=== PATIENT | female | born 1980 | race Caucasian/White ===

== ENCOUNTER → 2018-01-29 17:31 | Outpatient (CLI) | payer OTHER, SELFPAY ==
[2018-01-29 19:36] LABS: Chlamydia Trachomatis by PCR Negative (Negative); Neisserai gonorrhoeae by PCR Negative (Negative); Probe Check PASS; Sample Adequacy Control PASS; Specimen Processing Control PASS
[2018-02-04 07:54] LABS: HPV APTIMA, High Risk Negative (Negative)
== END ==
PROVIDERS: Family Provider Family Medicine; PCP Family Medicine; Visit Provider Nurse Practitioner Women's Health
DX: Z12.4 Encounter for screening for malignant neoplasm of cervix (principal); Z11.3 Encounter for screening for infections with a predominantly sexual mode of transmission
CPT/HCPCS: 87491; 87591; 88175; G0145

== ENCOUNTER 2018-03-16 19:49 | Emergency (ER) | payer OTHER, SELFPAY ==
[2018-03-16 19:51] VITALS: BP 155/106; PULSE 111; RESP 16; TEMP 37; O2SAT 100; BMI 31.1
[2018-03-16 20:02] VITALS: PULSE 80; RESP 20; O2SAT 100
[2018-03-16] MEDS: LORazepam 2 MG/ML Syringe 1 MG IV (20:28)
[2018-03-16] MEDS: 0.9% Normal Saline 1,000 ML 1000 ML IV (20:28)
[2018-03-16 20:29] VITALS: O2SAT 97
[2018-03-16 20:46] LABS: Absolute Lymphocyte Count 2.81 X10^3/ul (0.83-4.51); Basophil# 0.02 X10^3/uL; Basophil% 0.3 % (0-1); Eosinophil# 0.22 X10^3/uL; Eosinophils% 2.9 % (0-5); Hematocrit 36.3 % (37-47); Hemoglobin 11.9 g/dl (12.0-15.0); Lymphocyte # 2.81 X10^3/ul (4.0); Lymphocyte % 37.5 % (19-41); Mean Corp Hgb Conc 32.8 g/gl (32-36); Mean Corpuscular Hgb 28.7 pg (27.0-32.0); Mean Corpuscular Volume 87.5 fL (81-99); Mean Platelet Vol. 10.9 fl (6.2-12.0); Monocyte# 0.44 X10^3/uL; Monocyte% 5.9 % (0-10); Neutrophil % 53.3 % (47-70); Platelet Count 201 K/mm3 (150-450); RBC Distribution Width CV 14.4 % (11.6-14.6); RBC Distribution Width SD 45.7 fl (35.1-43.9); Red Blood Count 4.15 M/mm3 (4.2-5.4); White Blood Count 7.5 K/mm3 (4.4-11.0)
[2018-03-16 20:47] LABS: Differential Indicated SCAN CRITERIA MET; POSITIVE COUNT NO; POSITIVE DIFFERENTIAL NO; POSITIVE MORPHOLOGY YES
[2018-03-16 21:06] LABS: Differential Comment SCANNED
[2018-03-16 21:07] LABS: Anion Gap 11 (5-15); BUN 6 mg/dL (7-18); BUN/Creat Ratio 8.9 RATIO (10-20); Calcium,Total 8.7 mg/dL (8.5-10.1); Chloride 110 mmol/L (98-107); Creatinine, Serum 0.68 mg/dL (0.55-1.02); EST Glomerular Filtration Rate 103 mL/min (>60); Est Glom Filt Rate - Afr Amer 124 mL/min (>60); Estimated Creatinine Clearance 99.95 ml/min; Glucose 88 mg/dL (74-106); Potassium 3.7 mmol/L (3.5-5.1); Sodium Level 144 mmol/L (136-145); Thyroid Stim Hormone (TSH) 1.52 uIU/mL (0.358-3.74)
[2018-03-16 21:12] LABS: Pregnancy, Serum, hCG Quali. NEGATIVE Negative (0-9 Nonpreg)
--- NOTE | 2018-03-16 21:28 | ED.DCSUM_ITS ---
- ER Visit Summary Date of Service: 03/16/18 Chief Complaint: Palpitations History of Present Illness: The patient is a [address] Amado and Dr. Cordova. She reports that she has had palpitations intermittently for the past week and they have worsened over the past 30 minutes. She denies any chest pain. She reports she has been nauseated at times. She has also been short of breath at times. Patient reports over the past 30 minutes it is been a constant irregular heartbeat. She denies any change in medications or caffeine. She does admit that she is under more stress than usual. Physical Examination: Vitals: Stable. Afebrile. General: Well-nourished and well-developed. Head: Normocephalic atraumatic. Neck: Supple, no lymphadenopathy. No JVD. Nontender. Cardiovascular: Regular rate and rhythm. No murmurs. Respiratory: No respiratory distress. Clear to auscultation bilaterally. Abdominal: Soft, nontender, nondistended, normal bowel sounds. No guarding, rebound, or peritoneal signs. Back: Nontender. Extremities: Nontender, no edema. Skin: Normal color, no rash. Neurologic: Alert and oriented ?3. Cranial nerves II through XII are intact. Normal strength and sensation. Psych: Normal affect. Test Results: EKG is sinus at 93 with no acute changes. Troponins negative. test is negative. TSH is normal. Chem-7 is more for chloride 110 BUN 6. CBC is marked for an H&H 11 point and 36.3, platelets of 201. Chest x- ray is normal. Emergency Department Course and Treatment: Patient was given a dose of Ativan IV and is resting comfortably. Treatment Plan: Patient will be discharged prescription for 10 Ativan to use as needed. Instructed follow-up her primary care physician as soon as possible. Return to the emergency department for any worsening symptoms. Disposition: To home in improved and stable condition. Impression: 1. Palpitations. 2. Anxiety. This note was generated with [employer] dictation software. It may contain incorrect words, spelling, and punctuation that were not noted in review of the chart prior to signing ED Disposition - Plan for ED Patient: Disposition: Home or Assisted Living Chief Complaint: Palpitations Instructions: ED Palpitations Prescriptions: Lorazepam [Ativan] 1 mg PO TID PRN #10 tablet PRN Reason: Anxiety Referrals: Jossie Leal MD [Primary Care Provider] - As soon as possible
[2018-03-16 21:40] VITALS: BP 130/87; PULSE 83; RESP 17; O2SAT 100
== END 2018-03-16 21:40 | disposition home or self-care (01) ==
PROVIDERS: Emergency Provider Emergency Medicine; Family Provider Family Medicine; PCP Student in an Organized Health Care Education/Training Program
DX: R00.2 Palpitations (principal); F41.9 Anxiety disorder, unspecified; F32.9 Major depressive disorder, single episode, unspecified; K50.90 Crohn's disease, unspecified, without complications; Z79.899 Other long term (current) drug therapy; Z72.0 Tobacco use
CPT/HCPCS: 71045; 80048; 84443; 84484; 84703; 85025; 93005; 96361; 96374; 99284; J7030

== ENCOUNTER → 2018-07-03 16:10 | Outpatient (CLI) | payer OTHER, SELFPAY ==
[2018-06-19 16:56] VITALS: BMI 31.1
--- OUTSIDE RECORDS SUMMARY | 2018-08-19 13:50 | XMS RPT_ITS ---
:1980 Author Organization OHIP Support Name Relationship Address Phone SANTO JIANG Unavailable Unavailable + NOT GIVEN Unavailable Unavailable Unavailable SANTO JIANG Unavailable Unavailable + NOT GIVEN Unavailable Unavailable Unavailable SANTO JIANG Unavailable Unavailable + NOT GIVEN Unavailable Unavailable Unavailable BUNTING, LORENZO Unavailable [address] + [place] [address] MAJOR[address] Un[address] + [place] [address] BUNTING, LORENZO Unavailable [address] + [place] [address] MAJOR[address] LAN[address] + [place] [address] BUNTING, LORENZO Unavailable [address] + [place] [address] [address] +. [place] [address] SANTO JIANG Unavailable Unavailable + NOT GIVEN Unavailable Unavailable Unavailable SANTO JIANG Unavailable Unavailable + NOT GIVEN Unavailable Unavailable Unavailable SANTO JIANG Unavailable Unavailable + NOT GIVEN Unavailable Unavailable Unavailable SANTO JIANG Unavailable Unavailable + NOT GIVEN Unavailable Unavailable Unavailable BUNTING, LORENZO Unavailable [address] + [place] [address] [address] +. [place] [address] BUNTING, FRANCO Unavailable [address] + [place] [address] BUNTING, FRANCO Unavailable [address] + [place] [address] UN Unavailable Unavailable Unavailable BUNTING, LORENZO Unavailable [address] + [place] [address] MAJORA LANES Un[address] +. [place] [address] BUNTING, LORENZO Unavailable [address] + [place] [address] MAJORA LANES Un[address] +. [place] [address] BUNTING, LORENZO Unavailable [address] + [place] [address] NOT GIVEN Unavailable Unavailable Unavailable JIANG, SANTO Unavailable Unavailable + JIANGANDREWSANTO Unavailable Unavailable + NOT GIVEN Unavailable Unavailable Unavailable Care Team Providers Name Role Phone Andrea Cho Attending Unavailable Andrea Cho Referring Unavailable Harris, Everette Primary Care Unavailable Jossie Arita Primary Care Unavailable Elizabeth Ramos Attending Unavailable Natalie Vazquez Attending Unavailable Harris, Evertete Referring Unavailable Harris, Everette Primary Care Unavailable Natalie Vazquez Attending Unavailable Harris, Everette Primary Care Unavailable Natalie Vazquez Referring Unavailable Harris, Everette Primary Care Unavailable Artis Pascal Attending Unavailable Amanda Cifuentes Attending Unavailable Jossie Arita Referring Unavailable CORINNE MURPHY Admitting Unavailable CORINNE MURPHY Attending Unavailable SHAHNAZ COLES Admitting Unavailable SHAHNAZ COLES Attending Unavailable SHAHNAZ COLES Primary Care Unavailable JOSSIE ARITA MD Consulting Unavailable PROVIDER, UNKNOWN Consulting Unavailable PROVIDER, UNKNOWN Consulting Unavailable STEPHEN ACOSTA DO Admitting Unavailable STEPHEN ACOSTA DO Attending Unavailable STEPHEN ACOSTA DO Primary Care Unavailable STEPHEN ACOSTA DO Admitting Unavailable STEPHEN ACOSTA DO Attending Unavailable STEPHEN ACOSTA DO Primary Care Unavailable NO, DOCTOR ON Consulting Unavailable NO, DOCTOR ON Referring Unavailable JOSSIE ARITA MD Admitting Unavailable JOSSIE ARITA MD Attending Unavailable JOSSIE ARITA MD Primary Care Unavailable NO, DOCTOR ON Consulting Unavailable KAROLINA LUCIA DO Admitting Unavailable KAROLINA LUCIA DO Attending Unavailable NO, DOCTOR ON Referring Unavailable KAROLINA LUCIA DO Primary Care Unavailable NO, DOCTOR ON Consulting Unavailable JOSSIE ARITA MD Admitting Unavailable JOSSIE ARITA MD Attending Unavailable JOSSIE ARITA MD Primary Care Unavailable NO, DOCTOR ON Consulting Unavailable DR JORDY HERNANDEZ Admitting Unavailable DAVID, DR JORDY Olguin Attending Unavailable NO, DOCTOR ON Referring Unavailable DAVID, DR JORDY Olguin Primary Care Unavailable NO, DOCTOR ON Consulting Unavailable CARIDAD JUDGE MD Admitting Unavailable CARIDAD JUDGE MD Attending Unavailable CARIDAD JUDGE MD Primary Care Unavailable NO, DOCTOR ON Consulting Unavailable CARIDAD JUDGE MD Admitting Unavailable CARIDAD JUDGE MD Attending Unavailable CARIDAD JUDGE MD Primary Care Unavailable CARIDAD JUDGE MD Consulting Unavailable PROVIDER, UNKNOWN Consulting Unavailable PROVIDER, UNKNOWN Consulting Unavailable PROVIDER, UNKNOWN Consulting Unavailable JOSSIE ARITA MD Admitting Unavailable JOSSIE ARITA MD Attending Unavailable JOSSIE ARITA MD Primary Care Unavailable NO, DOCTOR ON Consulting Unavailable JOSSIE ARITA MD Admitting Unavailable JOSSIE ARITA MD Attending Unavailable JOSSIE ARITA MD Primary Care Unavailable JOSSIE ARITA MD Consulting Unavailable PROVIDER, UNKNOWN Consulting Unavailable PROVIDER, UNKNOWN Consulting Unavailable KATHERINE, CORINNE R Attending Unavailable KATHERINE, CORINNE R Referring Unavailable KATHERINE, CORINNE R Referring Unavailable KATHERINE, CORINNE R Attending Unavailable KATHERINE, CORINNE R Referring Unavailable KATHERINE, CORINNE R Referring Unavailable JOSEP SILVERMAN M Attending Unavailable KATHERINECORINNE R Referring Unavailable BUNYARD, JOSE P Attending Unavailable CHIKAYARDJOSE P Referring Unavailable BUNYARD, JOSE P Referring Unavailable BUNYARD, JOSE P Referring Unavailable BUNYARD, JOSE P Attending Unavailable BUNYARD, JOSE P Referring Unavailable PCP, None Primary Care Unavailable Azam [place] Attending Unavailable PROBLEMS PROBLEMS DATE TYPE CONDITION / CODE ATTENDING STATUS SOURCE 08/13/2018 Active Crohn's disease of KATHERINE, Active [facility] large intestine CORINNE Wilder Other [place] with other Repository complication / K50.118(ICD-10) 08/06/2018 Active Anemia, NA Active [facility] unspecified / Main [place] D64.9(ICD-10) Repository 08/06/2018 Active Unspecified NA Active [facility] osteoarthritis, Main [place] unspecified site / Repository M19.90(ICD-10) 07/30/2018 Principle Cutaneous abscess JUAN J, Active Miah Pomerene Diagnosis of groin / JOSSIE [facility] D03525(ICD-10) Repository 07/30/2018 Active Localized enlarged NA Active [facility] lymph nodes / Main [place] R59.0(ICD-10) Repository 07/30/2018 Active Localized NA Active [facility] swelling, mass and Main [place] lump, neck / Repository R22.1(ICD-10) 07/18/2018 Active Pain in NA Active [facility] unspecified joint Main [place] / M25.50(ICD-10) Repository 06/19/2018 Unknown N92.6 - Irregular Marcanthony, Active [facility] menstruation, [facility] unspecified / Repository N92.6(ICD-10) 06/19/2018 Unknown N97.9 - Female Marcanthony, Active [facility] infertility, [facility] unspecified / Repository N97.9(ICD-10) 06/10/2018 Principle Localized enlarged ALFIE, Active Miahdrew Paiz Diagnosis lymph nodes / CARIDAD [facility] R590(ICD-10) Repository 04/11/2018 Principle Pruritus, CORRINAI, Active Miah Pomerene Diagnosis unspecified / JOSSIE [facility] L299(ICD-10) Repository 03/15/2018 Unknown NAUSEA WITH Azam [place] [facility] VOMITING, [facility] UNSPECIFIED / Center Repository R11.2(ICD-10) 03/15/2018 Unknown ACUTE FRONTAL Wilcox[place] russell [facility] SINUSITIS, [facility] Medical UNSPECIFIED / Center Repository J01.10(ICD-10) 03/15/2018 Unknown URINARY TRACT WilcoxAzam russell [facility] INFECTION, [facility] NOT SPECIFIED / Center Repository N39.0(ICD-10) 03/15/2018 Unknown PERSONAL HISTORY Azam [place] Active [facility] OF OTHER VENOUS [facility] Medical THROMBOSIS AND Center Repository EMBOLISM / Z86.718(ICD-10) 03/15/2018 Unknown CROHN'S DISEASE, Azam [place] [facility] UNSPECIFIED, [facility] WITHOUT Center Repository COMPLICATIONS / K50.90(ICD-10) 03/15/2018 Unknown TOBACCO USE / [place] russell [facility] Z72.0(ICD-10) [facility] Rep[facility] 03/15/2018 Unknown OTHER DIRECTOR OF ENTERTAINMENT [place]Azam russell R Active [facility] (CURRENT) DRUG [facility] THERAPY / Center Repository Z79.899(ICD-10) 03/14/2018 Active Gastro-esophageal NA Active [facility] reflux disease Main [place] without Repository esophagitis / K21.9(ICD-10) 01/30/2018 Unknown Z11.3 - Encounter [place], Active [facility] for screening for [facility] infections with a Repository predominantly sexual mode of transmission / Z11.3(ICD-10) PROCEDURES PROCEDURES No Procedure Records FoundRESULTS RESULTS ANES POST Observed: 08/13/2018 Status: COMPLETED Source: [place] 9:01 AM CLINIC OTHER CAMPUS REPOSITORY HNO ID: [id number] Author: Simon Rivero Service: Anesthesiology Author Type: Anesthesiologist Type: Anesthesia PostOp Filed: 08/13/2018 9:02 AM Note Text: POST ANESTHESIA EVALUATION NOTE SERVICE DATE: 08/13/2018 SERVICE TIME: 9:01 AM : 1980 Vitals: 08/13/18 0714 08/13/18 0815 Temp: 36.5 ?C (97.7 ?F) 36.2 ?C (97.2 ?F) 08/13/18 0815 08/13/18 0825 08/13/18 0835 08/13/18 0845 BP: 117/80 121/93 156/86 115/78 08/13/18 0815 08/13/18 0825 08/13/18 0835 08/13/18 0845 Pulse: 95 80 77 74 08/13/18 0815 08/13/18 0825 08/13/18 0835 08/13/18 0845 Resp: 16 16 16 16 08/13/18 0815 08/13/18 0825 08/13/18 0835 08/13/18 0845 SpO2: 100% 100% 100% 100% Validated Vital Signs: Yes No apparent anesthetic complications. The patient is appropriately hydrated with stable respiratory and cardiovascular status. Patient has safe and adequate airway control. The patient has appropriate pain relief and no significant post operative nausea or vomiting. The patient has achieved baseline mental status. Further assessment by Anesthesia Service: None Other Remarks: SIGNATURE: Simon Rivero MD PATIENT NAME: Jessica Jiang DATE: August 13, 2018 PAGER/CONTACT #: [phone] pager BRIEF OP NOT Observed: 08/13/2018 Status: COMPLETED Source: [place] 8:35 AM [facility] REPOSITORY HNO ID: [id number] Author: Corinne Murphy Service: Gastroenterology Author Type: Physician Type: Brief Op Note Filed: 08/13/2018 8:35 AM Note Text: Full operative report detailed in epic under procedures tab as documented in [facility]. PT ED Observed: 08/13/2018 Status: COMPLETED Source: [place] 8:30 AM [facility] REPOSITORY HNO ID: [id number] Author: Vanita (Rn) CRISTEL Howard Service: Nursing Author Type: Registered Nurse Type: Patient Education Filed: 08/13/2018 8:30 AM Note Text: POST OP LEARNING RESPONSE INSTRUCTION PROVIDED TO: Patient and friend/other METHOD OF INSTRUCTION: Written instruction - handouts Verbal instruction PATIENT / FAMILY RESPONSE: Verbalizes understanding of: POST-PROCEDURE INSTRUCTIONS-Correct actions to take to reduce post procedure complications FOLLOW-UP PLAN: Follow up phone call. SUPPLEMENTAL MATERIAL: None REFERRAL (RECOMMENDATION): None Electronically Signed By: Vanita Howard RN In Department: PROCEDURES ANES PREOP Observed: 08/13/2018 Status: COMPLETED Source: [place] 7:25 AM [facility] REPOSITORY HNO ID: [id number] Author: Simon Rivero Service: Anesthesiology Author Type: Anesthesiologist Type: Anesthesia PreOp Filed: 08/13/2018 7:34 AM Note Text: REGIONAL ANESTHESIOLOGY DAY OF SURGERY NOTE PATIENT NAME: Jessica Jiang : 1980 Procedure(s) (LRB): COLONOSCOPY (N/A) Surgeon(s): Corinne Murphy Estimated body mass index is 33.1 kg/m? as calculated from the following: Height as of 08/06/18: 164.3 cm (5' 4.69). Weight as of this encounter: 89.4 kg (197 lb). ASA Class: 2 Adequate NPO status: Yes Allergies: ALLERGIES Allergen Reactions - Levaquin [Levofloxa* Other: See Comments Ruptured achilles tendon Airway Assessment: MP 1; Neck ROM: Full ROM without neurologic symptoms; Airway Evaluation: No significant abnormalities Dentition: Teeth intact Symptoms of Sleep Apnea: Denies Most recent lab results: Hemoglobin 10.3 08/06/2018 Hematocrit 31.6 08/06/2018 Potassium 4.0 08/06/2018 Platelet Count 306 08/06/2018 Creatinine 0.57 08/06/2018 HCG Qualitative, Urine Negative 04/24/2015 EKG: Not indicated Vitals: 08/13/18 0714 Pulse: 76 Resp: 16 Temp: 36.5 ?C (97.7 ?F) TempSrc: Temporal Artery SpO2: 100% Weight: 89.4 kg (197 lb) Previous Anesthesia: No history of adverse event Family history of anesthetic problems: None Additional Physical Exam: Lungs: Lungs clear to auscultation. Good diaphragmatic excursion. Cardiac: Normal S1 and S2; no rubs, no murmurs and no gallops Additional pertinent findings: N/A Other Medical Problems/ Important Considerations: Denies chest pain and SOB with exertion. Denies change in functional capacity. Denies GERD. crohns dx on steroid taper Chronic Beta Jovita medication administered within 24 hours: N/A Anesthetic risks, benefits, alternatives, personnel and consent discussed: Yes Patient agrees to proceed: Yes Blood Products: Not anticipated for this procedure Anesthetic Plan: MAC with GA as back up; Standard ASA Monitors Pain Management Plan: Parenteral or Oral EPIC Chart Review ACTIVE PROBLEM LIST Carcinoid Tumor of Appendix, Malignant (Hcc) Ovarian Cyst Crohn's disease Insomnia Anxiety Neurosis Gerd (Gastroesophageal Reflux Disease) Nausea Crohn's Disease of Large Intestine With Other Complication Non Morbid Obesity Smoker PAST MEDICAL HISTORY Diagnosis Date - Anxiety - Carcinoid tumor of appendix 2012 - Crohn's disease (HCC) - DVT (deep venous thrombosis) (HCC) 2007 - Herniated disc - Left ovarian cyst 2012 - Non morbid obesity 03/14/2018 - Smoker 03/14/2018 - Swollen lymph nodes PAST SURGICAL HISTORY Procedure Laterality Date - APPENDECTOMY 09/12/2012 incidental finding carcinoid tumor appendix - COLONOSCOP W/ OR W/O BRSH SPEC 02/16/16 Colonoscopy - COLONOSCOPY W/BX 09/05/11 normal colon - COLPO OF CERVIX INC UPPER VAG - CRYOCAUTERY OF CERVIX - EGD W/O BRSH SPECIMEN W/BX 09/05/11 gastritis - EGD W/O BRSH SPECIMEN W/BX - - EGD W/O OR W/BRUSH/WASH 02/16/16 EGD - REMOVAL GALLBLADDER Cholecystectomy - REMOVAL OF TONSILS,<12 Y/O Tonsillectomy FAMILY HISTORY Problem Relation Age of Onset - Hypertension Mother - Hypertension Father - Ovarian cancer Paternal Grandmother - Stroke Paternal Grandmother - other (Other) Paternal Grandmother diverticulitis - Cancer Paternal Grandfather Lung - Colon Cancer Other 2 great aunts/1 great unclet Social History: Social History Substance Use Topics - Smoking status: Current Every Day Smoker Packs/day: 1.00 Years: 15.00 Types: Cigarettes - Smokeless tobacco: Never Used - Alcohol use No No current facility-administered medications on file prior to encounter. Current Outpatient Prescriptions on File Prior to Encounter: citalopram (CELEXA) 40 mg tablet Take 40 mg by mouth once daily. pantoprazole DR (PROTONIX) 40 mg tablet Take 1 tablet by mouth once daily. ondansetron orally disintegrating (ZOFRAN ODT) 4 mg disintegrating tablet Take 1 tablet by mouth every 8 hours as needed. prochlorperazine (COMPAZINE) 10 mg tablet Take 1 tablet by mouth every 8 hours as needed (FOR NAUSEA). hydrOXYzine pamoate (VISTARIL) 25 mg capsule Take 25 mg by mouth four times daily as needed for Anxiety. promethazine (PHENERGAN) 25 mg tablet Take 1 tablet by mouth four times daily as needed. Inpatient medications reviewed in [facility]. I have interviewed and examined the patient. I have reviewed the medical record and/or the pre-anesthesia evaluation, pertinent labs, and test results. Significant changes in the patient's condition since the History and Physical, not otherwise documented in primary service progress notes: No This contains updated information obtained within 48 hours of Surgery/Procedure. SIGNATURE: Simon Rivero MD PATIENT NAME: Jessica Jiang DATE: August 13, 2018 TIME: 724 PAGER/CONTACT #: [phone] (pager) PT ED Observed: 08/13/2018 Status: COMPLETED Source: [place] 7:12 AM CLINIC OTHER CAMPUS REPOSITORY O ID: [id number] Author: Vanita (Cristel) CRISTEL Howard Service: Nursing Author Type: Registered Nurse Type: Patient Education Filed: 08/13/2018 7:13 AM Note Text: PRE OP LEARNING ASSESSMENT PROCEDURE/SURGERY: Colonoscopy READINESS TO LEARN COGNITIVE ABILITY: Alert and oriented MOTIVATION TO LEARN: Eager Interested FAMILY SUPPORT: High - Very involved in pt care PATIENT LEARNS BEST BY: Written Instruction - Hand-outs Verbal Instruction FACTORS AFFECTING LEARNING: None PHYSICAL LIMITATIONS AFFECTING LEARNING: None Electronically Signed By: Vanita Howard RN In Department: PROCEDURES CNPN Observed: 08/09/2018 Status: COMPLETED Source: [place] 12:00 AM [facility] REPOSITORY Telephone (RHEUMN) JESSICA JIANG ([id number]) 1980 F Date Time Provider Department 08/09/18 JOSE OLIVEIRA During your visit today, we recorded the following information about you: Jose Oliveira MD 08/09/2018 1:04 PM Signed Labs with: --Anemia --Low Fe --Increased APRs She has messaged me that the 40 mg prednisone has worked well Will reduce to 30 mg now She will message me this coming week I will have her check with Dr. Murphy on the Fe MD Jose Collier MD 08/11/2018 1:55 PM Signed Update today that she is down to the 30 mg and still doing well Will reduce to 20 mg and have her check with me again in 3 days. Jose Oliveira MD Allergies As of Date: 08/09/2018 Noted Allergy Reaction LEVAQUIN (LEVOFLOXACIN) 05/14/2011 14 - Other: See Comments Comments: Ruptured achilles tendon Date Reviewed: 08/06/2018 Reviewed by: Tamika Ojeda - Fully Assessed Reason for Visit: Results [95] Patient Update [1234] Reason For Visit History Recorded Prescriptions as of 08/09/2018 Sig: PREDNISONE 20 MG TABLET Take 2 tablets by mouth once * CHOLECALCIFEROL (VITAMIN D3) * Take 1 tablet by mouth once d* TRAZODONE 100 MG TABLET Take 1 tablet by mouth as nee* LORAZEPAM 0.5 MG TABLET Take 1 tablet by mouth twice * VIT NO.136-FERROUS F* Take 1 tablet by mouth once d* PAROXETINE 10 MG TABLET Take 1 tablet by mouth once d* AMITRIPTYLINE 10 MG TABLET Take 2.5 tablets by mouth beth* PEG 3350-ELECTROLYTES 236 GRA* Take as directed Patient not taking: Reported on 07/17/2018 DICYCLOMINE 10 MG CAPSULE Take 1 capsule by mouth three* CITALOPRAM 40 MG TABLET Take 40 mg by mouth once marino* PANTOPRAZOLE 40 MG TABLET,DEL* Take 1 tablet by mouth once d* ONDANSETRON 4 MG DISINTEGRATI* Take 1 tablet by mouth every * PROCHLORPERAZINE MALEATE 10 M* Take 1 tablet by mouth every * HYDROXYZINE PAMOATE 25 MG CAP* Take 25 mg by mouth four time* PROMETHAZINE 25 MG TABLET Take 1 tablet by mouth four t* Problem List As Of Date 08/09/2018 Noted Resolved Cellulitis and abscess of unspecified site [L03*INVALID FOR*09/29/2012 Change in bowel function [R19.8] INVALID FOR*09/29/2012 Abdominal pain, unspecified site [R10.9] INVALID FOR*09/29/2012 Carcinoid tumor of appendix, 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 Abdominal pain [R10.9] INVALID FOR*03/14/2018 More... DVT (deep venous thrombosis) (HCC) [I82.409] INVALID FOR*03/14/2018 More... SUMMARY INVALID FOR*03/14/2018 More... Insomnia [G47.00] INVALID FOR* Anxiety neurosis [F41.1] INVALID FOR* GERD (gastroesophageal reflux disease) [K21.9] INVALID FOR* Nausea [R11.0] INVALID FOR* Crohn's disease of large intestine with other c*INVALID FOR* More... Non morbid obesity [E66.9] INVALID FOR* Smoker [F17.200] INVALID FOR* Encounter Status:Closed by JOSE OLIVEIRA MD on 08/09/18 CBC AND DIFFERENTIAL Collected: 08/06/2018 Status: F Source: [place] 3:11 PM [facility] REPOSITORY TYPE CODE TESTS RESULT OUT OF REFERENCE UNITS RANGE LAB WBC 3.70-11.00 k/uL WBC 8.05 LAB RBC 3.90-5.20 m/uL Low RBC 3.71 LAB HGB 11.5-15.5 g/dL Low Hemoglobin 10.3 LAB HCT 36.0-46.0 % Low Hematocrit 31.6 LAB MCV 80.0-100.0 fL MCV 85.2 LAB MCH 26.0-34.0 pG MCH 27.8 LAB MCHC 30.5-36.0 g/dL MCHC 32.6 LAB RDWCV 11.5-15.0 % RDW-CV 13.2 LAB PLTCT 150-400 k/uL Platelet Count 306 LAB MPV 9.0-12.7 fL MPV 10.9 LAB ANEUT % Neut% 62.3 LAB AANEUT 1.45-7.50 k/uL Abs Neut 5.01 LAB ALYMP % Lymph% 26.3 LAB AALYMP 1.00-4.00 k/uL Abs Lymph 2.12 LAB AMONO % [place]% 6.7 LAB AAMONO <0.87 k/uL Abs [place] 0.54 LAB AEOS % Eosin% 4.1 LAB AAEOS <0.46 k/uL Abs Eosin 0.33 LAB ABASO % Baso% 0.6 LAB AABASO <0.11 k/uL Abs Baso 0.05 LAB AUNRBC 0 /100 WBC NRBCs 0.0 LAB ABNRBC <0.01 k/uL Absolute nRBC <0.01 LAB DTYP DTYPE Auto Diff Performed By: #### CBCDIF, RETIC, WSR, B12, SERFOL, CRP, HAPTO, CK, CMP, IRON, RF, FERR, DNA, CCP, HACRNA, MMA, PARV #### [facility] [address] [place], [place] [address] RETICULOCYTE Collected: 08/06/2018 Status: F Source: [place] 3:11 PM [facility] REPOSITORY TYPE CODE TESTS RESULT OUT OF REFERENCE UNITS RANGE LAB RETC 0.4-2.0 % High Retic% 2.4 LAB ABRET 0.0180-0.1000 M/uL Abs Retic 0.089 Performed By: #### CBCDIF, RETIC, WSR, B12, SERFOL, CRP, HAPTO, CK, CMP, IRON, RF, FERR, DNA, CCP, HACRNA, MMA, PARV #### [facility] [address] [place], [place] [address] SED RATE WESTERGREN Collected: 08/06/2018 Status: F Source: [place] 3:11 PM [facility] REPOSITORY TYPE CODE TESTS RESULT OUT OF REFERENCE UNITS RANGE LAB WSR 0-20 mm/hr Sed Rate High [place] 43 Performed By: #### CBCDIF, RETIC, WSR, B12, SERFOL, CRP, HAPTO, CK, CMP, IRON, RF, FERR, DNA, CCP, HACRNA, MMA, PARV #### [facility] [address] [place], [place] [address] VITAMIN B12 Collected: 08/06/2018 Status: F Source: [place] 3:11 PM [facility] REPOSITORY TYPE CODE TESTS RESULT OUT OF REFERENCE UNITS RANGE LAB B12 232-1245 pg/mL Vitamin B12 608 Performed By: #### CBCDIF, RETIC, WSR, B12, SERFOL, CRP, HAPTO, CK, CMP, IRON, RF, FERR, DNA, CCP, HACRNA, MMA, PARV #### [place] [address] [place], [place] [address] FOLATE, SERUM Collected: 08/06/2018 Status: F Source: [place] 3:11 [facility] REPOSITORY TYPE CODE TESTS RESULT OUT OF REFERENCE UNITS RANGE LAB SERFOL >4.7 ng/mL Folate, 17.0 Serum Performed By: #### CBCDIF, RETIC, WSR, B12, SERFOL, CRP, HAPTO, CK, CMP, IRON, RF, FERR, DNA, CCP, HACRNA, MMA, PARV #### [facility] [address] [facility] [place], [place] [address] C-REACTIVE PROTEIN Collected: 08/06/2018 Status: F Source: [place] 3:11 PM [facility] REPOSITORY TYPE CODE TESTS RESULT OUT OF REFERENCE UNITS RANGE LAB CRP <0.9 mg/dL High C-Reactive 4.8 Protein Performed By: #### CBCDIF, RETIC, WSR, B12, SERFOL, CRP, HAPTO, CK, CMP, IRON, RF, FERR, DNA, CCP, HACRNA, MMA, PARV #### [facility] [address] [place], [place] [address] HAPTOGLOBIN Collected: 08/06/2018 Status: F Source: [place] 3:11 PM [facility] REPOSITORY TYPE CODE TESTS RESULT OUT OF REFERENCE UNITS RANGE LAB HAPTO 31-238 mg/dL Haptoglobin 220 Performed By: #### CBCDIF, RETIC, WSR, B12, SERFOL, CRP, HAPTO, CK, CMP, IRON, RF, FERR, DNA, CCP, HACRNA, MMA, PARV #### [facility] [address] [place], [place] [address] CK Collected: 08/06/2018 Status: F Source: [facility] 3:11 PM [facility] REPOSITORY TYPE CODE TESTS RESULT OUT OF RANGE REFERENCE UNITS LAB CK 42-196 U/L CK 43 Performed By: #### CBCDIF, RETIC, WSR, B12, SERFOL, CRP, HAPTO, CK, CMP, IRON, RF, FERR, DNA, CCP, HACRNA, MMA, PARV #### [facility] [address] [place], [place] [address] COMP METABOLIC PANEL Collected: 08/06/2018 Status: F Source: [place] 3:11 PM [facility] REPOSITORY TYPE CODE TESTS RESULT OUT OF REFERENCE UNITS RANGE LAB TP 6.3-8.0 g/dL Protein, Total 7.1 LAB ALB 3.9-4.9 g/dL Albumin 4.0 LAB CA 8.5-10.2 mg/dL Calcium, Total 9.0 LAB TBIL 0.2-1.3 mg/dL Bilirubin, Total 0.2 LAB ALKP 34-123 U/L Alkaline Phosphatase 102 LAB AST 13-35 U/L AST 17 LAB GLU 74-99 mg/dL Glucose 83 Result Comment: The [place] [employer] (ADA) provides guidance for cutoff values for fasting glucose and random glucose. The ADA defines fasting as no caloric intake for at least 8 hours. Fas ting plasma glucose results between 100 to 125 mg/dL indicate increased risk for diabetes (prediabetes). Fasting plasma glucose results greater than or equal to 126 mg/dL meet the criteria for diagnosis of diabetes. In the absence of unequivocal hyperglycemia, results should be confirmed by repeat testing. In a patient with classic symptoms of hyperglycemia or hyperglycemic crisis, random plasma glucose results greater than or equal to 200 mg/dL meet the criteria for diagnosis of diabetes. Reference: Standards of Medical Care in Diabetes 2016, [place] [employer]. Diabetes Care. 2016.39(Suppl 1). LAB BUN 7-21 mg/dL BUN Low 6 LAB CRET 0.58-0.96 mg/dL Creatinine Low 0.57 LAB NA 136-144 mmol/L Sodium 136 LAB K 3.7-5.1 mmol/L Potassium 4.0 LAB CL 97-105 mmol/L Chloride 99 LAB CO2 22-30 mmol/L CO2 23 LAB AGAP 9-18 mmol/L Anion Gap 14 LAB ALT 7-38 U/L ALT 11 LAB GFRAA eGFR- Amer. >60 LAB GFRNAA . eGFR-All Other Races >60 Result Comment: eGFR (Estimated GFR) Units of measure: mL/min/1.73 meters squared eGFR is derived from the reexpressed MDRD Study equation using the following parameters: serum creatinine, age, gender and race. The creatinine assay has been calibrated to be traceable to IDMS. An eGFR <60 mL/min/1.73m2 for >3 months is consistent with chronic kidney disease. Refer to KDOQI guidelines for clinical interpretation. In patients with unstable renal function, e.g. those with acute kidney injury, the eGFR may not accurately reflect actual GFR. Performed By: #### CBCDIF, RETIC, WSR, B12, SERFOL, CRP, HAPTO, CK, CMP, IRON, RF, FERR, DNA, CCP, HACRNA, MMA, PARV #### [facility] [address] [place], [place] [address] IRON AND TIBC Collected: 08/06/2018 Status: F Source: [place] 3:11 PM [facility] REPOSITORY TYPE CODE TESTS RESULT OUT OF REFERENCE UNITS RANGE LAB IRN 41-186 ug/dL Low Iron 13 LAB TIBC 232-386 ug/dL TIBC 322 LAB SAT 15-57 % Low Transferrin Saturatn 4 Performed By: #### CBCDIF, RETIC, WSR, B12, SERFOL, CRP, HAPTO, CK, CMP, IRON, RF, FERR, DNA, CCP, HACRNA, MMA, PARV #### [facility] [address] [place], [place] [address] RHEUMATOID FACTOR Collected: 08/06/2018 Status: F Source: [place] 3:11 [facility] REPOSITORY TYPE CODE TESTS RESULT OUT OF REFERENCE UNITS RANGE LAB RF <16 IU/mL Rheumatoid <10 Factor Performed By: #### CBCDIF, RETIC, WSR, B12, SERFOL, CRP, HAPTO, CK, CMP, IRON, RF, FERR, DNA, CCP, HACRNA, MMA, PARV #### [place] [id number] FERRITIN Collected: 08/06/2018 Status: F Source: [place] 3:11 [facility] REPOSITORY TYPE CODE TESTS RESULT OUT OF REFERENCE UNITS RANGE LAB FERR 14.7-205.1 ng/mL Ferritin 31.3 Performed By: #### CBCDIF, RETIC, WSR, B12, SERFOL, CRP, HAPTO, CK, CMP, IRON, RF, FERR, DNA, CCP, HACRNA, MMA, PARV #### [place] [id number] DNA ANTIBODY W/ CONF. Collected: 08/06/2018 Status: F Source: [place] 3:[address] [place] [address] REPOSITORY TYPE CODE TESTS RESULT OUT OF REFERENCE UNITS RANGE LAB DNA <30 IU/mL DNA Antibody 12 w/ Conf. Result Comment: Negative for ds DNA Antibodies Negative: <30 IU/mL Equivocal: 30-74 IU/mL Positive: >74 IU/mL Performed By: #### CBCDIF, RETIC, WSR, B12, SERFOL, CRP, HAPTO, CK, CMP, IRON, RF, FERR, DNA, CCP, HACRNA, MMA, PARV #### [address] [address] CCP ANTIBODY, IGG Collected: 08/06/2018 Status: F Source: [place] 3:[address] [place] [address] REPOSITORY TYPE CODE TESTS RESULT OUT OF REFERENCE UNITS RANGE LAB CCPABG <20 Units High CCP 24 Antibody, IgG Result Comment: < 20 units: Negative 20-39 units: Weak Positive 40-59 units: Moderate Positive > 60 units: Strong Positive The following results were obtained with the [employer] QUANTA Lite CCP3 IgG FROY. Anti-CCP values obtained with different manufacturers' assay methods may not be used interchangeably. The magnitude of the reported IgG levels cannot be correlated to an endpoint titer. Performed By: #### CBCDIF, RETIC, WSR, B12, SERFOL, CRP, HAPTO, CK, CMP, IRON, RF, FERR, DNA, CCP, HACRNA, MMA, PARV #### [place] [id number] HEPATITIS ACUTE RNA Collected: 08/06/2018 Status: F Source: [place] 3:11 [facility] REPOSITORY TYPE CODE TESTS RESULT OUT OF REFERENCE UNITS RANGE LAB AHAVM Negative Hepatitis A Ab Negative IgM LAB HBSAGA Negative HBsAg Negative LAB HCQPCR IU/mL Hepatitis C RNA HCV RNA not detected by PCR. Result Comment: Reference Range: Negative for HCV RNA The Linear Range of this assay is 15 IU/mL to 100,000,000 IU/mL. LAB AHBCM Negative Negative Hep B Core Ab, IgM Performed By: #### CBCDIF, RETIC, WSR, B12, SERFOL, CRP, HAPTO, CK, CMP, IRON, RF, FERR, DNA, CCP, HACRNA, MMA, PARV #### [place] [address] METHYLMALONIC ACID Collected: 08/06/2018 Status: F Source: [place] 3:11 [facility] REPOSITORY TYPE CODE TESTS RESULT OUT OF REFERENCE UNITS RANGE LAB MMA 79-376 nmol/L Methylmalonic Acid 171 Result Comment: This test was developed and its performance characteristics determined by [facility] [place] ([facility]). It has not been cleared or approved by the FDA. [facility] is regulated under CLIA as qualified to perform high-complexity testing. This test is used for clinical purposes. It should not be regarded as investigational or for research. Performed By: #### CBCDIF, RETIC, WSR, B12, SERFOL, CRP, HAPTO, CK, CMP, IRON, RF, FERR, DNA, CCP, HACRNA, MMA, PARV #### [address] [place], [place] [address] PARVOVIRUS B19 ABS Collected: 08/06/2018 Status: F Source: [place] 3:11 PM [facility] REPOSITORY TYPE CODE TESTS RESULT OUT OF REFERENCE UNITS RANGE LAB PARVGR Negative Parvo Negative B19 IgG, Qual Result Comment: Absence of any detectable IgG antibodies to the B19 virus. LAB PARIGG Parvovirus B19 IgG 0.22 Result Comment: Index values are interpreted as follows: Negative specimens <0.9 Equivocal specimens 0.9 to 1.1 Positive specimens >1.1 Results were obtained with the [employer] Parvovirus B19 IgG Enzyme Immunoassay. Values obtained with different manufacturers' assay methods may not be used interchangeably. The magnitude of the reported I gG level cannot be correlated to an endpoint titer. LAB PARVMR Negative Negative Parvo B19 IgM, Qual Result Comment: Absence of any detectable IgM antibodies to the B19 virus. LAB PARIGM Parvovirus B19 IgM 0.14 Result Comment: Index values are interpreted as follows: Negative specimens <0.9 Equivocal specimens 0.9 to 1.1 Positive specimens >1.1 Results were obtained with the [employer] Parvovirus B19 IgM Enzyme Immunoassay. Values obtained with different manufacturers' assay methods may not be used interchangeably. The magnitude of the reported I gM level cannot be correlated to an endpoint titer. Performed By: #### CBCDIF, RETIC, WSR, B12, SERFOL, CRP, HAPTO, CK, CMP, IRON, RF, FERR, DNA, CCP, HACRNA, MMA, PARV #### [facility] [address], [place] [address] PROGRESS Observed: 08/06/2018 Status: COMPLETED Source: [place] 1:51 PM [facility] REPOSITORY HNO ID: [id number] Author: Jose Oliveira Service: (none) Author Type: Physician Type: Progress Notes Filed: 08/06/2018 4:35 PM Note Text: RHEUMATOLOGY FOLLOW UP NOTE PROVIDER: Jose Oliveira MD DATE OF VISIT: 08/06/2018 PATIENT NAME: Jessica Jiang KATERINA CHIEF COMPLAINT / REASON FOR VISIT: Joint pains SUBJECTIVE / INTERIM HISTORY: Patient returns for follow-up. Last seen here 3 weeks ago as [facility]. Since last visit: Old problems: 1. Joint pains Was more random Now, over last 10 days, having progressive, more persistant pains Hand, wrists, elbows, shoulders, hips, knees, feet, spine. Swelling seen. Taking more Motrin Saw PCP last week Had labs with increased ESR and CRP Losing function Barely able to work BF has to help her 2. Boil in groin worse last week PCP did Blood Cx and started doxycycline for 5 days This is better 3. Crohn's is with no new bowel issues Off Cimzia now for a month 4. MARÍA neck Did CT with no path nodes Reviewed with ENT who has seen her 5. Has still had off and on sore throat. Throat Cx neg 6. R olecranon b Swelled again Saw PCP and Ortho Not drained Not thought to be septic New problems: 1. CT neck showed possible left tooth infection She saw her dentist May have to have root canal No pain there 2. CT neck showed some area along trachea, most likely secretions Reviewed with ENT and they agreed 3. My labs showed some anemia 4. My labs showed (+) CHAO and histone Rest of KAJAL and dsDNA neg 5. My labs showed low D She is on repletion now 6. Notes some edema 7. Labs with low NK cells Scheduled to see Immunology REVIEW OF SYSTEMS: General: No fever, weight loss. (+) weight gain Skin: No rash, nodule. Eyes: No vision change, inflammation, dryness. HENT: No oral ulcers, dryness. (+) intermittent sore throat Cardiac: No chest pain, palpitations. Pulmonary:No cough, dyspnea, pleurisy. GI: No nausea, abdominal pain, diarrhea. : No dysuria, discharge. Neuro: No numbness, focal weakness, headache. Rest of ROS reviewed and noted in HPI. PAST MEDICAL AND SURGICAL HISTORY PAST MEDICAL HISTORY Diagnosis Date - Anxiety - Carcinoid tumor of appendix 2012 - Crohn's disease (HCC) - DVT (deep venous thrombosis) (HCC) 2007 - Herniated disc - Left ovarian cyst 2012 - Non morbid obesity 03/14/2018 - Smoker 03/14/2018 - Swollen lymph nodes PAST SURGICAL HISTORY Procedure Laterality Date - APPENDECTOMY 09/12/2012 incidental finding carcinoid tumor appendix - COLONOSCOP W/ OR W/O BRSH SPEC 02/16/16 Colonoscopy - COLONOSCOPY W/BX 09/05/11 normal colon - COLPO OF CERVIX INC UPPER VAG - CRYOCAUTERY OF CERVIX - EGD W/O BRSH SPECIMEN W/BX 09/05/11 gastritis - EGD W/O BRSH SPECIMEN W/BX 10-14-14 - EGD W/O OR W/BRUSH/WASH 02/16/16 EGD - REMOVAL GALLBLADDER Cholecystectomy - REMOVAL OF TONSILS,<12 Y/O Tonsillectomy SOCIAL AND FAMILY HISTORY FAMILY HISTORY Problem Relation Age of Onset - Hypertension Mother - Hypertension Father - Ovarian cancer Paternal Grandmother - Stroke Paternal Grandmother - other (Other) Paternal Grandmother diverticulitis - Cancer Paternal Grandfather Lung - Colon Cancer Other 2 great aunts/1 great unclet Social History Marital status: Single Spouse name: Years of education: 17 Number of children: 1 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 traZODone (DESYREL) 100 mg tablet Take 1 tablet by mouth as needed. LORazepam (ATIVAN) 0.5 mg tab Take 1 tablet by mouth twice daily as needed. Vit-Sarah Beth-Fe Fum-FA (VINATE M) 27 mg iron-1 mg Take 1 tablet by mouth once daily. PARoxetine (PAXIL) 10 mg tablet Take 1 tablet by mouth once daily. amitriptyline (ELAVIL) 10 mg tablet Take 2.5 tablets by mouth daily at bedtime. dicyclomine (BENTYL) 10 mg capsule Take 1 capsule by mouth three times daily as needed. Use as directed citalopram (CELEXA) 40 mg tablet Take 40 mg by mouth once daily. pantoprazole DR (PROTONIX) 40 mg tablet Take 1 tablet by mouth once daily. ondansetron orally disintegrating (ZOFRAN ODT) 4 mg disintegrating tablet Take 1 tablet by mouth every 8 hours as needed. prochlorperazine (COMPAZINE) 10 mg tablet Take 1 tablet by mouth every 8 hours as needed (FOR NAUSEA). hydrOXYzine pamoate (VISTARIL) 25 mg capsule Take 25 mg by mouth four times daily as needed for Anxiety. promethazine (PHENERGAN) 25 mg tablet Take 1 tablet by mouth four times daily as needed. certolizumab pegol (CIMZIA) 400 mg (200 mg x 2 vials) kit Inject 1 mL subcutaneously every 2 weeks. (Patient not taking: Reported on 08/06/2018 ) peg 3350-Electrolytes (GOLYTELY) 236-22.74-6.74 -5.86 gram suspension Take as directed (Patient not taking: Reported on 07/17/2018 ) No current facility-administered medications for this visit. PHYSICAL EXAMINATION: General: Patient is alert and oriented. Appears tired, but not toxic Vital signs: BP 124/77 (BP Site: Left Arm, BP Position: Sitting, BP Cuff Size: Large Adult) Pulse 96 Temp 37.3 ?C (99.1 ?F) (Temporal Artery) Ht 164.3 cm (5' 4.69) Wt 89.7 kg (197 lb 11.2 oz) BMI 33.22 kg/m? Skin: No rash, nodule or thickening. Eyes: No injection. PERRLA. HENT: Normal inspection and palpation of ears and nose. Normal OP and tongue. No exudate Lymph: Normal in neck and axillae. Neck: No thyromegaly or mass. Lungs: Normal resp. effort. Clear to A AND P. Heart: RRR without gallop, murmur or rub. Extremities: Trace LE edema. Pulses equal and normal. Musculoskeletal: Pain on ROM joints. Tender. No R olecranon swelling. Swelling and tender to wrists and fingers. Knees not swollen, but pain on ROM. Pain on ROM hips DATA: Laboratory: Reviewed Component Latest Ref Rng AND Units 07/18/2018 WBC 3.70 - 11.00 k/uL 8.31 RBC 3.90 - 5.20 m/uL 3.73 (L) Hemoglobin 11.5 - 15.5 g/dL 10.8 (L) Hematocrit 36.0 - 46.0 % 33.5 (L) MCV 80.0 - 100.0 fL 89.8 MCH 26.0 - 34.0 pG 29.0 MCHC 30.5 - 36.0 g/dL 32.2 RDW-CV 11.5 - 15.0 % 13.4 Platelet Count 150 - 400 k/uL 267 MPV 9.0 - 12.7 fL 11.9 Neut% % 56.7 Abs Neut (ANC) 1.45 - 7.50 k/uL 4.72 Lymph% % 35.3 Abs Lymph 1.00 - 4.00 k/uL 2.93 [place]% % 5.2 Abs [place] <0.87 k/uL 0.43 Eosin% % 2.3 Abs Eosin <0.46 k/uL 0.19 Baso% % 0.5 Abs Baso <0.11 k/uL 0.04 Nucleated Reds 0 /100 WBC 0.0 Absolute nRBC <0.01 k/uL <0.01 Diff Type Auto Diff CD3+ T Cell % 60 - 89 % 66 CD3+ T Cell # (IMDFMR) 958 - 2,388 Cells/uL 1,864 CD4+CD3+ T Cell % 34 - 61 % 49 CD4+CD3+ T Cell # 533 - 1,674 Cells/uL 1,376 CD3+CD8+ T Cell % 10 - 41 % 16 CD3+CD8+ T Cell # 175 - 958 Cells/uL 443 CD19+ B Cell % 5 - 22 % 30 (H) CD19+ B Cell # 75 - 660 Cells/uL 860 (H) NK Cell % 5 - 25 % 3 (L) NK Cell # 102 - 565 Cells/uL 82 (L) CD4/CD8 Ratio 1.10 - 3.25 3.11 Immunodef Comment Clinical interpretation of lymphocyte subsets must be made with caution. Relative . . . Sm Antibody <1.0 AI <0.2 HOOP CUTTER Antibody <1.0 AI <0.2 SSA Antibody <1.0 AI <0.2 SSB Antibody <1.0 AI <0.2 Centromere Ab <1.0 AI <0.2 Scleroderma Ab, IgG <1.0 AI <0.2 Kathleen 1 Antibody <1.0 AI <0.2 Ribosomal HOOP CUTTER <1.0 AI <0.2 Chromatin Antibody <1.0 AI <0.2 MPA IgG, Serum 717 - 1,411 mg/dL 1,050 MPA IgA, Serum 78 - 391 mg/dL 74 (L) MPA IgM, Serum 53 - 334 mg/dL 90 [place] Free, Serum 3.30 - 19.40 mg/L 9.5 Lambda Free, Serum 5.7 - 26.3 mg/L 12.6 K/L Ratio, Serum 0.26 - 1.65 0.75 MPA Result No M protein is identified. No M protein is identified. Staff Review (MPA) Reviewed by Ismael Whitney MD ([id number]) CHAO Negative Positive (A) CHAO Titer Negative 1:640 (A) CHAO Pattern Homogeneous TSH 0.400 - 5.500 uU/mL 1.600 Histone Ab, IgG <1.0 Units 1.3 (H) DNA Antibody w/Confirmation <30 IU/mL 12 CRISTA <52 U/L 23 C3 86 - 166 mg/dL 103 C4 13 - 46 mg/dL 20 Rheumatoid Factor <16 IU/mL <10 CCP Antibody, IgG <20 Units 21 (H) Vitamin D 25 Hydroxy 31.0 - 80.0 ng/mL 30.4 (L) Lyme Abs, IgG/IgM Negative Negative HLA-B27 DNA Result Negative 07/30/18: CRP 9.3 mg/dL WBC 10.7 HGB 12.2 MCV 86 PLT 292 ESR 46 Throat Cx neg Blood Cx x2 neg Boil: Scant growth of Coag neg Staph Radiology: Reviewed XR spine with minimal deg changes CXR neg IMPRESSION / PROBLEM LIST: 1. 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 Doubt -Rheumatoid arthritis Would be unusual with Crohn's 2. (+) CHAO and histone May be due to anti-TNF-a See above 3. Lymphadenopathy Doubt lymphoma 08/09: CT neck with no clear pathologic MARÍA ? 4. Infections Probably due to suppressed immune system ? 5. Crohn's disease Thought to be well controlled 6. Anemia Repeat by PCP normal RECOMMENDATIONS / PLAN: ? Laboratory: o As outlined in orders. ? Radiology: o I don't believe additional XR would add anything here ? Consultations: o FU GI team ? She is scheduled for colonoscopy next week o She has already seen ENT o She is scheduled to see Immunology ? Medications: o Prednisone 40 mg a day. ? Start today ? Then will sort out tapering o May consider re-start Cimzia o Consider add hydroxychloroquine ? Patient Education: Risks, benefits and alternatives of/to corticosteroids. Risks include but are not limited to: Cataracts, glaucoma, hypertension, diabetes, osteoporosis, osteonecrosis, gastritis, muscle problems (myopathy), thin skin, bruising, weight gain, edema, increased risk of infection. ? Vaccinations: o Keep up to date ? Other: o Patient aware that I will call if testing is out of the range of what is expected. o Patient should update all of her age appropriate malignancy screens. ? Follow-up: o She will message me in 48 hours Total face to face time at this visit was 50 minutes. Greater than 50% of the time was spent on counseling the patient and / or coordination of care. Electronically signed by: Jose Oliveira MD CC: Jossie Arita MD [id number] [place] [phone] CNOV Observed: 08/06/2018 Status: COMPLETED Source: [place] 1:10 PM [facility] REPOSITORY Office Visit (RHEUMN) JESSICA JIANG ([id number]) 1980 F Date Time Provider Department 08/06/18 1:10 PM JOSE OLIVEIRA During your visit today, we recorded the following information about you: Temperature Pulse Blood pressure Weight 99.1 degrees 96/minute 124/77 89.7 kg Height 1.643 m Jose Oliveira MD 08/06/2018 4:35 PM Signed RHEUMATOLOGY FOLLOW UP NOTE PROVIDER: Jose Oliveira MD DATE OF VISIT: 08/06/2018 PATIENT NAME: Jessica Jiang CC CHIEF COMPLAINT / REASON FOR VISIT: Joint pains SUBJECTIVE / INTERIM HISTORY: Patient returns for follow-up. Last seen here 3 weeks ago as [facility]. Since last visit: Old problems: 1. Joint pains Was more random Now, over last 10 days, having progressive, more persistant pains Hand, wrists, elbows, shoulders, hips, knees, feet, spine. Swelling seen. Taking more Motrin Saw PCP last week Had labs with increased ESR and CRP Losing function Barely able to work BF has to help her 2. Boil in groin worse last week PCP did Blood Cx and started doxycycline for 5 days This is better 3. Crohn's is with no new bowel issues Off Cimzia now for a month 4. MARÍA neck Did CT with no path nodes Reviewed with ENT who has seen her 5. Has still had off and on sore throat. Throat Cx neg 6. R olecranon b Swelled again Saw PCP and Ortho Not drained Not thought to be septic New problems: 1. CT neck showed possible left tooth infection She saw her dentist May have to have root canal No pain there 2. CT neck showed some area along trachea, most likely secretions Reviewed with ENT and they agreed 3. My labs showed some anemia 4. My labs showed (+) CHAO and histone Rest of KAJAL and dsDNA neg 5. My labs showed low D She is on repletion now 6. Notes some edema 7. Labs with low NK cells Scheduled to see Immunology REVIEW OF SYSTEMS: General: No fever, weight loss. (+) weight gain Skin: No rash, nodule. Eyes: No vision change, inflammation, dryness. HENT: No oral ulcers, dryness. (+) intermittent sore throat Cardiac: No chest pain, palpitations. Pulmonary:No cough, dyspnea, pleurisy. GI: No nausea, abdominal pain, diarrhea. : No dysuria, discharge. Neuro: No numbness, focal weakness, headache. Rest of ROS reviewed and noted in HPI. PAST MEDICAL AND SURGICAL HISTORY PAST MEDICAL HISTORY Diagnosis Date - Anxiety - Carcinoid tumor of appendix 2012 - Crohn's disease (HCC) - DVT (deep venous thrombosis) (HCC) 2007 - Herniated disc - Left ovarian cyst 2012 - Non morbid obesity 03/14/2018 - Smoker 03/14/2018 - Swollen lymph nodes PAST SURGICAL HISTORY Procedure Laterality Date - APPENDECTOMY 09/12/2012 incidental finding carcinoid tumor appendix - COLONOSCOP W/ OR W/O BRSH SPEC 02/16/16 Colonoscopy - COLONOSCOPY W/BX 2/15/12 normal colon - COLPO OF CERVIX INC UPPER VAG - CRYOCAUTERY OF CERVIX - EGD W/O BRSH SPECIMEN W/BX 09/05/11 gastritis - EGD W/O BRSH SPECIMEN W/BX 10-14-14 - EGD W/O OR W/BRUSH/WASH 02/16/16 EGD - REMOVAL GALLBLADDER Cholecystectomy - REMOVAL OF TONSILS,<12 Y/O Tonsillectomy SOCIAL AND FAMILY HISTORY FAMILY HISTORY Problem Relation Age of Onset - Hypertension Mother - Hypertension Father - Ovarian cancer Paternal Grandmother - Stroke Paternal Grandmother - other (Other) Paternal Grandmother diverticulitis - Cancer Paternal Grandfather Lung - Colon Cancer Other 2 great aunts/1 great unclet Social History Marital status: Single Spouse name: Years of education: 17 Number of children: 1 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 traZODone (DESYREL) 100 mg tablet Take 1 tablet by mouth as needed. LORazepam (ATIVAN) 0.5 mg tab Take 1 tablet by mouth twice daily as needed. Vit-Sarah Beth-Fe Fum-FA (VINATE M) 27 mg iron-1 mg Take 1 tablet by mouth once daily. PARoxetine (PAXIL) 10 mg tablet Take 1 tablet by mouth once daily. amitriptyline (ELAVIL) 10 mg tablet Take 2.5 tablets by mouth daily at bedtime. dicyclomine (BENTYL) 10 mg capsule Take 1 capsule by mouth three times daily as needed. Use as directed citalopram (CELEXA) 40 mg tablet Take 40 mg by mouth once daily. pantoprazole DR (PROTONIX) 40 mg tablet Take 1 tablet by mouth once daily. ondansetron orally disintegrating (ZOFRAN ODT) 4 mg disintegrating tablet Take 1 tablet by mouth every 8 hours as needed. prochlorperazine (COMPAZINE) 10 mg tablet Take 1 tablet by mouth every 8 hours as needed (FOR NAUSEA). hydrOXYzine pamoate (VISTARIL) 25 mg capsule Take 25 mg by mouth four times daily as needed for Anxiety. promethazine (PHENERGAN) 25 mg tablet Take 1 tablet by mouth four times daily as needed. certolizumab pegol (CIMZIA) 400 mg (200 mg x 2 vials) kit Inject 1 mL subcutaneously every 2 weeks. (Patient not taking: Reported on 08/06/2018 ) peg 3350-Electrolytes (GOLYTELY) 236-22.74-6.74 -5.86 gram suspension Take as directed (Patient not taking: Reported on 07/17/2018 ) No current facility-administered medications for this visit. PHYSICAL EXAMINATION: General: Patient is alert and oriented. Appears tired, but not toxic Vital signs: BP 124/77 (BP Site: Left Arm, BP Position: Sitting, BP Cuff Size: Large Adult) Pulse 96 Temp 37.3 ?C (99.1 ?F) (Temporal Artery) Ht 164.3 cm (5' 4.69) Wt 89.7 kg (197 lb 11.2 oz) BMI 33.22 kg/m? Skin: No rash, nodule or thickening. Eyes: No injection. PERRLA. HENT: Normal inspection and palpation of ears and nose. Normal OP and tongue. No exudate Lymph: Normal in neck and axillae. Neck: No thyromegaly or mass. Lungs: Normal resp. effort. Clear to A AND P. Heart: RRR without gallop, murmur or rub. Extremities: Trace LE edema. Pulses equal and normal. Musculoskeletal: Pain on ROM joints. Tender. No R olecranon swelling. Swelling and tender to wrists and fingers. Knees not swollen, but pain on ROM. Pain on ROM hips DATA: Laboratory: Reviewed Component Latest Ref Rng AND Units 07/18/2018 WBC 3.70 - 11.00 k/uL 8.31 RBC 3.90 - 5.20 m/uL 3.73 (L) Hemoglobin 11.5 - 15.5 g/dL 10.8 (L) Hematocrit 36.0 - 46.0 % 33.5 (L) MCV 80.0 - 100.0 fL 89.8 MCH 26.0 - 34.0 pG 29.0 MCHC 30.5 - 36.0 g/dL 32.2 RDW-CV 11.5 - 15.0 % 13.4 Platelet Count 150 - 400 k/uL 267 MPV 9.0 - 12.7 fL 11.9 Neut% % 56.7 Abs Neut (ANC) 1.45 - 7.50 k/uL 4.72 Lymph% % 35.3 Abs Lymph 1.00 - 4.00 k/uL 2.93 [place]% % 5.2 Abs [place] <0.87 k/uL 0.43 Eosin% % 2.3 Abs Eosin <0.46 k/uL 0.19 Baso% % 0.5 Abs Baso <0.11 k/uL 0.04 Nucleated Reds 0 /100 WBC 0.0 Absolute nRBC <0.01 k/uL <0.01 Diff Type Auto Diff CD3+ T Cell % 60 - 89 % 66 CD3+ T Cell # (IMDFMR) 958 - 2,388 Cells/uL 1,864 CD4+CD3+ T Cell % 34 - 61 % 49 CD4+CD3+ T Cell # 533 - 1,674 Cells/uL 1,376 CD3+CD8+ T Cell % 10 - 41 % 16 CD3+CD8+ T Cell # 175 - 958 Cells/uL 443 CD19+ B Cell % 5 - 22 % 30 (H) CD19+ B Cell # 75 - 660 Cells/uL 860 (H) NK Cell % 5 - 25 % 3 (L) NK Cell # 102 - 565 Cells/uL 82 (L) CD4/CD8 Ratio 1.10 - 3.25 3.11 Immunodef Comment Clinical interpretation of lymphocyte subsets must be made with caution. Relative . . . Sm Antibody <1.0 AI <0.2 HOOP CUTTER Antibody <1.0 AI <0.2 SSA Antibody <1.0 AI <0.2 SSB Antibody <1.0 AI <0.2 Centromere Ab <1.0 AI <0.2 Scleroderma Ab, IgG <1.0 AI <0.2 Kathleen 1 Antibody <1.0 AI <0.2 Ribosomal HOOP CUTTER <1.0 AI <0.2 Chromatin Antibody <1.0 AI <0.2 MPA IgG, Serum 717 - 1,411 mg/dL 1,050 MPA IgA, Serum 78 - 391 mg/dL 74 (L) MPA IgM, Serum 53 - 334 mg/dL 90 [place] Free, Serum 3.30 - 19.40 mg/L 9.5 Lambda Free, Serum 5.7 - 26.3 mg/L 12.6 K/L Ratio, Serum 0.26 - 1.65 0.75 MPA Result No M protein is identified. No M protein is identified. Staff Review (MPA) Reviewed by Ismael Whitney MD ([id number]) CHAO Negative Positive (A) CHAO Titer Negative 1:640 (A) CHAO Pattern Homogeneous TSH 0.400 - 5.500 uU/mL 1.600 Histone Ab, IgG <1.0 Units 1.3 (H) DNA Antibody w/Confirmation <30 IU/mL 12 CRISTA <52 U/L 23 C3 86 - 166 mg/dL 103 C4 13 - 46 mg/dL 20 Rheumatoid Factor <16 IU/mL <10 CCP Antibody, IgG <20 Units 21 (H) Vitamin D 25 Hydroxy 31.0 - 80.0 ng/mL 30.4 (L) Lyme Abs, IgG/IgM Negative Negative HLA-B27 DNA Result Negative 07/30/18: CRP 9.3 mg/dL WBC 10.7 HGB 12.2 MCV 86 PLT 292 ESR 46 Throat Cx neg Blood Cx x2 neg Boil: Scant growth of Coag neg Staph Radiology: Reviewed XR spine with minimal deg changes CXR neg IMPRESSION / PROBLEM LIST: 1. 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 Doubt -Rheumatoid arthritis Would be unusual with Crohn's 2. (+) CHAO and histone May be due to anti-TNF-a See above 3. Lymphadenopathy Doubt lymphoma 08/09: CT neck with no clear pathologic MARÍA ? 4. Infections Probably due to suppressed immune system ? 5. Crohn's disease Thought to be well controlled 6. Anemia Repeat by PCP normal RECOMMENDATIONS / PLAN: ? Laboratory: o As outlined in orders. ? Radiology: o I don't believe additional XR would add anything here ? Consultations: o FU GI team ? She is scheduled for colonoscopy next week o She has already seen ENT o She is scheduled to see Immunology ? Medications: o Prednisone 40 mg a day. ? Start today ? Then will sort out tapering o May consider re-start Cimzia o Consider add hydroxychloroquine ? Patient Education: Risks, benefits and alternatives of/to corticosteroids. Risks include but are not limited to: Cataracts, glaucoma, hypertension, diabetes, osteoporosis, osteonecrosis, gastritis, muscle problems (myopathy), thin skin, bruising, weight gain, edema, increased risk of infection. ? Vaccinations: o Keep up to date ? Other: o Patient aware that I will call if testing is out of the range of what is expected. o Patient should update all of her age appropriate malignancy screens. ? Follow-up: o She will message me in 48 hours Total face to face time at this visit was 50 minutes. Greater than 50% of the time was spent on counseling the patient and / or coordination of care. Electronically signed by: Jose Oliveira MD CC: [place] [address] [place], [place] [id number] Referring Provider: SELF [200] Allergies As of Date: 08/06/2018 Noted Allergy Reaction LEVAQUIN (LEVOFLOXACIN) 05/14/2011 14 - Other: See Comments Comments: Ruptured achilles tendon Date Reviewed: 08/06/2018 Reviewed by: Tamika Ojeda - Fully Assessed Primary Visit Diagnosis:Inflammatory arthritis [M19.90] Other Visit Diagnoses:Crohn's disease of large intestine with other complication [K50.118] Anemia, unspecified type [D64.9] Medication monitoring encounter [Z51.81] Order(s):VITAMIN B12 BLOOD [SQB12] Order #: [id number] FUTURE FOLATE SERUM [SQSERFOL] Order #: [id number] FUTURE METHYLMALONIC ACID [SQMMA] Order #: [id number] FUTURE RETIC COUNT [SQRETIC] Order #: [id number] FUTURE CBC + DIFF [SQCBCDIF] Order #: [id number] FUTURE SED RATE WESTERGREN [SQWSR] Order #: [id number] FUTURE C-REACTIVE PROTEIN (CRP) [SQCRP] Order #: [id number] FUTURE CK CREATINE KINASE [SQCK] Order #: [id number] FUTURE HAPTOGLOBIN BLD [SQHAPTO] Order #: [id number] FUTURE IRON + TIBC [SQIRON] Order #: [id number] FUTURE FERRITIN BLD [SQFERR] Order #: [id number] FUTURE COMP METABOLIC PANEL [SQCMP] Order #: [id number] FUTURE CCP ANTIBODY IGG [SQCCP] Order #: [id number] FUTURE RHEUMATOID FACTOR BL [SQRF] Order #: [id number] FUTURE DNA AB DS + CONF BLD [SQDNA] Order #: [id number] FUTURE PARVOVIRUS B19 IGG+M [SQPARV] Order #: [id number] FUTURE HEP ACUTE PANEL/RNA [SQHACRNA] Order #: [id number] FUTURE predniSONE (DELTASONE) 20 mg tabletTake 2 tablets by mouth once daily.Disp: 60 tabletRfl: 1 Prescriptions as of 08/06/2018 Sig: CHOLECALCIFEROL (VITAMIN D3) * Take 1 tablet by mouth once d* TRAZODONE 100 MG TABLET Take 1 tablet by mouth as nee* LORAZEPAM 0.5 MG TABLET Take 1 tablet by mouth twice * VIT NO.136-FERROUS F* Take 1 tablet by mouth once d* PAROXETINE 10 MG TABLET Take 1 tablet by mouth once d* AMITRIPTYLINE 10 MG TABLET Take 2.5 tablets by mouth beth* DICYCLOMINE 10 MG CAPSULE Take 1 capsule by mouth three* CITALOPRAM 40 MG TABLET Take 40 mg by mouth once marino* PANTOPRAZOLE 40 MG TABLET,DEL* Take 1 tablet by mouth once d* ONDANSETRON 4 MG DISINTEGRATI* Take 1 tablet by mouth every * PROCHLORPERAZINE MALEATE 10 M* Take 1 tablet by mouth every * HYDROXYZINE PAMOATE 25 MG CAP* Take 25 mg by mouth four time* PROMETHAZINE 25 MG TABLET Take 1 tablet by mouth four t* PREDNISONE 20 MG TABLET Take 2 tablets by mouth once * PEG 3350-ELECTROLYTES 236 GRA* Take as directed Patient not taking: Reported on 07/17/2018 Problem List As Of Date 08/06/2018 Noted Resolved Cellulitis and abscess of unspecified site [L03*INVALID FOR*09/29/2012 Change in bowel function [R19.8] INVALID FOR*09/29/2012 Abdominal pain, unspecified site [R10.9] INVALID FOR*09/29/2012 Carcinoid tumor of appendix, 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 Abdominal pain [R10.9] INVALID FOR*03/14/2018 More... DVT (deep venous thrombosis) (HCC) [I82.409] INVALID FOR*03/14/2018 More... SUMMARY INVALID FOR*03/14/2018 More... Insomnia [G47.00] INVALID FOR* Anxiety neurosis [F41.1] INVALID FOR* GERD (gastroesophageal reflux disease) [K21.9] INVALID FOR* Nausea [R11.0] INVALID FOR* Crohn's disease of large intestine with other c*INVALID FOR* More... Non morbid obesity [E66.9] INVALID FOR* Smoker [F17.200] INVALID FOR* Prescriptions ordered this encounter Disp Refills Start End PREDNISONE 20 MG TABLET 60 t* 1 08/06/2018 Route: ORAL Sig: Take 2 tablets by mouth once daily. Medications Discontinued During This Encounter certolizumab pegol (CIMZIA) 400 mg (* 6 mL 3 06/12/2018 08/06/2018 Route: SUBCUTANEOUS Sig: Inject 1 mL subcutaneously every 2 weeks. Patient not taking: Reported on 08/06/2018 Disc: Reason for discontinue is not on file. Follow-up and Disposition History Recorded Encounter Status:Closed by JOSE OLIVEIRA MD on 08/06/18 WILY Observed: 08/01/2018 Status: COMPLETED Source: [place] 12:00 AM [facility] REPOSITORY Telephone (VANIAMN) JESSICA JIANG ([id number]) 1980 F Date Time Provider Department 08/01/18 CORINNE MURPHY During your visit today, we recorded the following information about you: Aaron Emiliano 08/01/2018 11:50 AM Signed Received call from patient who stated she is off Cimzia and is having, severe joint pain for the past 4 days is having stiffness and swelling in all joints has gained 11 lbs in the 4 days pitting edema 2+ in lower extremities saw, rheumatology 07/13/[address] scan done 07/30/18. Rheumatology consulted patients PCP. Patient received call from both providers this week who have advised her symptoms are Crohn's related. PCP advised if not better by 08/01/18 will start prednisone dose unknown at this time. Patient denies any abnormal GI symptoms at this time. Patient would like direction from Dr Murphy please advise. Aaron Murphy MD, PhD 08/01/2018 12:10 PM Signed Says boil back in her neck Her throat is swollen She is stiff Today is bad towards evening cant get out of bed Gained 11# with edema Put on abx She was having systemic inflammatory response admit to [facility] Last cimzia 4 weeks ago Was due to 2 week ago This is not directly to Had fever 101.5 weds Takes motrin Crp: Esr Does not know Advised get her joint looked at before prednisone for septic joint If gets worse come to [facility] Corinne Murphy MD, PhD 08/05/2018 11:58 AM Signed Please find out from her what happened Aaron Garcia 08/05/2018 12:26 PM Signed Called spoke with patient who reports she is not doing better, reports she has bone pain in both arms down to wrist, both shoulders and her fingers are still stiff and swollen. Pain in both knees still has 2+ pitting edema. Reports neck stiff and sore as well as muscle involvement. States night time is worse. Finished ATB Doxycyline 08/04/18 which was prescribed by PCP. Saw Ortho 08/01/18 who advised negative for septic joint. Please advise. Aaron Murphy MD, PhD 08/05/2018 6:32 PM Addendum Gets better during the day She can get up and down more but having issues reaching up Knees hands swollen As the day goes on she feels worse then has to have help getting No more fevers But just completed doxycycline Feels that has improved things Advised that we could admit if gets worse but maybe best to see Dr Oliveira so he can examine She agrees will let me know if worse and then I would admit If dr oliveira is concerned when he sees her he may admit as well Allergies As of Date: 08/01/2018 Noted Allergy Reaction LEVAQUIN (LEVOFLOXACIN) 05/14/2011 14 - Other: See Comments Comments: Ruptured achilles tendon Date Reviewed: 07/30/2018 Reviewed by: Milagros Catherine Ct - Fully Assessed Reason for Visit: Symptom Management [918] Prescriptions as of 08/01/2018 Sig: CHOLECALCIFEROL (VITAMIN D3) * Take 1 tablet by mouth once d* TRAZODONE 100 MG TABLET Take 1 tablet by mouth as nee* LORAZEPAM 0.5 MG TABLET Take 1 tablet by mouth twice * VIT NO.136-FERROUS F* Take 1 tablet by mouth once d* PAROXETINE 10 MG TABLET Take 1 tablet by mouth once d* AMITRIPTYLINE 10 MG TABLET Take 2.5 tablets by mouth beth* CERTOLIZUMAB PEGOL 400 MG (20* Inject 1 mL subcutaneously ev* PEG 3350-ELECTROLYTES 236 GRA* Take as directed Patient not taking: Reported on 07/17/2018 DICYCLOMINE 10 MG CAPSULE Take 1 capsule by mouth three* CITALOPRAM 40 MG TABLET Take 40 mg by mouth once marino* PANTOPRAZOLE 40 MG TABLET,DEL* Take 1 tablet by mouth once d* ONDANSETRON 4 MG DISINTEGRATI* Take 1 tablet by mouth every * PROCHLORPERAZINE MALEATE 10 M* Take 1 tablet by mouth every * HYDROXYZINE PAMOATE 25 MG CAP* Take 25 mg by mouth four time* PROMETHAZINE 25 MG TABLET Take 1 tablet by mouth four t* Problem List As Of Date 08/01/2018 Noted Resolved Cellulitis and abscess of unspecified site [L03*INVALID FOR*09/29/2012 Change in bowel function [R19.8] INVALID FOR*09/29/2012 Abdominal pain, unspecified site [R10.9] INVALID FOR*09/29/2012 Carcinoid tumor of appendix, 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 Abdominal pain [R10.9] INVALID FOR*03/14/2018 More... DVT (deep venous thrombosis) (HCC) [I82.409] INVALID FOR*03/14/2018 More... SUMMARY INVALID FOR*03/14/2018 More... Insomnia [G47.00] INVALID FOR* Anxiety neurosis [F41.1] INVALID FOR* GERD (gastroesophageal reflux disease) [K21.9] INVALID FOR* Nausea [R11.0] INVALID FOR* Crohn's disease of large intestine with other c*INVALID FOR* More... Non morbid obesity [E66.9] INVALID FOR* Smoker [F17.200] INVALID FOR* Encounter Status:Closed by AARON GARCIA on 08/04/18 Observed: 07/30/2018 Status: F Source: [facility] CULTURE BLOOD 5:25 PM [facility] REPOSITORY CULTURE BLOOD CULTURE BLOOD SET: 1 of 2 24HOUR REPORT NEGATIVE 48HOUR REPORT NEGATIVE 72HOUR REPORT NEGATIVE M I C R O B I O L O G Y R E P O R T FINAL Antimicrobial Susceptibility and Organism Identification Report Specimen Number : [id number] Requested : 07/30/18 Specimen Source : BLOOD Collected : 07/30/18 17:25 [place] [facility] [place] : OUTPATIENT Received : 07/30/18 17:25 Requesting Physician : JUAN J Patient/Specimen Tests and Comments Specimen Comments FINAL REPORT: No Growth at 5 Days Tech : Source : BLOOD ID # : [id number] FINAL Report Date : / / : Collected : 07/30/18 17:25 08/05/18.07.JLN. 08/05/18.JLN.COMPLETE Performed By: #### [id number] #### [facility],[address] [place] [address] Observed: 07/30/2018 Status: F Source: [facility] CULTURE BLOOD 5:21 PM [facility] REPOSITORY CULTURE BLOOD CULTURE BLOOD SET: 2 of 2 24HOUR REPORT NEGATIVE 48HOUR REPORT NEGATIVE 72HOUR REPORT NEGATIVE M I C R O B I O L O G Y R E P O R T FINAL Antimicrobial Susceptibility and Organism Identification Report Specimen Number : [id number] Requested : 07/30/18 Specimen Source : BLOOD Collected : 07/30/18 17:21 [place] [facility] [place] : OUTPATIENT Received : 07/30/18 17:21 Requesting Physician : JUAN J Patient/Specimen Tests and Comments Specimen Comments FINAL REPORT: No Growth at 5 Days Tech : Source : BLOOD ID # : [id number] FINAL Report Date : / / : Collected : 07/30/18 17:21 08/05/18.FRIDA. 08/05/18.FRIDA.COMPLETE Performed By: #### [id number] #### [facility],[address] [place] [address] Observed: 07/30/2018 Status: F Source: [facility] CULTURE THROAT 5:10 PM [facility] REPOSITORY CULTURE THROAT _THROAT CULTURE_ M I C R O B I O L O G Y R E P O R T FINAL Antimicrobial Susceptibility and Organism Identification Report Specimen Number : [id number] Requested : 07/30/18 Specimen Source : THROAT Collected : 07/30/18 17:10 [place] [facility] [place] : OUTPATIENT Received : 07/30/18 17:10 Requesting Physician : JUAN J Patient/Specimen Tests and Comments Specimen Comments FINAL REPORT: ABUNDANT GROWTH NORMAL THROAT KRISHAN NO PATHOGENS PRESENT Tech : Source : THROAT ID # : [id number] FINAL Report Date : / / : Collected : 07/30/18 17:10 08/01/18.1318.JLN. 07/31/18.0736.JLN. 08/01/18.1318.JLN.COMPLETE Performed By: #### [id number] #### [place] [address] C-REACTIVE PROTEIN Collected: 07/30/2018 Status: F Source: [facility] 1:37 PM [facility] REPOSITORY TYPE CODE TESTS RESULT OUT OF RANGE REFERENCE UNITS LAB CRP(LOINC) 0.00 - 1.00 mg/dl High CRP 9.30 Performed By: #### [id number] #### [address] [address] CBC Collected: 07/30/2018 Status: F Source: [facility] 1:37 [facility] REPOSITORY TYPE CODE TESTS RESULT OUT OF RANGE REFERENCE UNITS LAB CBC(LOINC) CBC Result Comment: CBC-COMPLETE BLOOD COUNT LAB WBC(LOINC) 4.5 - 10.8 x 10EE3/UL WBC 10.7 LAB RBC(LOINC) 4.10 - x 10EE6/UL 5.30 RBC 4.29 LAB HEMOGLOBIN(LOINC) 12.0 - g/dl 16.0 HEMOGLOBIN 12.2 LAB HEMATOCRIT(LOINC) 34.0 - % 46.0 HEMATOCRIT 37.0 LAB MCV(LOINC) 80 - 99 fl MCV 86 LAB MCH(LOINC) 27 - 33 pg MCH 29 LAB MCHC(LOINC) 32 - 36 X10 3 MCHC 33 LAB RDW/CV(LOINC) 12.0 - % 15.6 RDW/CV 14.6 LAB PLATELET(LOINC) 150 - 450 x10EE3/UL PLATELET 292 LAB MPV(LOINC) 6.6 - 10.5 fl MPV 10.0 Result Comment: AUTOMATED DIFFERENTIAL LAB NEUT %(LOINC) 46.0 - 76.0 % NEUT % 74.2 LAB LYMPH %(LOINC) 20.0 - 45.0 % Low LYMPH % 17.8 LAB MONOS %(LOINC) 0.0 - 10.0 % MONOS % 4.9 LAB EO %(LOINC) 0.0 - 7.0 % EO % 2.4 LAB BASO %(LOINC) 0.0 - 2.0 % BASO % 0.7 LAB Lymph #(LOINC) 0.80 - 2.80 x10EE3/U L Lymph # 1.90 LAB Neut #(LOINC) 1.50 - 7.10 x10EE3/U L Neut # High 8.00 LAB [place] #(LOINC) 0.20 - 1.00 x10EE3/U L [place] # 0.50 LAB EO #(LOINC) 0.00 - 0.50 x10EE3/U L EO # 0.30 LAB Baso #(LOINC) 0.00 - 0.10 x10EE3/U L Baso # 0.10 LAB MANUAL DIFF(LOINC) MANUAL DIFF N/A LAB MORPHOLOGY(LOINC ) MORPHOLOGY N/A Result Comment: {CD] Performed By: #### [id number] #### [place] [id number] SEDRATE Collected: 07/30/2018 Status: F Source: [facility] 1:37 PM [facility] REPOSITORY TYPE CODE TESTS RESULT OUT OF REFERENCE UNITS RANGE LAB SEDRATE(LOKI 0 - 30 mm/hr NC) High SEDRATE 46 Performed By: #### [id number] #### [place] [id number] PROGRESS Observed: 07/30/2018 Status: COMPLETED Source: [place] 10:07 AM [facility] REPOSIT[facility] HNO ID: [id number] Author: Milagros Catherine Ct Service: (none) Author Type: (none) Type: Progress Notes Filed: 07/30/2018 10:07 AM Note Text: Radiology Service Progress Note PATIENT NAME: Jessica Jiang DATE OF SERVICE: July 30, 2018 TIME: 10:07 AM PATIENT IDENTITY VERIFICATION COMPLETED USING TWO (2) METHODS: Patient confirmed name verbally and Date of . PATIENT GENDER DATA: Female. status: : No status: NO. PATIENT RELEVANT IMPLANT DATA REVIEWED: Not Applicable CONTRAST INDUCED NEPHROPATHY RISK FACTORS: Not applicable CREATININE: Creatinine Date Value Ref Range Status 07/03/2018 0.62 0.58 - 0.96 mg/dL Final 03/14/2018 0.77 0.58 - 0.96 mg/dL Final 05/26/2017 0.76 0.70 - 1.40 mg/dL Final eGFR-All Other Races Date Value Ref Range Status 07/03/2018 >60 . Final Comment: eGFR (Estimated GFR) Units of measure: mL/min/1.73 meters squared eGFR is derived from the reexpressed MDRD Study equation using the following parameters: serum creatinine, age, gender and race. The creatinine assay has been calibrated to be traceable to IDMS. An eGFR <60 mL/min/1.73m2 for >3 months is consistent with chronic kidney disease. Refer to KDOQI guidelines for clinical interpretation. In patients with unstable renal function, e.g. those with acute kidney injury, the eGFR may not accurately reflect actual GFR. eGFR- Date Value Ref Range Status 07/03/2018 >60 Final P.O.C.T. RESULTS: POC done: Yes, See Lab Tab July 30, 2018 RADIOLOGIST NOTIFIED?: No ALLERGIES: Reviewed and unchanged CONTRAST ALLERGY: NO. PERIPHERAL IV ACCESS: Ambulatory: IV type: A peripheral IV was started in the Right antecubital site with a Angio cath: 22 gauge., Site assessment: Clean,Dry and Intact, Site disposition Discontinued RADIOLOGY DEPARTMENT: CT; Exam(s) Completed: Neck SIGNED BY: Milagros Catherine Ct July 30, 2018 10:[address] NECK SOFT TISSUE Observed: 07/30/2018 Status: F Source: [place] Curtis ANDERSONON 9:45 AM [facility] REPOSITORY * * *Final Report* * * DATE OF EXAM: Jul 30 2018 9:45AM [facility] [id number] - CT NECK SOFT TISSUE W IVCON / PROCEDURE REASON: multiple diagnoses * * * * Physician Interpretation * * * * CT NECK SOFT TISSUE W IVCON History: Localized enlarged lymph nodes. Localized swelling, mass or lump of neck. Pharyngitis, multiple infections, patient is currently on autoimmune agent for Crohn's disease. Comparison: None Technique: A series of contiguous helical scans were performed from the skull base to the aortic arch following bolus injection of nonionic contrast: Contrast: Omnipaque 300. Contrast Dose: 100 cc Route of Administration: IV CT Radiation dose: Integrated Dose-length product (DLP) for this visit = 608 mGy*cm. CT Dose Reduction Employed: Automated exposure control(AEC) and iterative recon RESULT: Postoperative change: None apparent. Suprahyoid Neck: Nasopharynx and oropharynx appear normal. Parapharyngeal tissue planes are preserved. Oral cavity and floor of mouth appear normal within constraints of artifact from dental amalgam. Parotid and submandibular spaces are normal. Consulting Practice Director spaces appear normal. Nasal cavities and paranasal sinuses are clear. Periapical lucency of the left maxillary second molar, likely reflective of periodontal disease. Infrahyoid Neck: Hypopharynx, larynx, and imaged infraglottic trachea appear normal. Imaged upper esophagus is unremarkable. Thyroid gland is homogeneous without evidence of discrete nodule. Lymph Nodes: There are bilateral cervical chain lymph nodes which are nonspecific, without discrete suspicious imaging characteristics. These are slightly more pronounced on the left for example station IIA on the left measuring 7 mm (image 76) and station V on the left measuring 7 mm (image 95) in short axis. Carotid Space: No masses. Patent extracranial carotid systems and internal jugular veins bilaterally. Orbits and Skull Base: Orbital soft tissue planes are preserved. No evidence of an osteolytic or osteoblastic process in the skull base. Mastoid air cells and middle ear cavities are clear. Imaged intracranial contents: No abnormal intracranial enhancement, mass effect, or hydrocephalus. Cervical spine and remaining osseous structures: No discrete osteolytic or osteoblastic process. There are no significant spondylotic changes in the visualized spine. Lung apices: Patchy subpleural opacities, likely dependent atelectasis. Otherwise the lungs are clear. Small eccentric density in the left trachea (image 134 series 7) could represent secretion or a small nodule, measures approximately 5 mm. Other: Not applicable. IMPRESSION: Mildly prominent left-sided cervical lymph nodes which are nonspecific, without evidence of cervical lymphadenopathy by size criteria. Small focal density along the left tracheal margin which may represent secretions versus a nodule. Follow-up is suggested. Left maxillary molar periapical lucency. Mild mucosal thickening in the left maxillary sinus, may be partially odontogenic in nature. Reproduction Specialist: GARRETT Transcribe Date/Time: Jul 30 2018 9:56A Dictated by : NELLA TATUM, This examination was interpreted and the report reviewed and electronically signed by: BRYANT TSE MD on Jul 30 2018 10:13AM EST [id number] Observed: 07/30/2018 Status: COMPLETED Source: [place] 12:00 AM [facility] REPOSIT[facility] Telephone (RHEUMN) JESSICA JIANG ([id number]) 1980 F Date Time Provider Department 07/30/18 JOSE OLIVEIRA During your visit today, we recorded the following information about you: Kennedi Isaac [facility] 07/30/2018 8:40 AM Signed saw you on Jul 27 and since then states that she feels she has gotten worse all joints hurt everyday specially her Knees and Fingers says she has has a fever of 101.5 since last night the boil that she once had on her let is back and also her bursitis in her rt elbow is back [phone] Jose Oliveira MD 07/30/2018 8:51 AM Signed Called patient. No answer MD Jose Collier MD 07/30/2018 12:11 PM Signed Spoke to patient. Has had some increased joint pains Sore throat. Boil in groin. R elbow bursa swollen. Fever. At PCP office right now. MD Jose Collier MD 07/30/2018 12:58 PM Addendum Spoke to PCP She has seen patient Patient brought all of my testing. I told her now about the CT neck Patient does not appear ill to her. No fever now No evidence of infection. No significant edema Groin abscess looks OK She does not believe patient has a septic bursitis. She is running some tests today Patient has not taken Cimzia for a month. If more fever, or more swelling in elbow or other joints, she will instruct patient to come to ED here. Jose Oliveira MD Allergies As of Date: 07/30/2018 Noted Allergy Reaction LEVAQUIN (LEVOFLOXACIN) 05/14/2011 14 - Other: See Comments Comments: Ruptured achilles tendon Date Reviewed: 07/30/2018 Reviewed by: Milagros Catherine Ct - Fully Assessed Reason for Visit: Patient Update [1234] Patient Conference [768] Reason For Visit History Recorded Prescriptions as of 07/30/2018 Sig: CHOLECALCIFEROL (VITAMIN D3) * Take 1 tablet by mouth once d* TRAZODONE 100 MG TABLET Take 1 tablet by mouth as nee* LORAZEPAM 0.5 MG TABLET Take 1 tablet by mouth twice * VIT NO.136-FERROUS F* Take 1 tablet by mouth once d* PAROXETINE 10 MG TABLET Take 1 tablet by mouth once d* AMITRIPTYLINE 10 MG TABLET Take 2.5 tablets by mouth beth* CERTOLIZUMAB PEGOL 400 MG (20* Inject 1 mL subcutaneously ev* PEG 3350-ELECTROLYTES 236 GRA* Take as directed Patient not taking: Reported on 07/17/2018 DICYCLOMINE 10 MG CAPSULE Take 1 capsule by mouth three* CITALOPRAM 40 MG TABLET Take 40 mg by mouth once marino* PANTOPRAZOLE 40 MG TABLET,DEL* Take 1 tablet by mouth once d* ONDANSETRON 4 MG DISINTEGRATI* Take 1 tablet by mouth every * PROCHLORPERAZINE MALEATE 10 M* Take 1 tablet by mouth every * HYDROXYZINE PAMOATE 25 MG CAP* Take 25 mg by mouth four time* PROMETHAZINE 25 MG TABLET Take 1 tablet by mouth four t* Problem List As Of Date 07/30/2018 Noted Resolved Cellulitis and abscess of unspecified site [L03*INVALID FOR*09/29/2012 Change in bowel function [R19.8] INVALID FOR*09/29/2012 Abdominal pain, unspecified site [R10.9] INVALID FOR*09/29/2012 Carcinoid tumor of appendix, 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 Abdominal pain [R10.9] INVALID FOR*03/14/2018 More... DVT (deep venous thrombosis) (HCC) [I82.409] INVALID FOR*03/14/2018 More... SUMMARY INVALID FOR*03/14/2018 More... Insomnia [G47.00] INVALID FOR* Anxiety neurosis [F41.1] INVALID FOR* GERD (gastroesophageal reflux disease) [K21.9] INVALID FOR* Nausea [R11.0] INVALID FOR* Crohn's disease of large intestine with other c*INVALID FOR* More... Non morbid obesity [E66.9] INVALID FOR* Smoker [F17.200] INVALID FOR* Encounter Status:Closed by JOSE OLIVEIRA MD on 07/30/18 GENERAL OPERATIONS AGENT OFFICE VISIT Observed: 07/29/2018 Status: F Source: [place] REPORT 10:08 AM [facility] REPOSITORY [facility] [address] [place] [address] OFFICE VISIT Date of Service: 01/29/18 MR#: [id number] Acct: [id number] Name: JESSICA JIANG Rep #: [id number] : 1980 Provider: MAME Vazquez Age/Sex: 37/F Location: [facility] [place] Status: Signed with Addenda ADDENDUM by MAME Vazquez on 07/29/18 at 1008 Addendum entered and electronically signed by RADHA Lopez 07/29/18 10:08: Rectal exam was deferred. No masses palpated Assessment AND Plan Problems 1. Encounter for gynecological examination without abnormal finding Z01.419 2. Pap smear for cervical cancer screening Z12.4 3. Screen for STD (sexually transmitted disease) Z11.3 4. Female infertility, unexplained N97.9 Plan - RADHA Lopez Completed breast and pelvic exam Reviewed diet and exercise Pap thin prep pap with HPV GCC-call only if positive 21 day progesterone refer to JANET Whitfield RTO 1 year, prn with problems Natalie Vazquez OPTICAL EFFECTS LAYOUT PERSON Orders Orders: 07/29/18 1008 <Electronically signed by Natalie GARCIA> Date Natalie Vazquez RELAY SHOP TESTERJodyC cc: * Signed Intake Vital Signs01/29/18 Height 5 ft 5 in 01/29/18 Weight: 189 lb 2 oz 01/29/18 Body Mass Index (BMI) 31.4 01/29/18 Blood Pressure 126/76 Intake Visit Reasons: ANNUAL- DISCUSS GETTING Accompanied by: Significant Other Is patient in pain?: No Allergies levofloxacin [From Levaquin] Adverse Reaction (Severe, Verified 01/29/18 11:15) Other stitches Adverse Reaction (Intermediate, Uncoded 01/29/18 11:16) stitches do not dissolve. They need taken out Medications proMETHazine tablet [Phenergan] 25 mg PO Q6H PRN PRN #10 tab 10/14/15 [Rx Confirmed 01/29/18] certolizumab pegol 400 mg/2 mL (200 mg/mL x2) subcutaneous syringe kit 200 mg SC Q2W 01/29/18 [History Confirmed 01/29/18] citalopram 40 mg tablet 40 mg PO QDAY 01/29/18 [History Confirmed 01/29/18] trazadone BUCCAL 01/29/18 [History Confirmed 01/29/18] Is last menstrual period known: Yes Last Menstral Period: 01/25/18 PFSH Medical History Abdominal pain despite therapy for Crohn's disease (Acute) Cancer of appendix (Acute) Crohns disease (Acute) Surgical History Gallbladder AND bile duct stone with obstruction (Acute) History of appendectomy (Acute) leg surgery (Acute) Family History Father Hypertension Grandmother Breast cancer Mother Hypertension Social History Smoking Status: Current every day smoker alcohol intake: never substance use type: does not use what type of physical activity do you participate in: none seatbelt use: always do you feel safe at home: Yes additional social history: 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 She is wanting . She has 11 yr old. Current partner (Lorenzo) X 2 years. She no contraception >6 months. Last exam 6 years ago when had mirena IUD removed per Dr. Cifuentes. Is taking PNV. Has Crohns. Scope scheduled Mar 2018 Last PAP: 6 years History of abnormal PAP: yes, cryo almost 20 yr ago Female Reproductive History Last Menstral Period: 01/25/18 Cycle Length: 21-35 Control Method: none Questions: Metorrhagia: No, Sexually active: Yes, Dyspareunia: No, PCB: No ROS Const Constitutional: Denies fatigue, weight gain or weight loss Cardio Card: Denies chest pain Resp Resp: Denies cough or shortness of breath with activity GI GI: Denies abdominal pain, constipation, change in stools, vomiting or bloating : Reports as per HPI; denies urinary frequency, pelvic pain, urinary urgency, vaginal discharge, vaginal itching, urinary incontinence or difficulty urinating Exam Const General: cooperative, healthy appearing, no acute distress, well developed Orientation: alert, oriented to person, oriented to place HENMT Head: normal to inspection Neck Neck: normal visual inspection Thyroid: thyroid normal Lymphatic: no lymphadenopathy noted Chest Breast inspection: normal inspection of the breasts, normal inspection of the axillae Breast palpation: normal palpation of the breasts, normal palpation of the axillae, no axillary lymphadenopathy Resp Effort AND Inspection: normal respiratory effort GI Palpation: soft, nontender, no masses Rectal Exam: mass, deferred External Female Exam: normal external appearance, normal appearance of the urethra Urethra: normal appearance of the urethra, normal palpation Speculum Exam - Vagina: normal appearance of the vagina, normal vaginal discharge Speculum Exam - Cervix: normal appearance of the cervix, other (pap gcc collected) Bimanual Exam- Vagina AND Uterus: normal bimanual exam, uterine size normal, uterine shape normal, uterus non-tender Bimanual Exam- Adnexa, other: normal adnexae, no adnexal masses, adnexae non-tender, pelvic support normal Pelvic Support: normal Neuro General: alert, oriented x3 Psych Affect: normal affect Assessment AND Plan Problems 1. Encounter for gynecological examination without abnormal finding Z01.419 2. Pap smear for cervical cancer screening Z12.4 3. Screen for STD (sexually transmitted disease) Z11.3 4. Female infertility, unexplained N97.9 Plan Completed breast and pelvic exam Reviewed diet and exercise Pap thin prep pap with HPV GCC-call only if positive 21 day progesterone refer to JANET Dr. Whitfield RTO 1 year, prn with problems Natalie Vazquez OPT[employer] EFFECTS LAYOUT PERSON Orders Orders: Coding Level of Care Code Off vis,new,prev 18-39yrs Diagnoses Encounter for gynecological examination without abnormal finding Z01.419 Gynecological examination findings: abnormal findings ABSENT Pap smear for cervical cancer screening Z12.4 Screen for STD (sexually transmitted disease) Z11.3 Female infertility, unexplained N97.9 01/29/18 1250 <Electronically signed by Natalie HERNANDEZC> Date Natalie Vazquez RELAY SHOP TESTER-C Cosigner Signature: Date (if applicable) CC: Observed: 07/29/2018 Status: F Source: [facility] CULTURE WOUND 9:30 [facility] REPOSITORY CULTURE WOUND _WOUND CULTURE_ M I C R O B I O L O G Y R E P O R T FINAL Antimicrobial Susceptibility and Organism Identification Report Specimen Number : [id number] Requested : 07/29/18 Specimen Source : WOUND Collected : 07/29/18 09:30 [place] of Isolation : OUTPATIENT Received : 07/29/18 09:30 Requesting Physician : JUAN J Patient/Specimen Tests and Comments Specimen Comments FINAL REPORT: SCANT GROWTH COAGULASE NEGATIVE STAPH Source - Left Groin Tech : Source : WOUND ID # : [id number] FINAL Report Date : / / : Collected : 07/29/18 09:30 08/01/18.0716.JLN. 07/31/18.1225.JLN. 08/01/18.0716.JLN.COMPLETE Performed By: #### [id number] #### Miah [facility],[address] [place] [address] Observed: 07/26/2018 Status: COMPLETED Source: NINA 12:00 AM [facility] REPOSITORY Telephone (RHEUMN) JESSICA JIANG ([id number]) 1980 F Date Time Provider Department 07/26/18 JOSE OLIVEIRAN During your visit today, we recorded the following information about you: Jose Oliveira MD 07/27/2018 1:09 PM Addendum XR CXR neg XR spine, hips and hands neg other than minor deg changes of spine and SI Labs normal except: --Anemia --Low NK cells --(+) CHAO with neg KAJAL and dsDNA --Low (+) histone --Borderline low D Rec: Agree DC Cimzia Evaluate anemia Immunology consult CT neck and consider LN biopsy ? MRI SI joints Check on D dosage MyChart message to patient. MD Jose Collier MD 07/27/2018 1:09 PM Signed Addended by: JOSE OLIVEIRA MD on: 07/27/2018 01:09 PM Modules accepted: Orders Jose Oliveira MD 07/28/2018 2:16 PM Signed She has read my message. Will start vitamin D3 2000 u a day for a month, then every other day. Will do all of the rest as noted below. MD Jose Collier MD 07/28/2018 2:17 PM Signed Addended by: JOSE OLIVEIRA MD on: 07/28/2018 02:17 PM Modules accepted: Orders Allergies As of Date: 07/26/2018 Noted Allergy Reaction LEVAQUIN (LEVOFLOXACIN) 05/14/2011 14 - Other: See Comments Comments: Ruptured achilles tendon Date Reviewed: 07/17/2018 Reviewed by: Tamika Ojeda - Fully Assessed Reason for Visit: Results [95] Primary Visit Diagnosis:Anemia, unspecified type [D64.9] Other Visit Diagnoses:Localized enlarged lymph nodes [R59.0] Localized swelling, mass or lump of neck [R22.1] Low natural killer cell count determined by flow cytometry [D72.9] Order(s):IRON + TIBC [SQIRON] Order #: [id number] FUTURE FERRITIN BLD [SQFERR] Order #: [id number] FUTURE RETIC COUNT [SQRETIC] Order #: [id number] FUTURE HAPTOGLOBIN BLD [SQHAPTO] Order #: [id number] FUTURE VITAMIN B12 BLOOD [SQB12] Order #: [id number] FUTURE METHYLMALONIC ACID [SQMMA] Order #: [id number] FUTURE FOLATE SERUM [SQSERFOL] Order #: [id number] FUTURE CT NECK SOFT TISSUE W IVCON [7238579] Order #: [id number] FUTURE [] iv contrast (will be provided with radiology test)Inject 1 Each intravenously one time only for [address] Neck W IVCON No IV access, insert saline lock prior to the sedation, infusion, injection for imaging exam. Discontinue saline lock post exam. If Pt. has a central line or IVAD, may access for administration according to line specific nursing protocol. Once exam is complete flush line and de-access according to line specific nursing protocol in the CT contrast administration guidelines link.Disp: 1 EachRfl: 0 CONSULT TO ALLERGY/IMMUNOLOGY [9001] Order #: [id number]: 1 cholecalciferol (VITAMIN D3) 2,000 unit tabletTake 1 tablet by mouth once daily.Disp: Rfl: 0 Prescriptions as of 07/26/2018 Sig: CHOLECALCIFEROL (VITAMIN D3) * Take 1 tablet by mouth once d* IV CONTRAST (RADIOLOGY PROCED* Inject 1 Each intravenously o* TRAZODONE 100 MG TABLET Take 1 tablet by mouth as nee* LORAZEPAM 0.5 MG TABLET Take 1 tablet by mouth twice * VIT NO.136-FERROUS F* Take 1 tablet by mouth once d* PAROXETINE 10 MG TABLET Take 1 tablet by mouth once d* AMITRIPTYLINE 10 MG TABLET Take 2.5 tablets by mouth beth* CERTOLIZUMAB PEGOL 400 MG (20* Inject 1 mL subcutaneously ev* PEG 3350-ELECTROLYTES 236 GRA* Take as directed Patient not taking: Reported on 07/17/2018 DICYCLOMINE 10 MG CAPSULE Take 1 capsule by mouth three* CITALOPRAM 40 MG TABLET Take 40 mg by mouth once marino* PANTOPRAZOLE 40 MG TABLET,DEL* Take 1 tablet by mouth once d* ONDANSETRON 4 MG DISINTEGRATI* Take 1 tablet by mouth every * PROCHLORPERAZINE MALEATE 10 M* Take 1 tablet by mouth every * HYDROXYZINE PAMOATE 25 MG CAP* Take 25 mg by mouth four time* PROMETHAZINE 25 MG TABLET Take 1 tablet by mouth four t* Problem List As Of Date 07/26/2018 Noted Resolved Cellulitis and abscess of unspecified site [L03*INVALID FOR*09/29/2012 Change in bowel function [R19.8] INVALID FOR*09/29/2012 Abdominal pain, unspecified site [R10.9] INVALID FOR*09/29/2012 Carcinoid tumor of appendix, 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 Abdominal pain [R10.9] INVALID FOR*03/14/2018 More... DVT (deep venous thrombosis) (HCC) [I82.409] INVALID FOR*03/14/2018 More... SUMMARY INVALID FOR*03/14/2018 More... Insomnia [G47.00] INVALID FOR* Anxiety neurosis [F41.1] INVALID FOR* GERD (gastroesophageal reflux disease) [K21.9] INVALID FOR* Nausea [R11.0] INVALID FOR* Crohn's disease of large intestine with other c*INVALID FOR* More... Non morbid obesity [E66.9] INVALID FOR* Smoker [F17.200] INVALID FOR* Prescriptions ordered this encounter Disp Refills Start End IV CONTRAST (RADIOLOGY PROCEDURE) 1 Ea* 0 07/27/2018 07/27/2018 Class: In Office Route: INTRAVENOUS Sig: Inject 1 Each intravenously one time only for [address] Neck W IVCON No IV access, insert saline lock prior to the sedation, infusion, injection for imaging exam. Discontinue saline lock post exam. If Pt. has a central line or IVAD, may access for administration according to line specific nursing protocol. Once exam is complete flush line and de-access according to line specific nursing protocol in the CT contrast administration guidelines link. CHOLECALCIFEROL (VITAMIN D3) 2,000 U* 0 07/28/2018 Class: Med Update Route: ORAL Sig: Take 1 tablet by mouth once daily. Encounter Status:Closed by JOSE OLIVEIRA MD on 07/26/18 XR HAND 3V PA/LAT/OBL Observed: 07/18/2018 Status: F Source: [facility] [place] 5:09 PM [facility] * * *Final Report* * * DATE OF EXAM: Jul 18 2018 5:09PM [id number] - XR HAND 3V PA/LAT/OBL [place] / PROCEDURE REASON: multiple diagnoses * * * * Physician Interpretation * * * * HISTORY: joint pain, infection, swollen lyphnodes. Chronic bilateral low back pain without sciatica Chronic bilateral low back pain without sciatica . TECHNIQUE: XR PELVIS 1V AP, XR CERVICAL 4V AP/LAT/OBL, XR LUMBAR 3V AP/LAT/L5-S1, XR HAND 3V PA/LAT/OBL [place] Laterality: NOT APPLICABLE (accession [id number]), LEFT (accession [id number]), LEFT (accession [id number]), BILATERAL (accession [id number]) Number of different views (projections): 1 (accession [id number]), 4 (accession [id number]), 3 (accession [id number]), 3 each (accession [id number]) COMPARISON: None RESULT: Pelvis: Bilateral hips maintained. Some minimal degenerative changes of the sacroiliac joints. No other significant findings. Cervical spine: Normal alignment. No fracture. Disc height is maintained. Bilateral hands: Visualized soft tissues are normal. No erosive disease. Joint spaces are maintained. Lumbar spine: Satisfactory alignment. No fracture. Disc space narrowing at L5/S1. Facet joints are normal. IMPRESSION: No findings of inflammatory arthritis. Reproduction Specialist: PSCB Transcribe Date/Time: Jul 18 2018 7:29P Dictated by : JACOB EATON MD This examination was interpreted and the report reviewed and electronically signed by: JACOB EATON MD on Jul 18 2018 7:33PM EST [id number] XR LUMBAR 3V Observed: 07/18/2018 Status: F Source: [facility] AP/LAT/L5-S1 5:09 PM [facility] * * *Final Report* * * DATE OF EXAM: Jul 18 2018 5:09PM [id number] - XR LUMBAR 3V AP/LAT/L5-S1 / PROCEDURE REASON: multiple diagnoses * * * * Physician Interpretation * * * * HISTORY: joint pain, infection, swollen lyphnodes. Chronic bilateral low back pain without sciatica Chronic bilateral low back pain without sciatica . TECHNIQUE: XR PELVIS 1V AP, XR CERVICAL 4V AP/LAT/OBL, XR LUMBAR 3V AP/LAT/L5-S1, XR HAND 3V PA/LAT/OBL [place] Laterality: NOT APPLICABLE (accession [id number]), LEFT (accession [id number]), LEFT (accession [id number]), BILATERAL (accession [id number]) Number of different views (projections): 1 (accession [id number]), 4 (accession [id number]), 3 (accession [id number]), 3 each (accession [id number]) COMPARISON: None RESULT: Pelvis: Bilateral hips maintained. Some minimal degenerative changes of the sacroiliac joints. No other significant findings. Cervical spine: Normal alignment. No fracture. Disc height is maintained. Bilateral hands: Visualized soft tissues are normal. No erosive disease. Joint spaces are maintained. Lumbar spine: Satisfactory alignment. No fracture. Disc space narrowing at L5/S1. Facet joints are normal. IMPRESSION: No findings of inflammatory arthritis. Reproduction Specialist: PSCB Transcribe Date/Time: Jul 18 2018 7:29P Dictated by : JACOB EATON MD This examination was interpreted and the report reviewed and electronically signed by: JACOB EATON MD on Jul 18 2018 7:33PM EST [id number] XR PELVIS 1V AP Observed: 07/18/2018 Status: F Source: [place] 5:09 PM [facility] REPOSITORY * * *Final Report* * * DATE OF EXAM: Jul 18 2018 5:09PM [id number] [id number] - XR PELVIS 1V AP / PROCEDURE REASON: multiple diagnoses * * * * Physician Interpretation * * * * HISTORY: joint pain, infection, swollen lyphnodes. Chronic bilateral low back pain without sciatica Chronic bilateral low back pain without sciatica . TECHNIQUE: XR PELVIS 1V AP, XR CERVICAL 4V AP/LAT/OBL, XR LUMBAR 3V AP/LAT/L5-S1, XR HAND 3V PA/LAT/OBL [place] Laterality: NOT APPLICABLE (accession [id number]), LEFT (accession [id number]), LEFT (accession [id number]), BILATERAL (accession [id number]) Number of different views (projections): 1 (accession [id number]), 4 (accession [id number]), 3 (accession [id number]), 3 each (accession [id number]) COMPARISON: None RESULT: Pelvis: Bilateral hips maintained. Some minimal degenerative changes of the sacroiliac joints. No other significant findings. Cervical spine: Normal alignment. No fracture. Disc height is maintained. Bilateral hands: Visualized soft tissues are normal. No erosive disease. Joint spaces are maintained. Lumbar spine: Satisfactory alignment. No fracture. Disc space narrowing at L5/S1. Facet joints are normal. IMPRESSION: No findings of inflammatory arthritis. Reproduction Specialist: GARRETT Transcribe Date/Time: Jul 18 2018 7:29P Dictated by : JACOB EATON MD This examination was interpreted and the report reviewed and electronically signed by: JACOB EATON MD on Jul 18 2018 7:33PM EST [id number] XR CERVICAL 4V Observed: 07/18/2018 Status: F Source: [place] AP/LAT/OBL 5:09 PM [facility] REPOSITORY * * *Final Report* * * DATE OF EXAM: Jul 18 2018 5:09PM [id number] [id number] - XR CERVICAL 4V AP/LAT/OBL / PROCEDURE REASON: Cervicalgia * * * * Physician Interpretation * * * * HISTORY: joint pain, infection, swollen lyphnodes. Chronic bilateral low back pain without sciatica Chronic bilateral low back pain without sciatica . TECHNIQUE: XR PELVIS 1V AP, XR CERVICAL 4V AP/LAT/OBL, XR LUMBAR 3V AP/LAT/L5-S1, XR HAND 3V PA/LAT/OBL [place] Laterality: NOT APPLICABLE (accession [id number]), LEFT (accession [id number]), LEFT (accession [id number]), BILATERAL (accession [id number]) Number of different views (projections): 1 (accession [id number]), 4 (accession [id number]), 3 (accession [id number]), 3 each (accession [id number]) COMPARISON: None RESULT: Pelvis: Bilateral hips maintained. Some minimal degenerative changes of the sacroiliac joints. No other significant findings. Cervical spine: Normal alignment. No fracture. Disc height is maintained. Bilateral hands: Visualized soft tissues are normal. No erosive disease. Joint spaces are maintained. Lumbar spine: Satisfactory alignment. No fracture. Disc space narrowing at L5/S1. Facet joints are normal. IMPRESSION: No findings of inflammatory arthritis. Reproduction Specialist: GARRETT Transcribe Date/Time: Jul 18 2018 7:29P Dictated by : JACOB EATON MD This examination was interpreted and the report reviewed and electronically signed by: JACOB EATON MD on Jul 18 2018 7:33PM EST [id number] XR CHEST 2V FRONTAL/LAT Observed: 07/18/2018 Status: F Source: [facility] 5:09 PM [facility] REPOSITORY * * *Final Report* * * DATE OF EXAM: Jul 18 2018 5:09PM [id number] [id number] - XR CHEST 2V FRONTAL/LAT / PROCEDURE REASON: multiple diagnoses * * * * Physician Interpretation * * * * EXAMINATION: CHEST RADIOGRAPH (2 VIEW FRONTAL and LATERAL) CLINICAL HISTORY: Polyarthralgia Lymphadenopathy MQ: XC2_5 Comparison: None RESULT: Lines, tubes, and devices: None. Lungs and pleura: No consolidation. No lung mass. No pleural effusion. Cardiomediastinal silhouette: Normal cardiomediastinal silhouette. Other: Bony thorax is intact IMPRESSION: No active cardiopulmonary disease. Reproduction Specialist: GARRETT Transcribe Date/Time: Jul 18 2018 7:33P Dictated by : JACOB EATON MD This examination was interpreted and the report reviewed and electronically signed by: JACOB EATON MD on Jul 18 2018 7:36PM EST [id number] Observed: 07/18/2018 Status: COMPLETED Source: [place] 4:50 PM [facility] REPOS[facility] HNO ID: [id number] Author: Rehana Ponce Service: (none) Author Type: (none) Type: Progress Notes Filed: 07/18/2018 5:09 PM Note Text: Radiology Service Progress Note PATIENT NAME: Jessica Jiang DATE OF SERVICE: July 18, 2018 TIME: 4:50 PM PATIENT IDENTITY VERIFICATION COMPLETED USING TWO (2) METHODS: Patient confirmed name verbally and Date of . PATIENT GENDER DATA: Female. status: : No status: NO. PATIENT RELEVANT IMPLANT DATA REVIEWED: Not Applicable RADIOLOGY DEPARTMENT: General X-ray: Exam(s) Completed: Chest X-Ray Spine X-Ray(s): Cervical AP / LAT / OBL and Lumbar AP / LAT / L5-S1 Pelvis X-Ray: Pelvis General AP Upper Extremity X-Ray(s): Hand, bilateral : PERIPHERAL IV DATA: Not applicable SIGNED BY: Rehana Ponce July 18, 2018 4:50 PM CBC AND DIFFERENTIAL Collected: 07/18/2018 Status: F Source: [facility] 4:49 PM [facility] REPOSITORY TYPE CODE TESTS RESULT OUT OF REFERENCE UNITS RANGE LAB WBC 3.70-11.00 k/uL WBC 8.31 LAB RBC 3.90-5.20 m/uL Low RBC 3.73 LAB HGB 11.5-15.5 g/dL Low Hemoglobin 10.8 LAB HCT 36.0-46.0 % Low Hematocrit 33.5 LAB MCV 80.0-100.0 fL MCV 89.8 LAB MCH 26.0-34.0 pG MCH 29.0 LAB MCHC 30.5-36.0 g/dL MCHC 32.2 LAB RDWCV 11.5-15.0 % RDW-CV 13.4 LAB PLTCT 150-400 k/uL Platelet Count 267 LAB MPV 9.0-12.7 fL MPV 11.9 LAB ANEUT % Neut% 56.7 LAB AANEUT 1.45-7.50 k/uL Abs Neut 4.72 LAB ALYMP % Lymph% 35.3 LAB AALYMP 1.00-4.00 k/uL Abs Lymph 2.93 LAB AMONO % [place]% 5.2 LAB AAMONO <0.87 k/uL Abs [place] 0.43 LAB AEOS % Eosin% 2.3 LAB AAEOS <0.46 k/uL Abs Eosin 0.19 LAB ABASO % Baso% 0.5 LAB AABASO <0.11 k/uL Abs Baso 0.04 LAB AUNRBC 0 /100 WBC NRBCs 0.0 LAB ABNRBC <0.01 k/uL Absolute nRBC <0.01 LAB DTYP DTYPE Auto Diff Performed By: #### CBCDIF, C3COMP, C4COMP, RF, TSH, LMLATE, VITD, DNA, CCP, SERMPA, ANAIFR, ANABLL, CRISTA, ENAID, HISTON #### [facility] [address] [place], [place] [address] C3 COMPLEMENT Collected: 07/18/2018 Status: F Source: [place] 4:49 PM [facility] REPOSIT[facility] TYPE CODE TESTS RESULT OUT OF REFERENCE UNITS RANGE LAB C3COMP 86-166 mg/dL C3 Complement 103 Performed By: #### CBCDIF, C3COMP, C4COMP, RF, TSH, LMLATE, VITD, DNA, CCP, SERMPA, ANAIFR, ANABLL, CRISTA, ENAID, HISTON #### [facility] [address] [place] [id number] C4 COMPLEMENT Collected: 07/18/2018 Status: F Source: [place] 4:49 PM [facility] REPOSIT[facility] TYPE CODE TESTS RESULT OUT OF REFERENCE UNITS RANGE LAB C4COMP 13-46 mg/dL C4 Complement 20 Performed By: #### CBCDIF, C3COMP, C4COMP, RF, TSH, LMLATE, VITD, DNA, CCP, SERMPA, ANAIFR, ANABLL, CRISTA, ENAID, HISTON #### [facility] [address] [place] [id number] RHEUMATOID FACTOR Collected: 07/18/2018 Status: F Source: [place] 4:49 PM [facility] REPOSIT[facility] TYPE CODE TESTS RESULT OUT OF REFERENCE UNITS RANGE LAB RF <16 IU/mL Rheumatoid <10 Factor Performed By: #### CBCDIF, C3COMP, C4COMP, RF, TSH, LMLATE, VITD, DNA, CCP, SERMPA, ANAIFR, ANABLL, CRISTA, ENAID, HISTON #### [place] [id number] [place] [id number] TSH Collected: 07/18/2018 Status: F Source: [place] 4:49 PM [facility] REPOSITORY TYPE CODE TESTS RESULT OUT OF RANGE REFERENCE UNITS LAB TSH 0.400-5.500 uU/mL TSH 1.600 Result Comment: If the patient is , TSH reference range varies by gestational period: First Trimester 0.100-2.500 uU/mL Second Trimester 0.200-3.000 uU/mL Third Trimester 0.300-3.000 uU/mL References: 1. Boyd L, Taya M, Sonny EK, et al. Management of Thyroid Dysfunction during and : An Endocrine Society Clinical Practice Guideline. J Clin Endocrinol Metab, 2012:97:1009-1195. 2. José Miguel WAGONER. Overview of thyroid disease in . UpToDate. 2016. Accessed on January 06, 2016. Performed By: #### CBCDIF, C3COMP, C4COMP, RF, TSH, LMLATE, VITD, DNA, CCP, SERMPA, ANAIFR, ANABLL, CRISTA, ENAID, HISTON #### [facility] [address] [place] [id number] LYME LATE (>30 Collected: 07/18/2018 Status: F Source: [facility]) 4:49 PM [facility] REPOSITORY TYPE CODE TESTS RESULT OUT OF REFERENCE UNITS RANGE LAB LYMGMX Negative Lyme Negative IgG/IgM AB Result Comment: Absence of detectable Borrelia burgdorferi antibodies. A negative result does not exclude the possibility of Borrelia burgdorferi infection. If early Lyme disease is suspected, a second sample should be collected and tested two to four weeks later. Performed By: #### CBCDIF, C3COMP, C4COMP, RF, TSH, LMLATE, VITD, DNA, CCP, SERMPA, ANAIFR, ANABLL, CRISTA, ENAID, HISTON #### [place] [id number] [place] [address] VITAMIN D 25 HYDROXY Collected: 07/18/2018 Status: F Source: [place] 4:49 PM [facility] REPOSITORY TYPE CODE TESTS RESULT OUT OF REFERENCE UNITS RANGE LAB VITD 31.0-80.0 ng/mL Low Vitamin D 25 30.4 Hydroxy Result Comment: Classification of 25 [place] Vitamin D status: Insufficiency/Moderate Deficiency: < or = 30 ng/mL Sufficiency/Optimal Levels: 31 to 80 ng/mL Toxicity: > 100 ng/mL Test performed by chemiluminescent immunoassay. Performed By: #### CBCDIF, C3COMP, C4COMP, RF, TSH, LMLATE, VITD, DNA, CCP, SERMPA, ANAIFR, ANABLL, CRISTA, ENAID, HISTON #### [facility] [address] [place] [address] DNA ANTIBODY W/ CONF. Collected: 07/18/2018 Status: F Source: [place] 4:49 PM [facility] REPOSITORY TYPE CODE TESTS RESULT OUT OF REFERENCE UNITS RANGE LAB DNA <30 IU/mL DNA Antibody 12 w/ Conf. Result Comment: Negative for ds DNA Antibodies Negative: <30 IU/mL Equivocal: 30-74 IU/mL Positive: >74 IU/mL Performed By: #### CBCDIF, C3COMP, C4COMP, RF, TSH, LMLATE, VITD, DNA, CCP, SERMPA, ANAIFR, ANABLL, CRISTA, ENAID, HISTON #### [facility] [address] [place], [place] [address] CCP ANTIBODY, IGG Collected: 07/18/2018 Status: F Source: [place] 4:[address] [place] [address] REPOSITORY TYPE CODE TESTS RESULT OUT OF REFERENCE UNITS RANGE LAB CCPABG <20 Units High CCP 21 Antibody, IgG Result Comment: < 20 units: Negative 20-39 units: Weak Positive 40-59 units: Moderate Positive > 60 units: Strong Positive The following results were obtained with the [employer] QUANTA Lite CCP3 IgG FROY. Anti-CCP values obtained with different manufacturers' assay methods may not be used interchangeably. The magnitude of the reported IgG levels cannot be correlated to an endpoint titer. Performed By: #### CBCDIF, C3COMP, C4COMP, RF, TSH, LMLATE, VITD, DNA, CCP, SERMPA, ANAIFR, ANABLL, CRISTA, ENAID, HISTON #### [facility] [address] [place], [place] [address] MONCLNL PROTEIN, SER Collected: 07/18/2018 Status: F Source: [place] 4:[address] [place] [address] REPOSITORY TYPE CODE TESTS RESULT OUT OF REFERENCE UNITS RANGE LAB MPAIGG 717-1411 mg/dL MPA Serum 1050 IgG LAB MPAIGA 78-391 mg/dL Low MPA Serum 74 IgA LAB MPAIGM 53-334 mg/dL MPA Serum 90 IgM LAB FKAPS 3.30-19.40 mg/L [place], 9.5 Free, Serum Result Comment: Rarely, increased serum free light chains values may not be detected due to antigen excess phenomenon. Results should always be correlated with other laboratory results and clinical findings. LAB FLAMS 5.7-26.3 mg/L Lambda, Free, 12.6 Serum Result Comment: Rarely, increased serum free light chains values may not be detected due to antigen excess phenomenon. Results should always be correlated with other laboratory results and clinical findings. LAB KLRAT 0.26-1.65 0.75 K/L Ratio, Serum LAB MPAR No M protein is identified. No M MPA Result protein is identified. LAB MPASTF Reviewed Staff Review by Ismael Whitney MD ([id number]) Performed By: #### CBCDIF, C3COMP, C4COMP, RF, TSH, LMLATE, VITD, DNA, CCP, SERMPA, ANAIFR, ANABLL, CRISTA, ENAID, HISTON #### [facility] [address] [place] [id number] CHAO BY IFA W/REFLEX Collected: 07/18/2018 Status: F Source: [place] 4:49 [facility] REPOSITORY TYPE CODE TESTS RESULT OUT OF RANGE REFERENCE UNITS LAB ANASC Negative Abnormal Alert CHAO Positive Result Comment: Normal range : negative at <1:80 serum dilution. LAB LIZETH Negative Abnormal 1:640 Alert CHAO Titer LAB ANAP Homogeneous CHAO Pattern Performed By: #### CBCDIF, C3COMP, C4COMP, RF, TSH, LMLATE, VITD, DNA, CCP, SERMPA, ANAIFR, ANABLL, CRISTA, ENAID, HISTON #### [facility] [address] [place] [id number] CHAO IFA TITER BILL Collected: 07/18/2018 Status: F Source: [place] 4:49 [facility] REPOSITORY TYPE CODE TESTS RESULT OUT OF REFERENCE UNITS RANGE LAB ANABLL CHAO Billed for IFA Titer services Bill performed Performed By: #### CBCDIF, C3COMP, C4COMP, RF, TSH, LMLATE, VITD, DNA, CCP, SERMPA, ANAIFR, ANABLL, CRISTA, ENAID, HISTON #### [facility] [address] [place] [id number] ANGIOTENS. CONV ENZ Collected: 07/18/2018 Status: F Source: [place] 4:49 [facility] REPOSITORY TYPE CODE TESTS RESULT OUT OF RANGE REFERENCE UNITS LAB CRISTA <52 U/L 23 Angiotens. Conv Enz Result Comment: Artificially low CRISTA levels may be found for patients taking CRISTA inhibitors or after the administration of gadolinium. This test was developed and its performance characteristics determined by [facility]'s [facility] [place] ([facility]). It has not been cleared or approved by the FDA. -[facility] is regulated under CLIA as qualified to perform high-complexity testing. This test is used for clinical purposes. It should not be regarded as investigational or for research. Performed By: #### CBCDIF, C3COMP, C4COMP, RF, TSH, LMLATE, VITD, DNA, CCP, SERMPA, ANAIFR, ANABLL, CRISTA, ENAID, HISTON #### [facility] [address] [place] [phone] KAJAL ANTIBODY PANEL Collected: 07/18/2018 Status: F Source: [place] 4:49 PM [facility] REPOSITORY TYPE CODE TESTS RESULT OUT OF REFERENCE UNITS RANGE LAB SMIB <1.0 AI Sm Antibody <0.2 Result Comment: NEGATIVE Negative: <1.0 AI Positive: >0.9 AI LAB RNPIB <1.0 AI HOOP CUTTER Antibody <0.2 Result Comment: NEGATIVE Negative: <1.0 AI Positive: >0.9 AI LAB SSAIB <1.0 AI SSA Antibody <0.2 Result Comment: NEGATIVE Negative: <1.0 AI Positive: >0.9 AI LAB SSBIB <1.0 AI SSB Antibody <0.2 Result Comment: NEGATIVE Negative: <1.0 AI Positive: >0.9 AI LAB CENTIB <1.0 AI Centromere <0.2 Result Comment: NEGATIVE Negative: <1.0 AI Positive: >0.9 AI LAB SCLIB <1.0 AI Scleroderma IgG Ab <0.2 Result Comment: NEGATIVE Negative: <1.0 AI Positive: >0.9 AI LAB JO1IB <1.0 AI KATHLEEN 1 Antibody <0.2 Result Comment: NEGATIVE Negative: <1.0 AI Positive: >0.9 AI LAB RRNPIB <1.0 AI Ribosomal HOOP CUTTER <0.2 Result Comment: NEGATIVE Negative: <1.0 AI Positive: >0.9 AI LAB CHRMIB <1.0 AI Chromatin Antibody <0.2 Result Comment: NEGATIVE Negative: <1.0 AI Positive: >0.9 AI Performed By: #### CBCDIF, C3COMP, C4COMP, RF, TSH, LMLATE, VITD, DNA, CCP, SERMPA, ANAIFR, ANABLL, CRISTA, ENAID, HISTON #### [facility] [address] [place] [id number] HISTONE IGG AB Collected: 07/18/2018 Status: F Source: [place] 4:49 [facility] REPOSITORY TYPE CODE TESTS RESULT OUT OF REFERENCE UNITS RANGE LAB HISTON <1.0 Units High Histone IgG 1.3 Ab Result Comment: POSITIVE Negative: <1.0 Units Weak Positive: 1.0-1.5 Units Moderate Positive: 1.6-2.5 Units Strong Positive: >2.5 Units Performed By: #### CBCDIF, C3COMP, C4COMP, RF, TSH, LMLATE, VITD, DNA, CCP, SERMPA, ANAIFR, ANABLL, CRISTA, ENAID, HISTON #### [place] [address] HLA-B27 PCR Collected: 07/18/2018 Status: F Source: [place] [address]:[address] [place] [address] REPOSITORY TYPE CODE TESTS RESULT OUT OF REFERENCE UNITS RANGE LAB B27DNA HLA-B27 Negative DNA Result Result Comment: HLA-B27 is strongly associated with ankylosing spondylitis (). HLA-B27 is also associated with other seronegative arthropathies such as Dash syndrome and psoriatic arthritis as well as extra-articular diseases such as anterior uveitis and inflammatory bowel disease. Greater than 90% of patients with are HLA-B27 positive. The frequency of HLA-B27 varies by ethnic group but generally <10 % in most populations. HLA-B27 associated susceptibility to varies by population and HLA-B27 alleles detected. Some alleles suc h as B27:05 are associated with high susceptibility while others such B27:06 and B27:09 are associated with low susceptibility. HLA-B27 allele typing is recommended in HLA-B27 positive cases. HLA typing performed by PCR-RSSOP and/or SBT. This test was developed and its performance characteristics determined by [facility]. The test has not been cleared or approved by the [place] FDA. However, FDA approval was not necessary since this lab is certified under CLIA for high complexity testing. Test performed by: [facility], [address], [place] [address] CLIA [id number] Performed By: #### CBCDIF, C3COMP, C4COMP, RF, TSH, LMLATE, VITD, DNA, CCP, SERMPA, ANAIFR, ANABLL, CRISTA, ENAID, HISTON #### [facility] [address] [place] [phone] IMM[facility]ODEFICIENCY [facility] Collected: 07/18/2018 Status: F Source: [place] 4:49 [facility] REPOSITORY TYPE CODE TESTS RESULT OUT OF REFERENCE UNITS RANGE LAB HCD3P 60-89 % 66 CD3+ T Cell % LAB HCD3N 958-2388 Cells/uL 1864 CD3+ T Cell No. LAB HCD4P 34-61 % 49 CD4+CD3+ T Cell % LAB HCD4N 533-1674 Cells/uL 1376 CD4+CD3+ T Cell No. LAB HCD8P 10-41 % 16 CD3+CD8+ T Cell % LAB HCD8N 175-958 Cells/uL 443 CD3+CD8+ T Cell No. LAB HCD19P 5-22 % 30 High CD19+ B Cell % LAB HCD19N 75-660 Cells/uL 860 High CD19+ B Cell No. LAB HNKP 5-25 % 3 Low NK Cell % LAB HNKN 102-565 Cells/uL 82 Low NK Cell No. LAB H48RAT 1.10-3.25 3.11 CD4/CD8 Ratio LAB HCOMNT Clinical interpretation of Immunodef. lymphocyte subsets Comment must be made with caution. Relative and absolute values may be profoundly affected by immunosuppressive or cytotoxic therapy, and be abnormal in a wide variety of infectious, inflammatory, autoimmune and neoplastic disorders. Result Comment: The following number of cluster designated antibodies were used for the definition of the above reported populations: CD3, CD4, CD8, CD16, CD19, and CD56. This test was developed and its performance characteristics determined by [facility]'s [facility] [place] ([facility]). It has not been cleared or approved by the FDA. -[facility] is regulated under CLIA as qualified to perform high-complexity testing. This test is used for clinical purposes. It should not be regarded as investigational or for research. Performed By: #### IMMDEF #### [facility] [address] [place] [id number] NURSING PROG Observed: 07/18/2018 Status: COMPLETED Source: [place] 3:45 PM [facility] OTHER CAMPUS REPOSITORY HNO ID: [id number] Author: Jacob (Rn) Jake RN Service: Anesthesiology Author Type: Registered Nurse Type: Nursing Progress Note Filed: 07/18/2018 3:47 PM Note Text: PACC Nurse Progress Note History AND Physical: PACC Visit Date: N/A Original HANDP Date: 07/[address] Oliveira ED visit Date: N/A Outside HANDP Scanned Date: N/A Labs Within Last 6 Months: N/A Imaging Within Last 12 Months: N/A Cardiac Testing: N/A Last Menstrual Period: LMP Date: unknown Postmenopausal >1yr: No, S/P Hysterectomy: N/A BMI Percentile (PEDS): N/A Risk Assessment: N/A Anesthesia Review: N/A Narrative: N/A Pre-op Considerations: N/A Chart Check: IN PROGRESS-Needs pre op phone call Jacob Joseph RN July 18, 2018 3:46 PM CNOV Observed: 07/17/2018 Status: COMPLETED Source: [place] 3:40 PM [facility] REPOSITORY Office Visit (RHEUMN) JESSICA JIANG ([id number]) 1980 F Date Time Provider Department 07/17/18 3:40 PM JOSE OLIVEIRA During your visit today, we recorded the following information about you: Temperature Pulse Blood pressure Weight 98.3 degrees 92/minute 125/80 85.6 kg Height 1.651 m Jose Oliveira MD 07/19/2018 12:13 PM Signed RHEUMATOLOGY FOLLOW UP NOTE PROVIDER: Jose Oliveira MD DATE OF VISIT: 07/17/2018 PATIENT NAME: Jessica Jiang CC CHIEF COMPLAINT / REASON FOR VISIT: Joint pains SUBJECTIVE / INTERIM HISTORY: Patient returns for follow-up. Last seen here 02/[address] Deleon. Has Crohn's for 8-9 years Thought to be well controlled Sees GI here Getting colonoscopy soon Has not been on steroids for some time Was on Humira, but was having migratory joint pains and changed to Cimzia 4 years ago. Was working well for joints Sometimes would start to have joint pains a few days prior to injection Getting injection 200 mg every 2 weeks. Over last 4-6 mos, having more problems. Notes sore throat and swollen glands. Had throat Cx neg and some antibiotics Just finishing antibiotic now. US neck with reported normal size LNs Saw ENT here today Has had 2 nasal infections MRSA Boil on leg Cellulitis and septic bursitis on L elbow Needed drained and antibiotics. Joints now with migratory joint pain Has something every day Mainly upper body Fingers, thumb, elbows, knees Never lasts more than 24 hours Some weight loss. Both ENT docs want her off Cimzia. PHQ noted She is under care for depression and anxiety No suicidal thoughts. REVIEW OF SYSTEMS: July 17, 2018 CONSTITUTIONAL: Fever: No Fatigue: Yes Pain: No EYES: Pain: No Redness: No Loss of vision: No Dryness: No EAR, NOSE, MOUTH, THROAT: Nose bleeds: No Hearing loss: Yes Sores in mouth: No Swallowing problems: No Dry mouth: Yes CARDIOVASCULAR: Chest pain: No Swelling in the feet or legs: No RESPIRATORY: Shortness of breath: No Pain with breathing: No Chronic cough: No Coughing up blood: No , GASTROINTESTINAL: Heartburn: Yes Nausea: Yes Diarrhea: Yes Blood in the stool or black stool: No Abdominal pain: Yes GENITOURINARY: Blood in urine: No Pain or burning on urination: No] MUSCULOSKELETAL: Joint pain: Yes Joint swelling: Yes Morning stiffness in joints: Yes Muscle weakness: Yes Back pain: Yes SKIN: Rashes: Yes Sun sensitive rashes: No Color changes of hands or feet in the cold: No Hair loss: Yes Nail changes: Yes NEUROLOGICAL: Headaches: Yes Dizziness: No Numbness or tingling: No Memory loss: No Seizures: No HEMATOLOGIC/LYMPHATIC: Swollen glands: Yes Anemia: No ALLERGIES/IMMUNOLOGIC: Allergies (other than medications): No Increased susceptibility to infection: Yes KNOWN MEDICAL CONDITIONS: Diabetes: No Thyroid disease: No High blood pressure: No PAST MEDICAL AND SURGICAL HISTORY PAST MEDICAL HISTORY Diagnosis Date - Anxiety - Carcinoid tumor of appendix 2012 - Crohn's disease (HCC) - DVT (deep venous thrombosis) (HCC) 2007 - Herniated disc - Left ovarian cyst 2012 - Non morbid obesity 03/14/2018 - Smoker 03/14/2018 - Swollen lymph nodes PAST SURGICAL HISTORY Procedure Laterality Date - APPENDECTOMY 09/12/2012 incidental finding carcinoid tumor appendix - COLONOSCOP W/ OR W/O BRSH SPEC 02/16/16 Colonoscopy - COLONOSCOPY W/BX 09/05/11 normal colon - COLPO OF CERVIX INC UPPER VAG - CRYOCAUTERY OF CERVIX - EGD W/O BRSH SPECIMEN W/BX 09/05/11 gastritis - EGD W/O BRSH SPECIMEN W/BX 10-14-14 - EGD W/O OR W/BRUSH/WASH 02/16/16 EGD - REMOVAL GALLBLADDER Cholecystectomy - REMOVAL OF TONSILS,<12 Y/O Tonsillectomy SOCIAL AND FAMILY HISTORY S with psoriasis Cousin with PsA FAMILY HISTORY Problem Relation Age of Onset - Hypertension Mother - Hypertension Father - Ovarian cancer Paternal Grandmother - Stroke Paternal Grandmother - other (Other) Paternal Grandmother diverticulitis - Cancer Paternal Grandfather Lung - Colon Cancer Other 2 great aunts/1 great unclet Social History Marital status: Single Spouse name: Years of education: 17 Number of children: 1 Occupational History 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 certolizumab pegol (CIMZIA) 400 mg (200 mg x 2 vials) kit Inject 1 mL subcutaneously every 2 weeks. citalopram (CELEXA) 40 mg tablet Take 40 mg by mouth once daily. dicyclomine (BENTYL) 10 mg capsule Take 1 capsule by mouth three times daily as needed. Use as directed hydrOXYzine pamoate (VISTARIL) 25 mg capsule Take 25 mg by mouth four times daily as needed for Anxiety. LORazepam (ATIVAN) 0.5 mg tab Take 1 tablet by mouth twice daily as needed. ondansetron orally disintegrating (ZOFRAN ODT) 4 mg disintegrating tablet Take 1 tablet by mouth every 8 hours as needed. pantoprazole DR (PROTONIX) 40 mg tablet Take 1 tablet by mouth once daily. PARoxetine (PAXIL) 10 mg tablet Take 1 tablet by mouth once daily. Vit-Sarah Beth-Fe Fum-FA (VINATE M) 27 mg iron-1 mg Take 1 tablet by mouth once daily. prochlorperazine (COMPAZINE) 10 mg tablet Take 1 tablet by mouth every 8 hours as needed (FOR NAUSEA). promethazine (PHENERGAN) 25 mg tablet Take 1 tablet by mouth four times daily as needed. traZODone (DESYREL) 100 mg tablet Take 1 tablet by mouth as needed. peg 3350-Electrolytes (GOLYTELY) 236-22.74-6.74 -5.86 gram suspension Take as directed (Patient not taking: Reported on 07/17/2018 ) No current facility-administered medications for this visit. PHYSICAL EXAMINATION: General: Patient is alert and oriented. Appears healthy and well. Vital signs: BP 125/80 (BP Site: Left Arm, BP Position: Sitting, BP Cuff Size: Regular Adult) Pulse 92 Temp 36.8 ?C (98.3 ?F) (Oral) Ht 165.1 cm (5' 5) Wt 85.6 kg (188 lb 11.2 oz) BMI 31.40 kg/m? Skin: No rash, nodule or thickening. Eyes: No injection. PERRLA. HENT: Normal inspection and palpation of ears and nose. Normal OP and tongue. Lymph: Enlarged in lower neck.Normal axillae. Neck: No other thyromegaly or mass. Lungs: Normal resp. effort. Clear to A AND P. Heart: RRR without gallop, murmur or rub. Extremities: No edema. Pulses equal and normal. Musculoskeletal: No joint swelling or tenderness Good ROM spine DATA: Laboratory: Reviewed Component Latest Ref Rng AND Units 03/14/2018 07/03/2018 Protein, Total 6.3 - 8.0 g/dL 7.0 7.2 Albumin 3.9 - 4.9 g/dL 4.2 4.4 Calcium 8.5 - 10.2 mg/dL 9.0 9.3 Bilirubin, Total 0.2 - 1.3 mg/dL 0.4 <0.2 (L) Alkaline Phosphatase 34 - 123 U/L 77 90 AST 13 - 35 U/L 37 (H) 12 (L) Glucose 74 - 99 mg/dL 115 (H) 96 BUN 7 - 21 mg/dL 6 (L) 7 Creatinine 0.58 - 0.96 mg/dL 0.77 0.62 Sodium 136 - 144 mmol/L 139 138 Potassium 3.7 - 5.1 mmol/L 3.2 (L) 4.2 Chloride 97 - 105 mmol/L 100 106 (H) CO2 22 - 30 mmol/L 19 (L) 23 Anion Gap mmol/L 20 (H) 9 ALT 7 - 38 U/L 24 8 eGFR- >60 >60 eGFR-All Other Races . >60 >60 WBC 3.70 - 11.00 k/uL 4.44 RBC 3.90 - 5.20 m/uL 4.30 Hemoglobin 11.5 - 15.5 g/dL 12.1 Hematocrit 36.0 - 46.0 % 38.7 MCV 80.0 - 100.0 fL 90.0 MCH 26.0 - 34.0 pG 28.1 MCHC 30.5 - 36.0 g/dL 31.3 RDW-CV 11.5 - 15.0 % 14.5 Platelet Count 150 - 400 k/uL 160 MPV 9.0 - 12.7 fL 12.0 Absolute nRBC <0.01 k/uL <0.01 TB Nil IU/mL 0.02 TB1 Ag minus Nil <0.35 IU/mL 0.01 TB2 Ag minus Nil <0.35 IU/mL 0.02 Mitogen minus Nil >10 TB Result Negative Negative TB Interpretation No evidence of current or previous infection with Mycobacterium tuberculosis. Iron 41 - 186 ug/dL 22 (L) TIBC 232 - 386 ug/dL 300 Transferrin Saturation 15 - 57 % 7 (L) M Pneumoniae IgG, Qual Negative Positive (A) Mycoplasma Ab, IgG OD 2.75 CRP <0.9 mg/dL 12.7 (H) 0.6 Vitamin B12 232 - 1,245 pg/mL 585 Anti-Streptolysin O <201 IU/mL 198 IMPRESSION / PROBLEM LIST: 1. Migratory arthralgia / arthritis Unclear reason Could be Crohn's but seems to be worsening on anti-TNF-a Consider drug induced LE from anti-TNF-a 2. Lymphadenopathy Doubt lymphoma Also consider sarcoidosis from anti-TNF-a 3. Infections Probably due to suppressed immune system 4. Crohn's disease Thought to be well controlled RECOMMENDATIONS / PLAN: ? Laboratory: o As outlined in orders. ? Radiology: o As outlined in orders. o CXR o Spine XR o Hand XR ? Other tests: o Consider CT neck o Consider LN biopsy ? Consultations: o FU ENT o FU GI o May need to see Immunology / ID ? Medications: o No medications were prescribed or altered by me today. o Would agree with holding Cimzia for now ? Vaccinations: o Keep up to date ? Other: o Patient aware that I will call if testing is out of the range of what is expected. o Patient should update all of her age appropriate malignancy screens. ? Follow-up: o To be determined o I will contact her with test results Total face to face time at this visit was 50 minutes. Greater than 50% of the time was spent on counseling the patient and / or coordination of care. Electronically signed by: Jose Oliveira MD CC: Jossie Arita MD [address] [place] [address] Referring Provider: SELF [[id number]] Allergies As of Date: 07/17/2018 Noted Allergy Reaction LEVAQUIN (LEVOFLOXACIN) 05/14/2011 14 - Other: See Comments Comments: Ruptured achilles tendon Date Reviewed: 07/17/2018 Reviewed by: Tamika Ojeda - Fully Assessed Primary Visit Diagnosis:Polyarthralgia [M25.50] Other Visit Diagnoses:Cervicalgia [M54.2] Lymphadenopathy [R59.1] Bilateral hand pain [M79.641, M79.642] Chronic bilateral low back pain without sciatica [M54.5, G89.29] Order(s):XR CERV OTHER 4V AP/LAT/OBL [7070513] Order #: [id number] FUTURE XR LUMBAR GENERAL 3V AP/LAT/L5-S1 [[id number]] Order #: [id number] FUTURE XR PELVIS 1V AP [[id number]] Order #: [id number] FUTURE XR HAND GENERAL 3V PA/LAT/OBL BILAT [[id number]] Order #: [id number] FUTURE TSH BLD [SQTSH] Order #: [id number] FUTURE CBC + DIFF [SQCBCDIF] Order #: [id number] FUTURE MONOCLONAL PROTEIN, SERUM (BLOOD) [SQSERMPA] Order #: [id number] FUTURE IMMUNODEFICIENCY CDC [SQIMMDEF] Order #: [id number] FUTURE CHAO BY IFA WITH REFLEX [SQANAIFR] Order #: [id number] FUTURE ANTI-HISTONE [SQHISTON] Order #: [id number] FUTURE DNA AB DS + CONF BLD [SQDNA] Order #: [id number] FUTURE XR CHEST 2V FRONTAL/LAT [[id number]] Order #: [id number] FUTURE CRISTA/ANGIOTENSIN BLD [SQACE] Order #: [id number] FUTURE C3 COMPLEMENT BLD [RFE6SIDG] Order #: [id number] FUTURE C4 COMPLEMENT BLD [BYE9EDLR] Order #: [id number] FUTURE RHEUMATOID FACTOR BL [SQRF] Order #: [id number] FUTURE CCP ANTIBODY IGG [SQCCP] Order #: [id number] FUTURE VITAMIN D 25 HYDROXY [SQVITD] Order #: [id number] FUTURE LYME AB LATE >30 DAYS SYMPTOMS [SQLMLATE] Order #: [id number] FUTURE HLA-B27 PCR [[id number]] Order #: [id number] FUTURE XR CHEST 2V FRONTAL/LAT [[id number]] Order #: [id number]. #:[id number] XR HAND GENERAL 3V PA/LAT/OBL BILAT [[id number]] Order #: [id number]. #:[id number] XR PELVIS 1V AP [[id number]] Order #: [id number]. #:[id number] XR LUMBAR GENERAL 3V AP/LAT/L5-S1 [[id number]] Order #: [id number]. #:[id number] XR CERV OTHER 4V AP/LAT/OBL [[id number]] Order #: [id number]. #:[id number] Prescriptions as of 07/17/2018 Sig: AMITRIPTYLINE 10 MG TABLET Take 2.5 tablets by mouth beth* CERTOLIZUMAB PEGOL 400 MG (20* Inject 1 mL subcutaneously ev* CITALOPRAM 40 MG TABLET Take 40 mg by mouth once marino* DICYCLOMINE 10 MG CAPSULE Take 1 capsule by mouth three* HYDROXYZINE PAMOATE 25 MG CAP* Take 25 mg by mouth four time* LORAZEPAM 0.5 MG TABLET Take 1 tablet by mouth twice * ONDANSETRON 4 MG DISINTEGRATI* Take 1 tablet by mouth every * PANTOPRAZOLE 40 MG TABLET,DEL* Take 1 tablet by mouth once d* PAROXETINE 10 MG TABLET Take 1 tablet by mouth once d* VIT NO.136-FERROUS F* Take 1 tablet by mouth once d* PROCHLORPERAZINE MALEATE 10 M* Take 1 tablet by mouth every * PROMETHAZINE 25 MG TABLET Take 1 tablet by mouth four t* TRAZODONE 100 MG TABLET Take 1 tablet by mouth as nee* PEG 3350-ELECTROLYTES 236 GRA* Take as directed Patient not taking: Reported on 07/17/2018 Problem List As Of Date 07/17/2018 Noted Resolved Cellulitis and abscess of unspecified site [L03*INVALID FOR*09/29/2012 Change in bowel function [R19.8] INVALID FOR*09/29/2012 Abdominal pain, unspecified site [R10.9] INVALID FOR*09/29/2012 Carcinoid tumor of appendix, 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 Abdominal pain [R10.9] INVALID FOR*03/14/2018 More... DVT (deep venous thrombosis) (HCC) [I82.409] INVALID FOR*03/14/2018 More... SUMMARY INVALID FOR*03/14/2018 More... Insomnia [G47.00] INVALID FOR* Anxiety neurosis [F41.1] INVALID FOR* GERD (gastroesophageal reflux disease) [K21.9] INVALID FOR* Nausea [R11.0] INVALID FOR* Crohn's disease of large intestine with other c*INVALID FOR* More... Non morbid obesity [E66.9] INVALID FOR* Smoker [F17.200] INVALID FOR* Medications Discontinued During This Encounter ALPRAZolam (XANAX) 0.5 mg tablet 5 ta* 0 12/31/2017 07/17/2018 Class: Print RX Route: ORAL Sig: Take 1 tablet by mouth once daily as needed. Patient not taking: Reported on 06/24/2018 Disc: Reason for discontinue is not on file. sulfamethoxazole-trimethoprim (BACTR* 06/24/2018 07/17/2018 Class: Med Update Route: ORAL Sig: Take 1 tablet by mouth once daily. Patient not taking: Reported on 07/17/2018 Disc: Reason for discontinue is not on file. Encounter Status:Closed by JOSE OLIVEIRA MD on 07/19/18 PROGRESS Observed: 07/17/2018 Status: COMPLETED Source: [place] 3:33 PM [facility] RE[facility] HNO ID: [id number] Author: Jose Oliveira Service: (none) Author Type: Physician Type: Progress Notes Filed: 07/19/2018 12:13 PM Note Text: RHEUMATOLOGY FOLLOW UP NOTE PROVIDER: Jose Oliveira MD DATE OF VISIT: 07/17/2018 PATIENT NAME: Jessica Jiang CHIEF COMPLAINT / REASON FOR VISIT: Joint pains SUBJECTIVE / INTERIM HISTORY: Patient returns for follow-up. Last seen here 02/[address] Deleon. Has Crohn's for 8-9 years Thought to be well controlled Sees GI here Getting colonoscopy soon Has not been on steroids for some time Was on Humira, but was having migratory joint pains and changed to Cimzia 4 years ago. Was working well for joints Sometimes would start to have joint pains a few days prior to injection Getting injection 200 mg every 2 weeks. Over last 4-6 mos, having more problems. Notes sore throat and swollen glands. Had throat Cx neg and some antibiotics Just finishing antibiotic now. US neck with reported normal size LNs Saw ENT here today Has had 2 nasal infections MRSA Boil on leg Cellulitis and septic bursitis on L elbow Needed drained and antibiotics. Joints now with migratory joint pain Has something every day Mainly upper body Fingers, thumb, elbows, knees Never lasts more than 24 hours Some weight loss. Both ENT docs want her off Cimzia. PHQ noted She is under care for depression and anxiety No suicidal thoughts. REVIEW OF SYSTEMS: July 17, 2018 CONSTITUTIONAL: Fever: No Fatigue: Yes Pain: No EYES: Pain: No Redness: No Loss of vision: No Dryness: No EAR, NOSE, MOUTH, THROAT: Nose bleeds: No Hearing loss: Yes Sores in mouth: No Swallowing problems: No Dry mouth: Yes CARDIOVASCULAR: Chest pain: No Swelling in the feet or legs: No RESPIRATORY: Shortness of breath: No Pain with breathing: No Chronic cough: No Coughing up blood: No , GASTROINTESTINAL: Heartburn: Yes Nausea: Yes Diarrhea: Yes Blood in the stool or black stool: No Abdominal pain: Yes GENITOURINARY: Blood in urine: No Pain or burning on urination: No] MUSCULOSKELETAL: Joint pain: Yes Joint swelling: Yes Morning stiffness in joints: Yes Muscle weakness: Yes Back pain: Yes SKIN: Rashes: Yes Sun sensitive rashes: No Color changes of hands or feet in the cold: No Hair loss: Yes Nail changes: Yes NEUROLOGICAL: Headaches: Yes Dizziness: No Numbness or tingling: No Memory loss: No Seizures: No HEMATOLOGIC/LYMPHATIC: Swollen glands: Yes Anemia: No ALLERGIES/IMMUNOLOGIC: Allergies (other than medications): No Increased susceptibility to infection: Yes KNOWN MEDICAL CONDITIONS: Diabetes: No Thyroid disease: No High blood pressure: No PAST MEDICAL AND SURGICAL HISTORY PAST MEDICAL HISTORY Diagnosis Date - Anxiety - Carcinoid tumor of appendix 2012 - Crohn's disease (HCC) - DVT (deep venous thrombosis) (HCC) 2007 - Herniated disc - Left ovarian cyst 2012 - Non morbid obesity 03/14/2018 - Smoker 03/14/2018 - Swollen lymph nodes PAST SURGICAL HISTORY Procedure Laterality Date - APPENDECTOMY 09/12/2012 incidental finding carcinoid tumor appendix - COLONOSCOP W/ OR W/O BRSH SPEC 02/16/16 Colonoscopy - COLONOSCOPY W/BX 09/05/11 normal colon - COLPO OF CERVIX INC UPPER VAG - CRYOCAUTERY OF CERVIX - EGD W/O BRSH SPECIMEN W/BX 09/05/11 gastritis - EGD W/O BRSH SPECIMEN W/BX 3-- - EGD W/O OR W/BRUSH/WASH 02/16/16 EGD - REMOVAL GALLBLADDER Cholecystectomy - REMOVAL OF TONSILS,<12 Y/O Tonsillectomy SOCIAL AND FAMILY HISTORY S with psoriasis Cousin with PsA FAMILY HISTORY Problem Relation Age of Onset - Hypertension Mother - Hypertension Father - Ovarian cancer Paternal Grandmother - Stroke Paternal Grandmother - other (Other) Paternal Grandmother diverticulitis - Cancer Paternal Grandfather Lung - Colon Cancer Other 2 great aunts/1 great unclet Social History Marital status: Single Spouse name: Years of education: 17 Number of children: 1 Occupational History Occupation Employer Comment [employer] * Social History Main Topics Smoking status: Current Every Day Smoker Packs/day: 1.00 Years: 15.00 Types: Cigarettes Smokeless tobacco: Never Used Alcohol use: No Drug use: No Sexual activity: Yes Partners with: Male control/protection: IUD Comment: jefferson Social History Narrative Lives alone with 15 yo son CURRENT MEDICATIONS: Current Outpatient Prescriptions: amitriptyline (ELAVIL) 10 mg tablet Take 2.5 tablets by mouth daily at bedtime. certolizumab pegol (CIMZIA) 400 mg (200 mg x 2 vials) kit Inject 1 mL subcutaneously every 2 weeks. citalopram (CELEXA) 40 mg tablet Take 40 mg by mouth once daily. dicyclomine (BENTYL) 10 mg capsule Take 1 capsule by mouth three times daily as needed. Use as directed hydrOXYzine pamoate (VISTARIL) 25 mg capsule Take 25 mg by mouth four times daily as needed for Anxiety. LORazepam (ATIVAN) 0.5 mg tab Take 1 tablet by mouth twice daily as needed. ondansetron orally disintegrating (ZOFRAN ODT) 4 mg disintegrating tablet Take 1 tablet by mouth every 8 hours as needed. pantoprazole DR (PROTONIX) 40 mg tablet Take 1 tablet by mouth once daily. PARoxetine (PAXIL) 10 mg tablet Take 1 tablet by mouth once daily. Vit-Sarah Beth-Fe Fum-FA (VINATE M) 27 mg iron-1 mg Take 1 tablet by mouth once daily. prochlorperazine (COMPAZINE) 10 mg tablet Take 1 tablet by mouth every 8 hours as needed (FOR NAUSEA). promethazine (PHENERGAN) 25 mg tablet Take 1 tablet by mouth four times daily as needed. traZODone (DESYREL) 100 mg tablet Take 1 tablet by mouth as needed. peg 3350-Electrolytes (GOLYTELY) 236-22.74-6.74 -5.86 gram suspension Take as directed (Patient not taking: Reported on 07/17/2018 ) No current facility-administered medications for this visit. PHYSICAL EXAMINATION: General: Patient is alert and oriented. Appears healthy and well. Vital signs: BP 125/80 (BP Site: Left Arm, BP Position: Sitting, BP Cuff Size: Regular Adult) Pulse 92 Temp 36.8 ?C (98.3 ?F) (Oral) Ht 165.1 cm (5' 5) Wt 85.6 kg (188 lb 11.2 oz) BMI 31.40 kg/m? Skin: No rash, nodule or thickening. Eyes: No injection. PERRLA. HENT: Normal inspection and palpation of ears and nose. Normal OP and tongue. Lymph: Enlarged in lower neck.Normal axillae. Neck: No other thyromegaly or mass. Lungs: Normal resp. effort. Clear to A AND P. Heart: RRR without gallop, murmur or rub. Extremities: No edema. Pulses equal and normal. Musculoskeletal: No joint swelling or tenderness Good ROM spine DATA: Laboratory: Reviewed Component Latest Ref Rng AND Units 03/14/2018 07/03/2018 Protein, Total 6.3 - 8.0 g/dL 7.0 7.2 Albumin 3.9 - 4.9 g/dL 4.2 4.4 Calcium 8.5 - 10.2 mg/dL 9.0 9.3 Bilirubin, Total 0.2 - 1.3 mg/dL 0.4 <0.2 (L) Alkaline Phosphatase 34 - 123 U/L 77 90 AST 13 - 35 U/L 37 (H) 12 (L) Glucose 74 - 99 mg/dL 115 (H) 96 BUN 7 - 21 mg/dL 6 (L) 7 Creatinine 0.58 - 0.96 mg/dL 0.77 0.62 Sodium 136 - 144 mmol/L 139 138 Potassium 3.7 - 5.1 mmol/L 3.2 (L) 4.2 Chloride 97 - 105 mmol/L 100 106 (H) CO2 22 - 30 mmol/L 19 (L) 23 Anion Gap mmol/L 20 (H) 9 ALT 7 - 38 U/L 24 8 eGFR- >60 >60 eGFR-All Other Races . >60 >60 WBC 3.70 - 11.00 k/uL 4.44 RBC 3.90 - 5.20 m/uL 4.30 Hemoglobin 11.5 - 15.5 g/dL 12.1 Hematocrit 36.0 - 46.0 % 38.7 MCV 80.0 - 100.0 fL 90.0 MCH 26.0 - 34.0 pG 28.1 MCHC 30.5 - 36.0 g/dL 31.3 RDW-CV 11.5 - 15.0 % 14.5 Platelet Count 150 - 400 k/uL 160 MPV 9.0 - 12.7 fL 12.0 Absolute nRBC <0.01 k/uL <0.01 TB Nil IU/mL 0.02 TB1 Ag minus Nil <0.35 IU/mL 0.01 TB2 Ag minus Nil <0.35 IU/mL 0.02 Mitogen minus Nil >10 TB Result Negative Negative TB Interpretation No evidence of current or previous infection with Mycobacterium tuberculosis. Iron 41 - 186 ug/dL 22 (L) TIBC 232 - 386 ug/dL 300 Transferrin Saturation 15 - 57 % 7 (L) M Pneumoniae IgG, Qual Negative Positive (A) Mycoplasma Ab, IgG OD 2.75 CRP <0.9 mg/dL 12.7 (H) 0.6 Vitamin B12 232 - 1,245 pg/mL 585 Anti-Streptolysin O <201 IU/mL 198 IMPRESSION / PROBLEM LIST: 1. Migratory arthralgia / arthritis Unclear reason Could be Crohn's but seems to be worsening on anti-TNF-a Consider drug induced LE from anti-TNF-a 2. Lymphadenopathy Doubt lymphoma Also consider sarcoidosis from anti-TNF-a 3. Infections Probably due to suppressed immune system 4. Crohn's disease Thought to be well controlled RECOMMENDATIONS / PLAN: ? Laboratory: o As outlined in orders. ? Radiology: o As outlined in orders. o CXR o Spine XR o Hand XR ? Other tests: o Consider CT neck o Consider LN biopsy ? Consultations: o FU ENT o FU GI o May need to see Immunology / ID ? Medications: o No medications were prescribed or altered by me today. o Would agree with holding Cimzia for now ? Vaccinations: o Keep up to date ? Other: o Patient aware that I will call if testing is out of the range of what is expected. o Patient should update all of her age appropriate malignancy screens. ? Follow-up: o To be determined o I will contact her with test results Total face to face time at this visit was 50 minutes. Greater than 50% of the time was spent on counseling the patient and / or coordination of care. Electronically signed by: Jose Oliveira MD CC: Jossie Arita MD [id number] [place] [address] PROGRESS Observed: 07/17/2018 Status: COMPLETED Source: [place] 11:58 AM [facility] RE[facility] HNO ID: [id number] Author: Josep Silverman Service: (none) Author Type: Physician Type: Progress Notes Filed: 07/17/2018 12:09 PM Note Text: Patient is seen in consultation at the request of Dr. Amy Murphy . Results of my evaluation will be forwarded by electronic communication or post. 38 year old female presents with the following concerns and complaints: Sore throat problem ASSESSMENT/IMPRESSION/PLAN: ?Recurrent sore throats associated with multiple epithelial infections. I suspect this is related to some mild immune problem. I think temporary cessation of her biologic may be helpful. there is no local disease issue in the throat. And I reassured her that her throat will not close. She has no significant cervical adenopathy. ?History of nasal vestibulitis. Recommend minimal trauma to the nasal vibrissae when she attempts to trim these hairs. ?Neck muscle pain consistent with possible bruxism and myofascial pain. Recommend reevaluation by dentist stuffing machine operator for her bruxism management. HISTORY OF PRESENT ILLNESS: Patient's index problem is recurrent sore throats with swollen neck glands. Over the last 4 months patient describes 2 or possibly 3 episodes of severe sore throat, mild hoarseness and a feeling that her throat was closing. This was associated with neck swelling that she was able to visualize in the lateral neck particularly on the right side. In addition she has had 2 episodes of swelling inflammation of a pustule like nature in the right anterior nose. She also describes having a boil in her groin as well as 2 episodes of cellulitis of the right upper extremity. Patient also describes recent onset of headache across the frontal region radiating from temporal to protestant. This has been associated with aching pain in the retro-orbital regions bilaterally. Tightness of the posterior cervical muscles thought to be related to her posture since she has been using a computer in an awkward position. Patient also expresses past problems with bruxism for which she previously used a mouth guard. Patient is currently on biologic medication to suppress her chronic Crohn's disease. PAST MEDICAL Hx: PAST MEDICAL HISTORY Diagnosis Date - Anxiety - Carcinoid tumor of appendix 2012 - Crohn's disease (HCC) - DVT (deep venous thrombosis) (HCC) 2007 - Herniated disc - Left ovarian cyst 2012 - Non morbid obesity 03/14/2018 - Smoker 03/14/2018 - Swollen lymph nodes PAST SURGICAL Hx: PAST SURGICAL HISTORY Procedure Laterality Date - APPENDECTOMY 09/12/2012 incidental finding carcinoid tumor appendix - COLONOSCOP W/ OR W/O BRSH SPEC 02/16/16 Colonoscopy - COLONOSCOPY W/BX 09/05/11 normal colon - COLPO OF CERVIX INC UPPER VAG - CRYOCAUTERY OF CERVIX - EGD W/O BRSH SPECIMEN W/BX 09/05/11 gastritis - EGD W/O BRSH SPECIMEN W/BX 10-14-14 - EGD W/O OR W/BRUSH/WASH 02/16/16 EGD - REMOVAL GALLBLADDER Cholecystectomy - REMOVAL OF TONSILS,<12 Y/O Tonsillectomy MEDICATIONS: Current Outpatient Prescriptions: amitriptyline (ELAVIL) 10 mg tablet Take 2.5 tablets by mouth daily at bedtime. certolizumab pegol (CIMZIA) 400 mg (200 mg x 2 vials) kit Inject 1 mL subcutaneously every 2 weeks. citalopram (CELEXA) 40 mg tablet Take 40 mg by mouth once daily. dicyclomine (BENTYL) 10 mg capsule Take 1 capsule by mouth three times daily as needed. Use as directed hydrOXYzine pamoate (VISTARIL) 25 mg capsule Take 25 mg by mouth four times daily as needed for Anxiety. LORazepam (ATIVAN) 0.5 mg tab Take 1 tablet by mouth twice daily as needed. ondansetron orally disintegrating (ZOFRAN ODT) 4 mg disintegrating tablet Take 1 tablet by mouth every 8 hours as needed. pantoprazole DR (PROTONIX) 40 mg tablet Take 1 tablet by mouth once daily. PARoxetine (PAXIL) 10 mg tablet Take 1 tablet by mouth once daily. peg 3350-Electrolytes (GOLYTELY) 236-22.74-6.74 -5.86 gram suspension Take as directed Vit-Sarah Beth-Fe Fum-FA (VINATE M) 27 mg iron-1 mg Take 1 tablet by mouth once daily. prochlorperazine (COMPAZINE) 10 mg tablet Take 1 tablet by mouth every 8 hours as needed (FOR NAUSEA). promethazine (PHENERGAN) 25 mg tablet Take 1 tablet by mouth four times daily as needed. traZODone (DESYREL) 100 mg tablet Take 1 tablet by mouth as needed. ALPRAZolam (XANAX) 0.5 mg tablet Take 1 tablet by mouth once daily as needed. (Patient not taking: Reported on 06/24/2018 ) sulfamethoxazole-trimethoprim (BACTRIM) 400-80 mg per tablet Take 1 tablet by mouth once daily. (Patient not taking: Reported on 07/17/2018 ) No current facility-administered medications for this visit. REVIEW OF SYSTEMS: GENERAL: No weight loss, malaise or fevers RESPIRATORY: Negative for cough, hemoptysis, wheezing, COPD, dyspnea or shortness of breath CARDIOVASCULAR: Negative for chest pain, leg swelling, hypertension, CHF or palpitations EXAM VITAL SIGNS: BP 133/74 Pulse 96 SpO2 100% APPEARANCE: alert, NAD and cooperative. EYES: Conjunctiva and sclera normal and without drainage. EARS: TMs without erythema and apppear normal bilat. Canals normal bilaterally.. NOSE/SINUS: Nares normal, no sign of erythema or edema of the turbinates. MOUTH: Examination includes lips, tongue, teeth, buccal mucosa, gingiva, hard palate, floor the mouth, normal. OROPHARYNX: Examination of the soft palate, posterior and lateral pharyngeal miguel, tonsil fossa, normal. NASOPHARYNX: Superior wall, lateral recess, Rosenmuller's fossa, eustachian tube orifice, normal. LARYNX AND HYPOPHARYNX: Examination of the base of tongue, epiglottis, arytenoids, aryepiglottic folds, glottis, ventricle, piriform and postcricoid regions, normal. Vocal fold movement, normal. NECK: Neck supple, no adenopathy; thyroid symmetric, normal size, no bruits.. She has some mild prominence of the left and right submandibular glands well within normal limits. CRANIAL NERVE 2-7 AND 9-12: normal. Other. Tenderness of both sternomastoid muscles, pterygoids and digastric muscles. Josep Silverman MD Otolaryngology CN[facility] Observed: 07/17/2018 Status: COMPLETED Source: [place] 11:30 AM [facility] REPOSIT[facility] Office Visit (OTOLMN) JESSICA JIANG ([id number]) 1980 F Date Time Provider Department 07/17/18 11:30 AM JOSEP SILVERMAN OTOLMN During your visit today, we recorded the following information about you: Pulse Blood pressure 96/minute 133/74 Paulina Cordoba Anu 07/17/2018 11:29 AM Signed Tobacco Use: 1 packs/day, for 15 years. Types: Cigarettes Was smoking cessation packet given? Patient Declined Was a referral initiated?Patient declined. Josep Silverman MD 07/17/2018 12:09 PM Signed Patient is seen in consultation at the request of Dr. Amy Murphy . Results of my evaluation will be forwarded by electronic communication or post. 38 year old female presents with the following concerns and complaints: Sore throat problem ASSESSMENT/IMPRESSION/PLAN: ?Recurrent sore throats associated with multiple epithelial infections. I suspect this is related to some mild immune problem. I think temporary cessation of her biologic may be helpful. there is no local disease issue in the throat. And I reassured her that her throat will not close. She has no significant cervical adenopathy. ?History of nasal vestibulitis. Recommend minimal trauma to the nasal vibrissae when she attempts to trim these hairs. ?Neck muscle pain consistent with possible bruxism and myofascial pain. Recommend reevaluation by dentist stuffing machine operator for her bruxism management. HISTORY OF PRESENT ILLNESS: Patient's index problem is recurrent sore throats with swollen neck glands. Over the last 4 months patient describes 2 or possibly 3 episodes of severe sore throat, mild hoarseness and a feeling that her throat was closing. This was associated with neck swelling that she was able to visualize in the lateral neck particularly on the right side. In addition she has had 2 episodes of swelling inflammation of a pustule like nature in the right anterior nose. She also describes having a boil in her groin as well as 2 episodes of cellulitis of the right upper extremity. Patient also describes recent onset of headache across the frontal region radiating from temporal to protestant. This has been associated with aching pain in the retro-orbital regions bilaterally. Tightness of the posterior cervical muscles thought to be related to her posture since she has been using a computer in an awkward position. Patient also expresses past problems with bruxism for which she previously used a mouth guard. Patient is currently on biologic medication to suppress her chronic Crohn's disease. PAST MEDICAL Hx: PAST MEDICAL HISTORY Diagnosis Date - Anxiety - Carcinoid tumor of appendix 2012 - Crohn's disease (HCC) - DVT (deep venous thrombosis) (HCC) 2007 - Herniated disc - Left ovarian cyst 2012 - Non morbid obesity 03/14/2018 - Smoker 03/14/2018 - Swollen lymph nodes PAST SURGICAL Hx: PAST SURGICAL HISTORY Procedure Laterality Date - APPENDECTOMY 09/12/2012 incidental finding carcinoid tumor appendix - COLONOSCOP W/ OR W/O BRSH SPEC 02/16/16 Colonoscopy - COLONOSCOPY W/BX 09/05/11 normal colon - COLPO OF CERVIX INC UPPER VAG - CRYOCAUTERY OF CERVIX - EGD W/O BRSH SPECIMEN W/BX 09/05/11 gastritis - EGD W/O BRSH SPECIMEN W/BX 3--15 - EGD W/O OR W/BRUSH/WASH 02/16/16 EGD - REMOVAL GALLBLADDER Cholecystectomy - REMOVAL OF TONSILS,<12 Y/O Tonsillectomy MEDICATIONS: Current Outpatient Prescriptions: amitriptyline (ELAVIL) 10 mg tablet Take 2.5 tablets by mouth daily at bedtime. certolizumab pegol (CIMZIA) 400 mg (200 mg x 2 vials) kit Inject 1 mL subcutaneously every 2 weeks. citalopram (CELEXA) 40 mg tablet Take 40 mg by mouth once daily. dicyclomine (BENTYL) 10 mg capsule Take 1 capsule by mouth three times daily as needed. Use as directed hydrOXYzine pamoate (VISTARIL) 25 mg capsule Take 25 mg by mouth four times daily as needed for Anxiety. LORazepam (ATIVAN) 0.5 mg tab Take 1 tablet by mouth twice daily as needed. ondansetron orally disintegrating (ZOFRAN ODT) 4 mg disintegrating tablet Take 1 tablet by mouth every 8 hours as needed. pantoprazole DR (PROTONIX) 40 mg tablet Take 1 tablet by mouth once daily. PARoxetine (PAXIL) 10 mg tablet Take 1 tablet by mouth once daily. peg 3350-Electrolytes (GOLYTELY) 236-22.74-6.74 -5.86 gram suspension Take as directed Vit-Sarah Beth-Fe Fum-FA (VINATE M) 27 mg iron-1 mg Take 1 tablet by mouth once daily. prochlorperazine (COMPAZINE) 10 mg tablet Take 1 tablet by mouth every 8 hours as needed (FOR NAUSEA). promethazine (PHENERGAN) 25 mg tablet Take 1 tablet by mouth four times daily as needed. traZODone (DESYREL) 100 mg tablet Take 1 tablet by mouth as needed. ALPRAZolam (XANAX) 0.5 mg tablet Take 1 tablet by mouth once daily as needed. (Patient not taking: Reported on 06/24/2018 ) sulfamethoxazole-trimethoprim (BACTRIM) 400-80 mg per tablet Take 1 tablet by mouth once daily. (Patient not taking: Reported on 07/17/2018 ) No current facility-administered medications for this visit. REVIEW OF SYSTEMS: GENERAL: No weight loss, malaise or fevers RESPIRATORY: Negative for cough, hemoptysis, wheezing, COPD, dyspnea or shortness of breath CARDIOVASCULAR: Negative for chest pain, leg swelling, hypertension, CHF or palpitations EXAM VITAL SIGNS: BP 133/74 Pulse 96 SpO2 100% APPEARANCE: alert, NAD and cooperative. EYES: Conjunctiva and sclera normal and without drainage. EARS: TMs without erythema and apppear normal bilat. Canals normal bilaterally.. NOSE/SINUS: Nares normal, no sign of erythema or edema of the turbinates. MOUTH: Examination includes lips, tongue, teeth, buccal mucosa, gingiva, hard palate, floor the mouth, normal. OROPHARYNX: Examination of the soft palate, posterior and lateral pharyngeal miguel, tonsil fossa, normal. NASOPHARYNX: Superior wall, lateral recess, Rosenmuller's fossa, eustachian tube orifice, normal. LARYNX AND HYPOPHARYNX: Examination of the base of tongue, epiglottis, arytenoids, aryepiglottic folds, glottis, ventricle, piriform and postcricoid regions, normal. Vocal fold movement, normal. NECK: Neck supple, no adenopathy; thyroid symmetric, normal size, no bruits.. She has some mild prominence of the left and right submandibular glands well within normal limits. CRANIAL NERVE 2-7 AND 9-12: normal. Other. Tenderness of both sternomastoid muscles, pterygoids and digastric muscles. 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] Bruxism [F45.8] Chronic pharyngitis [J31.2] Prescriptions as of 07/17/2018 Sig: AMITRIPTYLINE 10 MG TABLET Take 2.5 tablets by mouth beth* CERTOLIZUMAB PEGOL 400 MG (20* Inject 1 mL subcutaneously ev* CITALOPRAM 40 MG TABLET Take 40 mg by mouth once marino* DICYCLOMINE 10 MG CAPSULE Take 1 capsule by mouth three* HYDROXYZINE PAMOATE 25 MG CAP* Take 25 mg by mouth four time* LORAZEPAM 0.5 MG TABLET Take 1 tablet by mouth twice * ONDANSETRON 4 MG DISINTEGRATI* Take 1 tablet by mouth every * PANTOPRAZOLE 40 MG TABLET,DEL* Take 1 tablet by mouth once d* PAROXETINE 10 MG TABLET Take 1 tablet by mouth once d* PEG 3350-ELECTROLYTES 236 GRA* Take as directed VIT NO.136-FERROUS F* Take 1 tablet by mouth once d* PROCHLORPERAZINE MALEATE 10 M* Take 1 tablet by mouth every * PROMETHAZINE 25 MG TABLET Take 1 tablet by mouth four t* TRAZODONE 100 MG TABLET Take 1 tablet by mouth as nee* ALPRAZOLAM 0.5 MG TABLET Take 1 tablet by mouth once d* Patient not taking: Reported on 06/24/2018 SULFAMETHOXAZOLE 400 MG-TRIME* Take 1 tablet by mouth once d* Patient not taking: Reported on 07/17/2018 Problem List As Of Date 07/17/2018 Noted Resolved Cellulitis and abscess of unspecified site [L03*INVALID FOR*09/29/2012 Change in bowel function [R19.8] INVALID FOR*09/29/2012 Abdominal pain, unspecified site [R10.9] INVALID FOR*09/29/2012 Carcinoid tumor of appendix, 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 Abdominal pain [R10.9] INVALID FOR*03/14/2018 More... DVT (deep venous thrombosis) (HCC) [I82.409] INVALID FOR*03/14/2018 More... SUMMARY INVALID FOR*03/14/2018 More... Insomnia [G47.00] INVALID FOR* Anxiety neurosis [F41.1] INVALID FOR* GERD (gastroesophageal reflux disease) [K21.9] INVALID FOR* Nausea [R11.0] INVALID FOR* Crohn's disease of large intestine with other c*INVALID FOR* More... Non morbid obesity [E66.9] INVALID FOR* Smoker [F17.200] INVALID FOR* Visit Notes: >> Paulina Cordoba Anu Sybil Jul 17, 2018 11:28 AM Status: Signed Tobacco Use: 1 packs/day, for 15 years. Types: Cigarettes Was smoking cessation packet given? Patient Declined Was a referral initiated?Patient declined. Follow-up and Disposition History Recorded Encounter Status:Closed by JOSEP SILVERMAN MD on 07/17/18 COMP METABOLIC PANEL Collected: 07/03/2018 Status: F Source: [facility] 2:40 PM [facility] TYPE CODE TESTS RESULT OUT OF REFERENCE UNITS RANGE LAB TP 6.3-8.0 g/dL Protein, Total 7.2 LAB ALB 3.9-4.9 g/dL Albumin 4.4 LAB CA 8.5-10.2 mg/dL Calcium, Total 9.3 LAB TBIL 0.2-1.3 mg/dL Bilirubin, Low Total <0.2 LAB ALKP 34-123 U/L Alkaline Phosphatase 90 LAB AST 13-35 U/L AST Low 12 LAB GLU 74-99 mg/dL Glucose 96 LAB BUN 7-21 mg/dL BUN 7 LAB CRET 0.58-0.96 mg/dL Creatinine 0.62 LAB NA 136-144 mmol/L Sodium 138 LAB K 3.7-5.1 mmol/L Potassium 4.2 LAB CL 97-105 mmol/L Chloride High 106 LAB CO2 22-30 mmol/L CO2 23 LAB AGAP mmol/L Anion Gap 9 LAB ALT 7-38 U/L ALT 8 LAB GFRAA eGFR- >60 Amer. LAB GFRNAA . eGFR-All Other Races >60 Result Comment: eGFR (Estimated GFR) Units of measure: mL/min/1.73 meters squared eGFR is derived from the reexpressed MDRD Study equation using the following parameters: serum creatinine, age, gender and race. The creatinine assay has been calibrated to be traceable to IDMS. An eGFR <60 mL/min/1.73m2 for >3 months is consistent with chronic kidney disease. Refer to KDOQI guidelines for clinical interpretation. In patients with unstable renal function, e.g. those with acute kidney injury, the eGFR may not accurately reflect actual GFR. ANTI-STREPTOLYSIN O Collected: Status: F Source: [facility] 07/03/2018 2:40 PM [facility] REPOSITORY TYPE CODE TESTS RESULT OUT OF RANGE REFERENCE UNITS LAB ASO <201 IU/mL 198 Anti-Strepto lysin O Performed By: #### ASO, CRP, MYCOG #### [facility] [address] [address] C-REACTIVE PROTEIN Collected: 07/03/2018 Status: F Source: [facility] 2:40 PM [facility] REPOS[facility] TYPE CODE TESTS RESULT OUT OF REFERENCE UNITS RANGE LAB CRP <0.9 mg/dL C-Reactive 0.6 Protein Performed By: #### ASO, CRP, MYCOG #### [facility] [address] [place], [place] [address] MYCOPLASMA IGG AB Collected: 07/03/2018 Status: F Source: [facility] 2:40 PM [facility] REPOSITORY TYPE CODE TESTS RESULT OUT OF RANGE REFERENCE UNITS LAB MYCOGR Negative Abnormal M. pneumo Positive Alert IgG, Qual Result Comment: IgG antibodies specific to M. pneumoniae were detected. A reactive test result indicates a past/present infection. LAB MYCOGX OD Mycoplasma IgG AB 2.75 Result Comment: Index Values/OD Ratios are interpreted as follows: Negative: < or = 0.90 Equivocal: 0.91 to 1.09 Positive: > or = 1.10 Performed By: #### ASO, CRP, MYCOG #### [facility] [address] [id number] TB BY QUANTIFERON Collected: 07/03/2018 Status: F Source: [facility] 2:40 PM [facility] REPOSITORY TYPE CODE TESTS RESULT OUT OF REFERENCE UNITS RANGE LAB TBGNIL IU/mL TB NIL 0.02 LAB TBG1AG <0.35 IU/mL TB1 Ag minus 0.01 Nil LAB TBG2AG <0.35 IU/mL TB2 Ag minus 0.02 Nil LAB TBMITN Mitogen minus >10 Nil LAB TBGRES Negative TB Result Negative LAB TBGINT Interpretation No evidence of current or previous infection with Mycobacterium tuberculosis. Performed By: #### INFTBP #### [id number] [place] [id number] Observed: 07/03/2018 Status: F Source: [place] CULTURE, THROAT 2:15 PM [facility] REPOSITORY Culture, Throat Mixed normal krishan. No Haemophilus, Streptococcus pneumoniae, beta-hemolytic Streptococcus or Staphylococcus aureus isolated. Performed By: #### M100.1000 #### [facility] [place] [facility] [address] [facility] [place], [address] PROGRESS Observed: 06/24/2018 Status: COMPLETED Source: [place] 1:40 PM [facility] REPOSIT[facility] HNO ID: [id number] Author: Corinne Murphy Service: (none) Author Type: Physician Type: Progress Notes Filed: 07/26/2018 1:47 PM Note Text: EST PT OFFICE VISIT CC: Patient presents with: Established Patient: Crohn's disease Her lymph nodes go up and down Having sore throat/tired. Had cellulitis 2x into her elbow. That was drained. Was on abx 2x bactrim. Then had boil on her legs on augmentin and bactrim in inguinal area Her joints are usually ok with cimzia but now having joint aches. Migratory arthritis She was anemic in november she reports Having anxiety. Nausea has completely. Last cimzia is due. Typically if she is late on cimzia she would have joint pain Gets hot all the time. No diarrhea. Sweats at night. Tetanus needs Pneumo Needs booster Hep B vaccinate PPD Hep A VZV as achild HPV regular womens Flu due Pertussis Skin needs check bone VITALS: Blood pressure 132/79, pulse 94, temperature 36.7 ?C (98.1 ?F), temperature source Oral, height 165.1 cm (5' 5), weight 88 kg (194 lb), SpO2 100 %. ALLERGIES: Levaquin [Levofloxacin] MEDICATIONS: Current Outpatient Prescriptions: certolizumab pegol (CIMZIA) 400 mg (200 mg x 2 vials) kit Inject 1 mL subcutaneously every 2 weeks. Disp: 6 mL Rfl: 3 traZODone (DESYREL) 100 mg tablet Take 1 tablet by mouth as needed. Disp: Rfl: LORazepam (ATIVAN) 0.5 mg tab Take 1 tablet by mouth twice daily as needed. Disp: Rfl: Vit-Sarah Beth-Fe Fum-FA (VINATE M) 27 mg iron-1 mg Take 1 tablet by mouth once daily. Disp: Rfl: Sodium,Potassium,ANDMag Sulfates (SUPREP BOWEL PREP KIT) 17.5-3.13-1.6 gram solr Take 1 Each by mouth one time only for 1 dose. Disp: 1 Bottle Rfl: 0 PARoxetine (PAXIL) 10 mg tablet Take 1 tablet by mouth once daily. Disp: Rfl: amitriptyline (ELAVIL) 10 mg tablet Take 2.5 tablets by mouth daily at bedtime. Disp: Rfl: peg 3350-Electrolytes (GOLYTELY) 236-22.74-6.74 -5.86 gram suspension Take as directed Disp: 4 L Rfl: 0 dicyclomine (BENTYL) 10 mg capsule Take 1 capsule by mouth three times daily as needed. Use as directed Disp: 90 capsule Rfl: 1 citalopram (CELEXA) 40 mg tablet Take 40 mg by mouth once daily. Disp: Rfl: pantoprazole DR (PROTONIX) 40 mg tablet Take 1 tablet by mouth once daily. Disp: 30 tablet Rfl: 11 ALPRAZolam (XANAX) 0.5 mg tablet Take 1 tablet by mouth once daily as needed. (Patient not taking: Reported on 06/24/2018 ) Disp: 5 tablet Rfl: 0 ondansetron orally disintegrating (ZOFRAN ODT) 4 mg disintegrating tablet Take 1 tablet by mouth every 8 hours as needed. Disp: 90 tablet Rfl: 1 prochlorperazine (COMPAZINE) 10 mg tablet Take 1 tablet by mouth every 8 hours as needed (FOR NAUSEA). Disp: 60 tablet Rfl: 3 hydrOXYzine pamoate (VISTARIL) 25 mg capsule Take 25 mg by mouth four times daily as needed for Anxiety. Disp: Rfl: promethazine (PHENERGAN) 25 mg tablet Take 1 tablet by mouth four times daily as needed. Disp: 30 tablet Rfl: 1 No current facility-administered medications for this visit. 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 REVIEW OF SYSTEMS: GENERAL: weight stable, no fevers. CARDIOVASCULAR: No chest pain, no edema RESPIRATORY: No dyspnea The remainder of the review of systems are negative. Reviewed with patient during visit today. PHYSICAL EXAMINATION: GENERAL APPEARANCE: Well developed and well nourished. SKIN: Skin color, texture, turgor normal. No rashes or lesions. EYES: Conjunctiva normal without icterus. OROPHARYNX: lips, mucosa, and tongue normal, teeth and gums normal NECK: Supple, full range of motion, no lymphadenopathy, normal thyroid, LUNGS: Normal breath sounds, Clear to auscultation, No wheezes, No crackles. HEART:Normal PMI, Regular rate and rhythm, Normal heart sounds, S1 and S2 and No murmurs. NEURO: Alert and oriented in no acute distress. ABDOMEN: Normal bowel sounds, abdomen flat with no distention, Soft, non-tender, no hepatomegaly. no palpable masses, no abdominal bruits, no rebound and no rigidity. EXTREMITIES:Extremities normal, No deformities, No skin discoloration, No edema . 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 Started cimzia in 2014 and had clinical response in terms of findings in endoscopy and joint symptoms. Now having some upper respiratory infections and recurrent lymph adenopathy in reaction and is concerned that cimzia is causing Discussed that cimzia is lower risk for lymhpoma than azathioprine (she was hoping to take pills) and mealamine ineffective for Crohns Would like her to see ENT to get their input on what is causing her problems. This will help us assess if this is related to cimzia use. My concern with stopping the cimzia is that her Crohns and ibd arthritis were quite active until she started it. She also may consider and reviewed that cimzia is the preferred anti tnf for She needs vaccines: pneumovax booster, dtap, and skin check Corinne Murphy MD, PhD CNOV Observed: 06/24/2018 Status: COMPLETED Source: [facility] 1:00 PM [facility] REPOSITORY Office Visit (GASTMN) JESSICA JIANG ([id number]) 1980 F Date Time Provider Department 06/24/18 1:00 PM CORINNE MURPHY During your visit today, we recorded the following information about you: Temperature Pulse Blood pressure Weight 98.1 degrees 94/minute 132/79 88 kg Height 1.651 m Corinne Murphy MD, PhD 07/26/2018 1:47 PM Signed EST PT OFFICE VISIT CC: Patient presents with: Established Patient: Crohn's disease Her lymph nodes go up and down Having sore throat/tired. Had cellulitis 2x into her elbow. That was drained. Was on abx 2x bactrim. Then had boil on her legs on augmentin and bactrim in inguinal area Her joints are usually ok with cimzia but now having joint aches. Migratory arthritis She was anemic in november she reports Having anxiety. Nausea has completely. Last cimzia is due. Typically if she is late on cimzia she would have joint pain Gets hot all the time. No diarrhea. Sweats at night. Tetanus needs Pneumo Needs booster Hep B vaccinate PPD Hep A VZV as achild HPV regular womens Flu due Pertussis Skin needs check bone VITALS: Blood pressure 132/79, pulse 94, temperature 36.7 ?C (98.1 ?F), temperature source Oral, height 165.1 cm (5' 5), weight 88 kg (194 lb), SpO2 100 %. ALLERGIES: Levaquin [Levofloxacin] MEDICATIONS: Current Outpatient Prescriptions: certolizumab pegol (CIMZIA) 400 mg (200 mg x 2 vials) kit Inject 1 mL subcutaneously every 2 weeks. Disp: 6 mL Rfl: 3 traZODone (DESYREL) 100 mg tablet Take 1 tablet by mouth as needed. Disp: Rfl: LORazepam (ATIVAN) 0.5 mg tab Take 1 tablet by mouth twice daily as needed. Disp: Rfl: Vit-Sarah Beth-Fe Fum-FA (VINATE M) 27 mg iron-1 mg Take 1 tablet by mouth once daily. Disp: Rfl: Sodium,Potassium,ANDMag Sulfates (SUPREP BOWEL PREP KIT) 17.5-3.13-1.6 gram solr Take 1 Each by mouth one time only for 1 dose. Disp: 1 Bottle Rfl: 0 PARoxetine (PAXIL) 10 mg tablet Take 1 tablet by mouth once daily. Disp: Rfl: amitriptyline (ELAVIL) 10 mg tablet Take 2.5 tablets by mouth daily at bedtime. Disp: Rfl: peg 3350-Electrolytes (GOLYTELY) 236-22.74-6.74 -5.86 gram suspension Take as directed Disp: 4 L Rfl: 0 dicyclomine (BENTYL) 10 mg capsule Take 1 capsule by mouth three times daily as needed. Use as directed Disp: 90 capsule Rfl: 1 citalopram (CELEXA) 40 mg tablet Take 40 mg by mouth once daily. Disp: Rfl: pantoprazole DR (PROTONIX) 40 mg tablet Take 1 tablet by mouth once daily. Disp: 30 tablet Rfl: 11 ALPRAZolam (XANAX) 0.5 mg tablet Take 1 tablet by mouth once daily as needed. (Patient not taking: Reported on 06/24/2018 ) Disp: 5 tablet Rfl: 0 ondansetron orally disintegrating (ZOFRAN ODT) 4 mg disintegrating tablet Take 1 tablet by mouth every 8 hours as needed. Disp: 90 tablet Rfl: 1 prochlorperazine (COMPAZINE) 10 mg tablet Take 1 tablet by mouth every 8 hours as needed (FOR NAUSEA). Disp: 60 tablet Rfl: 3 hydrOXYzine pamoate (VISTARIL) 25 mg capsule Take 25 mg by mouth four times daily as needed for Anxiety. Disp: Rfl: promethazine (PHENERGAN) 25 mg tablet Take 1 tablet by mouth four times daily as needed. Disp: 30 tablet Rfl: 1 No current facility-administered medications for this visit. 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 REVIEW OF SYSTEMS: GENERAL: weight stable, no fevers. CARDIOVASCULAR: No chest pain, no edema RESPIRATORY: No dyspnea The remainder of the review of systems are negative. Reviewed with patient during visit today. PHYSICAL EXAMINATION: GENERAL APPEARANCE: Well developed and well nourished. SKIN: Skin color, texture, turgor normal. No rashes or lesions. EYES: Conjunctiva normal without icterus. OROPHARYNX: lips, mucosa, and tongue normal, teeth and gums normal NECK: Supple, full range of motion, no lymphadenopathy, normal thyroid, LUNGS: Normal breath sounds, Clear to auscultation, No wheezes, No crackles. HEART:Normal PMI, Regular rate and rhythm, Normal heart sounds, S1 and S2 and No murmurs. NEURO: Alert and oriented in no acute distress. ABDOMEN: Normal bowel sounds, abdomen flat with no distention, Soft, non-tender, no hepatomegaly. no palpable masses, no abdominal bruits, no rebound and no rigidity. EXTREMITIES:Extremities normal, No deformities, No skin discoloration, No edema . 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 Started cimzia in 2014 and had clinical response in terms of findings in endoscopy and joint symptoms. Now having some upper respiratory infections and recurrent lymph adenopathy in reaction and is concerned that cimzia is causing Discussed that cimzia is lower risk for lymhpoma than azathioprine (she was hoping to take pills) and mealamine ineffective for Crohns Would like her to see ENT to get their input on what is causing her problems. This will help us assess if this is related to cimzia use. My concern with stopping the cimzia is that her Crohns and ibd arthritis were quite active until she started it. She also may consider and reviewed that cimzia is the preferred anti tnf for She needs vaccines: pneumovax booster, dtap, and skin check Corinne Murphy MD, PhD Referring Provider: CORINNE MURPHY [[id number]] Allergies As of Date: 06/24/2018 Noted Allergy Reaction LEVAQUIN (LEVOFLOXACIN) 05/14/2011 14 - Other: See Comments Comments: Ruptured achilles tendon Date Reviewed: 06/24/2018 Reviewed by: Sha Troncoso Rapier Insertion Loom Fixer - Fully Assessed Reason for Visit: Established Patient [175] Cmt: Crohn's disease Primary Visit Diagnosis:Crohn's disease of large intestine with other complication (HCC) [K50.118] Other Visit Diagnoses:Sore throat [J02.9] Lymphadenopathy [R59.1] Nose irritation [J34.89] Local infection of skin and subcutaneous tissue [L08.9] Rash [R21] Change in mole [L81.9] Order(s):ANTI-STREPTOLYSIN AB [SQASO] Order #: [id number] FUTURE C-REACTIVE PROTEIN (CRP) [SQCRP] Order #: [id number] FUTURE COMP METABOLIC PANEL [SQCMP] Order #: [id number] FUTURE MYCOPLASMA PNEUM IGG [SQMYCOG] Order #: [id number] FUTURE CONSULT TO ENT [0751] Order #: [id number]: 1 traZODone (DESYREL) 100 mg tabletTake 1 tablet by mouth as needed.Disp: Rfl: LORazepam (ATIVAN) 0.5 mg tabTake 1 tablet by mouth twice daily as needed.Disp: Rfl: Vit-Sarah Beth-Fe Fum-FA (VINATE M) 27 mg iron- 1 mgTake 1 tablet by mouth once daily.Disp: Rfl: [] Sodium,Potassium,ANDMag Sulfates (SUPREP BOWEL PREP KIT) 17.5-3.13-1.6 gram solrTake 1 Each by mouth one time only for 1 dose.Disp: 1 BottleRfl: 0 PARoxetine (PAXIL) 10 mg tabletTake 1 tablet by mouth once daily.Disp: Rfl: amitriptyline (ELAVIL) 10 mg tabletTake 2.5 tablets by mouth daily at bedtime.Disp: Rfl: [] amoxicillin-clavulanic acid (AUGMENTIN) 875-125 mg per tabletTake 1 tablet by mouth every 12 hours for 7 days.Disp: 14 tabletRfl: 0 BLOOD TB SCREEN [SQINFTBP] Order #: [id number] FUTURE CONSULT TO DERMATOLOGY [8836] Order #: [id number]: 1 Prescriptions as of 06/24/2018 Sig: CERTOLIZUMAB PEGOL 400 MG (20* Inject 1 mL subcutaneously ev* TRAZODONE 100 MG TABLET Take 1 tablet by mouth as nee* LORAZEPAM 0.5 MG TABLET Take 1 tablet by mouth twice * VIT NO.136-FERROUS F* Take 1 tablet by mouth once d* SODIUM,POTASSIUM,MAG SULFATES* Take 1 Each by mouth one time* PAROXETINE 10 MG TABLET Take 1 tablet by mouth once d* AMITRIPTYLINE 10 MG TABLET Take 2.5 tablets by mouth beth* AMOXICILLIN 875 MG-POTASSIUM * Take 1 tablet by mouth every * X SULFAMETHOXAZOLE 400 MG-TRIME* Take 1 tablet by mouth once d* Patient not taking: Reported on 07/17/2018 PEG 3350-ELECTROLYTES 236 GRA* Take as directed Patient not taking: Reported on 07/17/2018 DICYCLOMINE 10 MG CAPSULE Take 1 capsule by mouth three* CITALOPRAM 40 MG TABLET Take 40 mg by mouth once marino* PANTOPRAZOLE 40 MG TABLET,DEL* Take 1 tablet by mouth once d* X ALPRAZOLAM 0.5 MG TABLET Take 1 tablet by mouth once d* Patient not taking: Reported on 06/24/2018 ONDANSETRON 4 MG DISINTEGRATI* Take 1 tablet by mouth every * PROCHLORPERAZINE MALEATE 10 M* Take 1 tablet by mouth every * HYDROXYZINE PAMOATE 25 MG CAP* Take 25 mg by mouth four time* PROMETHAZINE 25 MG TABLET Take 1 tablet by mouth four t* Problem List As Of Date 06/24/2018 Noted Resolved Cellulitis and abscess of unspecified site [L03*INVALID FOR*09/29/2012 Change in bowel function [R19.8] INVALID FOR*09/29/2012 Abdominal pain, unspecified site [R10.9] INVALID FOR*09/29/2012 Carcinoid tumor of appendix, 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 Abdominal pain [R10.9] INVALID FOR*03/14/2018 More... DVT (deep venous thrombosis) ([facility]) [I82.409] INVALID FOR*03/14/2018 More... SUMMARY INVALID FOR*03/14/2018 More... Insomnia [G47.00] INVALID FOR* Anxiety neurosis [F41.1] INVALID FOR* GERD (gastroesophageal reflux disease) [K21.9] INVALID FOR* Nausea [R11.0] INVALID FOR* Crohn's disease of large intestine with other c*INVALID FOR* More... Non morbid obesity [E66.9] INVALID FOR* Smoker [F17.200] INVALID FOR* Prescriptions ordered this encounter Disp Refills Start End TRAZODONE 100 MG TABLET 06/24/2018 Class: Med Update Route: ORAL Sig: Take 1 tablet by mouth as needed. LORAZEPAM 0.5 MG TABLET 06/24/2018 06/24/2019 Class: Med Update Route: ORAL Sig: Take 1 tablet by mouth twice daily as needed. VIT NO.136-FERROUS FUMARATE* 06/24/2018 Class: Med Update Route: ORAL Sig: Take 1 tablet by mouth once daily. SODIUM,POTASSIUM,MAG SULFATES 17.5 G* 1 Hi* 0 06/24/2018 06/24/2018 Class: Print RX Route: ORAL Sig: Take 1 Each by mouth one time only for 1 dose. PAROXETINE 10 MG TABLET 06/24/2018 Class: Med Update Route: ORAL Sig: Take 1 tablet by mouth once daily. AMITRIPTYLINE 10 MG TABLET 06/24/2018 Class: Med Update Route: ORAL Sig: Take 2.5 tablets by mouth daily at bedtime. AMOXICILLIN 875 MG-POTASSIUM CLAVULA* 14 t* 0 06/24/2018 07/01/2018 Class: Med Update Route: ORAL Sig: Take 1 tablet by mouth every 12 hours for 7 days. SULFAMETHOXAZOLE 400 MG-TRIMETHOPRIM* 06/24/2018 07/17/2018 Class: Med Update Route: ORAL Sig: Take 1 tablet by mouth once daily. Medications Discontinued During This Encounter iv contrast (will be provided with r* 1 Ea* 0 12/31/2017 06/24/2018 Class: In Office Sig: MRI Enterography Inject, intravenously, once for 1 dose. No IV access, insert saline lock prior to the beginning of sedation, infusion, injection of imaging exam. Discontinue saline lock post exam. If Pt. has a central line or IVAD, may access for administration according to line specific nursing protocol. Once exam is complete flush line and de-access according to line specific nursing protocol in the MR contrast administration guidelines link. Disc: Reason for discontinue is not on file. enteric contrast (will be provided w* 1 Ea* 0 12/31/2017 06/24/2018 Class: In Office Sig: For MRI ENTEROGRAPHY WO/W Administer, As Directed One Time Only, via Oral, Rectal, both Oral and Rectal, Enteric Tube, Stoma or Indwelling Catheter,? Enteric Contrast as designated per enteric contrast guidelines Disc: Reason for discontinue is not on file. glucagon (GLUCAGEN) 1 mg/mL injection 1 mg 0 12/31/2017 06/24/2018 Class: In Office Route: INTRAVENOUS Sig: Inject 1 mg intravenously one time only for 1 dose. For MRI Enterography, Inject 1 mg intravenously, as directed. Slow push at the appropriate time during MRI Scan Disc: Reason for discontinue is not on file. sucralfate (CARAFATE) 1 gram tablet 60 t* 3 06/05/2017 06/24/2018 Route: ORAL Sig: Take 1 tablet by mouth before meals and at bedtime. Disc: Reason for discontinue is not on file. traZODone (DESYREL) 100 mg tablet 06/24/2018 Class: Historical Med Route: ORAL Sig: Take 100 mg by mouth daily at bedtime. Disc: Reason for discontinue is not on file. Disposition: Return in about 3 months (around 09/22/2018). Follow-up and Disposition History Recorded Encounter Status:Closed by CORINNE MURPHY on 07/26/18 GENERAL OPERATIONS AGENT OFFICE VISIT Observed: 06/19/2018 Status: F Source: AMOS REPORT 5:27 PM [facility]'s 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 They need taken out Medications certolizumab pegol 400 mg/2 mL (200 mg/mL x2) subcutaneous syringe kit 200 mg SC Q2W 01/29/18 [History Confirmed 06/19/18] Citalopram [Celexa] 40 mg PO DAILY 03/16/18 [History Confirmed 06/19/18] Lorazepam [Ativan] 1 mg PO TID PRN #10 tab 03/16/18 [Rx Confirmed 06/19/18] Prochlorperazine Maleate [Compazine] 10 mg PO Q6H PRN PRN 03/16/18 [History Confirmed 06/19/18] amitriptyline 25 mg tablet 25 mg PO DAILY 06/19/18 [History Confirmed 06/19/18] folic acid 800 mcg tablet 0.8 mg PO DAILY 06/19/18 [History Confirmed 06/19/18] vitamin#30 30 mg iron-10 mg iron-folic acid 1 mg- omg3 capsule cap PO cap 06/19/18 [History Confirmed 06/19/18] Is last menstrual period known: Yes Last Menstral Period: 06/03/18 Post menopausal: No Patient : No : No PFSH Medical History Abdominal pain despite therapy for Crohn's disease (Acute) Cancer of appendix (Acute) Crohns disease (Acute) Surgical History Gallbladder AND bile duct stone with obstruction (Acute) History of appendectomy (Acute) leg surgery (Acute) Family History Father Hypertension Grandmother Breast cancer Mother Hypertension Social History Smoking Status: Current every day smoker alcohol intake: never substance use type: does not use what type of physical activity do you participate in: none seatbelt use: always do you feel safe at home: Yes additional social history: 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 she has a twenty year old and her partner has a 6 year old. she is ovulating some months but occasional misses a menses. she has had a history of auto immune disease. no stds in the past. Female Reproductive History Last Menstral Period: 06/03/18 Cycle Length: 21-35 Bleeding Duration: 5 Questions: Metorrhagia: No, Sexually active: Yes, Dyspareunia: No, PCB: No Menopausal Symptoms: No hot flashes, No night sweats, No weight change, No mood changes, No difficulty concentrating, No sleep problems, No change in libido Pregancy History 1 Elective abortions Hx Para 1 Spontaneous abortions ROS Const Constitutional: Denies night sweats ENT ENT: Denies dry mouth GI GI: Reports as per HPI; denies vomiting, nausea, abdominal pain or constipation : Denies hot flashes or nipple discharge Skin Skin/Breast: Denies hair loss, change in hair, dry skin, breast pain, breast skin changes, breast lump or nipple discharge Psych Psych: Denies difficulty concentrating or change in sex drive Exam Const General: cooperative, healthy appearing, comfortable, no acute distress, well developed Nutritional Appearance: average body habitus Orientation: alert HENMT Head: normal to inspection, normocephalic Ears: hearing grossly normal bilaterally, external ears normal Nose: external nose normal, nares normal Face and sinus: normal facial exam Neck Neck: normal visual inspection, trachea midline, no lymphadenopathy Thyroid: thyroid normal Resp Effort AND Inspection: normal respiratory effort Musc Other: gross motor intact no deficits, full bilateral strength Skin General: no rashes or lesions noted Neuro Motor: muscle tone normal throughout Assessment AND Plan Problems 1. Irregular menses N92.6 bloodwork ordered 2. 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 patient declines IvF and infertiity referral. 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 Type: Out Account: [id number] Location: 052 Ordering: CARIDAD JUDGE Exam Date: 06/13/2018/10:56 Family Phys: Charge Code: 941489 Physician: Luna Order #: [id number] DLP Dose#: PROCEDURE: SOFT TISSUE NECK/HEAD COMPARISON: None. INDICATIONS: Adenopathy TECHNIQUE: Sonography was performed of the clinically requested area of interest. FINDINGS: REGION IMAGED: Bilateral neck. MASSES: Nonspecific sized lymph nodes are present laterally. The largest on the left measures 1.3 cm. No other cystic or solid foci are identified. FLUID COLLECTIONS: None. No abnormal fluid collection. OTHER: Negative. CONCLUSION: 1. NONSPECIFIC BILATERAL CERVICAL LYMPH NODES. Dictated by: Margareth Gr MD on 06/13/2018 at 14:06 Approved by: Margareth Gr MD on 06/13/2018 at 14:06 CBC Collected: 06/10/2018 Status: F Source: [facility] [place] 8:00 AM [facility] REPOSITORY TYPE CODE TESTS RESULT OUT OF RANGE REFERENCE UNITS LAB CBC(LOINC) CBC Result Comment: CBC-COMPLETE BLOOD COUNT LAB WBC(LOINC) 4.5 - 10.8 x 10EE3/UL WBC 7.8 LAB RBC(LOINC) 4.10 - x 10EE6/UL 5.30 RBC 4.20 LAB HEMOGLOBIN(LOINC) 12.0 - g/dl 16.0 HEMOGLOBIN 12.2 LAB HEMATOCRIT(LOINC) 34.0 - % 46.0 HEMATOCRIT 36.4 LAB MCV(LOINC) 80 - 99 fl MCV 87 LAB MCH(LOINC) 27 - 33 pg MCH 29 LAB MCHC(LOINC) 32 - 36 X10 3 MCHC 34 LAB RDW/CV(LOINC) 12.0 - % 15.6 RDW/CV 14.7 LAB PLATELET(LOINC) 150 - 450 x10EE3/UL PLATELET 270 LAB MPV(LOINC) 6.6 - 10.5 fl MPV 9.7 Result Comment: AUTOMATED DIFFERENTIAL LAB NEUT %(LOINC) 46.0 - 76.0 % NEUT % 55.1 LAB LYMPH %(LOINC) 20.0 - 45.0 % LYMPH % 32.1 LAB MONOS %(LOINC) 0.0 - 10.0 % MONOS % 7.1 LAB EO %(LOINC) 0.0 - 7.0 % EO % 4.4 LAB BASO %(LOINC) 0.0 - 2.0 % BASO % 1.3 LAB Lymph #(LOINC) 0.80 - 2.80 x10EE3/U L Lymph # 2.50 LAB Neut #(LOINC) 1.50 - 7.10 x10EE3/U L Neut # 4.30 LAB Steuben #(LOINC) 0.20 - 1.00 x10EE3/U L Steuben # 0.60 LAB EO #(LOINC) 0.00 - 0.50 x10EE3/U L EO # 0.30 LAB Baso #(LOINC) 0.00 - 0.10 x10EE3/U L Baso # 0.10 LAB MANUAL DIFF([facility]) MANUAL DIFF N/A LAB MORPHOLOGY([facility] ) MORPHOLOGY N/A Result Comment: {CD] Performed By: #### [id number] #### [facility],[address] [place] [address] CMP WITH EGFR Collected: 06/10/2018 Status: F Source: [facility] 8:00 AM [facility] REPOSITORY TYPE CODE TESTS RESULT OUT OF RANGE REFERENCE UNITS LAB CMP with eGFR([facility]) CMP with eGFR Result Comment: COMPREHENSIVE METABOLIC PANEL LAB SODIUM(LOINC) 136 - 145 mmol/l SODIUM 140 LAB POTASSIUM(INC) 3.5 - 5.1 mmol/L POTASSIUM 3.5 LAB CHLORIDE(LOINC) 98 - 107 mmol/L CHLORIDE 106 LAB CO2(LOINC) 21.0 - mmol/L 31.0 CO2 26.3 LAB GLUCOSE(LOINC) 74 - 106 mg/dl GLUCOSE 81 LAB BUN(INC) 6 - 20 mg/dl BUN 7 LAB CREATININE(INC) 0.6 - 1.2 mg/dl CREATININE 0.6 LAB AST/SGOT(LOINC) 13 - 39 U/L AST/SGOT 15 LAB ALK PHOS(LOINC) 38 - 126 U/L ALK PHOS 68 LAB CALCIUM(LOINC) 8.6 - mg/dl 10.2 CALCIUM 9.2 LAB TOTAL PROTEIN(LOINC) 6.4 - 8.3 g/dl TOTAL PROTEIN 7.0 LAB ALBUMIN(LOINC) 3.4 - 4.8 g/dL ALBUMIN 4.2 LAB GLOBULIN(LOINC) 1.5 - 3.8 G/DL GLOBULIN 2.8 LAB A/G RATIO(LOINC) 0.9 - 1.6 A/G RATIO 1.5 LAB TOTAL BILI(LOINC) 0.0 - 1.5 mg/dl TOTAL BILI 0.4 LAB B/C RATIO(LOINC) 0 - 30 ratio B/C RATIO 12 LAB ALT/SGPT(LOINC) 8 - 35 U/L ALT/SGPT 9 LAB ANION GAP(LOINC) 10 - 20 mmol/L ANION GAP 11 LAB AGE(LOINC) years AGE 38 LAB eGFR(LOINC) 60 - 999 ML/MINUTE eGFR >60 LAB eGFR(AA)(LOINC) 60 - 999 ML/MINUTE eGFR(AA) >60 Result Comment: ACCORDING TO THE NATIONAL KIDNEY DISEASE EDUCATION PROGRAM(NKDE), A NORMAL eGFR IS A VALUE GREATER THAN OR EQUAL TO 60 ML/MIN/1.73 SQ METERS. CHRONIC KIDNEY DISEASE: <60mL/MIN/1.73 SQ METERS KIDNEY FAILURE: <15mL/MIN/1.73 SQ METERS THIS TEST SHOULD ONLY BE USED FOR PATIENTS 18 YEARS OF AGE AND OLDER. Performed By: #### [id number] #### [place] [address] C-REACTIVE PROTEIN Collected: 06/10/2018 Status: F Source: [facility] 8:00 [facility] REPOSITORY TYPE CODE TESTS RESULT OUT OF RANGE REFERENCE UNITS LAB CRP(LOINC) 0.00 - 1.00 mg/dl CRP 0.60 Performed By: #### [id number] #### [place] [address] SEDRATE Collected: 06/10/2018 Status: F Source: [facility] 8:00 [facility] REPOSITORY TYPE CODE TESTS RESULT OUT OF REFERENCE UNITS RANGE LAB SEDRATE(LOKI 0 - 30 mm/hr NC) SEDRATE 7 Performed By: #### [id number] #### [address] [place] [address] EMERGENCY REPORT Observed: 04/25/2018 Status: F Source: [facility] [place] 5:08 PM [facility] [place] [facility] REPORT NAME ACCOUNT SEX AGE ADMIT DISCHARGE PT MED. RECORD# NUMBER DATE DATE TYPE JESSICA JIANG [id number] F 37 04/25/18 04/25/18 3 A [id number] ROOM: ER DATE OF : 1980 DICTATING PHYSICIAN: Jordy Hernandez CHIEF COMPLAINT: Left elbow redness. HISTORY OF PRESENT ILLNESS: The patient states that a couple weeks ago she had developed some type of bites to her right elbow area and developed increasing redness and swelling around that area. She saw her doctor, who diagnosed an infection and treated her with Bactrim. She took that for 10 days, finishing on the first. She states that nearly completely resolved the symptoms and redness, though she had still just a couple of very small little reddened dots to that area. However, over the past 4 days it has become increasingly red, swollen and painful as it did previously, so she presents for evaluation. She has not had a fever, chills, nausea or vomiting. PAST MEDICAL HISTORY: Significant for Crohn's disease, tachycardia, previous DVT and anxiety. PAST SURGICAL HISTORY: She has had previous cholecystectomy and appendectomy. MEDICATIONS: Per medication reconciliation list, including Cimzia for her Crohn's disease, which she states can be immunocompromising. ALLERGIES: She is allergic to Levaquin. SOCIAL HISTORY: She lives at home. She does smoke. She does not drink alcohol. 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 PHYSICAL EXAMINATION: This is a 37-year-old pleasant female who is alert and appropriate. She does not appear toxic or in any acute distress. Skin is pink, warm and dry. Vital signs: Blood pressure is 148/106, pulse 98, respirations 18, and temperature 98.1. Examination is focused to the right upper extremity. The patient has some localized redness over the olecranon process with 2 separate focused areas of some induration and swelling. There is some surrounding area of a little lesser swelling and induration to this area. There are no open areas. No pustules. No draining areas. It is minimally warm, and the entire reddened area is perhaps golf- ball sized with quite indistinct borders. She has full range of motion with good flexion and extension. No pain above or below the area. Good peripheral pulses and capillary refill. Page 1 of 2 JESSICA JIANG Emergency Room Report EMERGENCY DEPARTMENT COURSE AND TREATMENT: She did get improvement and response to the Bactrim that she was on previously, but it did not completely resolve all of that, perhaps because of the concurrent Cimzia. I recommended since she did get a near clearing that we would continue trying that antibiotic but over a longer period of time, perhaps up to 2 to 3 weeks. If she does not have noticeable resolution or certainly if it worsens she probably will need to see Surgery for possible I&D. She is to return if her symptoms do worsen. I did give her a prescription for Bactrim to take in the meantime. DIAGNOSIS: Olecranon bursitis/cellulitis. Dictated By: Jordy Hernandez MD 04/25/18 17:32 JOB #: [id number] Transcribed By: michael 04/26/18 10:39 Electronically signed by: LILIA Hernandez M.D. 04/30/18 07:38 Page 2 of 2 JESSICA JIANG Emergency Room Report CBC Collected: 04/11/2018 Status: F Source: [facility] [place] 3:17 PM [facility] REPOSITORY TYPE CODE TESTS RESULT OUT OF RANGE REFERENCE UNITS LAB CBC(LOINC) CBC Result Comment: CBC-COMPLETE BLOOD COUNT LAB WBC(LOINC) 4.5 - 10.8 x 10EE3/UL WBC 7.3 LAB RBC(LOINC) 4.10 - x 10EE6/UL 5.30 RBC Low 4.08 LAB HEMOGLOBIN(LOINC) 12.0 - g/dl 16.0 Low HEMOGLOBIN 11.9 LAB HEMATOCRIT(LOINC) 34.0 - % 46.0 HEMATOCRIT 35.2 LAB MCV(LOINC) 80 - 99 fl MCV 86 LAB MCH(LOINC) 27 - 33 pg MCH 29 LAB MCHC(LOINC) 32 - 36 X10 3 MCHC 34 LAB RDW/CV(LOINC) 12.0 - % 15.6 RDW/CV 14.8 LAB PLATELET(LOINC) 150 - 450 x10EE3/UL PLATELET 207 LAB MPV(LOINC) 6.6 - 10.5 fl MPV 10.5 Result Comment: AUTOMATED DIFFERENTIAL LAB NEUT %(LOINC) 46.0 - 76.0 % NEUT % 47.8 LAB LYMPH %(LOINC) 20.0 - 45.0 % LYMPH % 36.7 LAB MONOS %(LOINC) 0.0 - 10.0 % MONOS % 7.8 LAB EO %(LOINC) 0.0 - 7.0 % EO % 6.7 LAB BASO %(LOINC) 0.0 - 2.0 % BASO % 1.0 LAB Lymph #(LOINC) 0.80 - 2.80 x10EE3/U L Lymph # 2.70 LAB Neut #(LOINC) 1.50 - 7.10 x10EE3/U L Neut # 3.50 LAB [place] #(LOINC) 0.20 - 1.00 x10EE3/U L [place] # 0.60 LAB EO #(LOINC) 0.00 - 0.50 x10EE3/U L EO # 0.50 LAB Baso #(LOINC) 0.00 - 0.10 x10EE3/U L Baso # 0.10 LAB MANUAL DIFF(INC) MANUAL DIFF N/A LAB MORPHOLOGY(INC ) MORPHOLOGY N/A Result Comment: {CD] Performed By: #### [id number] #### [facility],[address] [place] [address] CMP WITH EGFR Collected: 04/11/2018 Status: F Source: [facility] 3:17 PM [facility] REPOSITORY TYPE CODE TESTS RESULT OUT OF RANGE REFERENCE UNITS LAB CMP with eGFR([facility]) CMP with eGFR Result Comment: COMPREHENSIVE METABOLIC PANEL LAB SODIUM(LOINC) 136 - 145 mmol/l SODIUM 139 LAB POTASSIUM(LOINC) 3.5 - 5.1 mmol/L POTASSIUM 4.3 LAB CHLORIDE(LOINC) 98 - 107 mmol/L CHLORIDE 107 LAB CO2(LOINC) 21.0 - mmol/L 31.0 CO2 25.8 LAB GLUCOSE(LOINC) 74 - 106 mg/dl GLUCOSE 93 LAB BUN(LOINC) 6 - 20 mg/dl BUN 8 LAB CREATININE(LOINC) 0.6 - 1.2 mg/dl CREATININE 0.7 LAB AST/SGOT(LOINC) 13 - 39 U/L AST/SGOT Low 11 LAB ALK PHOS(LOINC) 38 - 126 U/L ALK PHOS 62 LAB CALCIUM(LOINC) 8.6 - mg/dl 10.2 CALCIUM 9.4 LAB TOTAL 6.4 - 8.3 g/dl PROTEIN(LOINC) TOTAL PROTEIN 6.6 LAB ALBUMIN(LOINC) 3.4 - 4.8 g/dL ALBUMIN 4.3 LAB GLOBULIN(LOINC) 1.5 - 3.8 G/DL GLOBULIN 2.3 LAB A/G RATIO(LOINC) 0.9 - 1.6 A/G High RATIO 1.9 LAB TOTAL BILI(LOINC) 0.0 - 1.5 mg/dl TOTAL BILI 0.4 LAB B/C RATIO(LOINC) 0 - 30 ratio B/C RATIO 11 LAB ALT/SGPT(LOINC) 8 - 35 U/L ALT/SGPT Low 7 LAB ANION GAP(LOINC) 10 - 20 mmol/L ANION GAP 11 LAB AGE(LOINC) years AGE 37 LAB eGFR(LOINC) 60 - 999 ML/MINUTE eGFR >60 LAB eGFR(AA)(LOINC) 60 - 999 ML/MINUTE eGFR(AA) >60 Result Comment: ACCORDING TO THE NATIONAL KIDNEY DISEASE EDUCATION PROGRAM(NKDE), A NORMAL eGFR IS A VALUE GREATER THAN OR EQUAL TO 60 ML/MIN/1.73 SQ METERS. CHRONIC KIDNEY DISEASE: <60mL/MIN/1.73 SQ METERS KIDNEY FAILURE: <15mL/MIN/1.73 SQ METERS THIS TEST SHOULD ONLY BE USED FOR PATIENTS 18 YEARS OF AGE AND OLDER. Performed By: #### [id number] #### [facility],[address] [place] [address] 12 LEAD ELECTROCARDIOGRAM Observed: 03/19/2018 Status: F Source: [place] 1:31 PM [facility] REPOSITORY [facility] Cardiovascular Services [address] [place] [address] 12 Lead EKG 03/16/182007 MR#: [id number] Acct: [id number] Name: JESSICA JIANG Harinder Rep #: [id number] : 1980 37 From: Pardeep Brown MD Attending Dr: Status: DEP ER Ordering Dr: Artis Pascal MD Date: 03/16/18 Location: ED Sex: F C Admitted: Test Reason : PALPS Blood Pressure : / mmHG Vent. Rate : 093 BPM Atrial Rate : 093 BPM P-R Int : 134 ms QRS Dur : 092 ms QT Int : 366 ms P-R-T Axes : 064 027 083 degrees QTc Int : 455 ms Normal sinus rhythm Low voltage QRS (limb leads) Confirmed by KOFI MERINO, PARDEEP ([id number]), clinical editor CAPRICE JIANGETTE ([id number]) on 03/19/2018 1:31:15 PM Referred By: Confirmed By:PARDEEP BROWN MD 03/19/18 1331 Date Pardeep Brown MD CC: Everette Harris MD; Jossie Arita MD; Artis Pascal MD Signed EMERGENCY DEPARTMENT Observed: 03/16/2018 Status: F Source: [place] SUMMARY 11:24 PM [facility] REPOSITORY [facility] Medical Records Department [address] [place] [address] Emergency Department Summary 03/16/187 MR#: [id number] Acct: [id number] Name: JESSICA JIANG Rep #: [id number] : 1980 37 From: Artis Pascal MD PCP: Jossie Arita MD Status: DEP ER - ER Visit Summary Date of Service: 03/16/18 Chief Complaint: Palpitations History of Present Illness: The patient is a [address] Amado and Dr. Cordova. She reports that she has had palpitations intermittently for the past week and they have worsened over the past 30 minutes. She denies any chest pain. She reports she has been nauseated at times. She has also been short of breath at times. Patient reports over the past 30 minutes it is been a constant irregular heartbeat. She denies any change in medications or caffeine. She does admit that she is under more stress than usual. Physical Examination: Vitals: Stable. Afebrile. General: Well-nourished and well-developed. Head: Normocephalic atraumatic. Neck: Supple, no lymphadenopathy. No JVD. Nontender. Cardiovascular: Regular rate and rhythm. No murmurs. Respiratory: No respiratory distress. Clear to auscultation bilaterally. Abdominal: Soft, nontender, nondistended, normal bowel sounds. No guarding, rebound, or peritoneal signs. Back: Nontender. Extremities: Nontender, no edema. Skin: Normal color, no rash. Neurologic: Alert and oriented 3. Cranial nerves II through XII are intact. Normal strength and sensation. Psych: Normal affect. Test Results: EKG is sinus at 93 with no acute changes. Troponins negative. test is negative. TSH is normal. Chem-7 is more for chloride 110 BUN 6. CBC is marked for an H AND H 11 point and 36.3, platelets of 201. Chest x-ray is normal. Emergency Department Course and Treatment: Patient was given a dose of Ativan IV and is resting comfortably. Treatment Plan: Patient will be discharged prescription for 10 Ativan to use as needed. Instructed follow-up her primary care physician as soon as possible. Return to the emergency department for any worsening symptoms. Disposition: To home in improved and stable condition. Impression: 1. Palpitations. 2. Anxiety. This note was generated with SaveUp dictation software. It may contain incorrect words, spelling, and punctuation that were not noted in review of the chart prior to signing ED Disposition - Plan for ED Patient: Disposition: Home or Assisted Living Chief Complaint: Palpitations Instructions: ED Palpitations Prescriptions: Lorazepam [Ativan] 1 mg PO TID PRN #10 tablet PRN Reason: Anxiety Referrals: Jossie Arita MD [Primary Care Provider] - As soon as possible What to do if you have Problems For any increased pain, shortness of breath, bleeding, nausea or vomiting, chest pain, or any unexpected problems, contact your Primary Care Provider. Call [facility] ([phone]) or report to the closest Emergency Room. Call 911 if necessary. 03/16/18 9540 <Electronically signed by Artis Pascal MD> Date Artis Pascal MD Cosigner Signature (If Indicated): Date CC: Everette Harris MD; Jossie Arita MD CBC W/DIFF, AUTOMATED Collected: 03/16/2018 Status: F Source: [place] 8:30 PM [facility] REPOSITORY TYPE CODE TESTS RESULT OUT OF RANGE REFERENCE UNITS LAB L100.1000 4.4-11.0 K/mm3 Normal WBC 7.5 LAB L100.1200 4.2-5.4 M/mm3 Low RBC 4.15 LAB L100.1300 12.0-15.0 g/dl Low HGB 11.9 LAB L100.1400 37-47 % Low HCT 36.3 LAB L100.1500 81-99 fL Normal MCV 87.5 LAB L100.1600 27.0-32.0 pg Normal MCH 28.7 LAB L100.1700 32-36 g/gl Normal MCHC 32.8 LAB L100.1810 11.6-14.6 % Normal RDW CV 14.4 LAB L100.1820 35.1-43.9 fl High RDW SD 45.7 LAB L100.1900 150-450 K/mm3 Normal PLT 201 LAB L100.2000 6.2-12.0 fl Normal MPV 10.9 LAB L100.2100 47-70 % Normal NEUT% 53.3 LAB L100.2200 19-41 % Normal LY% 37.5 LAB L100.2300 0-10 % Normal MONO% 5.9 LAB L100.2400 0-5 % Normal EO% 2.9 LAB L100.2500 0-1 % Normal BASO% 0.3 LAB L100.2550 0.0-0.9 % Normal IM GRAN % 0.100 Result Comment: IG% - Immature Granulocytes (promyelocytes, myelocytes and metamyelocytes) > 1% indicates that a LEFT SHIFT is Present. LAB L100.2620 2.0-7.7 X10 3/uL Normal Absolute Neut 4.0 LAB L100.2720 0.83-4.51 X10 3/ul Normal Absolute Lymph 2.81 LAB L100.4500 Normal SMEAR COMMENT SCANNED Result Comment: AUTO DIFF OK Performed By: #### L100.0100 #### [facility] [address] [facility] [place], [address] BASIC METABOLIC Collected: 03/16/2018 Status: F Source: [facility] PROFILE (BMP) 8:30 PM [facility] REPOSITORY TYPE CODE TESTS RESULT OUT OF RANGE REFERENCE UNITS LAB L501.0100 74-106 mg/dL Normal GLU 88 Result Comment: Please note revised GLUCOSE reference range effective 2017. LAB L501.1000 7-18 mg/dL Low BUN 6 LAB L501.1100 0.55-1.02 mg/dL Normal CREAT,SERUM 0.68 Result Comment: The validity of the calculated GFR AND GFRAA in patients over 70 years has not been determined. Clinical correlation is essential. LAB L501.1110 >60 mL/min Normal EST GFR 103 Result Comment: Non- GFR Calc LAB L501.1115 >60 mL/min Normal EST GFR - AA 124 Result Comment: GFR Calc LAB L501.1255 ml/min Normal Estimated CRCL 99.95 LAB L501.1300 10-20 RATIO Low BUN/CRE 8.9 LAB L501.2200 8.5-10 mg/dL Normal .1 CA 8.7 LAB L501.5300 136-14 mmol/L Normal 5 NA 144 LAB L501.5600 3.5-5. mmol/L Normal 1 K 3.7 LAB L501.5900 98-107 mmol/L High CL 110 LAB L501.6100 21.0-3 mmol/L Normal 2.0 CO2 23.0 LAB L501.6200 5-15 Normal GAP 11 Performed By: #### L500.2500, L501.4010, L501.9520 #### [facility] [address] [facility] [place], [address] TROPONIN-I Collected: 03/16/2018 Status: F Source: [place] 8:30 PM [facility] REPOSITORY TYPE CODE TESTS RESULT OUT OF RANGE REFERENCE UNITS LAB L501.4010 <0.045 ng/mL Normal < 0.015 TROPONIN-I Result Comment: TROPONIN-I EXPECTED VALUES <0.045 Negative 0.045 - 0.590 Consistent with Cardiac Damage > OR = 0.600 Critical Value Not every elevated troponin is indicative of ID. These values should be used with clinical judgement in examining the patient's clinical picture for diagnosis. To establish a diagnosis of ID versus myocardial injury, there must be a demonstrated rise and/or fall in the troponin values, in addition to ischemic symptoms, EKG changes, new regional wall motion abnormality, and/or angiographical evidence. PLEASE NOTE: REFERENCE RANGES EDITED 17 Performed By: #### L500.2500, L501.4010, L501.9520 #### [facility] [address] [place], [address] THYROID STIM HORMONE Collected: 03/16/2018 Status: F Source: [facility] (TSH) 8:30 PM [facility] REPOSITORY TYPE CODE TESTS RESULT OUT OF RANGE REFERENCE UNITS LAB L501.9520 0.358-3.74 uIU/mL Normal TSH 1.52 Performed By: #### L500.2500, L501.4010, L501.9520 #### [facility] [address] [facility] [place], [address] ,SERUM,HCG QUALI. Collected: Status: F Source: [facility] 03/16/2018 8:30 PM [facility] REPOSITORY TYPE CODE TESTS RESULT OUT OF REFERENCE UNITS RANGE LAB L700.6700 =>Qualitative mIU/mL Normal HCG Qual < 1 triggr LAB L700.7000 0-9 Nonpreg Negative Normal HCGSQUAL NEGATIVE Performed By: #### L700.6800 #### [facility] [address] [place], [address] CHEST 1 VIEW Observed: 03/16/2018 Status: F Source: AMOS (PORTABLE) 8:15 PM [facility] REPOSITORY [facility] Imaging Services [address] [place] [address] Chest 1 View (Portable) MR#: [id number] Acct: [id number] Name: APOLINARJESSICA Harinder Rep #: [id number] : 1980 F 37 From: Nella Gryason MD PCP: OUT OF TOWN DOCTOR Status: PRE ER Study: Chest 1 View (Portable) Date of Exam: 03/16/18 Exam# [id number] Ordering Dr: Artis Pascal MD STUDY: X-RAY CHEST REASON FOR EXAM: Female, 37 years old. Chest flutter TECHNIQUE: A single frontal view of the chest was obtained. COMPARISON: January 27, 2016 FINDINGS: The lungs are adequately aerated. There are no focal airspace opacities. There is no demonstrated pleural abnormality. The cardiac silhouette is normal in size. The mediastinum and hilar regions are unremarkable. Normal visualized pulmonary arteries. Normal visualized aortic arch and descending thoracic aorta. The thoracic spine is unremarkable. The visualized ribs, clavicles, and shoulders are unremarkable. There is no demonstrated abnormality of the visualized upper abdomen. RAD/Chest 1 View (Portable) IMPRESSION: No acute cardiopulmonary abnormalities. Electronically Signed: Nella Grayson MD at 20:34 EDT Tel Direct: [phone], Service support , CC: OUT OF TOWN DOCTOR; Artis Pascal MD Reproduction Specialist: Signed COMPREHENSIVE METABOLIC Collected: 03/15/2018 Status: F Source: [facility] PANEL 8:14 PM [facility] REPOSITORY TYPE CODE TESTS RESULT OUT OF RANGE REFERENCE UNITS LAB AGE(LOINC) Years AGE,PATIENT 37 LAB NA 2(LOINC) 137-145 mmol/L SODIUM Normal 139 LAB K 1(LOINC) 3.6-5.0 mmol/L Normal POTASSIUM 3.6 LAB CL 1(LOINC) 98-107 mmol/L CHLORIDE Normal 106 LAB CO2 22-31 mmol/L 1(LOINC) CARBON Normal DIOXIDE 24 LAB GAP(LOINC) 9-18 mmol/L ANION Normal GAP 13 LAB BUN 7-21 mg/dL 1(LOINC) Low BLOOD UREA NITROGEN 6 LAB CREAT 0.80-1.30 mg/dL 1(LOINC) Low CREATININE 0.71 LAB EGFR(LOINC) mL/min Normal ESTIMATED > 60.000 GLOMERULAR FILT RATE LAB BCRATIO(LOKI 5.0-42.0 Ratio NC) Normal BUN/CREATININE 8.5 RATIO LAB GLU 70-99 mg/dL CMP(LOINC) GLUCOSE Normal 85 Result Comment: The glucose range is based on recommendations from the [place] [employer] for fasting blood glucose range. LAB CA 1(LOINC) 8.4-10.2 mg/dL CALCIUM Normal 9.2 LAB BILIT 1(LOINC) 0.2-1.3 mg/dL Low BILIRUBIN,TOTAL 0.1 LAB AST 1(LOINC) 8-39 U/L AST/SGOT Normal 23 LAB ALT 1(LOINC) 7-56 U/L ALT/SGPT Normal 24 LAB ALK PHOS 43-122 U/L 1(LOINC) ALKALINE Normal PHOSPHATASE 64 LAB TP 1(LOINC) 6.3-8.2 g/dL TOTAL Normal PROTEIN 7.0 LAB ALB 1(LOINC) 3.9-5.0 g/dL ALBUMIN Normal 4.0 LAB GLOB(LOINC) g/dL GLOBULIN Normal 3.0 LAB AGRATIO(LOINC) 1.1-1.8 Ratio Normal ALBUMIN/GLOBULIN RATIO 1.3 LAB PHARM CRCL(LOINC) ESTIMATED CREAT CLEARANCE 95.72 Result Comment: COCKCROFT-GAULT FORMULA 1973 Performed By: #### UHCG, UA w RFX x2, CMP, CBC, PT, LACTATE 1, ESR, CPK 1, CKMB 1, TROP 1, URINE #### [place] [address] CBC WITH AUTO Collected: 03/15/2018 Status: F Source: [facility] DIFF 8:14 PM [facility] REPOSITORY TYPE CODE TESTS RESULT OUT OF REFERENCE UNITS RANGE LAB WBC(LOINC) 4.0-10.5 10 3/uL WHITE BLOOD Normal COUNT 7.7 LAB RBC(LOINC) 3.89-5.30 x10 6/uL RED BLOOD Normal COUNT 4.40 LAB HGB(LOINC) 11.6-14.9 g/dL HEMOGLOBIN Normal 12.6 LAB HCT(LOINC) 34.8-45.0 % HEMATOCRIT Normal 37.6 LAB MCV(LOINC) 78.0-100.0 fL MEAN Normal CORPUSCULAR VOLUME 85.5 LAB MCH(LOINC) 27.0-31.0 pg MEAN Normal CORPUSCULAR 28.7 HEMOGLOBIN LAB MCHC(LOINC 32.0-36.0 g/dL ) MEAN Normal CORPUSCULAR HGB 33.6 CONC LAB RDW(LOINC) 11.5-14.0 % RED CELL High DISTRIBUTION WIDTH 15.5 LAB PLT(LOINC) 150-450 10 3/uL PLATELET COUNT Normal 191 LAB MPV(LOINC) 6.0-9.5 fl MEAN PLATELET Normal VOLUME 9.4 LAB NE%(LOINC) 36.0-66.0 % NEUTROPHILS % Normal (AUTO) 54.3 LAB LY%(LOINC) 24.0-44.0 % LYMPHOCYTES % Normal (AUTO) 35.6 LAB MO%(LOINC) 1.7-9.3 % MONOCYTES % Normal (AUTO) 7.2 LAB EO%(LOINC) 0.0-5.0 % EOSINOPHILS % Normal (AUTO) 2.3 LAB BA%(LOINC) 0.0-1.0 % BASOPHILS % Normal (AUTO) 0.6 LAB NE# 1.5-6.7 10 3/uL NEUTROPHILS, Normal ABSOLUTE (AUTO) 4.2 LAB LY#(LOINC) 1.0-3.5 10 3/uL LYMPHOCYTES, Normal ABSOLUTE (AUTO) 2.7 LAB MO#(LOINC) 0.2-0.8 10 3/uL MONOCYTES, Normal ABSOLUTE (AUTO) 0.6 LAB EO#(LOINC) 0.0-0.7 10 3/uL EOSINOPHILS, Normal ABSOLUTE (AUTO) 0.2 LAB BA#(LOINC) 0.0-0.2 10 3/uL BASO, ABSOLUTE Normal (AUTO) 0.0 Performed By: #### UHCG, UA w RFX x2, CMP, CBC, PT, LACTATE 1, ESR, CPK 1, CKMB 1, TROP 1, URINE #### Main Lab - [place] [id number] [place], [place] [address] PT WITH INR Collected: 03/15/2018 Status: F Source: [facility] 8:14 PM [facility] REPOSITORY TYPE CODE TESTS RESULT OUT OF RANGE REFERENCE UNITS LAB PT1(LOINC) 12.0-14.5 SEC PROTHROMBIN Normal TIME 13.1 LAB INR(LOINC) INR Normal 1.0 Result Comment: RECOMMENDED RANGES FOR INR: Therapeutic range for standard therapy INR: 2.0-3.0 Therapeutic range for high dose therapy INR: 2.5-3.5 Performed By: #### UHCG, UA w RFX x2, CMP, CBC, PT, LACTATE 1, ESR, CPK 1, CKMB 1, TROP 1, URINE #### Main Lab - [facility] [address] [place] [address] LACTATE Collected: 03/15/2018 Status: F Source: [facility] 8:14 PM [facility] REPOSITORY TYPE CODE TESTS RESULT OUT OF RANGE REFERENCE UNITS LAB LACTATE 0.7-2.4 mmol/L 1(LOINC) Normal LACTATE 1.4 Performed By: #### UHCG, UA w RFX x2, CMP, CBC, PT, LACTATE 1, ESR, CPK 1, CKMB 1, TROP 1, URINE #### Main Lab - [facility] [address] [place] [address] ERYTHROCYTE Collected: 03/15/2018 Status: F Source: [facility] SEDIMENTATION RATE 8:14 PM [facility] REPOSITORY TYPE CODE TESTS RESULT OUT OF REFERENCE UNITS RANGE LAB ESR(LOINC) 0-20 mm/hr ERYTHROCYTE High SEDIMENTATION RATE 25 Performed By: #### UHCG, UA w RFX x2, CMP, CBC, PT, LACTATE 1, ESR, CPK 1, CKMB 1, TROP 1, URINE #### Main Lab - [facility] [address] [place] [address] CREATINE KINASE Collected: 03/15/2018 Status: F Source: [facility] 8:14 PM [facility] REPOSITORY TYPE CODE TESTS RESULT OUT OF REFERENCE UNITS RANGE LAB CPK 55-170 U/L 1(LOINC) Low CREATINE 35 KINASE Performed By: #### UHCG, UA w RFX x2, CMP, CBC, PT, LACTATE 1, ESR, CPK 1, CKMB 1, TROP 1, URINE #### Main Lab - [facility] [address] [place] [address] CREATINE KINASE MB Collected: 03/15/2018 Status: F Source: [facility] 8:14 PM [facility] REPOSITORY TYPE CODE TESTS RESULT OUT OF RANGE REFERENCE UNITS LAB CKMB 0.0-3.7 ng/mL 1(LOINC) Normal CREATINE 0.7 KINASE MB Performed By: #### UHCG, UA w RFX x2, CMP, CBC, PT, LACTATE 1, ESR, CPK 1, CKMB 1, TROP 1, URINE #### Main Lab - [facility] [address] [place] [id number] TROPONIN I Collected: 03/15/2018 Status: F Source: [facility] 8:14 PM [facility] REPOSITORY TYPE CODE TESTS RESULT OUT OF RANGE REFERENCE UNITS LAB TROP 0.0-0.03 ng/mL 1(LOINC) Normal TROPONIN I < 0.03 Result Comment: Reference Interval < or = 0.03 ng/mL Clinical Correlation Needed 0.03 - 0.12 ng/mL AMI Cutoff, Presumptive = or > 0.12 ng/mL Performed By: #### UHCG, UA w RFX x2, CMP, CBC, PT, LACTATE 1, ESR, CPK 1, CKMB 1, TROP 1, URINE #### Main Lab - [facility] [address] [place] [address] C-REACTIVE PROTEIN Collected: 03/15/2018 Status: F Source: [facility] 8:14 [facility] REPOSITORY TYPE CODE TESTS RESULT OUT OF REFERENCE UNITS RANGE LAB CRP(LOINC) 0.0-1.0 mg/dL High C-REACTIVE 4.00 PROTEIN Performed By: #### CRP #### Main Lab - [facility] [address] [place] [address] Observed: 03/15/2018 Status: F Source: [facility] BLOOD CULTURE 8:14 PM [facility] REPOSITORY : No Growth at 48 hours. Negative cultures will be held for 5 days. The amount of blood collected is less than minimum for a blood culture. Collection of low volumes may adversely affect recovery and/or detection time for certain organisms. No Growth after 5 days. Performed By: #### BLOOD #### Main Lab - [facility] [address] HCG, URINE Collected: 03/15/2018 Status: F Source: [facility] 7:17 PM [facility] REPOSITORY TYPE CODE TESTS RESULT OUT OF REFERENCE UNITS RANGE LAB UHCG(LOINC) HCG, NEGATIVE URINE Result Comment: @Internal Pos/Neg controls reacted as detailed in procedure @literature. Performed By: #### UHCG, UA w RFX x2, CMP, CBC, PT, LACTATE 1, ESR, CPK 1, CKMB 1, TROP 1, URINE #### Main Lab - [facility] [place], [place] [address] URINE PROTOCOL Collected: 03/15/2018 Status: F Source: [facility] 7:17 PM [facility] REPOSITORY TYPE CODE TESTS RESULT OUT OF RANGE REFERENCE UNITS LAB UCOL(LOINC ) COLOR,URINE YELLOW LAB UCLAR(LOIN C) CLARITY,URINE CLEAR LAB UGLU(LOINC NEGATIVE mg/dL ) GLUCOSE, URINE NEGATIVE (UA) LAB UKET(LOINC NEGATIVE mg/dL ) KETONES,URINE NEGATIVE LAB USG(LOINC) <1.029 SP.GR. SPECIFIC 1.012 GRAVITY,URINE LAB UBLD(LOINC NEGATIVE ) BLOOD,URINE NEGATIVE LAB UPH(LOINC) 5.0-8.0 PH,URINE 5.0 LAB UPRO(LOINC NEGATIVE mg/dL ) PROTEIN,URINE NEGATIVE LAB UURO(LOINC <2 mg/dL mg/dL ) UROBILINOGEN,UR NEGATIVE INE LAB UNIT(LOINC NEGATIVE ) NITRITE,URINE NEGATIVE LAB ULEU(LOINC NEGATIVE ) Abnormal LEUKOCYTE TRACE ESTERASE ,URINE LAB URBC(LOINC /HPF ) RBC,URINE 0-3 LAB URWBC(LOIN /HPF C) Abnormal WBC,URINE 0-5 Result Comment: Unless otherwise noted, urine microscopic evaluation is normal. LAB USQEPI(LOINC) /LPF Abnormal SQUAMOUS EPITHELIAL MANY CELL,UR LAB UMUC(LOINC) /LPF MUCUS,URINE TRACE LAB USPERM(LOINC) /HPF SPERM,URINE Present LAB RFX TO CULT Abnormal REFLEX TO URINE CULTURE SEE URINE CULTURE Performed By: #### UHCG, UA w RFX x2, CMP, CBC, PT, LACTATE 1, ESR, CPK 1, CKMB 1, TROP 1, URINE #### Main Lab - [facility] [place], [place] [address] Observed: 03/15/2018 Status: F Source: [facility] URINE CULTURE 7:17 PM [facility] REPOSITORY @03/15/18 2005: URINE CULT added. RFLXG = URINE CULT. @Source changed from IRICEL INS to CC by [id number]. URINE CULTURE: Pending MIXED UROGENITAL KRISHAN: Isolated URINE CULTURE: COLONY COUNT(URINE): >100,000 Performed By: #### UHCG, UA w RFX x2, CMP, CBC, PT, LACTATE 1, ESR, CPK 1, CKMB 1, TROP 1, URINE #### Main Lab - [facility] [address] [place], [place] [address] CNPN Observed: 03/15/2018 Status: COMPLETED Source: [place] 12:00 AM [facility] REPOSITORY Telephone (GASTMN) JESSICA JIANG ([id number]) 1980 F Date Time Provider Department 03/15/18 CORINNE MURPHY During your visit today, we recorded the following information about you: Corinne Murphy MD, PhD 03/15/2018 11:56 AM Signed Her crp is elevated Feeling fever Overall she has been doing much better than when I saw her;stomach is ok Is constipated crohns is good No vomiting taking compazine thurs she was 100 She felt bad stayed home Advise any more fevers go to er If not will get chest xray urine and blood culture Kimberley Jeter 03/17/2018 3:43 PM Signed Patient calling in regards to below Patient states she will be cancelling her upcoming colonoscopy procedure Patient has rescheduled for 08/13/17 and would like to know if this is ok? Patient did go to the hospital and was diagnosed with a UTI Please advise Juliana Álvarez Ma 03/17/2018 4:47 PM Signed Please review message below and advise. Corinne Murphy MD, PhD 03/17/2018 5:30 PM Signed Do we have any spots later this year Nano Rodriguez 04/30/2018 12:27 PM Signed Phone number is non working. Sent my chart to see if patient can come in on 07/02 for her colonoscopy Nano Sharif Jennifer 05/06/2018 9:07 AM Signed 2nd attempt Phone number is non working Allergies As of Date: 03/15/2018 Noted Allergy Reaction LEVAQUIN (LEVOFLOXACIN) 05/14/2011 14 - Other: See Comments Comments: Ruptured achilles tendon Date Reviewed: 03/14/2018 Reviewed by: Maria Del Carmen Gaitan (Pa) - Fully Assessed Reason for Visit: Follow Up [171] Primary Visit Diagnosis:Fever in other diseases [R50.81] Order(s):UA CHEMSTRIP ONLY [SQUA] Order #: [id number] FUTURE XR CHEST 2V FRONTAL/LAT [1305319] Order #: [id number] FUTURE BLOOD CULTURE DRAW [SQBLCUL] Order #: [id number] FUTURE Prescriptions as of 03/15/2018 Sig: PEG 3350-ELECTROLYTES 236 GRA* Take as directed DICYCLOMINE 10 MG CAPSULE Take 1 capsule by mouth three* CITALOPRAM 40 MG TABLET Take 40 mg by mouth once marino* IV CONTRAST (RADIOLOGY PROCED* MRI Enterography Inject, intr* ENTERIC CONTRAST (RADIOLOGY P* For MRI ENTEROGRAPHY WO/W Adm* GLUCAGON (HUMAN RECOMBINANT) * Inject 1 mg intravenously one* PANTOPRAZOLE 40 MG TABLET,DEL* Take 1 tablet by mouth once d* ALPRAZOLAM 0.5 MG TABLET Take 1 tablet by mouth once d* ONDANSETRON 4 MG DISINTEGRATI* Take 1 tablet by mouth every * PROCHLORPERAZINE MALEATE 10 M* Take 1 tablet by mouth every * CERTOLIZUMAB PEGOL 400 MG (20* Inject 1 mL subcutaneously ev* SUCRALFATE 1 GRAM TABLET Take 1 tablet by mouth before* HYDROXYZINE PAMOATE 25 MG CAP* Take 25 mg by mouth four time* TRAZODONE 100 MG TABLET Take 100 mg by mouth daily at* PROMETHAZINE 25 MG TABLET Take 1 tablet by mouth four t* Problem List As Of Date 03/15/2018 Noted Resolved Cellulitis and abscess of unspecified site [L03*INVALID FOR*09/29/2012 Change in bowel function [R19.4] INVALID FOR*09/29/2012 Abdominal pain, unspecified site [R10.9] INVALID FOR*09/29/2012 Carcinoid tumor of appendix, 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 Abdominal pain [R10.9] INVALID FOR*03/14/2018 Priority: B More... DVT (deep venous thrombosis) (HCC) [I82.409] INVALID FOR*03/14/2018 Priority: D More... SUMMARY INVALID FOR*03/14/2018 Priority: A More... Insomnia [G47.00] INVALID FOR* Anxiety neurosis [F41.1] INVALID FOR* GERD (gastroesophageal reflux disease) [K21.9] INVALID FOR* Nausea [R11.0] INVALID FOR* Crohn's disease of large intestine with other c*INVALID FOR* More... Non morbid obesity [E66.9] INVALID FOR* Smoker [F17.200] INVALID FOR* Encounter Status:Closed by CORINNE MURPHY on 03/15/18 NURSING PROG Observed: 03/14/2018 Status: COMPLETED Source: [place] 4:33 PM [facility] REPOSITORY HNO ID: [id number] Author: Annabel (Rn) Roberto Service: (none) Author Type: Registered Nurse Type: Nursing Progress Note Filed: 03/17/2018 3:30 PM Note Text: PACC Nurse Progress Note History AND Physical: PACC Visit Date: 03-14-18 Original HANDP Date: 03-14-18 ED visit Date: N/A Outside HANDP Scanned Date: N/A Labs Within Last 6 Months: CBC: Date 03-14-18 WNL BMP/CMP: Date 03-14-18; results reviewed and accepted by surgeon OTHER TEST: Iron+TIBC Date 03-14-18; results reviewed and accepted by surgeon Vitamin B-12: Date 03-14-18 WNL CRP: Date 03-14-18; elevated results reviewed by surgeon. See telephone encounter 03-15-18. Imaging Within Last 12 Months: N/A Cardiac Testing: N/A Last Menstrual Period: LMP Date: 02-22-18 Postmenopausal >1yr: No, S/P Hysterectomy: N/A BMI Percentile (PEDS): N/A Risk Assessment: N/A Anesthesia Review: N/A Narrative: N/A Pre-op Considerations: H/o tachycardia-treated with Pantoprazole in past-no recent issues H/o unprovoked DVT 2007 completed AC Crohn's disease - Cimzia Chart Check: COMPLETE Annabel Ring RN CBC Collected: 03/14/2018 Status: F Source: [place] 8:45 AM [facility] REPOSITORY TYPE CODE TESTS RESULT OUT OF REFERENCE UNITS RANGE LAB WBC 3.70-11.00 k/uL WBC 4.44 LAB RBC 3.90-5.20 m/uL RBC 4.30 LAB HGB 11.5-15.5 g/dL Hemoglobin 12.1 LAB HCT 36.0-46.0 % Hematocrit 38.7 LAB MCV 80.0-100.0 fL MCV 90.0 LAB MCH 26.0-34.0 pG MCH 28.1 LAB MCHC 30.5-36.0 g/dL MCHC 31.3 LAB RDWCV 11.5-15.0 % RDW-CV 14.5 LAB PLTCT 150-400 k/uL Platelet Count 160 LAB MPV 9.0-12.7 fL MPV 12.0 LAB ABSNUC <0.01 k/uL Absolute nRBC <0.01 Performed By: #### CBC, B12, CMP, CRP, IRON #### [facility] [address] [place] [id number] VITAMIN B12 Collected: 03/14/2018 Status: F Source: [place] 8:45 AM [facility] REPOSITORY TYPE CODE TESTS RESULT OUT OF REFERENCE UNITS RANGE LAB B12 232-1245 pg/mL Vitamin B12 585 Performed By: #### CBC, B12, CMP, CRP, IRON #### [facility] [address] [place] [address] COMP METABOLIC PANEL Collected: 03/14/2018 Status: F Source: [place] 8:45 AM [facility] REPOSITORY TYPE CODE TESTS RESULT OUT OF REFERENCE UNITS RANGE LAB TP 6.3-8.0 g/dL Protein, Total 7.0 LAB ALB 3.9-4.9 g/dL Albumin 4.2 LAB CA 8.5-10.2 mg/dL Calcium, Total 9.0 LAB TBIL 0.2-1.3 mg/dL Bilirubin, Total 0.4 LAB ALKP 32-117 U/L Alkaline Phosphatase 77 LAB AST 13-35 U/L AST High 37 LAB GLU 74-99 mg/dL Glucose High 115 Result Comment: The [place] Diabetes Association (ADA) provides guidance for cutoff values for fasting glucose and random glucose. The ADA defines fasting as no caloric intake for at least 8 hours. Fas ting plasma glucose results between 100 to 125 mg/dL indicate increased risk for diabetes (prediabetes). Fasting plasma glucose results greater than or equal to 126 mg/dL meet the criteria for diagnosis of diabetes. In the absence of unequivocal hyperglycemia, results should be confirmed by repeat testing. In a patient with classic symptoms of hyperglycemia or hyperglycemic crisis, random plasma glucose results greater than or equal to 200 mg/dL meet the criteria for diagnosis of diabetes. Reference: Standards of Medical Care in Diabetes 2016, [place] Diabetes Association. Diabetes Care. 2016.39(Suppl 1). LAB BUN 7-21 mg/dL Low BUN 6 LAB CRET 0.58-0.96 mg/dL Creatinine 0.77 LAB NA 136-144 mmol/L Sodium 139 LAB K 3.7-5.1 mmol/L Low Potassium 3.2 LAB CL 97-105 mmol/L Chloride 100 LAB CO2 22-30 mmol/L Low CO2 19 LAB AGAP 9-18 mmol/L Anion Gap High 20 LAB ALT 7-38 U/L ALT 24 LAB GFRAA eGFR- Amer. >60 LAB GFRNAA . eGFR-All Other Races >60 Result Comment: eGFR (Estimated GFR) Units of measure: mL/min/1.73 meters squared eGFR is derived from the reexpressed MDRD Study equation using the following parameters: serum creatinine, age, gender and race. The creatinine assay has been calibrated to be traceable to IDMS. An eGFR <60 mL/min/1.73m2 for >3 months is consistent with chronic kidney disease. Refer to KDOQI guidelines for clinical interpretation. In patients with unstable renal function, e.g. those with acute kidney injury, the eGFR may not accurately reflect actual GFR. Performed By: #### CBC, B12, CMP, CRP, IRON #### [facility] [address] [place], [place] [address] C-REACTIVE PROTEIN Collected: 03/14/2018 Status: F Source: [place] 8:45 AM [facility] REPOSITORY TYPE CODE TESTS RESULT OUT OF REFERENCE UNITS RANGE LAB CRP <0.9 mg/dL High C-Reactive 12.7 Protein Performed By: #### CBC, B12, CMP, CRP, IRON #### [facility] [address] [place], [place] [address] IRON AND TIBC Collected: 03/14/2018 Status: F Source: [place] 8:45 AM [facility] REPOSITORY TYPE CODE TESTS RESULT OUT OF REFERENCE UNITS RANGE LAB IRN 41-186 ug/dL Low Iron 22 LAB TIBC 232-386 ug/dL TIBC 300 LAB SAT 15-57 % Low Transferrin Saturatn 7 Performed By: #### CBC, B12, CMP, CRP, IRON #### [facility] [address] [place], [place] [address] HISTORY PHYSICAL Observed: 03/14/2018 Status: COMPLETED Source: [place] 8:22 AM [facility] REPOSITORY HNO ID: [id number] Author: Maria Del Carmen Gaitan (Pa) Service: (none) Author Type: Physician Windows Security Analyst Type: HANDP Filed: 03/14/2018 9:09 AM Note Text: HISTORY AND PHYSICAL EXAMINATION SERVICE DATE: 03/14/2018 SERVICE TIME: 8:23 AM PRIMARY CARE PHYSICIAN: Jossie Arita MD REASON FOR VISIT: Jessica Jiang is a 37 year old female who is scheduled for colonoscopy at the request of Dr. Corinne Murphy for consultation. My final recommendation will be communicated back to the requesting physician by way of shared medical record or letter. The patient has the following: ACTIVE PROBLEM LIST Carcinoid Tumor of Appendix, Malignant (Hcc) Ovarian Cyst Crohn's disease Insomnia Anxiety Neurosis Gerd (Gastroesophageal Reflux Disease) Nausea Crohn's Disease of Large Intestine With Other Complication (Hcc) Subjective CHIEF COMPLAINT: Crohn's HPI: Jessica Jiang is a 37 year old female that presents with 8 year h/o Crohn's treated with Cimzia scheduled for yearly colonoscopy. She denies acute sxs. +constipation. +GERD on RX. +possible gastroparesis. +nausea with no recent vomiting. No PUD. No hematochezia or melena. No diarrhea. Scheduled for colonoscopy on 03/19. Fever yesterday (100 degrees F) and REARDON. Feels better today. PAST MEDICAL HISTORY Diagnosis Date - Anxiety - Carcinoid tumor of appendix 2012 - Crohn's disease (HCC) - DVT (deep venous thrombosis) (HCC) 2007 - Herniated disc - Left ovarian cyst 2012 PAST SURGICAL HISTORY Procedure Laterality Date - APPENDECTOMY 09/12/2012 incidental finding carcinoid tumor appendix - COLONOSCOP W/ OR W/O BRSH SPEC 02/16/16 Colonoscopy - COLONOSCOPY W/BX 09/05/11 normal colon - COLPO OF CERVIX INC UPPER VAG - CRYOCAUTERY OF CERVIX - EGD W/O BRSH SPECIMEN W/BX 09/05/11 gastritis - EGD W/O BRSH SPECIMEN W/BX 10-14-14 - EGD W/O OR W/BRUSH/WASH 02/16/16 EGD - REMOVAL GALLBLADDER Cholecystectomy - REMOVAL OF TONSILS,<12 Y/O Tonsillectomy FAMILY HISTORY Problem Relation Age of Onset - Hypertension Mother - Hypertension Father - Ovarian cancer Paternal Grandmother - Stroke Paternal Grandmother - other (Other) Paternal Grandmother diverticulitis - Cancer Paternal Grandfather Lung - Colon Cancer Other 2 great aunts/1 great unclet SOCIAL HISTORY: Social History Marital status: Single Spouse name: Years of education: 17 Number of children: 1 Occupational History Occupation Employer Comment [employer] * Social History Main Topics Smoking status: Current Every Day Smoker Packs/day: 1.00 Years: 15.00 Types: Cigarettes Smokeless tobacco: Never Used Alcohol use: No Drug use: No Sexual activity: Yes Partners with: Male control/protection: IUD Comment: jefferson Social History Narrative Lives alone with 15 yo son Prior to Admission medications as of 03/14/18 0822 Medication Sig Last Dose Taking peg 3350-Electrolytes (GOLYTELY) 236-22.74-6.74 -5.86 gram suspension Take as directed Taking Yes dicyclomine (BENTYL) 10 mg capsule Take 1 capsule by mouth three times daily as needed. Use as directed Taking Yes citalopram (CELEXA) 40 mg tablet Take 40 mg by mouth once daily. Taking Yes iv contrast (will be provided with radiology test) MRI Enterography Inject, intravenously, once for 1 dose. No IV access, insert saline lock prior to the beginning of sedation, infusion, injection of imaging exam. Discontinue saline lock post exam. If Pt. has a central line or IVAD, may access for administration according to line specific nursing protocol. Once exam is complete flush line and de-access according to line specific nursing protocol in the MR contrast administration guidelines link. Taking Yes enteric contrast (will be provided with radiology test) For MRI ENTEROGRAPHY WO/W Administer, As Directed One Time Only, via Oral, Rectal, both Oral and Rectal, Enteric Tube, Stoma or Indwelling Catheter,? Enteric Contrast as designated per enteric contrast guidelines Taking Yes glucagon (GLUCAGEN) 1 mg/mL injection Inject 1 mg intravenously one time only for 1 dose. For MRI Enterography, Inject 1 mg intravenously, as directed. Slow push at the appropriate time during MRI Scan Yes pantoprazole DR (PROTONIX) 40 mg tablet Take 1 tablet by mouth once daily. Taking Yes ALPRAZolam (XANAX) 0.5 mg tablet Take 1 tablet by mouth once daily as needed. Taking Yes ondansetron orally disintegrating (ZOFRAN ODT) 4 mg disintegrating tablet Take 1 tablet by mouth every 8 hours as needed. Taking Yes prochlorperazine (COMPAZINE) 10 mg tablet Take 1 tablet by mouth every 8 hours as needed (FOR NAUSEA). Taking Yes certolizumab pegol (CIMZIA) 400 mg (200 mg x 2 vials) kit Inject 1 mL subcutaneously every 2 weeks. Taking Yes sucralfate (CARAFATE) 1 gram tablet Take 1 tablet by mouth before meals and at bedtime. Taking Yes hydrOXYzine pamoate (VISTARIL) 25 mg capsule Take 25 mg by mouth four times daily as needed for Anxiety. Taking Yes traZODone (DESYREL) 100 mg tablet Take 100 mg by mouth daily at bedtime. Taking Yes promethazine (PHENERGAN) 25 mg tablet Take 1 tablet by mouth four times daily as needed. Taking Yes pantoprazole (PROTONIX) 40 mg tablet Take 1 tablet by mouth once daily for 30 days. Taking Yes No medication comments found. ALLERGIES Allergen Reactions - Levaquin [Levofloxa* Other: See Comments Ruptured achilles tendon REVIEW OF SYSTEMS: PAIN ASSESSMENT: General: see HPI Neuro: Postive for Headaches; No history of TIAs, stroke, tremors, LEGAL SPECIALIST tumor, impaired sensorium, hemiplegia, paraplegia, quadriplegia. Respiratory: +smoker; No history of current cough, dyspnea, bronchitis or pneumonia in the last 6 weeks. No history of asthma or COPD. Cardiovascular: H/o tachycardia-has used Propanolol in past; +palpitations. H/o DVT 2007 completed AC, Negative for chest pain, orthopnea, PND, dizziness, lightheadedness or syncope. Negative for heart murmur. Negative for LE edema. No ID or heart surgery. GI: see HPI; No PUD or liver disease. No ETOH use. : No history of dysuria, frequency or incontinence,, stones or chronic kidney disease DIRECTOR MEDICAL ECONOMICS: Negative for abnormal vaginal bleeding, abnormal vaginal discharge. : Denies, LMP 02/22/18 Endocrine: No history of diabetes. Has not taken steroids within the past 30 days. No history of endocrinological symptoms or problems. Hematology: see CV ROS; No bleeding or clotting d/o Oncology: Cancer or appendix s/p appendectomy Psych: Depression, Anxiety-RXs Musculoskeletal: Joint pain-migratory autoimmune arthritis Skin: Negative for lesions, rash and itching. Objective PHYSICAL EXAM: VITALS: BP 125/68 Pulse 96 Temp 97.1 Ht 5' 5 (1.65m) Wt 189 lb (85.7kg) SpO2 98% BMI 31.45 kg/(m2). General: Alert and oriented, No acute distress, Obese Skin: Normal color, no rash, no lesions. +tattoos HEENT: EOM, pupils equal, round and reactive., No carotid bruits Cardiovascular: Normal S1 AND S2, no rubs, murmurs or gallops. No JVD. Pulse regular. Lungs: Normal breath sounds, no wheezes or crackles., No chest deformities or chest wall tenderness. Abdomen: Soft, non-tender, no rigidity., No masses or organomegaly. Extremities: No deformity, no edema or tenderness, no joint swelling or clubbing. Neurological: Normal cognition and motor skills. Gait normal. No weakness or sensory deficit. Pulses: Carotid and radial pulses normal +2. Diagnostic tests reviewed for today's visit: Lab Value Units Date High Low HB No results within date range. HCT No results within date range. WBC No results within date range. PLT No results within date range. NA No results within date range. K No results within date range. GLUC No results within date range. BUN No results within date range. CREAT No results within date range. PTSEC No results within date range. INR No results within date range. APTT No results within date range. ALT No results within date range. AST No results within date range. TBILI No results within date range. TSH No results within date range. Lab Value Units Date High Low HCGQT No results within date range. UHCG No results within date range. HCG, BODY* No results within date range. Lab Value Units Date High Low ABORHD No results within date range. ABSCREEN No results within date range. No results found for: HBA1C Most recent labs Most recent imaging Most recent EKG: normal sinus rhythm, normal axis, normal intervals, reviewed by second language tutor. All in Epic Assessment ASSESSMENT Patient has the following medical conditions Crohn's treated with Cimzia GERD-Pantoprazole and Carafate Obesity-BMI 31.45 Insomnia-Trazodone 4 nights a week Depression/Anxiety-on RXs Smoker H/o tachycardia-treated with Pantoprazole in past-no recent issues H/o unprovoked DVT 2007 completed AC METS: Run a short distance (8.00 METs) Patient denies any chest pain or undue shortness of breath with the above physical activity. ASA Class: 2 ANESTHESIA FINDINGS: Intubation History: No history of difficult intubation Significant Anesthesia Considerations: None and Difficult IV/Vein Access: NO Airway Exam: General: Normal appearance Mallampati Score is CLASS II ULBT: Class I - Lower incisors can bite the upper lip above the ania line Neck: Normal appearance and function, Distance from hyoid to mentum during neck extension is at least 3 finger breaths Mouth: Normal tongue size and Mouth opening greater than 2 finger breaths Dentition: Intact Airway History: No history of difficult intubation STOP BANG Score: Criteria: Snoring Score = 1 PLAN This patient is optimally prepared for surgery. CONSULTS: Patient does not require consults for optimization at this time. The Following Tests/Procedures Have Been Initiated: Labs not indicated per [facility] protocol, EKG not indicated per [facility] protocol Getting labs ordered by GI done today. Planned Anesthetic: MAC Instructions Given to Patient: Patient given verbal and written preop instructions and voices comprehension and compliance. SIGNATURE: Maria Del Carmen Gaitan PA-C PATIENT NAME: Jessica Jiang DATE: March 14, 2018 TIME: 8:22 AM PAGER/CONTACT #: CT/NG [facility] BY PCR Collected: 01/29/2018 Status: F Source: [place] 5:32 PM [facility] REPOSITORY TYPE CODE TESTS RESULT OUT OF RANGE REFERENCE UNITS LAB L8200.2100 Negative Normal Chlam Negative Trac PCR LAB L8200.2200 Negative Normal NG by Negative PCR Performed By: #### L8200.2000 #### [facility] [address] [place], [address] PAP IG HPV APTIMA Collected: 01/29/2018 Status: F Source: AM[place] ,45 5:32 PM [facility] REPOSITORY Order Comment: CYTOLOGY INFORMATION: - CLINICAL INFORMATION: ANNUAL - DATE LMP/MENOPAUSE: LMP 01/25/18 - COLLECTION VIAL: Thin Prep Vial - DIRECTOR MEDICAL ECONOMICS SOURCE: CERVICAL - COLLECTION TECHNIQUE: BRUSH/SPATULA Specimen Comment: [id number] Specimen Comment: No. of containers..01 ThinPrep Vial TYPE CODE TESTS RESULT OUT OF RANGE REFERENCE UNITS LAB L7400.0800 . Normal DIAGN Comment Result Comment: NEGATIVE FOR INTRAEPITHELIAL LESION AND MALIGNANCY. LAB L7400.0900 . Normal ADEQ Comment Result Comment: Satisfactory for evaluation. Endocervical and/or squamous metaplastic cells (endocervical component) are present. LAB L7400.1400 . Normal PERFORM Comment Result Comment: Luly Downing, Rebar Fabricator (ASCP) LAB L7400.2575 . Normal TEST METHOD Comment Result Comment: This liquid based ThinPrep(R) pap test was screened with the use of an image guided system. LAB L7400.2600 . Normal . COMM LAB L7400.2700 . Normal PAPSMR Comment Result Comment: The Pap smear is a screening test designed to aid in the detection of premalignant and malignant conditions of the uterine cervix. It is not a diagnostic procedure and should not be used as the sole means of detecting cervical cancer. Both false-positive and false-negative reports do occur. LAB L7400.2760 Negative Normal HPV APTIMA, Negative HR Result Comment: This test detects fourteen high-risk HPV types (16/18/31/33/35/39/45/ 51/52/56/58/59/66/68) without differentiation. Performed at: - [facility] [id number] Drawer Maker: Margaret Funk MD, Phone: [phone] Performed at: = - [facility] [id number] Drawer Maker: Margaret Funk MD, Phone: [phone] Performed By: #### L7400.0280 #### [facility] (refer to report for specific site) refer to report for address and phone number EMERGENCY REPORT Observed: 01/28/2018 Status: F Source: [facility] 7:28 AM [facility] REPORT NAME ACCOUNT SEX AGE ADMIT DISCHARGE PT MED. RECORD# NUMBER DATE DATE TYPE JESSICA JIANG [id number] F 37 01/24/18 01/24/18 3 A [id number] ROOM: ER DATE OF : 1980 DICTATING PHYSICIAN: Karolina Lucia ADDENDUM DIAGNOSTIC DATA: CT scan of the abdomen/pelvis with contrast did show air in the dependent ascending colon wall. No bowel wall edema. This may represent pneumatosis versus air mixed with stool; correlate with clinical examination. Scattered fluid-filled loops of small bowel may represent enteritis. The rest of the CT scan report mentioned a moderate to large degree of stool in the colon consistent with constipation. There was no bowel obstruction or dilatation. Surgical material is present at the cecum. The liver, spleen, kidneys, and adrenal glands are unremarkable. The pancreas is atrophic. The uterus is present. There are mild degenerative changes at L5-S1. Her bloodwork here showed a white count of 7.7, hemoglobin 12.8, hematocrit 37, and platelet count 163,000. Lipase was 11. Lactate was normal at 10.4. CRP was 1.9, which is just minimally elevated. Sodium is 134, potassium 3.7, chloride 101, CO2 of 24.8, BUN 8, creatinine 0.7, and glucose 93. Liver functions came back within normal limits. Anion gap was 12, which is normal. Her urinalysis showed a specific gravity of 1.005 with negative nitrites and negative leukocyte esterase. Microscopic was not indicated. test was negative. We do have blood cultures pending. EMERGENCY DEPARTMENT COURSE AND TREATMENT: Findings were communicated to me at 1858 hours, and we did discuss the patient's clinical examination versus these CT scan findings. She certainly does not look to be a surgical abdomen. She only rates her abdominal pain as a 3 or 4 on a scale of 1-10. She was tender on palpation but minimally so. There was no voluntary or involuntary guarding with the exception of maybe some very mild voluntary guarding. In light of the fact that she is running a [address] the [address] scan findings showing some air in the dependent ascending colon wall, I am going to start her on antibiotics. I gave her Flagyl 500 mg p.o. here. She is allergic to Levaquin, so I will start her on Augmentin 875 mg one p.o. b.i.d., dispense #20 with no refill, and I will give her a dose of Augmentin 500 mg because that is what I have here. I explained to the patient the bloodwork and CT scan findings. She is to take the antibiotics as prescribed and then follow up with Dr. Arita, her primary care physician, in 2 to 4 days for reevaluation. I did explain to her this could be viral, but with the CT scan findings and the 102.6 fever, I felt at this point we ought to cover with an antibiotic, at least until we get the blood cultures back. I explained that the blood cultures would be back in 3 days, and she needs to follow up with Dr. Arita for those results. Also, she does have a GI doctor, Dr. Corinne Murphy, Page 1 of 2 JESSICA JIANG A Emergency Room Report at [facility]. I felt it would be a good idea for her to call her on Saturday to arrange follow-up as well, but at this point I do not see anything surgical. I do not think she is going to need to be admitted to the hospital. She is fine with that. She is on Cimzia for Crohn's disease, which does suppress your immune system, which I felt was another good justification for putting her on antibiotics at this time. Certainly, if the patient's symptoms become worse over the weekend, I have asked her to return here to the Emergency Department. The patient was discharged in a clinically stable condition. Nurse's notes reviewed. Dictated By: Karolina Lucia DO 01/24/18 19:43 JOB #: [id number] Transcribed By: michael 01/25/18 12:35 Electronically signed by: E-Sign: Dr. Karolina Lucia D.O. 01/28/18 07:28 Page 2 of 2 JESSICA JIANG Emergency Room Report EMERGENCY REPORT Observed: 01/28/2018 Status: F Source: [facility] 7:26 AM [facility] REPORT NAME ACCOUNT SEX AGE ADMIT DISCHARGE PT MED. RECORD# NUMBER DATE DATE TYPE JESSICA JIANG [id number] F 37 01/24/18 01/24/18 3 A [id number] ROOM: ER DATE OF : 1980 DICTATING PHYSICIAN: Karolina Lucia TIME SEEN: 1620 hours. HISTORY OF PRESENT ILLNESS: This is a 37-year-old white female complaining of some diffuse generalized abdominal pain described as a dull ache for the past 2 days. The pain has been gradually getting worse. The patient has complained of some nausea, and she has noted some urinary incontinence for the past 4 to 5 days. Due to the nausea, she thought she could be so she took a home test, but it was negative. She complains of some chills. The chills were a lot worse today along with associated body aches. She took her temperature at home, and it was 101.3. She does have a history of Crohn's disease, and she last saw her health care recruiter about 2 months ago. Her health care recruiter is Corinne Murphy at the [facility]. She did start having a tachycardic rhythm about a year ago. She did have a full work-up by Cardiology in [place], and they diagnosed her with just sinus tachycardia. She was placed on Inderal [place], although she has not taken that for approximately the past 8 months. PAST MEDICAL HISTORY: Crohn's disease, tachycardia, DVT in the past and anxiety. 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 ALLERGIES: She is allergic to Levaquin. SOCIAL HISTORY: She is a smoker of one pack per day, but she denies the use of alcohol or illicit drugs. She lives at home with her family. REVIEW OF SYSTEMS: The patient does admit to fever, chills and malaise. She does admit to some sweats off and on. She denies any chest pain, shortness of breath, cough, sputum or wheezing but does admit to abdominal pain with nausea. She denies any vomiting, diarrhea, constipation, melena, hematochezia, headache, numbness, unsteady gait, weakness, neck or back pain, joint pain, skin rash or swelling, hives, hay fever, or swollen glands. She does complain of chills and body aches. She does admit to urinary incontinence. Further review of systems is negative. PHYSICAL EXAMINATION: Vital signs: Blood pressure is 135/103, pulse 143, respirations 18, temperature 102.6, and pulse oximetry 98% on room air. The patient is Page 1 of 2 JESSICA JIANG A Emergency Room Report alert and oriented x3. She does appear in some distress secondary to abdominal pain, but she is pleasant, cooperative, somewhat anxious and tearful. HEENT: Head appears atraumatic. Pupils are equal and reactive to light. Red reflexes are intact bilaterally. Extraocular muscles are intact. No conjunctival injection. No scleral icterus or lid edema. Ears: TMs are intact bilaterally. No erythema noted. No external auditory canal edema or bleeding. Nose exhibits no rhinorrhea or epistaxis. Mouth: Mucous membranes are moist. No pharyngeal erythema. Uvula is midline and elevates. Neck is supple. Trachea is midline. No JVD or lymphadenopathy. No posterior cervical tenderness. No nuchal rigidity. Lungs are clear anteriorly but somewhat diminished bibasilar. No wheeze or accessory muscle use noted. CV: Heart rate and rhythm are regular and tachycardic at approximately 130 bpm. Abdomen is soft with some diffuse bilateral lower quadrant abdominal tenderness on palpation and also some suprapubic tenderness. Positive voluntary guarding. No involuntary guarding. No rebound. No abdominal distention. No hepatosplenomegaly. Back exhibits no midline or paraspinal region tenderness. No increased paraspinal muscle rigidity. Negative Francesco's sign. Extremities: No edema or cyanosis. Peripheral pulses are intact. No motor or sensory deficits are noted. Hand wood repatcher are strong and symmetric. Skin is warm and dry. No diaphoresis or rash. She does feel warm to touch since she is running a fever. Neurologic examination shows the patient to be alert and oriented x4. No motor or sensory deficits are noted. Normal speech. The patient is pleasant and cooperative with a somewhat anxious affect. DIAGNOSTIC DATA: EKG at 1623 hours shows a sinus tachycardia at [address]-segment changes are noted. Wilkinson is approximately 0 degrees. EMERGENCY DEPARTMENT COURSE AND TREATMENT: Presently, I do have a CT of the abdomen/pelvis ordered with IV contrast, screening bloodwork, blood cultures, urine culture and urinalysis, and then we will reevaluate. Dictated By: Karolina Lucia DO 01/24/18 17:05 JOB #: [id number] Transcribed By: michael 01/25/18 09:53 Electronically signed by: E-Sign: Dr. Karolina Lucia D.O. 01/28/18 07:26 Page 2 of 2 JESSICA JIANG Emergency Room Report CT ABDOMEN/PELVIS W Observed: 01/24/2018 Status: F Source: [facility] [place] 6:14 PM [place] [address] Patient: JESSICA JIANG Phone#: : 1980 Age: 37 Gender: F Pt. Type: ER Account: [id number] Location: 052 Ordering: KAROLINA LUCIA Exam Date: 01/24/2018/17:56 Family Phys: NO DOCTOR Charge Code: [id number] Physician: Luna Order #: [id number] DLP Dose#: [id number] PROCEDURE: CT ABDOMEN/PELVIS WITH CONTRAST COMPARISON: [facility], CT, ABDOMEN/PELVIS W CON, 05/16/2017, 9:46. INDICATIONS: Abdominal pain TECHNIQUE: After obtaining the patient's consent, CT images were created with non-ionic intravenous contrast material. All CT scans at this facility use dose modulation, iterative reconstruction, and/or weight based dosing when appropriate to reduce radiation dose to as low as reasonably achievable. IV CONTRAST: Omnipaque 350,80ml TOTAL DOSE: 19.40 CTDIvol(mGy) FINDINGS: LIVER: Normal. No enlargement, atrophy, abnormal density, or significant focal lesion. BILIARY: The gallbladder is absent. PANCREAS: Pancreas is atrophic. SPLEEN: Normal. No enlargement or focal lesion. KIDNEYS: Kidneys enhance and excrete contrast symmetrically. ADRENALS: Normal. No mass or enlargement. AORTA/VASCULAR: No aortic aneurysm. RETROPERITONEUM: Normal. No mass or adenopathy. BOWEL/MESENTERY: Scattered fluid-filled loops of small bowel may represent enteritis. No obstruction. In the ascending colon there is air along the wall of the colon in the dependent portion of the wall. There is no colonic wall thickening. There is moderate degree of stool throughout the colon. Surgical material is present adjacent to Continued Report - Page 2 of 2 Patient: JESSICA JIANG Phone#: : 1980 Age: 37 Gender: F Pt. Type: ER Account: [id number] Location: 052 Ordering: KAROLINA LUCIA Exam Date: 01/24/2018/17:56 Family Phys: NO DOCTOR Charge Code: [id number] Physician: Luna Order #: [id number] DLP Dose#: [id number] the cecum, consistent with history of appendectomy. There are scattered small lymph nodes in the mesentery. ABDOMINAL WALL: Normal. No mass or hernia. URINARY BLADDER: Normal. No visible focal wall thickening, lesion, or calculus. PELVIC NODES: Normal. No adenopathy. PELVIC ORGANS: Uterus is present. Follicles are present in the right ovary. The left adnexa is unremarkable. BONES: Normal. No bony lesion or fracture. LUNG BASES: Normal. No visible pulmonary or pleural disease. OTHER: Negative. CONCLUSION: 1. Air in the dependent portion of the colon wall this has the appearance of pneumatosis this may be air mixed with stool. Correlate with clinical exam. 2. Scattered fluid-filled loops of small bowel may represent enteritis. This finding was communicated to Dr. Lucia at 18:58 on January 24, 2018. 3. Constipation. Dictated by: Sarah [place] MD on 01/25/2018 at 8:34 Approved by: Sarah [place] MD on 01/25/2018 at 8:34 CHEST 1 VIEW Observed: 01/24/2018 Status: F Source: [facility] 6:13 PM [place] [address] Patient: JESSICA JIANG Phone#: : 1980 Age: 37 Gender: F Pt. Type: ER Account: [id number] Location: 2 Ordering: KAROLINA LUCIA Exam Date: 01/24/2018/18:06 Family Phys: NO DOCTOR Charge Code: [id number] Physician: Luna Order #: [id number] DLP Dose#: PROCEDURE: X-RAY CHEST 1 VIEW COMPARISON: None. INDICATIONS: Fever FINDINGS: LUNGS: Normal. No significant pulmonary parenchymal abnormalities. VASCULATURE: Normal. Unremarkable pulmonary vasculature. CARDIAC: Normal. No cardiac silhouette abnormality or cardiomegaly. MEDIASTINUM: Normal. No visible mass or adenopathy. PLEURA: Normal. No effusion or pleural thickening. BONES: Normal. No fracture or visible bony lesion. OTHER: Negative. CONCLUSION: No acute disease. Dictated by: Sarah [place] MD on 01/25/2018 at 7:51 Approved by: Sarah Holland MD on 01/25/2018 at 7:51 Observed: 01/24/2018 Status: F Source: [facility] CULTURE BLOOD 5:04 PM [facility] REPOSITORY CULTURE BLOOD _BLOOD CULTURE_ SET: 1 of 2 24HOUR REPORT NO GROWTH 48HOUR REPORT NO GROWTH 72HOUR REPORT NO GROWTH M I C R O B I O L O G Y R E P O R T FINAL Antimicrobial Susceptibility and Organism Identification Report Specimen Number : [id number] Requested : 01/24/18 Specimen Source : BLOOD Collected : 01/24/18 17:04 [place] [facility] [place] : Emergency Room Received : 01/24/18 17:04 Requesting Physician : REA Patient/Specimen Tests and Comments Specimen Comments FINAL REPORT: No Growth at 5 Days Tech : Source : BLOOD ID # : [id number] FINAL Report Date : / / : Collected : 01/24/18 17:04 01/30/18.2007.WKK. 01/30/18.WKK.COMPLETE Performed By: #### [id number] #### [facility],[address] [place] [address] CBC Collected: 01/24/2018 Status: F Source: [facility] 4:55 PM [facility] REPOSITORY TYPE CODE TESTS RESULT OUT OF RANGE REFERENCE UNITS LAB CBC(LOINC) CBC Result Comment: CBC-COMPLETE BLOOD COUNT LAB WBC(LOINC) 4.5 - 10.8 x 10EE3/UL WBC 7.7 LAB RBC(LOINC) 4.10 - x 10EE6/UL 5.30 RBC 4.40 LAB HEMOGLOBIN(LOINC 12.0 - g/dl ) 16.0 HEMOGLOBIN 12.8 LAB HEMATOCRIT(LOINC 34.0 - % ) 46.0 HEMATOCRIT 37.0 LAB MCV(LOINC) 80 - 99 fl MCV 84 LAB MCH(LOINC) 27 - 33 pg MCH 29 LAB MCHC(LOINC) 32 - 36 X10 3 MCHC 35 LAB RDW/CV(LOINC) 12.0 - % 15.6 RDW/CV High 16.2 LAB PLATELET(LOINC) 150 - 450 x10EE3/UL PLATELET 163 LAB MPV(LOINC) 6.6 - 10.5 fl MPV 9.7 Result Comment: AUTOMATED DIFFERENTIAL LAB NEUT %(LOINC) 46.0 - 76.0 % NEUT % High 79.4 LAB LYMPH %(LOINC) 20.0 - 45.0 % Low LYMPH % 12.4 LAB MONOS %(LOINC) 0.0 - 10.0 % MONOS % 7.1 LAB EO %(LOINC) 0.0 - 7.0 % EO % 0.5 LAB BASO %(LOINC) 0.0 - 2.0 % BASO % 0.6 LAB Lymph #(LOINC) 0.80 - 2.80 x10EE3/U L Lymph # 0.90 LAB Neut #(LOINC) 1.50 - 7.10 x10EE3/U L Neut # 6.10 LAB [place] #(LOINC) 0.20 - 1.00 x10EE3/U L [place] # 0.50 LAB EO #(LOINC) 0.00 - 0.50 x10EE3/U L EO # 0.00 LAB Baso #(LOINC) 0.00 - 0.10 x10EE3/U L Baso # 0.00 LAB MANUAL DIFF(LOINC) MANUAL DIFF N/A LAB MORPHOLOGY(LOINC ) MORPHOLOGY N/A Result Comment: {CD] Performed By: #### [id number] #### [facility],[address] [place] [address] URINALYSIS Collected: 01/24/2018 Status: F Source: [facility] 4:55 PM [facility] REPOSITORY TYPE CODE TESTS RESULT OUT OF REFERENCE UNITS RANGE LAB URINALYSIS (LOINC) URINALYSIS Result Comment: URINALYSIS LAB Specimen Type(LOINC) Specimen R Type LAB Color(LOINC) NORMAL: YELLOW Color p.yel LAB Clarity(LOINC) NORMAL: CLEAR Clarity clear LAB ph(LOINC) NORMAL: 5.0-8.0 ph 6 LAB Protein(LOINC) NORMAL: NEGATIVE Protein NEG LAB Glucose(LOINC) NORMAL: NORMAL Glucose NORM LAB Ketone(LOINC) NORMAL: NEGATIVE Ketone NEG LAB Bilirubin(LOINC) NORMAL: NEGATIVE Bilirubin NEG LAB Blood(LOINC) NORMAL: NEGATIVE Blood NEG LAB Urobilinog(LOINC) NORMAL: NORMAL Urobilinog NORM LAB Sp [place](LOINC) NORMAL: 1.010-1.030 Sp [place] 1.005 Low LAB Nitrite(LOINC) NORMAL: NEGATIVE Nitrite NEG LAB Leukocytes(LOINC) NORMAL: NEGATIVE Leukocytes NEG LAB Microscopic(LOINC ) Microscopic NOT INDICATED Performed By: #### [id number] #### [place] [place] [address] URINE Collected: 01/24/2018 Status: F Source: [facility] 4:55 PM [facility] REPOSITORY TYPE CODE TESTS RESULT OUT OF REFERENCE UNITS RANGE LAB NEGATIVE UR(LOINC) UR NEGATIVE LAB INTERNAL QC(LOINC) INTERNAL QC PASS LAB EXTERNAL QC DONE?(LOINC) EXTERNAL QC YES DONE? Performed By: #### [id number] #### [place] [address] LACTATE Collected: 01/24/2018 Status: F Source: [facility] 4:55 PM [facility] REPOSITORY TYPE CODE TESTS RESULT OUT OF REFERENCE UNITS RANGE LAB LACTATE(LOKI 4.5 - 18.0 mg/dL NC) LACTATE 10.4 Performed By: #### [id number] #### [place] [address] LIPASE Collected: 01/24/2018 Status: F Source: [facility] 4:55 [facility] REPOSITORY TYPE CODE TESTS RESULT OUT OF REFERENCE UNITS RANGE LAB LIPASE(LOIN 18.0 - 51.0 U/L C) Low LIPASE 11.0 Performed By: #### [id number] #### [place] [address] CMP WITH EGFR Collected: 01/24/2018 Status: F Source: [facility] [facility] REPOSITORY TYPE CODE TESTS RESULT OUT OF RANGE REFERENCE UNITS LAB CMP with eGFR(LOINC) CMP with eGFR Result Comment: COMPREHENSIVE METABOLIC PANEL LAB SODIUM(LOINC) 136 - 145 mmol/l SODIUM Low 134 LAB POTASSIUM(LOINC) 3.5 - 5.1 mmol/L POTASSIUM 3.7 LAB CHLORIDE(LOINC) 98 - 107 mmol/L CHLORIDE 101 LAB CO2(LOINC) 21.0 - mmol/L 31.0 CO2 24.8 LAB GLUCOSE(LOINC) 74 - 106 mg/dl GLUCOSE 93 LAB BUN(LOINC) 6 - 20 mg/dl BUN 8 LAB CREATININE(LOINC) 0.6 - 1.2 mg/dl CREATININE 0.7 LAB AST/SGOT(LOINC) 13 - 39 U/L AST/SGOT 13 LAB ALK PHOS(LOINC) 38 - 126 U/L ALK PHOS 66 LAB CALCIUM(LOINC) 8.6 - mg/dl 10.2 CALCIUM 9.6 LAB TOTAL 6.4 - 8.3 g/dl PROTEIN(LOINC) TOTAL PROTEIN 7.7 LAB ALBUMIN(LOINC) 3.4 - 4.8 g/dL ALBUMIN 4.8 LAB GLOBULIN(LOINC) 1.5 - 3.8 G/DL GLOBULIN 2.9 LAB A/G RATIO(LOINC) 0.9 - 1.6 A/G High RATIO 1.7 LAB TOTAL BILI(LOINC) 0.0 - 1.5 mg/dl TOTAL BILI 0.7 LAB B/C RATIO(LOINC) 0 - 30 ratio B/C RATIO 11 LAB ALT/SGPT(LOINC) 8 - 35 U/L ALT/SGPT 9 LAB ANION GAP(LOINC) 10 - 20 mmol/L ANION GAP 12 LAB AGE(LOINC) years AGE 37 LAB eGFR(LOINC) 60 - 999 ML/MINUTE eGFR >60 LAB eGFR(AA)(LOINC) 60 - 999 ML/MINUTE eGFR(AA) >60 Result Comment: ACCORDING TO THE NATIONAL KIDNEY DISEASE EDUCATION PROGRAM(NKDE), A NORMAL eGFR IS A VALUE GREATER THAN OR EQUAL TO 60 ML/MIN/1.73 SQ METERS. CHRONIC KIDNEY DISEASE: <60mL/MIN/1.73 SQ METERS KIDNEY FAILURE: <15mL/MIN/1.73 SQ METERS THIS TEST SHOULD ONLY BE USED FOR PATIENTS 18 YEARS OF AGE AND OLDER. Performed By: #### [id number] #### [place] [id number] C-REACTIVE PROTEIN Collected: 01/24/2018 Status: F Source: [facility] 4:55 PM [facility] REPOSITORY TYPE CODE TESTS RESULT OUT OF RANGE REFERENCE UNITS LAB CRP(LOINC) 0.00 - 1.00 mg/dl High CRP 1.90 Performed By: #### [id number] #### [place] [id number] Observed: 01/24/2018 Status: F Source: [facility] CULTURE URINE 4:55 PM [facility] REPOSITORY CULTURE URINE _URINE CULTURE_ M I C R O B I O L O G Y R E P O R T FINAL Antimicrobial Susceptibility and Organism Identification Report Specimen Number : [id number] Requested : 01/24/18 Specimen Source : URINE Collected : 01/24/18 16:55 [place] [facility] : Emergency Room Received : 01/24/18 16:55 Requesting Physician : FREDO PHYSICIAN Patient/Specimen Tests and Comments Specimen Comments NO GROWTH AT 18 - 24 HOURS FINAL REPORT: NO GROWTH AT 48 HOURS Tech : Source : URINE ID # : [id number] FINAL Report Date : / / : Collected : 01/24/18 16:55 01/27/18.MDS. 01/26/18.MDS. 01/27/18.MDS.COMPLETE Performed By: #### [id number] #### [facility],[address] [place] [address] Observed: 01/24/2018 Status: F Source: [facility] CULTURE BLOOD 4:55 PM [facility] REPOSITORY CULTURE BLOOD _BLOOD CULTURE_ SET: 2 of 2 24HOUR REPORT NO GROWTH 48HOUR REPORT NO GROWTH 72HOUR REPORT NO GROWTH M I C R O B I O L O G Y R E P O R T FINAL Antimicrobial Susceptibility and Organism Identification Report Specimen Number : [id number] Requested : 01/24/18 Specimen Source : BLOOD Collected : 01/24/18 16:55 [place] [facility] : Emergency Room Received : 01/24/18 16:55 Requesting Physician : REA Patient/Specimen Tests and Comments Specimen Comments FINAL REPORT: No Growth at 5 Days Tech : Source : BLOOD ID # : [id number] FINAL Report Date : / / : Collected : 01/24/18 16:55 01/30/18.MARIELY. 01/30/18.MARIELY.COMPLETE Performed By: #### [id number] #### [facility],[address] [place] [address] EMERGENCY REPORT Observed: 01/11/2018 Status: F Source: [facility] 1:52 AM [facility] [place] REPORT NAME ACCOUNT SEX AGE ADMIT DISCHARGE PT MED. RECORD# NUMBER DATE DATE TYPE JESSICA JIANG [id number] F 37 11/17/17 11/17/17 3 A [id number] ROOM: ER DATE OF : 1980 DICTATING PHYSICIAN: Stephen Acosat CHIEF COMPLAINT: Nausea with vomiting. HISTORY OF PRESENT ILLNESS: This is a 37-year-old female with a history of Crohn's disease who presents complaining of some slight epigastric abdominal pain with associated nausea and vomiting times one day. The patient reports that she has been feeling nauseous ever since she ate earlier today. She has had some crampy abdominal pain and had associated elevated temperature of 100.5 orally at home. She reports that she is on immunosuppressant medication and was told to come to the emergency department should her temperature be elevated above 100.2 F. The patient denies any coffee-ground emesis, diarrhea, dysuria or hematuria. She has had no recent travel or sick contact. She also denies any abnormal vaginal bleeding or discharge. PAST MEDICAL HISTORY: Remarkable for Crohn's disease. PAST SURGICAL HISTORY: Appendectomy. ALLERGIES: Levaquin. SOCIAL HISTORY: She lives at home with her family. She does smoke cigarettes one pack per day. She does not use alcohol or illicit drugs. She is up to date on immunizations. REVIEW OF SYSTEMS: Ten-point review of systems is obtained and positive for abdominal pain, nausea, vomiting and fevers. It is otherwise negative. PHYSICAL EXAMINATION: Vital Signs: Blood pressure 118/91, pulse 90, respiratory 18, temperature 98.4F, pulse ox 96% on room air. General: The patient is alert, awake and in no acute distress. Head is normocephalic, atraumatic. Pupils are equal, round and reactive to light and accommodation. Extraocular muscles are intact. Mucous membranes are moist. Neck is supple. Trachea is midline. Cardiac exam has regular rate and rhythm. No murmurs appreciated. Lungs are clear to auscultation bilaterally. Abdomen is soft, but slightly tender to palpation in the epigastrium. It is not distended. There is no rebound, guarding, or rigidity. Extremities demonstrate no edema or gross deformity. Peripheral pulses are intact and equal bilaterally. Normal motor and sensory exam, full range of motion. Motor and sensory are grossly intact. The patient Page 1 of 2 JESSICA JIANG A Emergency Room Report has appropriate mood and behavior. DIAGNOSTIC DATA: The patient's laboratory work is unremarkable including a negative CRP. The patient does have improvement of her symptoms following treatment. Diagnostic results were discussed with her. I do not feel there is any indication for imaging at this time as the patient has had regular CT scans and she has benign abdominal exam. The patient is in agreement with this plan. MEDICAL DECISION MAKING/EMERGENCY DEPARTMENT COURSE AND TREATMENT: The patient is afebrile, nontoxic and in no acute distress. She is well-appearing and her abdominal exam is nonsurgical. However, given the patient's history of Crohn's disease, we will get basic labs. The patient was given IV fluids, antiemetics and Toradol. DIAGNOSES: 1. Abdominal pain. 2. Nausea with vomiting. PLAN/DISPOSITION: She will be given a prescription for Pepcid and Phenergan at discharge. She will follow up with her GI doctor or her PCP after discharge. Dictated By: Stephen Acosta DO 11/19/17 04:09 JOB #: [id number] Transcribed By: amos 11/19/17 19:05 Electronically signed by: DR. STEPHEN ACOSTA D.O. 01/11/18 01:52 Page 2 of 2 JESSICA JIANG Emergency Room Report HOSP Observed: 01/01/2018 Status: COMPLETED Source: [facility] 12:00 AM [facility] REPOSITORY Patient:Jessica Jiang MRN: <[id number]> Height:5' 4.685(1.643 m) Weight:197 lb 11.2 oz (89.676 kg) Outpatient Medications as of 08/13/18: predniSONE (DELTASONE) 20 mg tablet cholecalciferol (VITAMIN D3) 2,000 unit tablet traZODone (DESYREL) 100 mg tablet LORazepam (ATIVAN) 0.5 mg tab Vit-Sarah Beth-Fe Fum-FA (VINATE M) 27 mg iron-1 mg PARoxetine (PAXIL) 10 mg tablet amitriptyline (ELAVIL) 10 mg tablet peg 3350-Electrolytes (GOLYTELY) 236-22.74-6.74 -5.86 gram suspension dicyclomine (BENTYL) 10 mg capsule citalopram (CELEXA) [address] (PROTONIX) 40 mg tablet ondansetron orally disintegrating (ZOFRAN ODT) 4 mg disintegrating tablet prochlorperazine (COMPAZINE) 10 mg tablet hydrOXYzine pamoate (VISTARIL) 25 mg capsule promethazine (PHENERGAN) 25 mg tablet Admission/Clinic Administered Medications as of 08/13/18: NaCl 0.9% iv infusion Problem List: Carcinoid tumor of appendix, 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] Ovarian cyst [N83.209] Crohn's disease [K50.90] Insomnia [G47.00] Anxiety neurosis [F41.1] GERD (gastroesophageal reflux disease) [K21.9] Nausea [R11.0] Crohn's disease of large intestine with other complication [K50.118] Non morbid obesity [E66.9] Smoker [F17.200] Allergies: Levaquin [Levofloxacin] Date Verified: 08/13/18 Lab Values Lab Value Units Date High Low POTA* 4.0 mmol/L 08/06/2018 5.1 3.7 KRISTEN* 31.6 % 08/06/2018 46.0 36.0 Progress Notes ([facility]): Jose Oliveira MD 08/09/2018 1:04 PM Signed Labs with: --Anemia --Low Fe --Increased APRs She has messaged me that the 40 mg prednisone has worked well Will reduce to 30 mg now She will message me this coming week I will have her check with Dr. Murphy on the Fe MD Jose Collier MD 08/11/2018 1:55 PM Signed Update today that she is down to the 30 mg and still doing well Will reduce to 20 mg and have her check with me again in 3 days. Jose Oliveira MD Progress Notes ([facility] [employer] A[facility]): Jose Oliveira MD 08/06/2018 4:35 PM Signed RHEUMATOLOGY FOLLOW UP NOTE PROVIDER: Jose Oliveira MD DATE OF VISIT: 08/06/2018 PATIENT NAME: Jessica Jiang CHIEF COMPLAINT / REASON FOR VISIT: Joint pains SUBJECTIVE / INTERIM HISTORY: Patient returns for follow-up. Last seen here 3 weeks ago as [facility]. Since last visit: Old problems: 1. Joint pains Was more random Now, over last 10 days, having progressive, more persistant pains Hand, wrists, elbows, shoulders, hips, knees, feet, spine. Swelling seen. Taking more Motrin Saw PCP last week Had labs with increased ESR and CRP Losing function Barely able to work BF has to help her 2. Boil in groin worse last week PCP did Blood Cx and started doxycycline for 5 days This is better 3. Crohn's is with no new bowel issues Off Cimzia now for a month 4. MARÍA neck Did CT with no path nodes Reviewed with ENT who has seen her 5. Has still had off and on sore throat. Throat Cx neg 6. R olecranon b Swelled again Saw PCP and Ortho Not drained Not thought to be septic New problems: 1. CT neck showed possible left tooth infection She saw her dentist May have to have root canal No pain there 2. CT neck showed some area along trachea, most likely secretions Reviewed with ENT and they agreed 3. My labs showed some anemia 4. My labs showed (+) CHAO and histone Rest of KAJAL and dsDNA neg 5. My labs showed low D She is on repletion now 6. Notes some edema 7. Labs with low NK cells Scheduled to see Immunology REVIEW OF SYSTEMS: General: No fever, weight loss. (+) weight gain Skin: No rash, nodule. Eyes: No vision change, inflammation, dryness. HENT: No oral ulcers, dryness. (+) intermittent sore throat Cardiac: No chest pain, palpitations. Pulmonary:No cough, dyspnea, pleurisy. GI: No nausea, abdominal pain, diarrhea. : No dysuria, discharge. Neuro: No numbness, focal weakness, headache. Rest of ROS reviewed and noted in HPI. PAST MEDICAL AND SURGICAL HISTORY PAST MEDICAL HISTORY Diagnosis Date - Anxiety - Carcinoid tumor of appendix 2012 - Crohn's disease (HCC) - DVT (deep venous thrombosis) (HCC) 2007 - Herniated disc - Left ovarian cyst 2012 - Non morbid obesity 03/14/2018 - Smoker 03/14/2018 - Swollen lymph nodes PAST SURGICAL HISTORY Procedure Laterality Date - APPENDECTOMY 09/12/2012 incidental finding carcinoid tumor appendix - COLONOSCOP W/ OR W/O BRSH SPEC 02/16/16 Colonoscopy - COLONOSCOPY W/BX 09/05/11 normal colon - COLPO OF CERVIX INC UPPER VAG - CRYOCAUTERY OF CERVIX - EGD W/O BRSH SPECIMEN W/BX 09/05/11 gastritis - EGD W/O BRSH SPECIMEN W/BX 10-14-14 - EGD W/O OR W/BRUSH/WASH 02/16/16 EGD - REMOVAL GALLBLADDER Cholecystectomy - REMOVAL OF TONSILS,<12 Y/O Tonsillectomy SOCIAL AND FAMILY HISTORY FAMILY HISTORY Problem Relation Age of Onset - Hypertension Mother - Hypertension Father - Ovarian cancer Paternal Grandmother - Stroke Paternal Grandmother - other (Other) Paternal Grandmother diverticulitis - Cancer Paternal Grandfather Lung - Colon Cancer Other 2 great aunts/1 great unclet Social History Marital status: Single Spouse name: Years of education: 17 Number of children: 1 Occupational History Occupation Employer Comment [employer] * Social History Main Topics Smoking status: Current Every Day Smoker Packs/day: 1.00 Years: 15.00 Types: Cigarettes Smokeless tobacco: Never Used Alcohol use: No Drug use: No Sexual activity: Yes Partners with: Male control/protection: IUD Comment: jefferson Social History Narrative Lives alone with 15 yo son CURRENT MEDICATIONS: Current Outpatient Prescriptions: cholecalciferol (VITAMIN D3) 2,000 unit tablet Take 1 tablet by mouth once daily. traZODone (DESYREL) 100 mg tablet Take 1 tablet by mouth as needed. LORazepam (ATIVAN) 0.5 mg tab Take 1 tablet by mouth twice daily as needed. Vit-Sarah Beth-Fe Fum-FA (VINATE M) 27 mg iron-1 mg Take 1 tablet by mouth once daily. PARoxetine (PAXIL) 10 mg tablet Take 1 tablet by mouth once daily. amitriptyline (ELAVIL) 10 mg tablet Take 2.5 tablets by mouth daily at bedtime. dicyclomine (BENTYL) 10 mg capsule Take 1 capsule by mouth three times daily as needed. Use as directed citalopram (CELEXA) 40 mg tablet Take 40 mg by mouth once daily. pantoprazole DR (PROTONIX) 40 mg tablet Take 1 tablet by mouth once daily. ondansetron orally disintegrating (ZOFRAN ODT) 4 mg disintegrating tablet Take 1 tablet by mouth every 8 hours as needed. prochlorperazine (COMPAZINE) 10 mg tablet Take 1 tablet by mouth every 8 hours as needed (FOR NAUSEA). hydrOXYzine pamoate (VISTARIL) 25 mg capsule Take 25 mg by mouth four times daily as needed for Anxiety. promethazine (PHENERGAN) 25 mg tablet Take 1 tablet by mouth four times daily as needed. certolizumab pegol (CIMZIA) 400 mg (200 mg x 2 vials) kit Inject 1 mL subcutaneously every 2 weeks. (Patient not taking: Reported on 08/06/2018 ) peg 3350-Electrolytes (GOLYTELY) 236-22.74-6.74 -5.86 gram suspension Take as directed (Patient not taking: Reported on 07/17/2018 ) No current facility-administered medications for this visit. PHYSICAL EXAMINATION: General: Patient is alert and oriented. Appears tired, but not toxic Vital signs: BP 124/77 (BP Site: Left Arm, BP Position: Sitting, BP Cuff Size: Large Adult) Pulse 96 Temp 37.3 ?C (99.1 ?F) (Temporal Artery) Ht 164.3 cm (5' 4.69) Wt 89.7 kg (197 lb 11.2 oz) BMI 33.22 kg/m? Skin: No rash, nodule or thickening. Eyes: No injection. PERRLA. HENT: Normal inspection and palpation of ears and nose. Normal OP and tongue. No exudate Lymph: Normal in neck and axillae. Neck: No thyromegaly or mass. Lungs: Normal resp. effort. Clear to A AND P. Heart: RRR without gallop, murmur or rub. Extremities: Trace LE edema. Pulses equal and normal. Musculoskeletal: Pain on ROM joints. Tender. No R olecranon swelling. Swelling and tender to wrists and fingers. Knees not swollen, but pain on ROM. Pain on ROM hips DATA: Laboratory: Reviewed Component Latest Ref Rng AND Units 07/18/2018 WBC 3.70 - 11.00 k/uL 8.31 RBC 3.90 - 5.20 m/uL 3.73 (L) Hemoglobin 11.5 - 15.5 g/dL 10.8 (L) Hematocrit 36.0 - 46.0 % 33.5 (L) MCV 80.0 - 100.0 fL 89.8 MCH 26.0 - 34.0 pG 29.0 MCHC 30.5 - 36.0 g/dL 32.2 RDW-CV 11.5 - 15.0 % 13.4 Platelet Count 150 - 400 k/uL 267 MPV 9.0 - 12.7 fL 11.9 Neut% % 56.7 Abs Neut (ANC) 1.45 - 7.50 k/uL 4.72 Lymph% % 35.3 Abs Lymph 1.00 - 4.00 k/uL 2.93 [place]% % 5.2 Abs Steuben <0.87 k/uL 0.43 Eosin% % 2.3 Abs Eosin <0.46 k/uL 0.19 Baso% % 0.5 Abs Baso <0.11 k/uL 0.04 Nucleated Reds 0 /100 WBC 0.0 Absolute nRBC <0.01 k/uL <0.01 Diff Type Auto Diff CD3+ T Cell % 60 - 89 % 66 CD3+ T Cell # (IMDFMR) 958 - 2,388 Cells/uL 1,864 CD4+CD3+ T Cell % 34 - 61 % 49 CD4+CD3+ T Cell # 533 - 1,674 Cells/uL 1,376 CD3+CD8+ T Cell % 10 - 41 % 16 CD3+CD8+ T Cell # 175 - 958 Cells/uL 443 CD19+ B Cell % 5 - 22 % 30 (H) CD19+ B Cell # 75 - 660 Cells/uL 860 (H) NK Cell % 5 - 25 % 3 (L) NK Cell # 102 - 565 Cells/uL 82 (L) CD4/CD8 Ratio 1.10 - 3.25 3.11 Immunodef Comment Clinical interpretation of lymphocyte subsets must be made with caution. Relative . . . Sm Antibody <1.0 AI <0.2 HOOP CUTTER Antibody <1.0 AI <0.2 SSA Antibody <1.0 AI <0.2 SSB Antibody <1.0 AI <0.2 Centromere Ab <1.0 AI <0.2 Scleroderma Ab, IgG <1.0 AI <0.2 Kathleen 1 Antibody <1.0 AI <0.2 Ribosomal HOOP CUTTER <1.0 AI <0.2 Chromatin Antibody <1.0 AI <0.2 MPA IgG, Serum 717 - 1,411 mg/dL 1,050 MPA IgA, Serum 78 - 391 mg/dL 74 (L) MPA IgM, Serum 53 - 334 mg/dL 90 [place] Free, Serum 3.30 - 19.40 mg/L 9.5 Lambda Free, Serum 5.7 - 26.3 mg/L 12.6 K/L Ratio, Serum 0.26 - 1.65 0.75 MPA Result No M protein is identified. No M protein is identified. Staff Review ([facility]) Reviewed by Ismael Whitney MD ([id number]) CHAO Negative Positive (A) CHAO Titer Negative 1:640 (A) CHAO Pattern Homogeneous TSH 0.400 - 5.500 uU/mL 1.600 Histone Ab, IgG <1.0 Units 1.3 (H) DNA Antibody w/Confirmation <30 IU/mL 12 CRISTA <52 U/L 23 C3 86 - 166 mg/dL 103 C4 13 - 46 mg/dL 20 Rheumatoid Factor <16 IU/mL <10 CCP Antibody, IgG <20 Units 21 (H) Vitamin D 25 Hydroxy 31.0 - 80.0 ng/mL 30.4 (L) Lyme Abs, IgG/IgM Negative Negative HLA-B27 DNA Result Negative 07/30/18: CRP 9.3 mg/dL WBC 10.7 HGB 12.2 MCV 86 PLT 292 ESR 46 Throat Cx neg Blood Cx x2 neg Boil: Scant growth of Coag neg Staph Radiology: Reviewed XR spine with minimal deg changes CXR neg IMPRESSION / PROBLEM LIST: 1. 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 Doubt -Rheumatoid arthritis Would be unusual with Crohn's 2. (+) CHAO and histone May be due to anti-TNF-a See above 3. Lymphadenopathy Doubt lymphoma 08/09: CT neck with no clear pathologic MARÍA ? 4. Infections Probably due to suppressed immune system ? 5. Crohn's disease Thought to be well controlled 6. Anemia Repeat by PCP normal RECOMMENDATIONS / PLAN: ? Laboratory: o As outlined in orders. ? Radiology: o I don't believe additional XR would add anything here ? Consultations: o GI team ? She is scheduled for colonoscopy next week o She has already seen ENT o She is scheduled to see Immunology ? Medications: o Prednisone 40 mg a day. ? Start today ? Then will sort out tapering o May consider re-start Cimzia o Consider add hydroxychloroquine ? Patient Education: Risks, benefits and alternatives of/to corticosteroids. Risks include but are not limited to: Cataracts, glaucoma, hypertension, diabetes, osteoporosis, osteonecrosis, gastritis, muscle problems (myopathy), thin skin, bruising, weight gain, edema, increased risk of infection. ? Vaccinations: o Keep up to date ? Other: o Patient aware that I will call if testing is out of the range of what is expected. o Patient should update all of her age appropriate malignancy screens. ? Follow-up: o She will message me in 48 hours Total face to face time at this visit was 50 minutes. Greater than 50% of the time was spent on counseling the patient and / or coordination of care. Electronically signed by: Jose Oliveira MD CC: Jossie Arita MD [address] [place] [id number] PROGRESS Observed: 12/31/2017 Status: COMPLETED Source: [facility] 5:02 PM [facility] REPOSITORY HNO ID: [id number] Author: Corinne Murphy Service: (none) Author Type: Physician Type: Progress Notes Filed: 01/07/2018 9:11 AM Note Text: EST PT OFFICE VISIT CC: Patient presents with: Established Patient: Crohn's disease She feels nauseated, but then if she eats she will vomit. She was admitted with n/v. She has a new job 8-4. Forces herself to eat some breakfast. Lost 20#. Then at night she eats bowl cereal. Today she ate cook islander fries. Constant. It will go away if she takes zofran or phenergan. She does not have appetite. Does get dizzy if she bends over. She is off balance sometime. NO neck pain, No neck injuries Her joints. She was 4 days late on cimzia. Her joints are terrible when this wears off. Had bad back, since on cimzia it doesn't bother her at all. 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 Is still constipated. Cannot do laxatives or stool softners. Feels severe pain. Has never tried miralax. Has tried senna. ducolax. Does get tight and bloated. She eats half a sausage mcmuffin in am. Then cereal in pm. Goes to [employer] and gets the kids meals. Has 1 chicken strip. VITALS: Blood pressure 110/88, pulse 81, temperature 36.8 ?C (98.3 ?F), temperature source Oral, height 165.1 cm (5' 5), weight 85.7 kg (189 lb), SpO2 100 %. ALLERGIES: Levaquin [Levofloxacin] MEDICATIONS: Current Outpatient Prescriptions: citalopram (CELEXA) 40 mg tablet Take 40 mg by mouth once daily. Disp: Rfl: pantoprazole DR (PROTONIX) 40 mg tablet Take 1 tablet by mouth once daily. Disp: 30 tablet Rfl: 11 ondansetron orally disintegrating (ZOFRAN ODT) 4 mg disintegrating tablet Take 1 tablet by mouth every 8 hours as needed. Disp: 90 tablet Rfl: 1 prochlorperazine (COMPAZINE) 10 mg tablet Take 1 tablet by mouth every 8 hours as needed (FOR NAUSEA). Disp: 60 tablet Rfl: 3 certolizumab pegol (CIMZIA) 400 mg (200 mg x 2 vials) kit Inject 1 mL subcutaneously every 2 weeks. Disp: 6 mL Rfl: 3 hydrOXYzine pamoate (VISTARIL) 25 mg capsule Take 25 mg by mouth four times daily as needed for Anxiety. Disp: Rfl: traZODone (DESYREL) 100 mg tablet Take 100 mg by mouth daily at bedtime. Disp: Rfl: promethazine (PHENERGAN) 25 mg tablet Take 1 tablet by mouth four times daily as needed. Disp: 30 tablet Rfl: 1 iv contrast (will be provided with radiology test) MRI Enterography Inject, intravenously, once for 1 dose. No IV access, insert saline lock prior to the beginning of sedation, infusion, injection of imaging exam. Discontinue saline lock post exam. If Pt. has a central line or IVAD, may access for administration according to line specific nursing protocol. Once exam is complete flush line and de-access according to line specific nursing protocol in the MR contrast administration guidelines link. Disp: 1 Each Rfl: 0 enteric contrast (will be provided with radiology test) For MRI ENTEROGRAPHY WO/W Administer, As Directed One Time Only, via Oral, Rectal, both Oral and Rectal, Enteric Tube, Stoma or Indwelling Catheter,? Enteric Contrast as designated per enteric contrast guidelines Disp: 1 Each Rfl: 0 glucagon (GLUCAGEN) 1 mg/mL injection Inject 1 mg intravenously one time only for 1 dose. For MRI Enterography, Inject 1 mg intravenously, as directed. Slow push at the appropriate time during MRI Scan Disp: 1 mg Rfl: 0 ALPRAZolam (XANAX) 0.5 mg tablet Take 1 tablet by mouth once daily as needed. Disp: 5 tablet Rfl: 0 sucralfate (CARAFATE) 1 gram tablet Take 1 tablet by mouth before meals and at bedtime. Disp: 60 tablet Rfl: 3 propranolol (INDERAL) 20 mg tablet Take 20 mg by mouth three times daily. Disp: Rfl: LORazepam (ATIVAN) 0.5 mg tab Take by mouth twice daily as needed (1 tablet in the AM and 2 tablets in the evening). Disp: Rfl: DULoxetine (CYMBALTA) 60 mg capsule Take 60 mg by mouth once daily. Disp: Rfl: pantoprazole (PROTONIX) 40 mg tablet Take 1 tablet by mouth once daily for 30 days. Disp: 30 tablet Rfl: 3 No current facility-administered medications for this visit. Social History: Social History Marital status: Single Spouse name: Years of education: 17 Number of children: 1 Occupational History Occupation Employer Comment [employer] * Social History Main Topics Smoking status: Current Every Day Smoker Packs/day: 1.00 Years: 15.00 Types: Cigarettes Smokeless tobacco: Never Used Alcohol use: No Drug use: No Sexual activity: Yes Partners with: Male control/protection: IUD Comment: jefferson Social History Narrative Lives alone with 15 yo son Medical History: No changes since last visit. REVIEW OF SYSTEMS: GENERAL: weight stable, no fevers. CARDIOVASCULAR: No chest pain, no edema RESPIRATORY: No dyspnea The remainder of the review of systems are negative. Reviewed with patient during visit today. PHYSICAL EXAMINATION: GENERAL APPEARANCE: Well developed and well nourished. SKIN: Skin color, texture, turgor normal. No rashes or lesions. EYES: Conjunctiva normal without icterus. OROPHARYNX: lips, mucosa, and tongue normal, teeth and gums normal NECK: Supple, full range of motion, no lymphadenopathy, normal thyroid, LUNGS: Normal breath sounds, Clear to auscultation, No wheezes, No crackles. HEART:Normal PMI, Regular rate and rhythm, Normal heart sounds, S1 and S2 and No murmurs. NEURO: Alert and oriented in no acute distress. ABDOMEN: Normal bowel sounds, abdomen flat with no distention, Soft, non-tender, no hepatomegaly. no palpable masses, no abdominal bruits, no rebound and no rigidity. EXTREMITIES:Extremities normal, No deformities, No skin discoloration, No edema . 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 Started cimzia in 2014 and had clinical response in terms of findings in endoscopy and joint symptoms. She over psat year having problems with vomiting and food intolerance although Etiology unclear. I would like to get mre to assess for partial bowel obstruction I am also concern about gastrointestinal motility and need to get gastric emptying study. Then plan colonoscopy with possible dilation if required also assess if cimzia still working Recheck labs For mri, xanax OARRS website checked and validated. All prescriptions have been APPROPRIATELY filled. No suspicious activity was identified. - 01/07/2018 by Corinne Murphy MD, PhD Tb negative 2015 Corinne Murphy MD, PhD CNOV Observed: 12/31/2017 Status: COMPLETED Source: [place] 4:10 PM [facility] REPOSITORY Office Visit (GASTMN) JESSICA JIANG ([id number]) 1980 F Date Time Provider Department 12/31/17 4:10 PM CORINNE MURPHYID During your visit today, we recorded the following information about you: Temperature Pulse Blood pressure Weight 98.3 degrees 81/minute 110/88 85.7 kg Height 1.651 m Corinne Murphy MD, PhD 01/07/2018 9:11 AM Signed EST PT OFFICE VISIT CC: Patient presents with: Established Patient: Crohn's disease She feels nauseated, but then if she eats she will vomit. She was admitted with n/v. She has a new job 8-4. Forces herself to eat some breakfast. Lost 20#. Then at night she eats bowl cereal. Today she ate cook islander fries. Constant. It will go away if she takes zofran or phenergan. She does not have appetite. Does get dizzy if she bends over. She is off balance sometime. NO neck pain, No neck injuries Her joints. She was 4 days late on cimzia. Her joints are terrible when this wears off. Had bad back, since on cimzia it doesn't bother her at all. 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 Is still constipated. Cannot do laxatives or stool softners. Feels severe pain. Has never tried miralax. Has tried senna. ducolax. Does get tight and bloated. She eats half a sausage mcmuffin in am. Then cereal in pm. Goes to [employer] and gets the kids meals. Has 1 chicken strip. VITALS: Blood pressure 110/88, pulse 81, temperature 36.8 ?C (98.3 ?F), temperature source Oral, height 165.1 cm (5' 5), weight 85.7 kg (189 lb), SpO2 100 %. ALLERGIES: Levaquin [Levofloxacin] MEDICATIONS: Current Outpatient Prescriptions: citalopram (CELEXA) 40 mg tablet Take 40 mg by mouth once daily. Disp: Rfl: pantoprazole DR (PROTONIX) 40 mg tablet Take 1 tablet by mouth once daily. Disp: 30 tablet Rfl: 11 ondansetron orally disintegrating (ZOFRAN ODT) 4 mg disintegrating tablet Take 1 tablet by mouth every 8 hours as needed. Disp: 90 tablet Rfl: 1 prochlorperazine (COMPAZINE) 10 mg tablet Take 1 tablet by mouth every 8 hours as needed (FOR NAUSEA). Disp: 60 tablet Rfl: 3 certolizumab pegol (CIMZIA) 400 mg (200 mg x 2 vials) kit Inject 1 mL subcutaneously every 2 weeks. Disp: 6 mL Rfl: 3 hydrOXYzine pamoate (VISTARIL) 25 mg capsule Take 25 mg by mouth four times daily as needed for Anxiety. Disp: Rfl: traZODone (DESYREL) 100 mg tablet Take 100 mg by mouth daily at bedtime. Disp: Rfl: promethazine (PHENERGAN) 25 mg tablet Take 1 tablet by mouth four times daily as needed. Disp: 30 tablet Rfl: 1 iv contrast (will be provided with radiology test) MRI Enterography Inject, intravenously, once for 1 dose. No IV access, insert saline lock prior to the beginning of sedation, infusion, injection of imaging exam. Discontinue saline lock post exam. If Pt. has a central line or IVAD, may access for administration according to line specific nursing protocol. Once exam is complete flush line and de-access according to line specific nursing protocol in the MR contrast administration guidelines link. Disp: 1 Each Rfl: 0 enteric contrast (will be provided with radiology test) For MRI ENTEROGRAPHY WO/W Administer, As Directed One Time Only, via Oral, Rectal, both Oral and Rectal, Enteric Tube, Stoma or Indwelling Catheter,? Enteric Contrast as designated per enteric contrast guidelines Disp: 1 Each Rfl: 0 glucagon (GLUCAGEN) 1 mg/mL injection Inject 1 mg intravenously one time only for 1 dose. For MRI Enterography, Inject 1 mg intravenously, as directed. Slow push at the appropriate time during MRI Scan Disp: 1 mg Rfl: 0 ALPRAZolam (XANAX) 0.5 mg tablet Take 1 tablet by mouth once daily as needed. Disp: 5 tablet Rfl: 0 sucralfate (CARAFATE) 1 gram tablet Take 1 tablet by mouth before meals and at bedtime. Disp: 60 tablet Rfl: 3 propranolol (INDERAL) 20 mg tablet Take 20 mg by mouth three times daily. Disp: Rfl: LORazepam (ATIVAN) 0.5 mg tab Take by mouth twice daily as needed (1 tablet in the AM and 2 tablets in the evening). Disp: Rfl: DULoxetine (CYMBALTA) 60 mg capsule Take 60 mg by mouth once daily. Disp: Rfl: pantoprazole (PROTONIX) 40 mg tablet Take 1 tablet by mouth once daily for 30 days. Disp: 30 tablet Rfl: 3 No current facility-administered medications for this visit. Social History: Social History Marital status: Single Spouse name: Years of education: 17 Number of children: 1 Occupational History Occupation Employer Comment [employer] * Social History Main Topics Smoking status: Current Every Day Smoker Packs/day: 1.00 Years: 15.00 Types: Cigarettes Smokeless tobacco: Never Used Alcohol use: No Drug use: No Sexual activity: Yes Partners with: Male control/protection: IUD Comment: jefferson Social History Narrative Lives alone with 15 yo son Medical History: No changes since last visit. REVIEW OF SYSTEMS: GENERAL: weight stable, no fevers. CARDIOVASCULAR: No chest pain, no edema RESPIRATORY: No dyspnea The remainder of the review of systems are negative. Reviewed with patient during visit today. PHYSICAL EXAMINATION: GENERAL APPEARANCE: Well developed and well nourished. SKIN: Skin color, texture, turgor normal. No rashes or lesions. EYES: Conjunctiva normal without icterus. OROPHARYNX: lips, mucosa, and tongue normal, teeth and gums normal NECK: Supple, full range of motion, no lymphadenopathy, normal thyroid, LUNGS: Normal breath sounds, Clear to auscultation, No wheezes, No crackles. HEART:Normal PMI, Regular rate and rhythm, Normal heart sounds, S1 and S2 and No murmurs. NEURO: Alert and oriented in no acute distress. ABDOMEN: Normal bowel sounds, abdomen flat with no distention, Soft, non-tender, no hepatomegaly. no palpable masses, no abdominal bruits, no rebound and no rigidity. EXTREMITIES:Extremities normal, No deformities, No skin discoloration, No edema . 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 Started cimzia in 2014 and had clinical response in terms of findings in endoscopy and joint symptoms. She over psat year having problems with vomiting and food intolerance although Etiology unclear. I would like to get mre to assess for partial bowel obstruction I am also concern about gastrointestinal motility and need to get gastric emptying study. Then plan colonoscopy with possible dilation if required also assess if cimzia still working Recheck labs For mri, xanax OARRS website checked and validated. All prescriptions have been APPROPRIATELY filled. No suspicious activity was identified. - 01/07/2018 by Corinne Murphy MD, PhD Tb negative 2016 Corinne Murphy MD, PhD Referring Provider: SELF [200] Allergies As of Date: 12/31/2017 Noted Allergy Reaction LEVAQUIN (LEVOFLOXACIN) 05/14/2011 14 - Other: See Comments Comments: Ruptured achilles tendon Date Reviewed: 12/31/2017 Reviewed by: Sha Troncoso Rapier Insertion Loom Fixer - Fully Assessed Reason for Visit: Established Patient [175] Cmt: Crohn's disease Primary Visit Diagnosis:Gastroesophageal reflux disease, esophagitis presence not specified [K21.9] Other Visit Diagnoses:Crohn's disease of large intestine with other complication (HCC) [K50.118] Inflammatory bowel disease [K52.9] Other specified intestinal obstruction, unspecified whether partial or complete (HCC) [K56.699] Abdominal distension (gaseous) [R14.0] Early satiety [R68.81] Carcinoid tumor of appendix, 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] Anxiety neurosis [F41.1] Order(s):C-REACTIVE PROTEIN (CRP) [SQCRP] Order #: [id number] FUTURE COMP METABOLIC PANEL [SQCMP] Order #: [id number] FUTURE CBC [SQCBC] Order #: [id number] FUTURE IRON + TIBC [SQIRON] Order #: [id number] FUTURE MRI ABD ENTEROG WO/W IVCON [[id number]] Order #: [id number] FUTURE MRI PEL ENTEROG WO/W IVCON [[id number]] Order #: [id number] FUTURE iv contrast (will be provided with radiology test)MRI Enterography Inject, intravenously, once for 1 dose. No IV access, insert saline lock prior to the beginning of sedation, infusion, injection of imaging exam. Discontinue saline lock post exam. If Pt. has a central line or IVAD, may access for administration according to line specific nursing protocol. Once exam is complete flush line and de-access according to line specific nursing protocol in the MR contrast administration guidelines link.Disp: 1 EachRfl: 0 enteric contrast (will be provided with radiology test)For MRI ENTEROGRAPHY WO/W Administer, As Directed One Time Only, via Oral, Rectal, both Oral and Rectal, Enteric Tube, Stoma or Indwelling Catheter,? Enteric Contrast as designated per enteric contrast guidelinesDisp: 1 EachRfl: 0 glucagon (GLUCAGEN) 1 mg/mL injectionInject 1 mg intravenously one time only for 1 dose. For MRI Enterography, Inject 1 mg intravenously, as directed. Slow push at the appropriate time during MRI ScanDisp: 1 mgRfl: 0 NM GASTRIC EMPTYING SOLID [[id number]] Order #: [id number] FUTURE COLONOSCOPY GEN ANES [[id number]] Order #: [id number] FUTURE pantoprazole DR (PROTONIX) 40 mg tabletTake 1 tablet by mouth once daily.Disp: 30 tabletRfl: 11 ALPRAZolam (XANAX) 0.5 mg tabletTake 1 tablet by mouth once daily as needed.Disp: 5 tabletRfl: 0 VITAMIN B12 BLOOD [SQB12] Order #: [id number] FUTURE Prescriptions as of 12/31/2017 Sig: CITALOPRAM 40 MG TABLET Take 40 mg by mouth once marino* PANTOPRAZOLE 40 MG TABLET,DEL* Take 1 tablet by mouth once d* ONDANSETRON 4 MG DISINTEGRATI* Take 1 tablet by mouth every * PROCHLORPERAZINE MALEATE 10 M* Take 1 tablet by mouth every * CERTOLIZUMAB PEGOL 400 MG (20* Inject 1 mL subcutaneously ev* HYDROXYZINE PAMOATE 25 MG CAP* Take 25 mg by mouth four time* TRAZODONE 100 MG TABLET Take 100 mg by mouth daily at* PROMETHAZINE 25 MG TABLET Take 1 tablet by mouth four t* IV CONTRAST (RADIOLOGY PROCED* MRI Enterography Inject, intr* ENTERIC CONTRAST (RADIOLOGY P* For MRI ENTEROGRAPHY WO/W Adm* GLUCAGON (HUMAN RECOMBINANT) * Inject 1 mg intravenously one* ALPRAZOLAM 0.5 MG TABLET Take 1 tablet by mouth once d* SUCRALFATE 1 GRAM TABLET Take 1 tablet by mouth before* PROPRANOLOL 20 MG TABLET Take 20 mg by mouth three amy* LORAZEPAM 0.5 MG TABLET Take by mouth twice daily as* DULOXETINE 60 MG CAPSULE,DARIUS* Take 60 mg by mouth once marino* Medication notes this encounter DULOXETINE 60 MG CAPSULE,DELAYED RELEASE >> Sha Troncoso Cma 12/31/2017 4:13 PM >> SHA TRONCOSO CMA Dec 31, 2017 4:13 PM Problem List As Of Date 12/31/2017 Noted Resolved Cellulitis and abscess of unspecified site [L03*INVALID FOR*09/29/2012 Change in bowel function [R19.4] INVALID FOR*09/29/2012 Abdominal pain, unspecified site [R10.9] INVALID FOR*09/29/2012 Carcinoid tumor of appendix, 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 Abdominal pain [R10.9] INVALID FOR* Priority: B More... DVT (deep venous thrombosis) ([facility]) [I82.409] INVALID FOR* Priority: D More... SUMMARY INVALID FOR* Priority: A More... Insomnia [G47.00] INVALID FOR* Anxiety neurosis [F41.1] INVALID FOR* GERD (gastroesophageal reflux disease) [K21.9] INVALID FOR* Nausea [R11.0] INVALID FOR* Prescriptions ordered this encounter Disp Refills Start End IV CONTRAST (RADIOLOGY PROCEDURE) 1 Ea* 0 12/31/2017 Class: In Office Sig: MRI Enterography Inject, intravenously, once for 1 dose. No IV access, insert saline lock prior to the beginning of sedation, infusion, injection of imaging exam. Discontinue saline lock post exam. If Pt. has a central line or IVAD, may access for administration according to line specific nursing protocol. Once exam is complete flush line and de-access according to line specific nursing protocol in the MR contrast administration guidelines link. ENTERIC CONTRAST (RADIOLOGY PROCEDUR* 1 Ea* 0 12/31/2017 Class: In Office Sig: For MRI ENTEROGRAPHY WO/W Administer, As Directed One Time Only, via Oral, Rectal, both Oral and Rectal, Enteric Tube, Stoma or Indwelling Catheter,? Enteric Contrast as designated per enteric contrast guidelines GLUCAGON (HUMAN RECOMBINANT) 1 MG/ML* 1 mg 0 12/31/2017 12/31/2017 Class: In Office Route: INTRAVENOUS Sig: Inject 1 mg intravenously one time only for 1 dose. For MRI Enterography, Inject 1 mg intravenously, as directed. Slow push at the appropriate time during MRI Scan PANTOPRAZOLE 40 MG TABLET,DELAYED RE* 30 t* 11 12/31/2017 Route: ORAL Sig: Take 1 tablet by mouth once daily. ALPRAZOLAM 0.5 MG TABLET 5 ta* 0 12/31/2017 01/07/2019 Class: Print RX Route: ORAL Sig: Take 1 tablet by mouth once daily as needed. Medications Discontinued During This Encounter pantoprazole DR (PROTONIX) 40 mg tab* 30 t* 2 04/15/2017 12/31/2017 Route: ORAL Sig: Take 1 tablet by mouth once daily. Disc: Reason for discontinue is not on file. buprenorphine-naloxone (ZUBSOLV) 5.7* 12/31/2017 Class: Historical Med Route: SUBLINGUAL Sig: Dissolve under the tongue twice daily. Disc: Discontinued by Patient Disposition: Return in about 6 months (around 07/02/2018). Follow-up and Disposition History Recorded Encounter Status:Closed by CORINNE MURPHY on 01/07/18 CBC Collected: 11/17/2017 Status: F Source: [facility] 7:40 PM [facility] REPOSITORY TYPE CODE TESTS RESULT OUT OF RANGE REFERENCE UNITS LAB CBC(LOINC) CBC Result Comment: CBC-COMPLETE BLOOD COUNT LAB WBC(LOINC) 4.5 - 10.8 x 10EE3/UL WBC 8.3 LAB RBC(LOINC) 4.10 - x 10EE6/UL 5.30 RBC 4.23 LAB HEMOGLOBIN(LOINC 12.0 - g/dl ) 16.0 Low HEMOGLOBIN 11.5 LAB HEMATOCRIT(LOINC 34.0 - % ) 46.0 HEMATOCRIT 34.4 LAB MCV(LOINC) 80 - 99 fl MCV 81 LAB MCH(LOINC) 27 - 33 pg MCH 27 LAB MCHC(LOINC) 32 - 36 X10 3 MCHC 33 LAB RDW/CV(LOINC) 12.0 - % 15.6 RDW/CV High 17.9 LAB PLATELET(LOINC) 150 - 450 x10EE3/UL PLATELET 200 LAB MPV(LOINC) 6.6 - 10.5 fl MPV 9.4 Result Comment: AUTOMATED DIFFERENTIAL LAB NEUT %(LOINC) 46.0 - 76.0 % NEUT % 69.8 LAB LYMPH %(LOINC) 20.0 - 45.0 % LYMPH % Low 19.4 LAB MONOS %(LOINC) 0.0 - 10.0 % MONOS % 8.0 LAB EO %(LOINC) 0.0 - 7.0 % EO % 2.2 LAB BASO %(LOINC) 0.0 - 2.0 % BASO % 0.6 LAB Lymph #(LOINC) 0.80 - 2.80 x10EE3/U L Lymph # 1.60 LAB Neut #(LOINC) 1.50 - 7.10 x10EE3/U L Neut # 5.80 LAB [place] #(LOINC) 0.20 - 1.00 x10EE3/U L [place] # 0.70 LAB EO #(LOINC) 0.00 - 0.50 x10EE3/U L EO # 0.20 LAB Baso #(LOINC) 0.00 - 0.10 x10EE3/U L Baso # 0.10 LAB MANUAL DIFF(LOINC) MANUAL DIFF N/A LAB MORPHOLOGY(LOINC ) MORPHOLOGY N/A Result Comment: {CD] Performed By: #### [id number] #### [facility],[address] [place] [address] CMP WITH EGFR Collected: 11/17/2017 Status: F Source: [facility] 7:40 PM [facility] REPOSITORY TYPE CODE TESTS RESULT OUT OF RANGE REFERENCE UNITS LAB CMP with eGFR(LOINC) CMP with eGFR Result Comment: COMPREHENSIVE METABOLIC PANEL LAB SODIUM(LOINC) 136 - 145 mmol/l SODIUM 136 LAB POTASSIUM(LOINC) 3.5 - 5.1 mmol/L POTASSIUM 3.9 LAB CHLORIDE(LOINC) 98 - 107 mmol/L CHLORIDE High 109 LAB CO2(LOINC) 21.0 - mmol/L 31.0 CO2 23.4 LAB GLUCOSE(LOINC) 74 - 106 mg/dl GLUCOSE 95 LAB BUN(LOINC) 6 - 20 mg/dl BUN 10 LAB CREATININE(LOINC) 0.6 - 1.2 mg/dl CREATININE 0.8 LAB AST/SGOT(LOINC) 13 - 39 U/L AST/SGOT Low 12 LAB ALK PHOS(LOINC) 38 - 126 U/L ALK PHOS 57 LAB CALCIUM(LOINC) 8.6 - mg/dl 10.2 CALCIUM 9.2 LAB TOTAL 6.4 - 8.3 g/dl PROTEIN(LOINC) TOTAL PROTEIN 6.8 LAB ALBUMIN(LOINC) 3.4 - 4.8 g/dL ALBUMIN 4.4 LAB GLOBULIN(LOINC) 1.5 - 3.8 G/DL GLOBULIN 2.4 LAB A/G RATIO(LOINC) 0.9 - 1.6 A/G High RATIO 1.8 LAB TOTAL BILI(LOINC) 0.0 - 1.5 mg/dl TOTAL BILI 0.3 LAB B/C RATIO(LOINC) 0 - 30 ratio B/C RATIO 13 LAB ALT/SGPT(LOINC) 8 - 35 U/L ALT/SGPT 8 LAB ANION GAP(LOINC) 10 - 20 mmol/L ANION Low GAP 8 LAB AGE(LOINC) years AGE 37 LAB eGFR(LOINC) 60 - 999 ML/MINUTE eGFR >60 LAB eGFR(AA)(LOINC) 60 - 999 ML/MINUTE eGFR(AA) >60 Result Comment: ACCORDING TO THE NATIONAL KIDNEY DISEASE EDUCATION PROGRAM(NKDE), A NORMAL eGFR IS A VALUE GREATER THAN OR EQUAL TO 60 ML/MIN/1.73 SQ METERS. CHRONIC KIDNEY DISEASE: <60mL/MIN/1.73 SQ METERS KIDNEY FAILURE: <15mL/MIN/1.73 SQ METERS THIS TEST SHOULD ONLY BE USED FOR PATIENTS 18 YEARS OF AGE AND OLDER. Performed By: #### [id number] #### [place] [address] LIPASE Collected: 11/17/2017 Status: F Source: [facility] 7:40 [facility] REPOSITORY TYPE CODE TESTS RESULT OUT OF REFERENCE UNITS RANGE LAB LIPASE(LOIN 18.0 - 51.0 U/L C) Low LIPASE 17.0 Performed By: #### [id number] #### [place] [address] C-REACTIVE PROTEIN Collected: 11/17/2017 Status: F Source: [facility] 7:40 [facility] REPOSITORY TYPE CODE TESTS RESULT OUT OF RANGE REFERENCE UNITS LAB CRP(LOINC) 0.00 - 1.00 mg/dl CRP 0.50 Performed By: #### [id number] #### [place] [address] URINE Collected: 11/17/2017 Status: F Source: [facility] 7:35 [facility] REPOSITORY TYPE CODE TESTS RESULT OUT OF REFERENCE UNITS RANGE LAB NEGATIVE UR(LOINC) UR NEGATIVE LAB INTERNAL QC(LOINC) INTERNAL QC PASS LAB EXTERNAL QC DONE?(LOINC) EXTERNAL QC YES DONE? Performed By: #### [id number] #### [place] [address] URINALYSIS Collected: 11/17/2017 Status: F Source: [facility] 7:35 [facility] REPOSITORY TYPE CODE TESTS RESULT OUT OF REFERENCE UNITS RANGE LAB URINALYSIS (LOINC) URINALYSIS Result Comment: URINALYSIS LAB Specimen Type(LOINC) Specimen Type Void LAB Color(LOINC) NORMAL: YELLOW Color ALEJANDRO LAB Clarity(LOINC) NORMAL: CLEAR Clarity clear LAB ph(LOINC) NORMAL: 5.0-8.0 ph 6 LAB Protein(LOINC) NORMAL: NEGATIVE Protein NEG LAB Glucose(LOINC) NORMAL: NORMAL Glucose NORM LAB Ketone(LOINC) NORMAL: NEGATIVE Ketone Abnormal 5 LAB Bilirubin(LOINC) NORMAL: NEGATIVE Bilirubin Abnormal 1 LAB Blood(LOINC) NORMAL: NEGATIVE Blood Abnormal 250 LAB Urobilinog(LOINC) NORMAL: NORMAL Urobilinog Abnormal 8 LAB Sp [place](LOINC) NORMAL: 1.010-1.030 Sp [place] 1.020 LAB Nitrite(LOINC) NORMAL: NEGATIVE Nitrite NEG LAB Leukocytes(LOINC) NORMAL: NEGATIVE Leukocytes Abnormal 25 LAB Microscopic(LOINC ) Microscopic SEE BELOW Result Comment: MICROSCOPIC LAB Wbc(LOINC) 0-5/hpf Wbc 1-5 LAB Rbc(LOINC) 0-3/hpf Rbc 0-5 LAB Casts(LOINC) Casts NONE LAB Crystals(LOINC) Crystals NONE LAB Amorphous(LOINC) NONE Amorphous LAB Bacteria(LOINC) Bacteria TRACE LAB Epi Cells(LOINC) Epi Cells MODERATE LAB Mucous(LOINC) Mucous NONE LAB Yeast(LOINC) Yeast NONE Performed By: #### [id number] #### [facility],[address] [place] [address] Observed: 11/17/2017 Status: F Source: [facility] CULTURE URINE 7:35 PM [facility] REPOSITORY CULTURE URINE _URINE CULTURE_ M I C R O B I O L O G Y R E P O R T FINAL Antimicrobial Susceptibility and Organism Identification Report Specimen Number : [id number] Requested : 11/17/17 Specimen Source : URINE Collected : 11/17/17 19:35 [place] [facility] : Emergency Room Received : 11/17/17 19:35 Requesting Physician : marcus Patient/Specimen Tests and Comments Specimen Comments FINAL REPORT: NO GROWTH AT 48 HOURS Tech : Source : URINE ID # : [id number] FINAL Report Date : / / : Collected : 11/17/17 19:35 11/20/17.1156.BKO. 11/19/17.1131.BKO. 11/20/17.1156.BKO.COMPLETE Performed By: #### [id number] #### [facility] [place] [address] HEP B SURF AB QUANT Collected: 08/26/2017 Status: F Source: [facility] [QUEST] 7:15 PM [facility] REPOSITORY TYPE CODE TESTS RESULT OUT OF REFERENCE UNITS RANGE LAB HEP B SURF AB QUANT [QUEST](LOIN C) HEP B SURF AB QUANT [QUEST] Result Comment: _HEP B SURF AB QUANT_ HEPATITIS B SURFACE ANTIBODY IMMUNITY, (QUANT) Reported: 08/29/2017 05:46 Status=F TEST RESULT FLAG RANGE UNITS HEP B SURF AB IMMUNITY,QN 330 >=10 mIU/mL 08/29/17.0558.rfl.COMPLETE.AMRR .5193-8 PATIENT HAS IMMUNITY TO HEPATITIS B VIRUS. For more information on this test, go to: http://education.Sin[employer]/faq/KOE609 Test Performed by [facility], [facility], [address] [place] [address] Luis Antonio Nye M.D., Ph.D., Director of Laboratories , [facility] [id number] Performed By: #### [id number] #### [facility],[address] [place] [address] HEP B SURFACE AG Collected: 08/26/2017 Status: F Source: [facility] [QUEST] 7:15 PM [facility] REPOSITORY TYPE CODE TESTS RESULT OUT OF REFERENCE UNITS RANGE LAB HEP B SURFACE AG [QUEST](LOINC ) HEP B SURFACE AG [QUEST] Result Comment: _HEP B SURFACE AG_ HEPATITIS B SURFACE ANTIGEN W/RFLX TO CONFIRM. Reported: 08/29/2017 05:47 Status=F TEST RESULT FLAG RANGE UNITS HEPATITIS B SURFACE AG Nonreactive Nonreactive 08/29/17.rfl.COMPLETE.AMRR .5196-1 CONFIRMATION see below 08/29/17.rfl.COMPLETE.AMRR .7905-3 Not required according to the current package insert. Test Performed by [facility], [facility], [address] [place] [id number] Luis Antonio Nye M.D., Ph.D., Director of [employer] , [facility] [id number] Performed By: #### [id number] #### [facility],[address] [place] [id number] HEP C VIRUS AB WITH Collected: 08/26/2017 Status: F Source: [facility] REFLEX [QUEST] 7:15 PM [facility] REPOSITORY TYPE CODE TESTS RESULT OUT OF REFERENCE UNITS RANGE LAB HEP C VIRUS AB WITH REFLEX [QUEST](LOINC HEP C ) VIRUS AB WITH REFLEX [QUEST] Result Comment: _HEP C VIRUS AB_ HEPATITIS C AB W/REFL HCV RNA, QN REAL-TIME PCR Reported: 08/29/2017 05:47 Status=F TEST RESULT FLAG RANGE UNITS HEPATITIS C ANTIBODY Nonreactive Nonreactive 08/29/17.rfl.COMPLETE.AMRR .53406-6 SIGNAL TO CUTOFF 0.02 <1.00 ratio 08/29/17.rfl.COMPLETE.AMRR .78365-6 ADDITIONAL TESTING Not indicated 08/29/17.rfl.COMPLETE.AMRR Test Performed by [facility], [facility] [place] [facility], [address] [place] [address] 20992 Luis Antonio Nye M.D., Ph.D., Director of Songtradr , [facility] [id number] Performed By: #### [id number] #### [facility],[address] [place] [address] ALLERGIES ALLERGIES DATE TYPE / CODE NAME / CODE REACTION SEVERITY SOURCE Drug levofloxacin/F006 Other [place] 9 Allergy/202619801( 159135(RXNORM) [facility] SNOMED CT) Hospital Repository Miscellaneous stitches stitches do [place] 9 Allergy/064846884( not dissolve. Community SNOMED CT) They need Hospital taken out Repository Drug levofloxacin/F006 Tend[place] Moderate [facility] 8 Allergy/035590791( 782939(RXNORM) Rupture (severity [facility] SNOMED CT) modifier) [facility] (qualifier Repository value) DRUG LEVOFLOXACIN OTHER: SEE C [facility] 1 INGREDI/258246047( Other [place] SNOMED CT) Repository Drug LEVAQUIN/61608348 Moderate [facility] Allergy/761447293( (RXNORM) (Severity [facility] SNOMED [facility]) Modifier) [facility] (Qualifier Repository Value) ENCOUNTERS ENCOUNTERS ADMIT/DISCHARGE ACCOUNT ADMITTING ENCOUNTER LOCATION SOURCE NUMBER CLASS 08/13/2018/ [id number] Jaret MURPHY [place] [address] CORINNE [facility] [place] Repository 08/06/2018/ [id number] Ambulatory [place] 019 [facility] [place] Repository 08/06/2018/ [id number] Ambulatory [place] 019 [facility] [place] Repository 07/30/2018/ [id number] TAMJONATHANI, Ambulatory Miah [place] 019 [facility] Repository 07/30/2018/ [id number] JUAN J, Ambulatory [place] 019 [facility] Repository 07/30/2018/ [id number] Ambulatory [place] 019 [facility] Main [place] Repository 07/29/2018/ [id number] JUAN J, Ambulatory Miah [place] 019 [facility] Repository 07/29/2018/ [id number] Emergency [place] g:ED Repository 07/18/2018/ [id number] Ambulatory [place] 018 [facility] [place] Repository 07/18/2018/ [id number] Ambulatory [place] 018 [facility] [place] Repository 07/17/2018/ [id number] Ambulatory [place] 018 [facility] [place] Repository 07/17/2018/ [id number] Ambulatory [place] 018 [facility] [place] Repository 07/03/2018 [id number] Ambulatory [facility] g:LABSPEC Repository 07/03/2018/ [id number] Ambulatory [place] 018 [facility] [place] Repository 06/24/2018/ [id number] Ambulatory [place] 019 [facility] Main [place] Repository 06/19/2018/ [id number] Ambulatory BMSBuilding:BMS [place] 018 .[facility] Repository 06/13/2018/ [id number] ALFIE, Ambulatory Miah [place] 018 CARIDAD MERINO [facility] Repository 06/10/2018/ [id number] ALFIE, Ambulatory Miah [place] 018 CARIDAD [facility] Repository 04/25/2018/ [id number] DR JORDY HERNANDEZ Emergency [place] Miah [place] 018 C m: ERBed: Kody [facility] Repository 04/11/2018/ [id number] CORRINAI, Ambulatory Miah [place] 018 JOSSIE MERINO [facility] Repository 03/16/2018/ [id number] Emergency [address] g:ED Repository 03/15/2018/ [id number] Emergency [place] [address] MEDBuilding:ED [facility] Repository 03/14/2018/ [id number] Ambulatory [place] 018 [facility] Main [place] Repository 03/14/2018/ [id number] Ambulatory [place] 018 [facility] Repository 01/29/2018 [id number] Ambulatory [facility] g:LABSPEC Repository 01/29/2018/ [id number] Ambulatory BMSBuilding:BMS [place] 018 .[facility] Repository 01/24/2018/ [id number] KAROLINA LUCIA Emergency [place]in[place] Miah [place] 018 DO m: ERBed: [facility] Repository 12/31/2017/ [id number] Ambulatory [address] Repository 11/17/2017 [id number] MARCUS, Emergency [place]in[place]oo Miah Pomerene STEPHEN [place] m: ERBed: [facility] Repository 11/17/2017/ [id number] MARCUS, Emergency [place] Miah [place] 018 STEPHEN DO m: ERBed: [facility] Repository 08/26/2017/ [id number] SHARYN, Ambulatory Miah [place] 018 [facility] Repository PAYERS PAYERS ENCOUNTER GUARANTOR PAYER SUBSCRIBER SOURCE 07/30/2018 JESSICA Paiz MILLERDOB: Insurance[facility] [id number] Chain COMMERCIAL [id number] Repository OUTPAT[address], Number: [place], [place] [id number] [place] [id number]: Date:Plan Name: () 07/30/2018 JESSICA Jaime JESSICA Paiz MILLERDOB: Insurance:MIAMI MILLERDOB: [facility] HEALTHCARE COMMERCIAL [id number] Repository SR OUTPATIENTPolicy [address] [place] [address], Number: [place] [id number] [place] [id number]: Date:Plan Name: () 07/29/2018 JESSICA Primary JESSICA Paiz MILLERDOB: Insurance:MIAMI MILLERDOB: [facility] HEALTHCARE COMMERCIAL [id number] Repository SR OUTPATIENTPolicy [address] [place] [address], Number: [place] [id number] [place] [id number]: Date:Plan Name: () 07/29/2018 JESSICA Pizano [facility] [id number] SR Insurance[facility]: [place] [id number] [id number] Repository [place] [address]Siu: Number: [id number] () Date:6414-01-22UV [facility] [place] [address]FX: 07/29/2018 Secondary NOT GIVENUNK [facility] Insurance:SELF PAY Hospital INSURANCEPoly Repository Number: Effective Date:2018-07-29 07/03/2018 JESSICA A Primary JESSICA Pizano [facility] [id number] SR Insurance:[facility] MILLERDOB: [address] [id number] Repository [place] [address]Nrg: Number: [id number] () Date:8514-70-94DU [facility] [address], [place] [address]FY: 07/03/2018 Secondary NOT GIVENUNK [facility] Insurance:SELF PAY Hospital INSURANCEPoly Repository Number: Effective Date:2018-07-03 06/19/2018 JESSICA A Primary JESSICA Pizano [facility] [id number] SR Insurance:[facility] MILLERDOB: [address] [id number] Repository [place] [address]Ols: Number: [id number] (HP) Date:8186-29-47HM [address], [place] [address]HA: 06/19/2018 Secondary NOT GIVENUNK [facility] Insurance:SELF PAY Hospital INSURANCEPolicy Repository Number: Effective Date:2018-06-16 06/13/2018 JESSICA Primary JESSICA Paiz MILLERDOB: Insurance:MIAMI MILLERDOB: [facility] HEALTHCARE COMMERCIAL [id number] Repository SR OUTPATIENTPolicy [address], Number: [address] [id number] [place] [id number]: Date:Plan Name:U1 () 06/10/2018 JESSICA Primary JESSICA Paiz MILLERDOB: Insurance:UNITED MILLERDOB: [facility] HEALTHCARE COMMERCIAL [id number] Repository SR OUTPATIENTPolicy [address], Number: [address], [place] [id number] [place] [id number]: Date:Plan Name:U1 () 04/25/2018 JESSICA Primary JESSICA Paiz MILLERDOB: Insurance:UNITED MILLERDOB: [facility] HEALTHCARE COMMERCIAL [id number] OUTPATIENTPolicy [address], Number: [address], [place] [id number] [place] [id number]: Date:Plan Name:U1 () 04/11/2018 JESSICA Primary JESSICA Paiz MILLERDOB: Insurance:UNITED MILLERDOB: [facility] HEALTHCARE COMMERCIAL [id number] [place] [address], Number: [address], [place] [id number] [place] [id number]: Date:Plan Name:U1 (HP) 03/16/2018 JESSICA Pizano Primary JESSICA Pizano [facility] [id number] SR Insurance:[facility] MILLERDOB: [address] [id number] [id number] Repository [place] [address]Isi: Number: [id number] (HP) Date:3814-86-81LV [address], [place] [address]IQ: 03/16/2018 [facility]LF [facility]Y [facility] INSURANCEPolicy Repository Number: Effective Date:2018-03-16 03/15/2018 JESSICA A Primary JESSICA Harinder [facility] [id number] ST Insurance:UNITED MILLERDOB: [facility] Medical HEALTH CARE [id number] Center Repository [address] [place] [address]Htoikh Number: [address] [place] [address]Lsa: [id number] [address] [place] [address], Date: [address]EEHI [place] [address]Drh: (HP) [place] [address]WP: (992) (IH) [phone] 03/15/2018 Secondary JESSICA Harinder [facility] Insurance:FINANCIAL MILLERDOB: [facility] Medical [facility] [id number] Center Repository PENDINGPolicy Number: [address] [id number] [address] [place] [address], Date: [place] [address]Rxk: (HP) 01/29/2018 JESSICA A Primary JESSICA Pizano [facility] [id number] SR Insurance:[facility] MILLERDOB: [address] [id number] Repository [place] [address]Edk: Number: [id number] () Date:4940-51-42JS [address]BXHSXNB, [place] [address]DD: 01/29/2018 Secondary NOT GIVENUNK [facility] Insurance:SELF PAY Hospital INSURANCEPolicy Repository Number: Effective Date:2018-01-29 01/29/2018 JESSICA A Primary JESSICA Pizano Amos [facility] [id number] Insurance[facility] [id number] [id number] Repository [address] [place] [address], Number: [place] [id number]: [id number] Date:4858-76-68IJ [address] () [address]WJLVDGJ, [place] [address]LV: 01/29/2018 Secondary NOT GIVENUNK [facility] Insurance:SELF PAY Hospital INSURANCEPolicy Repository Number: Effective Date:2018-01-29 01/24/2018 JESSICA A Primary JESSICA Paiz MILLERDOB: [facility] HEALTHCARE COMMERCIAL [id number] [place] [address], Number: [address] [id number] [place] [id number]: Date:Plan Name:U1 () 11/17/2017 JESSICA Pizano Primary JESSICA Paiz MILLERDOB: Insurance[facility]: [facility] HEALTHCARE COMMERCIAL [id number] [place] [address], Number: [address], [place] [id number] [place] [id number]: Date:Plan Name:U1 () 08/26/2017 JESSICA A Primary JESSICA Paiz MILLERDOB: Insurance:[facility]: [facility] HEALTHCARE COMMERCIAL [id number] [place] [address], Number: [place], [place] [id number] [place] [id number]: Date:Plan Name: ()
== END ==
LOC: LABSPEC 16:14
PROVIDERS: Family Provider Family Medicine; PCP Student in an Organized Health Care Education/Training Program; Referring Provider Otolaryngology; Visit Provider Otolaryngology
DX: J02.9 Acute pharyngitis, unspecified (principal)
CPT/HCPCS: 87070

== ENCOUNTER 2018-07-29 20:14 | Emergency (ER) | payer OTHER, SELFPAY ==
[2018-06-19 16:56] VITALS: BMI 31.1
[2018-07-29 20:15] VITALS: BP 115/64; PULSE 100; RESP 15; TEMP 36.9; O2SAT 100; BMI 32.7
--- NOTE | 2018-07-29 21:44 | ED.RN ---
1ST CALL FOR PT TO GO BACK TO ROOM AT 2143, PT NOT IN ED.
== END 2018-07-29 21:56 | disposition left against medical advice (07) ==
LOC: ED 21:54
PROVIDERS: Emergency Provider Emergency Medicine; Family Provider Student in an Organized Health Care Education/Training Program; PCP Student in an Organized Health Care Education/Training Program
DX: R69 Illness, unspecified (principal); Z53.21 Procedure and treatment not carried out due to patient leaving prior to being seen by health care provider

== ENCOUNTER 2019-09-07 16:59 | Emergency (ER) | payer OTHER, SELFPAY ==
[2019-09-07 17:00] VITALS: BP 111/83; PULSE 111; RESP 18; TEMP 36.5; O2SAT 98; BMI 35.8
[2019-09-07 17:04] VITALS: BP 111/83
--- NOTE | 2019-09-07 17:11 | EKG12_ITS ---
Test Reason : CP Blood Pressure : / mmHG Vent. Rate : 118 BPM Atrial Rate : 118 BPM P-R Int : 132 ms QRS Dur : 082 ms QT Int : 316 ms P-R-T Axes : 048 012 050 degrees QTc Int : 442 ms Sinus tachycardia Otherwise normal ECG Confirmed by KOFI MERINO, WILMAR ([id number]), book or script editor MAXINE BRUNER ([id number]) on 09/09/2019 9:17:43 AM Referred By: NATALIIA Confirmed By:WILMAR KIRBY MD
--- NOTE | 2019-09-07 17:11 | RAD_ITS ---
STUDY: X-RAY CHEST REASON FOR EXAM: Female, 39 years old. Chest pain/pressure/burning TECHNIQUE: Single AP portable view of the chest. COMPARISON: 03/16/2018 FINDINGS: EKG leads overlie the chest The lungs are clear and expanded. There is no demonstrated pleural abnormality. Normal size heart. Normal mediastinum and galina. Normal visualized pulmonary arteries. Normal visualized aortic arch and descending thoracic aorta. Normal visualized thoracic spine. Normal visualized ribs, clavicles, and shoulders. There is no demonstrated abnormality of the visualized soft tissue structures of the upper abdomen. RAD/Chest 1 View (Portable) IMPRESSION: Normal x-ray examination of the chest. Electronically Signed: Deion Vásquez MD at 17:51 EST , Service support ,
--- NOTE | 2019-09-07 17:12 | ED.DCSUM_ITS ---
- ER Visit Summary Date of Service: 09/07/19 Chief Complaint: [Chest pain] History of Present Illness: The patient is a 39 F [presents the emergency department with complaint of chest pain that started this morning when she first woke up. Initially she felt like maybe was just indigestion so she took some Tums and some omeprazole which she just takes as needed but that did not offer her any relief. Patient apparently went to work and started having more discomfort and took more Tums and omeprazole again.] Patient describes the discomfort as pressure and sharp with bleeding. He does have a history of prior DVT years ago and is currently not anticoagulated. Denies recent travel or surgery. No family history of heart disease. Patient is a smoker. Physical Examination: [HEENT-PERRLA, EOMI. Cranial nerves II through XII grossly intact. TMs clear. Mucous membranes moist. No adenopathy. Cardiovascular-regular rate and rhythm without murmur or ectopy Lungs-clear to auscultation, chest wall stable without crepitus or subcu emphysema Abdomen-normoactive bowel sounds, soft, nontender, no rebound or rigidity, no peritoneal signs. Extremities-intact ?4, normal range of motion, normal pulses, atraumatic] Test Results: [EKG obtained relative sinus rhythm with a ventricular rate of 118 bpm with no acute ST segment changes.] CBC with differential showed a slight elevated white count 13.3, hemoglobin 12.6, hematocrit 39, platelet 251. Chemis tries unremarkable. Troponin is less than 1015. D-dimer was 0.39. Chest x-ray was normal. Emergency Department Course and Treatment: [Patient received sublingual nitro which really did not improve her pain. She received aspirin on arrival. She was given a GI cocktail.] Treatment Plan: [Patient is only thing for pain for home. Patient states pain is worse with movement and breathing at times. I do not feel a her symptoms from a cardiac etiology given that she is had symptoms essentially all day and has normal troponin and unremarkable EKG. Patient has a GEO risk score of 0.] I do not feel her symptoms consistent with PE especially given the negative d- dimer. Disposition: [Discharged home in stable condition] Impression: [Chest pain-etiology uncertain] This note was generated with [facility] software. It may contain incorrect words, spelling, and punctuation that were not noted in review of the chart prior to signing ED Disposition - Plan for ED Patient: Referrals: Jossie Leal MD [Primary Care Provider] -
[2019-09-07] MEDS: Aspirin 81 MG TAB.CHEW 324 MG PO (18:17)
[2019-09-07 18:18] VITALS: BP 132/84; PULSE 108
[2019-09-07] MEDS: Nitroglycerin SL (ED/IMG/CATH) 0.4 MG TABLET SUBLINGUAL (18:18)
[2019-09-07 18:49] LABS: Absolute Lymphocyte Count 2.75 X10^3/uL (0.83-4.51); Absolute Neutrophil Count 9.2 X10^3/uL (2.0-7.7); Basophil# 0.03 X10^3/uL; Basophil% 0.2 % (0-1); Eosinophil# 0.18 X10^3/uL; Eosinophils% 1.4 % (0-5); Hematocrit 38.7 % (37-47); Hemoglobin 12.6 g/dL (12.0-15.0); Lymphocyte # 2.75 X10^3/ul (4.0); Lymphocyte % 20.8 % (19-41); Mean Corp Hgb Conc 32.6 g/dL (32-36); Mean Corpuscular Hgb 28.4 pg (27.0-32.0); Mean Corpuscular Volume 87.2 fL (81-99); Mean Platelet Vol. 11.3 fl (6.2-12.0); Monocyte% 7.5 % (0-10); NRBC Flagged by Analyzer 0 % (0-5); Neutrophil # 9.24 X10^3/uL (2.7-7.7); Neutrophil % 69.7 % (47-70); Platelet Count 251 K/mm3 (150-450); RBC Distribution Width CV 13.5 % (11.6-14.6); Red Blood Count 4.44 M/mm3 (4.2-5.4); White Blood Count 13.3 K/mm3 (4.4-11.0)
[2019-09-07] MEDS: 0.9% Normal Saline 1,000 ML 150 ML IV (18:49)
--- NOTE | 2019-09-07 18:50 | ED.RN ---
PT REFUSES MORE NITRO. HAS HAD 2. PER BRANDY SHAW. PT STATES HAS A HEADACHE AND NO CHANGE IN HER PAIN. LABS OBTAINED BY LAB
[2019-09-07 18:52] VITALS: BP 124/75; PULSE 95; RESP 18; O2SAT 98
[2019-09-07 18:59] LABS: Erythrocyte Sedimentation Rate 26 mm/hr (0-20)
[2019-09-07 19:11] LABS: D-Dimer Quantitative (DVT/PE) 0.39 FEU/ug/m (0.27-0.49)
[2019-09-07 19:13] LABS: Anion Gap 7 (5-15); BUN 9 mg/dL (7-18); BUN/Creat Ratio 10.7 RATIO (10-20); Calcium,Total 9.3 mg/dL (8.5-10.1); Chloride 105 mmol/L (98-107); Creatinine, Serum 0.84 mg/dL (0.55-1.02); EST Glomerular Filtration Rate 79 mL/min (>60); Est Glom Filt Rate - Afr Amer 96 mL/min (>60); Estimated Creatinine Clearance 79.31 ml/min; Glucose 90 mg/dL (74-106); Potassium 3.8 mmol/L (3.5-5.1); Sodium Level 135 mmol/L (136-145)
--- NOTE | 2019-09-07 19:43 | ED.DEP ---
ED Disposition - Plan for ED Patient: Instructions: CHEST PAIN, Uncertain Cause Referrals: Jossie Leal MD [Primary Care Provider] - 3-5 Days
--- NOTE | 2019-09-07 19:50 | ED.DEP ---
ED Disposition - Plan for ED Patient: Instructions: CHEST PAIN, Uncertain Cause Prescriptions: GI Cocktail 30 ml PO X1 #1 bottle Prescription Printed Referrals: Jossie Leal MD [Primary Care Provider] - 3-5 Days
== END 2019-09-07 19:58 | disposition home or self-care (01) ==
LOC: ED 17:17
PROVIDERS: Emergency Provider Emergency Medicine; PCP Student in an Organized Health Care Education/Training Program
DX: R07.9 Chest pain, unspecified (principal); K50.90 Crohn's disease, unspecified, without complications; F17.200 Nicotine dependence, unspecified, uncomplicated
CPT/HCPCS: 36415; 71045; 80048; 84484; 85025; 85379; 85652; 93005; 96360; 99285; J7030; A4216

== ENCOUNTER 2020-12-20 19:24 | Inpatient (IN) | payer SELFPAY ==
[2020-12-20 19:26] VITALS: BP 136/85; PULSE 106; RESP 18; TEMP 36.7; O2SAT 98; BMI 25.0
--- NOTE | 2020-12-20 20:28 | EDS_ITS ---
HPI History of Present Illness Chief Complaint: Substance Abuse Informant: patient Onset/Context/Timing Onset: Month(s) Narrative Narrative: Patient presents requesting admission to the detox program. She has been snorting fentanyl for the last 4 months and would like to go to the detox program to help her stop. She has been in counseling a couple times a month but states she needs more assistance than this. Last use was at noon today. [facility] Medical History (Updated 12/20/20 @ 21:[address] Nella Denson MD) Abdominal pain despite therapy for Crohn's disease Cancer of appendix Crohns disease Home Medications aripiprazole 2 mg PO DAILY 09/07/19 [History Last Taken Unknown] clonazepam 0.5 mg PO QHS PRN PRN 09/07/19 [History Last Taken Unknown] citalopram [Celexa] 10 mg PO DAILY 12/20/20 [History Last Taken Unknown] propranolol [Inderal] 20 mg PO DAILY 12/20/20 [History Last Taken Unknown] Allergy/AdvReac Type Severity Reaction Status Date / Time levofloxacin [From Levaquin] AdvReac Severe Other Verified 12/20/20 19:25 stitches AdvReac Intermediate stitches Uncoded 12/20/20 19:25 do not dissolve. 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 ROS ROS ED Constitutional Constitutional ED: Denies chills or fever(s) Eyes Eyes: Denies change in vision ENT ENT ED: Denies sore throat Cardiovascular Cardiovascular: Denies chest pain Respiratory/Chest Respiratory/Chest: Denies cough or dyspnea Gastrointestinal Gastrointestinal: Denies abdominal pain, diarrhea, nausea or vomiting Genitourinary Genitourinary ED: Denies dysuria Musculoskeletal Musculoskeletal: Denies back pain Integumentary Denies rash Neurologic Neurologic: Denies headache(s) or weakness Psychiatric Psychiatric: Denies anxiety or depression Endocrine Endocrinology: Denies polydipsia or polyuria Allergic/Immunologic Allergic/Immunologic ED: Denies urticaria EXAM Physical Exam Const Vital Signs: 12/20/20 19:26 Temperature 98.1 F Temperature Source Temporal Pulse Rate 106 H Respiratory Rate 18 Blood Pressure 136/85 H Blood Pressure Mean 102 Pulse Ox 98 Oxygen Delivery Method Room Air Positive well nourished and well developed General Appearance ED: well developed Eyes PERRL and EOMs intact bilaterally Neck supple Chest Wall inspection of chest normal and palpation of chest normal Resp normal respiratory effort and clear to auscultation bilaterally Cardio regular rate and regular rhythm GI soft to palpation and non-distended Neuro oriented x3 Sensorium / Orientation: alert Psych Mood & Affect: anxious and tearful Skin Lesions: no lesions Rashes: no rashes MDM MDM MDM Narrative Medical decision making narrative: Patient signed the agreement for the detox unit. Addiction medicine labs were obtained. Lab Data Labs: Laboratory Results - last 24 hr 12/20/20 12/20/20 12/20/20 19:30 20:36 20:36 WBC 8.9 RBC 4.20 Hgb 10.5 L Hct 35.1 L MCV 83.6 MCH 25.0 L MCHC 29.9 L RDW Std Deviation 49.6 H RDW Coeff of Nneka 16.5 H Plt Count 330 MPV 10.9 Immature Gran % (Auto) 0.300 Neut % (Auto) 55.5 Lymph % (Auto) 31.1 Jessamine % (Auto) 8.9 Eos % (Auto) 3.7 Baso % (Auto) 0.5 Absolute Neuts (auto) 4.9 Absolute Lymphs (auto) 2.75 Nucleated RBC % 0 Sodium Potassium Chloride Carbon Dioxide Anion Gap BUN Creatinine Estim Creat Clear Calc Est GFR (MDRD) Af Amer Est GFR (MDRD) Non-Af BUN/Creatinine Ratio Glucose Calcium Total Bilirubin AST ALT Alkaline Phosphatase Total Protein Albumin Globulin Albumin/Globulin Ratio Serum , Qual NEGATIVE Urine Opiates Screen NEGATIVE Urine Methadone Screen NEGATIVE Ur Barbiturates Screen NEGATIVE Ur Phencyclidine Scrn NEGATIVE Ur Amphetamines Screen POSITIVE H U Methamphetamin-MDMA NEGATIVE U Benzodiazepines Scrn NEGATIVE Urine Cocaine Screen POSITIVE H U Cannabinoids Screen NEGATIVE Ur Drug Screen Comment Ethyl Alcohol 12/20/20 12/20/20 20:36 20:36 WBC RBC Hgb Hct MCV MCH MCHC RDW Std Deviation RDW Coeff of Nneka Plt Count MPV Immature Gran % (Auto) Neut % (Auto) Lymph % (Auto) Jessamine % (Auto) Eos % (Auto) Baso % (Auto) Absolute Neuts (auto) Absolute Lymphs (auto) Nucleated RBC % Sodium 138 Potassium 3.9 Chloride 104 Carbon Dioxide 28.0 Anion Gap 6 BUN 6 L Creatinine 0.72 Estim Creat Clear Calc 91.59 Est GFR (MDRD) Af Amer 113 Est GFR (MDRD) Non-Af 94 BUN/Creatinine Ratio 8.3 L Glucose 89 Calcium 8.9 Total Bilirubin 0.20 AST 16 ALT 17 Alkaline Phosphatase 88 Total Protein 7.7 Albumin 3.9 Globulin 3.8 Albumin/Globulin Ratio 1.0 Serum , Qual Urine Opiates Screen Urine Methadone Screen Ur Barbiturates Screen Ur Phencyclidine Scrn Ur Amphetamines Screen U Methamphetamin-MDMA U Benzodiazepines Scrn Urine Cocaine Screen U Cannabinoids Screen Ur Drug Screen Comment Ethyl Alcohol < 3.0 Treatment and Re-Evaluation Comments:: Patient will be discussed with the hospitalist for admission. Discharge Plan Dx/Rx/DC Orders Clinical Impression: Desire for detoxification Disposition Disposition: Acute Care [facility]
[2020-12-20 20:45] LABS: Absolute Lymphocyte Count 2.75 X10^3/uL (0.83-4.51); Absolute Neutrophil Count 4.9 X10^3/uL (2.0-7.7); Basophil# 0.04 X10^3/uL; Basophil% 0.5 % (0-1); Eosinophil# 0.33 X10^3/uL; Eosinophils% 3.7 % (0-5); Hematocrit 35.1 % (37-47); Hemoglobin 10.5 g/dL (12.0-15.0); Lymphocyte # 2.75 X10^3/ul (0.83-4.51); Lymphocyte % 31.1 % (19-41); Mean Corp Hgb Conc 29.9 g/dL (32-36); Mean Corpuscular Volume 83.6 fL (81-99); Mean Platelet Vol. 10.9 fl (6.2-12.0); Monocyte# 0.79 X10^3/uL; Monocyte% 8.9 % (0-10); NRBC Flagged by Analyzer 0 % (0-5); Neutrophil # 4.91 X10^3/uL (2.7-7.7); Neutrophil % 55.5 % (47-70); Platelet Count 330 K/mm3 (150-450); RBC Distribution Width CV 16.5 % (11.6-14.6); RBC Distribution Width SD 49.6 fl (35.1-43.9); White Blood Count 8.9 K/mm3 (4.4-11.0)
[2020-12-20 21:03] LABS: Internal QC Validated? YES +Cl - CLEAR BKGD; Pregnancy, Serum, hCG Quali. NEGATIVE Negative
[2020-12-20 21:08] LABS: AST(SGOT) 16 U/L (15-37); Alanine Aminotransfer ALT/SGPT 17 U/L (13-56); Albumin, Serum 3.9 g/dL (3.2-5.0); Alkaline Phosphatase 88 U/L (45-117); Anion Gap 6 (5-15); BUN 6 mg/dL (7-18); BUN/Creat Ratio 8.3 RATIO (10-20); Calcium,Total 8.9 mg/dL (8.5-10.1); Chloride 104 mmol/L (98-107); Creatinine, Serum 0.72 mg/dL (0.55-1.02); EST Glomerular Filtration Rate 94 mL/min (>60); Est Glom Filt Rate - Afr Amer 113 mL/min (>60); Estimated Creatinine Clearance 91.59 ml/min; Globulin 3.8 g/dL (2.2-4.2); Glucose 89 mg/dL (74-106); Potassium 3.9 mmol/L (3.5-5.1); Protein, Total 7.7 g/dL (6.4-8.2); Sodium Level 138 mmol/L (136-145)
[2020-12-20 21:10] LABS: Amphetamine Urine VISTA POSITIVE (<1000 ng/mL); Barbiturate Urine VISTA NEGATIVE (< 200 ng/mL); Benzodiazepine Urine VISTA NEGATIVE (< 200 ng/mL); Cocaine Urine VISTA POSITIVE (< 300 ng/mL); Ecstacy Urine VISTA NEGATIVE (< 500 ng/mL); Methadone Urine VISTA NEGATIVE (< 300 ng/mL); PCP Urine VISTA NEGATIVE (< 25 ng/mL); THC Urine VISTA NEGATIVE (< 50 ng/mL); Vista UDS pH Range 6
[2020-12-20 21:24] LABS: Alcohol, Blood (Medical)-Serum < 3.0 mg/dL
--- NOTE | 2020-12-20 21:52 | CM.ED ---
YESICA Note Referral Source: Case Find. Patient requesting detox Referral Reason: RAMP admission SW met with patient. Reviewed [facility] program and that patient's belongings will be locked and secure, no phone and no visitors. Patient said that she was aware of the program and had signed the contract. Patient reports she has used fentanyl for 4 months. Patient said that she has been trying to wean myself off for the last few days. Patient said she was using 3/4 of a gram of fentanyl. Patient said that she receives counseling through [facility]. Patient said that she would like Intensive Outpatient Program (IOP) at discharge. Patient talked about doing this for her family. Patient plans to move back with her family in [place]. Patient asked if anxiety was normal prior to admission to [facility]. Patient also referenced history of PTSD and she medicated by using drugs. Patient appreciative of support. YESICA called Oanh at [facility] and made referral to the Treatment Navigator Program Plan: [facility] admission Brittni CLEMENTE
[2020-12-20 22:00] VITALS: RESP 17
[2020-12-20 22:07] VITALS: BP 142/89; PULSE 96; RESP 18; TEMP 36.6; O2SAT 99
--- NOTE | 2020-12-20 22:55 | HP.PCM.HOS_ITS ---
HPI - General General Date of Admission: 12/20/20 Date of Service: 12/20/20 Chief Complaint: Opioid withdrawal HPI Narrative BRANDON JIANG, is a 40 F who presents to the emergency room at [facility] requesting services for opioid detox, patient uses fentanyl on a daily basis-she states she has been trying to cut down the amounts but she uses it at least twice a day, she does not inject illicit drugs. Patient states that for a time she was also using methamphetamines but she has not used any in the last month. Patient complains of generalized anxiety and nervousness at this time, she does not complain of any nausea or diarrhea. Lab work obtained on the patient was remarkable for hemoglobin of 10.5, chemistry profile was unremarkable, patient's talk screen was positive for amphetamines and cocaine. When I talked with the patient at the time of my examination, she denied knowingly using amphetamines or cocaine. Patient has a history of Crohn's disease but does not currently use any medications for this, she had in the past been on injectable medications for Crohn's. Patient will be admitted to [place] [id number] under the opiate detox program, order sets were entered using the standard order sets. [facility] Medical History (Updated 12/20/20 @ 23:[address] Rigoberto Julian, ) Abdominal pain despite therapy for Crohn's disease Cancer of appendix Crohns disease Home Medications aripiprazole 2 mg PO DAILY 09/07/19 [History Last Taken Unknown] clonazepam 0.5 mg PO QHS PRN PRN 09/07/19 [History Last Taken Unknown] citalopram [Celexa] 10 mg PO DAILY 12/20/20 [History Last Taken Unknown] propranolol [Inderal] 20 mg PO DAILY 12/20/20 [History Last Taken Unknown] Allergy/AdvReac Type Severity Reaction Status Date / Time levofloxacin [From Levaquin] AdvReac Severe Other Verified 12/20/20 19:25 stitches AdvReac Intermediate stitches Uncoded 12/20/20 19:25 do not dissolve. They need taken out Family History Father Hypertension Grandmother Breast cancer Mother Hypertension Surgical History Gallbladder & bile duct stone with obstruction History of appendectomy leg surgery Social History Smoking Status: Current every day smoker tobacco type: cigarettes alcohol intake: never substance use type: does not use what type of physical activity do you participate in: none seatbelt use: always do you feel safe at home: Yes additional social history: employed by [employer] boyfriend - Lorenzo [employer] ROS Constitutional Constitutional: Denies anorexia, change in weight, fever(s), night sweats or weakness Eyes Eyes: Denies blurry vision, change in vision, discharge from eye(s) or eye pain Cardiovascular Cardiovascular: Denies chest pain, claudication, edema or palpitations Respiratory/Chest Respiratory/Chest: Denies cough, hemoptysis, shortness of breath at rest or shortness of breath with exertion Gastrointestinal Gastrointestinal: Denies abdominal pain, constipation, diarrhea, hematemesis, hematochezia, melena, nausea or vomiting Genitourinary Genitourinary: Denies dysuria, hematuria, urinary frequency, urinary hesitancy, urinary incontinence or urinary urgency Musculoskeletal Musculoskeletal: Reports myalgias; Denies back pain, joint pain, joint stiffness, joint swelling or neck pain Neurologic Neurologic: Denies abnormal gait, abnormal speech, dizziness, focal weakness, headache(s), loss of vision, numbness, other visual disturbances, paresthesias, syncope or tingling Psychiatric Psychiatric: Reports anxiety and other; Denies cognitive impairment, depression, irritability, mood swings or suicidal ideation Endocrine Endocrinology: Denies change in body appearance, cold intolerance, excessive sweating, heat intolerance, polydipsia or polyuria Hematologic/Lymphatic Hematologic/Lymphatic: Denies none, anemia, easy bleeding, easy bruising or lymphadenopathy Allergic/Immunologic Allergic/Immunologic: Denies rhinitis, urticaria, eczemia or asthma Vital Signs Vital Signs Vital Signs: 12/20/20 19:26 12/20/20 22:00 12/20/20 22:07 Temperature 98.1 F 97.8 F Temperature Source Temporal Temporal Pulse Rate 106 H 96 Respiratory Rate 18 17 18 Blood Pressure 136/85 H 142/89 H Blood Pressure Mean 102 106 Pulse Ox 98 99 Oxygen Delivery Method Room Air Room Air Room Air Weight Weight: 68.039 kg Body Mass Index (BMI) 25.0 Physical Exam Const alert, oriented x3 and healthy appearing Constitutional Narrative: Patient appears mildly anxious at the time of my examination General Appearance: cooperative, well kempt and well developed Orientation / Consciousness: awake, oriented to person, oriented to place and oriented to time HEENT normocephalic, head/scalp atraumatic, hearing grossly normal bilaterally and moist oral mucous membranes Eyes PERRL, EOMs intact bilaterally and conjunctivae normal Neck nuchal rigidity, supple, no JVD, thyroid normal and no carotid bruits General: trachea midline Resp normal respiratory effort, no retractions, no use of accessory muscles and clear to auscultation bilaterally Auscultation: Negative for rales, rhonchi or wheezes Cardio regular rate, regular rhythm, S1 normal heart sound, S2 normal heart sound, no murmurs, no rub and no gallops GI normal to inspection, nondistended, normoactive bowel sounds, soft to palpation, non-tender and non-distended Extremity normal to inspection, full ROM and no clubbing, cyanosis or edema Skin no rashes or lesions noted, skin turgor normal and no jaundice General Skin Exam: no breakdown Neuro oriented x3, CN's II-XII intact bilaterally, no focal motor deficits and no sensory deficits noted Sensorium / Orientation: awake and alert Speech: speech normal Psych thought process normal Mood & Affect: anxious Lab / Micro Data Result Diagrams: 12/20/20 20:36 12/20/20 20:36 Labs: Laboratory Results - last 24 hr 12/20/20 12/20/20 12/20/20 19:30 20:36 20:36 WBC 8.9 RBC 4.20 Hgb 10.5 L Hct 35.1 L MCV 83.6 MCH 25.0 L MCHC 29.9 L RDW Std Deviation 49.6 H RDW Coeff of Nneka 16.5 H Plt Count 330 MPV 10.9 Immature Gran % (Auto) 0.300 Neut % (Auto) 55.5 Lymph % (Auto) 31.1 [place] % (Auto) 8.9 Eos % (Auto) 3.7 Baso % (Auto) 0.5 Absolute Neuts (auto) 4.9 Absolute Lymphs (auto) 2.75 Nucleated RBC % 0 Sodium Potassium Chloride Carbon Dioxide Anion Gap BUN Creatinine Estim Creat Clear Calc Est GFR (MDRD) Af Amer Est GFR (MDRD) Non-Af BUN/Creatinine Ratio Glucose Calcium Total Bilirubin AST ALT Alkaline Phosphatase Total Protein Albumin Globulin Albumin/Globulin Ratio Serum , Qual NEGATIVE Urine Opiates Screen NEGATIVE Urine Methadone Screen NEGATIVE Ur Barbiturates Screen NEGATIVE Ur Phencyclidine Scrn NEGATIVE Ur Amphetamines Screen POSITIVE H U Methamphetamin-MDMA NEGATIVE U Benzodiazepines Scrn NEGATIVE Urine Cocaine Screen POSITIVE H U Cannabinoids Screen NEGATIVE Ur Drug Screen Comment Ethyl Alcohol 12/20/20 12/20/20 20:36 20:36 WBC RBC Hgb Hct MCV MCH MCHC RDW Std Deviation RDW Coeff of Nneka Plt Count MPV Immature Gran % (Auto) Neut % (Auto) Lymph % (Auto) [place] % (Auto) Eos % (Auto) Baso % (Auto) Absolute Neuts (auto) Absolute Lymphs (auto) Nucleated RBC % Sodium 138 Potassium 3.9 Chloride 104 Carbon Dioxide 28.0 Anion Gap 6 BUN 6 L Creatinine 0.72 Estim Creat Clear Calc 91.59 Est GFR (MDRD) Af Amer 113 Est GFR (MDRD) Non-Af 94 BUN/Creatinine Ratio 8.3 L Glucose 89 Calcium 8.9 Total Bilirubin 0.20 AST 16 ALT 17 Alkaline Phosphatase 88 Total Protein 7.7 Albumin 3.9 Globulin 3.8 Albumin/Globulin Ratio 1.0 Serum , Qual Urine Opiates Screen Urine Methadone Screen Ur Barbiturates Screen Ur Phencyclidine Scrn Ur Amphetamines Screen U Methamphetamin-MDMA U Benzodiazepines Scrn Urine Cocaine Screen U Cannabinoids Screen Ur Drug Screen Comment Ethyl Alcohol < 3.0 Assessment & Plan Assessment/Plan (1) Desire for detoxification: PLAN: 1. Acute opioid withdrawal-patient will be admitted to [facility], she will be seen by addiction aids social worker and medications were ordered using the opiate detox order set #2 Crohn's disease by history-patient is currently stable #3 anxiety and depression Visit Charges Inpatient E&M: 53660 Init Hosp L3
[2020-12-20 23:02] VITALS: BMI 27.3
[2020-12-20 23:15] VITALS: BP 122/69; PULSE 75; RESP 16; TEMP 36.4; O2SAT 100
[2020-12-20] MEDS: Methocarbamol 750 MG Tablet 1500 MG PO (23:39)
[2020-12-20] MEDS: Buprenorphine HCl 2 MG TAB.SUBL SL (23:39)
[2020-12-21] VITALS (7 sets, daily range): BP systolic 121–155; BP diastolic 64–78; PULSE 72–99; RESP 16–18; TEMP 36.6–36.9; O2SAT 97–100
[2020-12-21] MEDS: hydrOXYzine PAM 25 MG Capsule 50 MG PO ×2 (01:09→08:09)
[2020-12-21] MEDS: Dicyclomine 10 MG Capsule 20 MG PO ×3 (01:10→22:00)
[2020-12-21] MEDS: traZODone 100 MG Tablet PO ×2 (01:43→23:27)
[2020-12-21] MEDS: cloNIDine HCl 0.1 MG Tablet PO ×3 (01:46→23:27)
[2020-12-21] MEDS: Gabapentin 400 MG Capsule PO (02:47)
[2020-12-21] MEDS: Buprenorphine HCl 2 MG TAB.SUBL SL (06:35)
--- NOTE | 2020-12-21 07:49 | PN.HOSP_ITS ---
Subjective Subjective Patient seen and examined. She was very restless and thrashing about in bed and complained of abdominal pain and cramping, anxiety and generally not feeling well which she said was due to the withdrawal. She also thought was due to the dose of Subutex that she received. Review of systems otherwise negative. Objective Data Objective Data Vital Signs: Vital Signs Temp Pulse Resp BP Pulse Ox 98.5 F 84 18 121/67 H 98 12/21/20 06:33 12/21/20 06:33 12/21/20 06:33 12/21/20 06:33 12/21/20 06:33 Oxygen Delivery Method Room Air Weight: 164 lb 0.383 oz Body Mass Index (BMI) 27.3 Intake & Output: Intake and Output for Last 24 Hours 12/19/20 12/20/20 12/21/20 23:59 23:59 23:59 Intake Total 800 / 800 Balance 800 / 800 Lab / Micro Data Result Diagrams: 12/20/20 20:36 12/20/20 20:36 Labs: Laboratory Results - last 24 hr 12/20/20 12/20/20 12/20/20 19:30 20:36 20:36 WBC 8.9 RBC 4.20 Hgb 10.5 L Hct 35.1 L MCV 83.6 MCH 25.0 L MCHC 29.9 L RDW Std Deviation 49.6 H RDW Coeff of Nneka 16.5 H Plt Count 330 MPV 10.9 Immature Gran % (Auto) 0.300 Neut % (Auto) 55.5 Lymph % (Auto) 31.1 [place] % (Auto) 8.9 Eos % (Auto) 3.7 Baso % (Auto) 0.5 Absolute Neuts (auto) 4.9 Absolute Lymphs (auto) 2.75 Nucleated RBC % 0 Sodium Potassium Chloride Carbon Dioxide Anion Gap BUN Creatinine Estim Creat Clear Calc Est GFR (MDRD) Af Amer Est GFR (MDRD) Non-Af BUN/Creatinine Ratio Glucose Calcium Total Bilirubin AST ALT Alkaline Phosphatase Total Protein Albumin Globulin Albumin/Globulin Ratio Serum , Qual NEGATIVE Urine Opiates Screen NEGATIVE Urine Methadone Screen NEGATIVE Ur Barbiturates Screen NEGATIVE Ur Phencyclidine Scrn NEGATIVE Ur Amphetamines Screen POSITIVE H U Methamphetamin-MDMA NEGATIVE U Benzodiazepines Scrn NEGATIVE Urine Cocaine Screen POSITIVE H U Cannabinoids Screen NEGATIVE Ur Drug Screen Comment Ethyl Alcohol 12/20/20 12/20/20 20:36 20:36 WBC RBC Hgb Hct MCV MCH MCHC RDW Std Deviation RDW Coeff of Nneka Plt Count MPV Immature Gran % (Auto) Neut % (Auto) Lymph % (Auto) [place] % (Auto) Eos % (Auto) Baso % (Auto) Absolute Neuts (auto) Absolute Lymphs (auto) Nucleated RBC % Sodium 138 Potassium 3.9 Chloride 104 Carbon Dioxide 28.0 Anion Gap 6 BUN 6 L Creatinine 0.72 Estim Creat Clear Calc 91.59 Est GFR (MDRD) Af Amer 113 Est GFR (MDRD) Non-Af 94 BUN/Creatinine Ratio 8.3 L Glucose 89 Calcium 8.9 Total Bilirubin 0.20 AST 16 ALT 17 Alkaline Phosphatase 88 Total Protein 7.7 Albumin 3.9 Globulin 3.8 Albumin/Globulin Ratio 1.0 Serum , Qual Urine Opiates Screen Urine Methadone Screen Ur Barbiturates Screen Ur Phencyclidine Scrn Ur Amphetamines Screen U Methamphetamin-MDMA U Benzodiazepines Scrn Urine Cocaine Screen U Cannabinoids Screen Ur Drug Screen Comment Ethyl Alcohol < 3.0 Physical Exam Const alert and oriented x3 Constitutional Narrative: Patient anxious, thrashing around in bed. Exam Limitations: no limitations HEENT head/scalp atraumatic, moist oral mucous membranes and oropharynx normal Head and Scalp: normocephalic Eyes PERRL, EOMs intact bilaterally and conjunctivae normal Neck no lymphadenopathy Resp normal respiratory effort, no retractions, no use of accessory muscles and clear to auscultation bilaterally Cardio regular rate, regular rhythm, S1 normal heart sound, S2 normal heart sound and no murmurs GI normal to inspection, nondistended, normoactive bowel sounds, soft to palpation, non-tender and non-distended Extremity normal to inspection, full ROM and no clubbing, cyanosis or edema Peripheral Pulses: Yes pulses 2+ throughout Skin no rashes or lesions noted Neuro oriented x3 and moves all extremities Neuro Narrative: agitated, anxious, thrashing about in bed Sensorium / Orientation: awake and alert Psych Psych Narrative: agitated Mood & Affect: anxious Assessment & Plan Assessment/Plan (1) Desire for detoxification: PLAN: #Acute opioid withdrawal * Patient is very agitated due to withdrawal. * On alcohol withdrawal protocol with buprenorphine. * Monitor CI NA score * #History of Crohn's disease: Stable. States he is currently undergoing medication. #Anxiety and depression: On citalopram and aripiprazole #Nicotine dependence: Counseled to quit. Nicotine patch 21 mg daily. DVT prophylaxis: Low risk. Encourage ambulation. Visit Charges Inpatient E&M: 08808 Subs Hosp L2
[2020-12-21] MEDS: Ondansetron 8 MG Tablet PO ×2 (07:59→15:10)
[2020-12-21] MEDS: Loperamide 2 MG Capsule PO (08:09)
--- NOTE | 2020-12-21 09:51 | ADDICTION ---
This handbook writer met with PT to conduct ASAM, MSE, DUDIT assessments and to plan for d/c. PT was withdrawn and expressed not feeling well but was agreeable to speaking with this handbook writer. Prior to completing client's ASAM assessment and d/c plan, PT fell asleep and did not rouse to 3 verbal attempts to rouse her. This handbook writer will attempt to meet with PT on 12/22/20 to complete assessments and d/c plan.
[2020-12-21] MEDS: proMETHazine 25 MG/ML Syringe 12.5 MG IM (09:53)
--- NOTE | 2020-12-21 10:22 | CASEMGMT ---
Social Work Note Pt is RAMP pt and listed as self-pay. SW in to speak with pt. Pt states she has pending medicaid, applied for Medicaid last week. Pt states she is currently unemployed. Pt is resident of [place], [place]. SW unable to provide pt with [facility]. Pt denied any financial concerns at this time. Pt denied wanting any financial resources. 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
[2020-12-21] MEDS: Methocarbamol 750 MG Tablet 1500 MG PO ×2 (15:10→21:59)
[2020-12-21] MEDS: Acetaminophen 500 MG Tablet PO (15:10)
--- NOTE | 2020-12-21 21:51 | NURSING ---
pt states she will not be taking Subutex
[2020-12-22 04:06] VITALS: BP 133/80; PULSE 86; RESP 16; TEMP 37.1; O2SAT 98
[2020-12-22] MEDS: Methocarbamol 750 MG Tablet 1500 MG PO (04:11)
[2020-12-22 08:12] VITALS: BP 132/78; PULSE 70; RESP 18; TEMP 36.9; O2SAT 98
--- NOTE | 2020-12-22 09:50 | ADDICTION ---
This assembly instructions writer met with PT to finalize assessments and d/c plan. PT A+Ox4 and participated appropriately. All assessments completed, faxed to [facility] and placed in PT's chart. PT to f/u with [facility] for IOP post d/c from [facility]. PT requesting to leave AMA today, charge nurse informed.
--- NOTE | 2020-12-22 12:07 | PCM.DC.SUM ---
Providers Date of Admission: 12/20/20 Primary Care Physician: No Primary Care Phys Reason For Visit: OPIOD WITHDRAWAL Diagnosis Discharge Diagnosis (1) Desire for detoxification: Status: Acute Medications at Discharge Home Medications aripiprazole 2 mg PO DAILY 09/07/19 clonazepam 0.5 mg PO QHS PRN PRN 09/07/19 citalopram [Celexa] 10 mg PO DAILY 12/20/20 propranolol [Inderal] 20 mg PO DAILY PRN PRN 12/20/20 Hospital Course Operations None Procedures None Summary of Care Provided Minutes Spent on Discharge: 35 Hospital Course: Patient is a 40-year-old female with past medical history as outlined was admitted through the ED on 12/20/2020 for opiate detoxification. Patient is uses fentanyl on a daily basis and says she has been trying to cut down the amount she used but still use it at least twice daily. She had also been using amphetamines though she says she had not used any of that in the last month prior to admission. Her urine tox was positive for amphetamines and cocaine. She was admitted to be managed for acute opiate withdrawal and was started on opiate withdrawal protocol with buprenorphine. Patient said the Subutex made her more restless and gave her abdominal pain so she refused to use the Subutex during admission. Patient remained restless throughout admission and requested to be discharged home on 12/22/2020. She was counseled that she had not completed the minimum 3-day course for detox. Patient signed out AGAINST MEDICAL ADVICE on 12/22/2020. Patient was seen and examined prior to discharge. She was restless and well in wound in bed. She asked to be discharged as written above. She was told that she had to stay for the 3 days. Review of symptoms otherwise negative. Patient signed out AGAINST MEDICAL ADVICE. Physical Exam Const alert, oriented x3 and healthy appearing Constitutional Narrative: Patient anxious, thrashing around in bed. General Appearance: cooperative, well kempt and well developed Orientation / Consciousness: awake, oriented to person, oriented to place and oriented to time Exam Limitations: no limitations HEENT normocephalic, head/scalp atraumatic, hearing grossly normal bilaterally, moist oral mucous membranes and oropharynx normal Eyes PERRL, EOMs intact bilaterally and conjunctivae normal Neck nuchal rigidity, no lymphadenopathy, supple, no JVD, thyroid normal and no carotid bruits General: trachea midline Resp normal respiratory effort, no retractions, no use of accessory muscles and clear to auscultation bilaterally Auscultation: Negative for rales, rhonchi or wheezes Cardio regular rate, regular rhythm, S1 normal heart sound, S2 normal heart sound, no murmurs and no rub GI normal to inspection, nondistended, normoactive bowel sounds, soft to palpation, non-tender and non-distended Extremity normal to inspection, full ROM and no clubbing, cyanosis or edema Skin no rashes or lesions noted, skin turgor normal and no jaundice General Skin Exam: no breakdown Neuro oriented x3, CN's II-XII intact bilaterally, moves all extremities, no focal motor deficits and no sensory deficits noted Neuro Narrative: agitated, anxious, thrashing about in bed Sensorium / Orientation: awake and alert Speech: speech normal Psych thought process normal Psych Narrative: agitated Mood & Affect: anxious ABG / Lab / Microbiology Data Result Diagrams: 12/20/20 20:36 12/20/20 20:36 Meaningful Use Info Meaningful Use Diagnoses (Choose all that apply): None applicable Discharge Plan Admission Admit Date/Time: 12/20/20 22:38 Attending Provider: Louise Avitia Primary Care Provider: Care Physician,Katie Primary Discharge Orders/Prescriptions Prescriptions: No Action clonazepam 0.5 MG tablet 0.5 mg PO QHS PRN PRN (Reason: Anxiety) RF: 0 aripiprazole 2 MG tablet 2 mg PO DAILY RF: 0 citalopram [Celexa] 10 mg Tablet 10 mg PO DAILY RF: 0 propranolol [Inderal] 20 mg Tablet 20 mg PO DAILY PRN PRN (Reason: anxiety ) RF: 0 Referrals / Follow Up: Care Physician,No Primary [Primary Care Provider] - Disposition Disposition (needs filled in before D/C Order can be placed): Against Medical Advice
== END 2020-12-22 10:58 | disposition left against medical advice (07) | DRG 894 ==
LOC: ED 21:42 → MS3 12-21 02:52
PROVIDERS: Admitting Provider Internal Medicine; Emergency Provider Emergency Medicine; Visit Provider Student in an Organized Health Care Education/Training Program
DX: F11.23 Opioid dependence with withdrawal (principal); K50.90 Crohn's disease, unspecified, without complications; F15.90 Other stimulant use, unspecified, uncomplicated; Z53.29 Procedure and treatment not carried out because of patient's decision for other reasons; F41.1 Generalized anxiety disorder; F32.9 Major depressive disorder, single episode, unspecified; F17.210 Nicotine dependence, cigarettes, uncomplicated; Z79.899 Other long term (current) drug therapy; Z85.038 Personal history of other malignant neoplasm of large intestine
CPT/HCPCS: 36415; 80053; 80307; 82077; 84703; 85025; 99283; 99406

== ENCOUNTER 2021-05-09 04:40 | Emergency (ER) | payer MEDICAID, SELFPAY ==
[2021-05-09 04:41] VITALS: BP 153/89; PULSE 67; RESP 18; TEMP 36.2; O2SAT 100; BMI 26.2
--- NOTE | 2021-05-09 05:00 | EDS_ITS ---
HPI HPI - GI History of Present Illness Chief Complaint: Abd Pain Narrative Narrative: 40-year-old female presenting with abdominal pain, nausea, vomiting since yesterday. She states she usually takes Phenergan and Zofran and this relieves her symptoms. It is not currently. She states he has a history of Crohn's. She states she has a GI doctor but has not seen her recently. She also states she has GERD but is not on a PPI long-term. She states that her her doctor does not want her on a PPI long-term. Patient not complaining of diarrhea. No urinary complaints. Patient has not had a fever. Patient relates that she recently detoxed from narcotics and does not want narcotic pain control. PFSH PFSH Medical History Abdominal pain despite therapy for Crohn's disease Anxiety Cancer Cancer of appendix Crohns disease Depression DVT (deep venous thrombosis) Smoker Substance abuse Home Medications clonazepam 0.5 mg PO QHS PRN PRN 09/07/19 [History Last Taken 12/06/20] citalopram [Celexa] 40 mg PO DAILY 12/20/20 [History Last Taken 12/20/20] clonazepam 05/09/21 [History Last Taken Unknown] ondansetron 4 mg PO Q8H PRN PRN #20 tab 05/09/21 [Rx Last Taken Unknown] Allergy/AdvReac Type Severity Reaction Status Date / Time levofloxacin [From Levaquin] AdvReac Severe Other Verified 12/20/20 19:25 stitches AdvReac Intermediate stitches Uncoded 12/20/20 19:25 do not dissolve. 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 [facility] ROS ED Constitutional Constitutional ED: Denies chills, fever(s) or sweats Eyes Eyes: Denies blurry vision or change in vision ENT ENT ED: Denies ear pain or sore throat Cardiovascular Cardiovascular: Denies chest pain, palpitations or racing heartbeat Respiratory/Chest Respiratory/Chest: Denies cough, dyspnea or sputum Gastrointestinal Gastrointestinal: Reports abdominal pain, nausea and vomiting; Denies constipation or diarrhea Genitourinary Genitourinary ED: Denies dysuria, hematuria or urinary frequency Musculoskeletal Musculoskeletal: Denies arthralgias, myalgias or neck pain Integumentary Denies abscess, Abrasions or rash Neurologic Neurologic: Denies headache(s), paresthesias or weakness Psychiatric Psychiatric: Reports anxiety; Denies depression, suicidal ideation or suicidal thoughts Endocrine Endocrinology: Denies polydipsia or polyuria EXAM Physical Exam Const Vital Signs: 05/09/21 04:41 05/09/21 06:06 05/09/21 06:44 Temperature 97.1 F L Temperature Source Temporal Pulse Rate 67 98 76 Respiratory Rate 18 16 16 Blood Pressure 153/89 H 103/69 Blood Pressure Mean 110 80 Pulse Ox 100 100 Oxygen Delivery Method Room Air Room Air Positive well nourished General Appearance ED: NAD; Negative for pallor HEENT Reports moist mucous membranes normocephalic and atraumatic Eyes PERRL and EOMs intact bilaterally Resp normal respiratory effort and clear to auscultation bilaterally Cardio regular rate and regular rhythm GI non-distended GI Narrative: Diffuse generalized pain with worse pain over the epigastrium. Auscultation: hyperactive bowel sounds Palpation: soft Neuro CN's II-XII intact bilaterally Sensorium / Orientation: alert, oriented to person, oriented to place and oriented to time Psych thought process normal Mood & Affect: anxious Skin General Skin Exam: Negative for jaundice or pallor MDM MDM MDM Narrative Medical decision making narrative: Patient presenting with abdominal pain and cramping as well as nausea and vomiting. She has a history of Crohn's. Patient was medicated with Toradol, Compazine, Benadryl. She was given a liter of IV fluids. I did obtain blood work and she has no leukocytosis. Hemoglobin is stable at 10.5. Platelets 329. Renal function electrolytes are normal. LFTs are also normal. is negative. I obtained a CT of the abdomen pelvis with IV contrast which is also negative for acute intra-abdominal pathology. Patient feels well enough to go home at this point she will be given prescription for Zofran her request. Impression: 1. Nausea/vomit Lab Data Attestation: I reviewed the patient's lab results. Labs: Laboratory Results - last 24 hr 05/09/21 05/09/21 05/09/21 05:12 05:12 05:12 WBC 9.8 RBC 4.27 Hgb 10.5 L Hct 33.5 L MCV 78.5 L MCH 24.6 L MCHC 31.3 L RDW Std Deviation 46.4 H RDW Coeff of Nneka 16.4 H Plt Count 329 MPV 11.0 Immature Gran % (Auto) 0.400 Neut % (Auto) 73.3 H Lymph % (Auto) 20.4 Pl[place] % (Auto) 4.7 Eos % (Auto) 0.6 Baso % (Auto) 0.6 Absolute Neuts (auto) 7.2 Absolute Lymphs (auto) 2.01 Nucleated RBC % 0 Sodium 141 Potassium 3.4 L Chloride 106 Carbon Dioxide 25.0 Anion Gap 10 BUN 8 Creatinine 0.80 Estim Creat Clear Calc 82.43 Est GFR (MDRD) Af Amer 101 Est GFR (MDRD) Non-Af 83 BUN/Creatinine Ratio 10.0 Glucose 120 H Calcium 9.0 Total Bilirubin 0.40 AST 8 L ALT 13 Alkaline Phosphatase 79 Total Protein 7.6 Albumin 3.8 Globulin 3.8 Albumin/Globulin Ratio 1.0 Lipase 109 Serum , Qual NEGATIVE Radiography Diagnostic Testing: Clinical Impression(s) from Imaging Studies Abdomen/Pelvis CT 05/09/21 05:04 IMPRESSION: No acute abnormal finding in the abdomen or pelvis. Electronically Signed: Pardeep Barahona MD at 6:26 EDT Tel , Service support , Discharge Plan Triage Chief Complaint: Abd Pain ED Provider: Art Dominguez Dx/Rx/DC Orders Instructions: ED Abdominal Pain Unkn Cause Fem Prescriptions: New ondansetron 4 mg tablet,disintegrating 4 mg PO Q8H PRN PRN (Reason: Nausea) Qty: 20 RF: 0 No Action clonazepam 0.5 MG tablet 0.5 mg PO QHS PRN PRN (Reason: Anxiety) RF: 0 citalopram [Celexa] 10 mg Tablet 40 mg PO DAILY RF: 0 clonazepam 0.5 mg tablet RF: 0 Primary Care Provider: Care Physician,No Primary Referrals: Care Physician,No Primary [Primary Care Provider] - Disposition Disposition: Home, Self Care Discharge Date/Time: 05/09/21 06:46
--- NOTE | 2021-05-09 05:04 | CT_ITS ---
STUDY: CT ABDOMEN AND PELVIS WITH CONTRAST REASON FOR EXAM: Female, 40 years old. Abdominal pain, prior appendectomy and cholecystectomy. Crohn''s RADIATION DOSAGE (If Supplied By Facility): CTDIvol = ( 9.04 ) mGy, DLP = ( 540.94 ) mGycm TECHNIQUE: Transaxial images were obtained from the dome of the diaphragm to the symphysis pubis without oral contrast. IV 100mL Isovue-300 was administered. Sagittal and coronal images were reconstructed Individualized dose optimization techniques were used for this CT. COMPARISON: 05/27/2016 FINDINGS: The visualized lung bases are unremarkable. The visualized portions of the heart are within normal limits. Normal liver. There are surgical clips in the gallbladder fossa consistent with a prior cholecystectomy. Normal spleen. Normal pancreas. Normal bilateral adrenal glands. Normal right kidney. Normal left kidney. Normal visualized stomach. Normal small intestine. The terminal ileum is unremarkable. Normal colon. There are surgical clips in the region of the appendix consistent with a prior appendectomy. Normal abdominal aorta. Normal inferior vena cava. Normal retroperitoneum. Normal urinary bladder. Normal visualized uterus. Normal abdominal wall. L5-S1 degenerative disc and endplate disease. Normal thoracolumbar vertebral alignment. CT/Abdomen/Pelvis W IV Cont ONLY IMPRESSION: No acute abnormal finding in the abdomen or pelvis. Electronically Signed: Pardeep Barahona MD at 6:26 EDT Tel , Service support ,
[2021-05-09] MEDS: 0.9% Normal Saline 1,000 ML 1000 ML IV (05:11)
[2021-05-09 05:20] LABS: Absolute Lymphocyte Count 2.01 X10^3/uL (0.83-4.51); Absolute Neutrophil Count 7.2 X10^3/uL (2.0-7.7); Basophil# 0.06 X10^3/uL; Basophil% 0.6 % (0-1); Eosinophil# 0.06 X10^3/uL; Eosinophils% 0.6 % (0-5); Hematocrit 33.5 % (37-47); Hemoglobin 10.5 g/dL (12.0-15.0); Lymphocyte # 2.01 X10^3/ul (0.83-4.51); Lymphocyte % 20.4 % (19-41); Mean Corp Hgb Conc 31.3 g/dL (32-36); Mean Corpuscular Hgb 24.6 pg (27.0-32.0); Mean Corpuscular Volume 78.5 fL (81-99); Monocyte# 0.46 X10^3/uL; Monocyte% 4.7 % (0-10); NRBC Flagged by Analyzer 0 % (0-5); Neutrophil # 7.21 X10^3/uL (2.7-7.7); Neutrophil % 73.3 % (47-70); Platelet Count 329 K/mm3 (150-450); RBC Distribution Width CV 16.4 % (11.6-14.6); RBC Distribution Width SD 46.4 fl (35.1-43.9); Red Blood Count 4.27 M/mm3 (4.2-5.4); White Blood Count 9.8 K/mm3 (4.4-11.0)
[2021-05-09] MEDS: DiphenhydrAMINE 50 MG/ML Syringe 25 MG IV (05:21)
[2021-05-09] MEDS: Ondansetron 4 MG/2 ML Vial IV (05:23)
[2021-05-09] MEDS: Ketorolac 15 MG/ML Vial IV (05:24)
[2021-05-09] MEDS: proCHLORPERazine 10 MG/2 ML Vial IV (05:25)
[2021-05-09 05:30] LABS: Internal QC Validated? YES +Cl - CLEAR BKGD; Pregnancy, Serum, hCG Quali. NEGATIVE Negative
[2021-05-09 05:37] LABS: AST(SGOT) 8 U/L (15-37); Alanine Aminotransfer ALT/SGPT 13 U/L (13-56); Albumin, Serum 3.8 g/dL (3.2-5.0); Alkaline Phosphatase 79 U/L (45-117); Anion Gap 10 (5-15); BUN 8 mg/dL (7-18); Chloride 106 mmol/L (98-107); EST Glomerular Filtration Rate 83 mL/min (>60); Est Glom Filt Rate - Afr Amer 101 mL/min (>60); Estimated Creatinine Clearance 82.43 ml/min; Globulin 3.8 g/dL (2.2-4.2); Glucose 120 mg/dL (74-106); Lipase 109 U/L (73-393); Potassium 3.4 mmol/L (3.5-5.1); Protein, Total 7.6 g/dL (6.4-8.2); Sodium Level 141 mmol/L (136-145)
[2021-05-09 06:06] VITALS: BP 103/69; PULSE 98; RESP 16
[2021-05-09 06:44] VITALS: PULSE 76; RESP 16; O2SAT 100
== END 2021-05-09 06:46 | disposition home or self-care (01) ==
PROVIDERS: Emergency Provider Student in an Organized Health Care Education/Training Program
DX: R10.84 Generalized abdominal pain (principal); R11.2 Nausea with vomiting, unspecified; K50.90 Crohn's disease, unspecified, without complications; F32.A Depression, unspecified; F41.9 Anxiety disorder, unspecified; F17.210 Nicotine dependence, cigarettes, uncomplicated; Z90.49 Acquired absence of other specified parts of digestive tract; Z90.89 Acquired absence of other organs; Z79.899 Other long term (current) drug therapy
CPT/HCPCS: 74177; 80053; 83690; 84703; 85025; 96361; 96374; 96375; 99284; J7030; Q9967; A4216; J2405

== ENCOUNTER 2022-01-15 19:00 | Inpatient (IN) | payer MEDICAID, SELFPAY ==
[2022-01-15 19:02] VITALS: BP 132/77; PULSE 117; RESP 18; TEMP 36.4; O2SAT 96; BMI 24.5
[2022-01-15 19:40] VITALS: PULSE 100
--- NOTE | 2022-01-15 19:50 | EX.ED.SAOD ---
HPI History of Present Illness Chief Complaint: Substance Abuse Informant: patient Narrative Narrative: Patient presents requesting help with detox. She is currently been snorting 1-1/2 g of fentanyl a day and a half a gram of meth a day. She was last in our detox program here 13 months ago. She states she was also in a program through [facility]. She has been following with [facility] on an outpatient basis. Patient states she was in the hospital last night because she was sick. She believes it was because she was detoxing as she had not used in 3 days. PFSH PFS Medical History Abdominal pain despite therapy for Crohn's disease Anxiety Cancer Cancer of appendix Crohns disease Depression DVT (deep venous thrombosis) Smoker Substance abuse Home Medications NK 01/15/22 [History Last Taken Unknown] Allergy/AdvReac Type Severity Reaction Status Date / Time levofloxacin [From Levaquin] AdvReac Severe Other Verified 01/15/22 19:06 stitches AdvReac Intermediate stitches Uncoded 01/15/22 19:06 do not dissolve. 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 ED Constitutional Constitutional ED: Denies chills or fever(s) Eyes Eyes: Denies change in vision or discharge from eye(s) ENT ENT ED: Denies discharge from eye(s), rhinorrhea or sore throat Cardiovascular Cardiovascular: Denies chest pain or palpitations Respiratory/Chest Respiratory/Chest: Denies cough or dyspnea Gastrointestinal Gastrointestinal: Denies abdominal pain, diarrhea, nausea or vomiting Genitourinary Genitourinary ED: Denies difficulty urinating or dysuria Musculoskeletal Musculoskeletal: Denies back pain or extremity pain Integumentary Denies Abrasions or rash Neurologic Neurologic: Denies headache(s) or weakness Psychiatric Psychiatric: Reports anxiety Allergic/Immunologic Allergic/Immunologic ED: Denies lip swelling or urticaria EXAM Physical Exam Const Vital Signs: 01/15/22 19:02 01/15/22 19:40 Temperature 97.5 F L Temperature Source Temporal Pulse Rate 117 H 100 Respiratory Rate 18 Blood Pressure 132/77 H Blood Pressure Mean 95 Pulse Ox 96 Oxygen Delivery Method Room Air Positive well nourished and well developed General Appearance ED: well developed HEENT Reports normocephalic and head/scalp atraumatic Eyes PERRL and EOMs intact bilaterally Neck supple Chest Wall inspection of chest normal and palpation of chest normal Resp normal respiratory effort and clear to auscultation bilaterally Cardio regular rate and regular rhythm GI non-tender Auscultation: hypoactive bowel sounds Palpation: soft Back/Spine no CVA tenderness Extremity normal to inspection Neuro oriented x3 and no sensory deficits noted Sensorium / Orientation: alert Motor Exam: strength 5/5 throughout Psych Attitude: agitated Skin Skin Narrative: Puncture wounds noted to the bilateral antecubital spaces. Patient states this is from IVs when she was in the hospital last night. MDM MDM MDM Narrative Medical decision making narrative: Lab work for ED addiction medicine obtained. Rules of the detox program reviewed with the patient and she agrees. Lab Data Attestation: I reviewed the patient's lab results. Labs: Laboratory Results - last 24 hr 01/15/22 01/15/22 01/15/22 20:14 20:14 20:14 Sodium 138 Potassium 2.8 L Chloride 106 Carbon Dioxide 22.0 Anion Gap 10 BUN 15 Creatinine 1.26 H Estim Creat Clear Calc 51.80 Est GFR (MDRD) Af Amer 59 L Est GFR (MDRD) Non-Af 49 L BUN/Creatinine Ratio 11.9 Glucose 79 Calcium 9.3 Total Bilirubin 0.40 AST 32 ALT 23 Alkaline Phosphatase 94 Total Protein 8.7 H Albumin 4.4 Globulin 4.3 H Albumin/Globulin Ratio 1.0 Serum , Qual NEGATIVE Ethyl Alcohol < 3.0 Treatment and Re-Evaluation Narrative: Chemistry studies reveal low potassium at 2.8. This is replaced orally. Creatinine is slightly bumped at 1.26. LFTs are unremarkable. test is negative. Alcohol is negative. Urine tox screen is pending at this time. Patient be discussed with hospitalist for admission. Discharge Plan Triage Chief Complaint: Substance Abuse ED Provider: Nella Denson Dx/Rx/DC Orders Clinical Impression: Desire for detoxification Prescriptions: No Action NK Primary Care Provider: Care Physician,No Primary Referrals: Care Physician,No Primary [Primary Care Provider] - Disposition Disposition: Acute Care Hospital [facility]
[2022-01-15 20:41] LABS: Internal QC Validated? YES +Cl - CLEAR BKGD; Pregnancy, Serum, hCG Quali. NEGATIVE Negative
[2022-01-15 20:46] LABS: AST(SGOT) 32 U/L (15-37); Alanine Aminotransfer ALT/SGPT 23 U/L (13-56); Albumin, Serum 4.4 g/dL (3.2-5.0); Alkaline Phosphatase 94 U/L (45-117); Anion Gap 10 (5-15); BUN 15 mg/dL (7-18); BUN/Creat Ratio 11.9 RATIO (10-20); Calcium,Total 9.3 mg/dL (8.5-10.1); Chloride 106 mmol/L (98-107); Creatinine, Serum 1.26 mg/dL (0.55-1.02); EST Glomerular Filtration Rate 49 mL/min (>60); Est Glom Filt Rate - Afr Amer 59 mL/min (>60); Globulin 4.3 g/dL (2.2-4.2); Glucose 79 mg/dL (74-106); Potassium 2.8 mmol/L (3.5-5.1); Protein, Total 8.7 g/dL (6.4-8.2); Sodium Level 138 mmol/L (136-145)
[2022-01-15 20:54] LABS: Alcohol, Blood (Medical)-Serum < 3.0 mg/dL
[2022-01-15] MEDS: Potassium Chloride Oral Tablet 20 MEQ 40 MEQ PO (21:23)
--- NOTE | 2022-01-15 21:27 | PCM.HP.STD ---
[facility] - General General Date of Admission: 01/15/22 Date of Service: 01/15/22 Chief Complaint: requesting detox [facility] Narrative BRANDON JIANG, is a 41 F who presents to room requesting detoxification. She has been using opiates for and methamphetamine for the past 3 years. She states she last used this morning and has gone through detoxification 5 times in the past year. She denies chest pain shortness of breath, fevers or chills. She does have high anxiety. [facility] Medical History Abdominal pain despite therapy for Crohn's disease Anxiety Cancer Cancer of appendix Crohns disease Depression DVT (deep venous thrombosis) Smoker Substance abuse Home Medications aripiprazole 2 mg tablet (Abilify) 5 mg PO DAILY mood 01/15/22 [History Last Taken Unknown] citalopram 20 mg tablet 20 mg PO DAILY depression 01/15/22 [History Last Taken Unknown] mirtazapine 7.5 mg tablet 15 mg PO QHS PRN PRN Sleep 01/15/22 [History Last Taken Unknown] Allergy/AdvReac Type Severity Reaction Status Date / Time levofloxacin [From Levaquin] AdvReac Severe Other Verified 01/15/22 19:06 stitches AdvReac Intermediate stitches Uncoded 01/15/22 19:06 do not dissolve. 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 - Lorenzo [employer] ROS Constitutional Constitutional: Denies chills or fatigue Eyes Eyes: Denies blurry vision ENT HEENT: Denies abnormal hearing Cardiovascular Cardiovascular: Denies chest pain Respiratory/Chest Respiratory/Chest: Denies cough Gastrointestinal Gastrointestinal: Denies abdominal pain Genitourinary Genitourinary: Denies dysuria Musculoskeletal Musculoskeletal: Denies back pain Neurologic Neurologic: Denies abnormal gait Psychiatric Psychiatric: Reports anxiety Vital Signs Vital Signs Vital Signs: 01/15/22 19:02 01/15/22 19:40 Temperature 97.5 F L Temperature Source Temporal Pulse Rate 117 H 100 Respiratory Rate 18 Blood Pressure 132/77 H Blood Pressure Mean 95 Pulse Ox 96 Oxygen Delivery Method Room Air Weight Weight: 147 lb 0.773 oz Body Mass Index (BMI) 24.5 Physical Exam Const oriented x3 HEENT normocephalic and head/scalp atraumatic Eyes PERRL Neck supple Lymph Lymphatic: no lymphadenopathy noted Resp normal respiratory effort and normal air movement Effort and Inspection: tachypneic Cardio S1 normal heart sound and S2 normal heart sound Rate: tachycardic GI normal to inspection, nondistended, normoactive bowel sounds and soft to palpation Extremity normal capillary refill Skin General Skin Exam: no breakdown Neuro CN's II-XII intact bilaterally Results Lab / Micro Data Result Diagrams: 01/15/22 20:14 Labs: Laboratory Results - last 24 hr 01/15/22 20:14: Sodium 138, Potassium 2.8 L, Chloride 106, Carbon Dioxide 22.0, Anion Gap 10, BUN 15, Creatinine 1.26 H, Estim Creat Clear Calc 51.80, Est GFR (MDRD) Af Amer 59 L, Est GFR (MDRD) Non-Af 49 L, BUN/Creatinine Ratio 11.9, Glucose 79, Calcium 9.3, Total Bilirubin 0.40, AST 32, ALT 23, Alkaline Phosphatase 94, Total Protein 8.7 H, Albumin 4.4, Globulin 4.3 H, Albumin/Globulin Ratio 1.0 01/15/22 20:14: Ethyl Alcohol < 3.0 01/15/22 20:14: Serum , Qual NEGATIVE Assessment & Plan Assessment/Plan (1) Desire for detoxification: PLAN: Plan 1 opiate addiction/methamphetamine addiction?admit patient for detoxification to general medical floor we will place patient on detoxification protocol and have showcase trimmer see patient for outpatient follow-up care plan Charges/Coding Visit Charges Inpatient E&M: 59635 Init Hosp L3
[2022-01-15 21:28] VITALS: BP 137/91; PULSE 111; RESP 18; TEMP 36.4; O2SAT 99
[2022-01-15 21:40] VITALS: PULSE 111; RESP 16; O2SAT 99
[2022-01-15 21:52] LABS: Amphetamine Urine VISTA POSITIVE (<1000 ng/mL); Barbiturate Urine VISTA NEGATIVE (< 200 ng/mL); Benzodiazepine Urine VISTA NEGATIVE (< 200 ng/mL); Cocaine Urine VISTA NEGATIVE (< 300 ng/mL); Ecstacy Urine VISTA POSITIVE (< 500 ng/mL); Methadone Urine VISTA NEGATIVE (< 300 ng/mL); PCP Urine VISTA NEGATIVE (< 25 ng/mL); THC Urine VISTA NEGATIVE (< 50 ng/mL); Vista UDS pH Range 5
[2022-01-15 22:23] VITALS: BP 129/79; PULSE 106; RESP 16; TEMP 37.1; O2SAT 100
[2022-01-15 22:25] VITALS: BMI 24.5
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
[2022-01-15] MEDS: hydrOXYzine PAM 25 MG Capsule 50 MG PO (22:59)
[2022-01-15] MEDS: Dicyclomine 10 MG Capsule 20 MG PO (22:59)
[2022-01-15] MEDS: traZODone 100 MG Tablet PO (22:59)
[2022-01-15] MEDS: Methocarbamol 750 MG Tablet 1500 MG PO (22:59)
[2022-01-16 04:30] VITALS: BP 112/68; PULSE 75; RESP 18; TEMP 36.6; O2SAT 100
[2022-01-16 06:48] LABS: Anion Gap 7 (5-15); BUN 14 mg/dL (7-18); BUN/Creat Ratio 16.5 RATIO (10-20); Calcium,Total 8.3 mg/dL (8.5-10.1); Chloride 109 mmol/L (98-107); Creatinine, Serum 0.85 mg/dL (0.55-1.02); EST Glomerular Filtration Rate 77 mL/min (>60); Est Glom Filt Rate - Afr Amer 94 mL/min (>60); Estimated Creatinine Clearance 76.79 ml/min; Glucose 91 mg/dL (74-106); Potassium 3.1 mmol/L (3.5-5.1); Sodium Level 139 mmol/L (136-145)
[2022-01-16] MEDS: Potassium Chloride Oral Tablet 20 MEQ 40 MEQ PO (08:14)
[2022-01-16] MEDS: Folic Acid 1 MG Tablet PO (08:14)
[2022-01-16] MEDS: Thiamine Hydrochloride 100 MG Tablet PO (08:14)
[2022-01-16] MEDS: Methocarbamol 750 MG Tablet 1500 MG PO ×3 (08:16→20:48)
[2022-01-16] MEDS: hydrOXYzine PAM 25 MG Capsule 50 MG PO ×3 (08:16→18:22)
[2022-01-16 08:23] VITALS: BP 95/59; PULSE 78; RESP 16; TEMP 37.3; O2SAT 98
[2022-01-16] MEDS: Gabapentin 300 MG Capsule PO ×2 (11:04→20:48)
[2022-01-16] MEDS: Dicyclomine 10 MG Capsule 20 MG PO (11:04)
[2022-01-16 11:16] VITALS: BP 109/49; PULSE 71; RESP 16; TEMP 37.1; O2SAT 100
--- NOTE | 2022-01-16 11:56 | ADDICTION ---
Addendum entered by Margot Mcgee 01/16/22 12:17: [facility] will pick pt up at 2:00pm on 01/18. They will call when they have arrived. Original Note: This designer writer met with PT to conduct ASAM, MSE, AUDIT DUDIT assessments and to plan for d/c. PT A+Ox4 and participated actively. All assessments completed and placed in PT's chart. PT plans to f/u with [facility] in [place] for residential treatment services on if approved. [facility] will provide transportation post d/c from [facility]. Will amend this note once notified of of approval/denial.
[2022-01-16] MEDS: Ondansetron 8 MG Tablet PO (11:58)
--- NOTE | 2022-01-16 13:34 | PCM.PN.HOSP ---
Subjective Subjective Patient states she does not feel great but having no diarrhea, nausea or vomiting at this time. Has a large breakfast tray at the bedside. Objective Data Objective Data Vital Signs: Vital Signs Temp Pulse Resp BP Pulse Ox 98.8 F 71 16 109/49 L 100 01/16/22 11:16 01/16/22 11:16 01/16/22 11:16 01/16/22 11:16 01/16/22 11:16 Oxygen Delivery Method Room Air Weight: 67 kg Body Mass Index (BMI) 24.5 Intake & Output: Intake and Output for Last 24 Hours 01/14/22 01/15/22 01/16/22 23:59 23:59 23:59 Intake Total 610 / 610 Output Total 500 / 500 Balance 110 / 110 Lab / Micro Data Result Diagrams: 01/16/22 06:00 Labs: Laboratory Results - last 24 hr 01/15/22 20:14: Sodium 138, Potassium 2.8 L, Chloride 106, Carbon Dioxide 22.0, Anion Gap 10, BUN 15, Creatinine 1.26 H, Estim Creat Clear Calc 51.80, Est GFR (MDRD) Af Amer 59 L, Est GFR (MDRD) Non-Af 49 L, BUN/Creatinine Ratio 11.9, Glucose 79, Calcium 9.3, Total Bilirubin 0.40, AST 32, ALT 23, Alkaline Phosphatase 94, Total Protein 8.7 H, Albumin 4.4, Globulin 4.3 H, Albumin/Globulin Ratio 1.0 01/15/22 20:14: Ethyl Alcohol < 3.0 01/15/22 20:14: Serum , Qual NEGATIVE 01/15/22 21:20: Urine Opiates Screen POSITIVE H, Urine Methadone Screen NEGATIVE, Ur Barbiturates Screen NEGATIVE, Ur Phencyclidine Scrn NEGATIVE, Ur Amphetamines Screen POSITIVE H, MDMA (Ecstasy) Screen POSITIVE H, U Benzodiazepines Scrn NEGATIVE, Urine Cocaine Screen NEGATIVE, U Cannabinoids Screen NEGATIVE, Ur Drug Screen Comment 01/16/22 06:00: Sodium 139, Potassium 3.1 L, Chloride 109 H, Carbon Dioxide 23.0, Anion Gap 7, BUN 14, Creatinine 0.85, Estim Creat Clear Calc 76.79, Est GFR (MDRD) Af Amer 94, Est GFR (MDRD) Non-Af 77, BUN/Creatinine Ratio 16.5, Glucose 91, Calcium 8.3 L Physical Exam Const alert, oriented x3 and no apparent distress Constitutional Narrative: Middle-aged white female lying in right side-lying in bed, appears nontoxic but appears as if she is not feeling well, appears older than stated age. HEENT head/scalp atraumatic HEENT Narrative: Mucous membranes are moist, Mallampati 2 Resp normal respiratory effort, no retractions, no use of accessory muscles and clear to auscultation bilaterally Resp Narrative: Diffusely diminished but clear Auscultation: Negative for crackles, rales, rhonchi or wheezes Cardio regular rate, regular rhythm, S1 normal heart sound, S2 normal heart sound, no murmurs, no rub, no gallops, no clicks and no JVD GI normal to inspection, nondistended, normoactive bowel sounds, soft to palpation, non-tender and non-distended Extremity no clubbing, cyanosis or edema Extremity Narrative: 2+ pedal pulses Neuro oriented x3, CN's II-XII intact bilaterally, moves all extremities and no focal motor deficits Psych Negative for affect normal Psych Narrative: Affect is flattened mood is depressed Mood & Affect: depressed Assessment & Plan Assessment/Plan (1) Crohns disease: (2) Desire for detoxification: (3) Hypokalemia: (4) Microcytic anemia: PLAN: Plan Acute opiate withdrawal -Patient denies any IV drug use -Has been snorting 1 to 1-1/2 g of fentanyl a day and using half a gram of meth a day -Was in detox program here 13 months ago -Patient states she is also been through a program in [place] -Has been following with [facility] in [place] as an outpatient -Last use was on the morning of admission -Subutex taper ordered based on COWS -Supportive medications -180 consultation Hypokalemia -40 mill equivalents potassium replacement -Repeat BMP in a.m. -If potassium is still low we will check a magnesium on top of BMP Microcytic anemia -Hemoglobin appears to be consistently low in the 10 range and is stable -MCV is low -We will check iron studies and if dramatically low give IV iron if only moderately low we will start oral iron supplementation History of Crohn's disease -Crohn's is documented however patient is on no chronic medications for this -We will investigate further tomorrow as this was be concerning with her anemia Depression -Continue Abilify -Continue citalopram -Continue mirtazapine DVT prophylaxis -Low risk Charges/Coding Visit Charges Inpatient E&M: 41242 Subs Hosp L2
[2022-01-16 14:21] VITALS: BP 124/75; PULSE 60; RESP 18; TEMP 36.8; O2SAT 100
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
[2022-01-16] MEDS: Buprenorphine HCl 2 MG TAB.SUBL 4 MG SL (17:21)
[2022-01-16] MEDS: cloNIDine HCl 0.1 MG Tablet PO (18:22)
[2022-01-16 20:25] VITALS: BP 128/74; PULSE 70; RESP 18; TEMP 36.7; O2SAT 98
[2022-01-16] MEDS: traZODone 100 MG Tablet PO (20:48)
[2022-01-17] MEDS: Buprenorphine HCl 2 MG TAB.SUBL 4 MG SL ×2 (02:13→09:56)
[2022-01-17 05:50] VITALS: BP 105/68; PULSE 72; RESP 16; TEMP 36.4; O2SAT 100
[2022-01-17] MEDS: hydrOXYzine PAM 25 MG Capsule 50 MG PO ×2 (05:50→15:48)
--- NOTE | 2022-01-17 08:12 | NURSING ---
Pt refused am labs this morning. nurse aware.
[2022-01-17] MEDS: Folic Acid 1 MG Tablet PO (09:56)
[2022-01-17] MEDS: Thiamine Hydrochloride 100 MG Tablet PO (09:56)
[2022-01-17] MEDS: Methocarbamol 750 MG Tablet 1500 MG PO (10:11)
[2022-01-17] MEDS: Mineral Oil/Petrolatum Cr 1.75oz Bottle 1 APPLIC TOPICAL (10:11)
[2022-01-17 10:12] LABS: Anion Gap 5 (5-15); BUN 9 mg/dL (7-18); BUN/Creat Ratio 9.7 RATIO (10-20); Calcium,Total 8.4 mg/dL (8.5-10.1); Chloride 106 mmol/L (98-107); Creatinine, Serum 0.93 mg/dL (0.55-1.02); EST Glomerular Filtration Rate 70 mL/min (>60); Est Glom Filt Rate - Afr Amer 85 mL/min (>60); Estimated Creatinine Clearance 70.19 ml/min; Ferritin 5 ng/mL (8-252); Glucose 99 mg/dL (74-106); Iron 13 ug/dL (50-170); Iron Binding Capacity,Total 365 ug/dL (250-450); PERCENT IRON SATURATION 3.6 % (15.0-55.0); Potassium 3.1 mmol/L (3.5-5.1); Sodium Level 137 mmol/L (136-145)
[2022-01-17] MEDS: Citalopram 20 MG Tablet PO (10:12)
[2022-01-17] MEDS: ARIPiprazole 5 MG Tablet PO (10:12)
[2022-01-17] MEDS: Gabapentin 300 MG Capsule PO (10:12)
[2022-01-17 10:36] VITALS: BP 117/66; PULSE 85; RESP 18; TEMP 36.7; O2SAT 100
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
[2022-01-17] MEDS: Potassium Chloride Oral Tablet 20 MEQ 60 MEQ PO (12:50)
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
--- NOTE | 2022-01-17 15:36 | PCM.HOSP.N ---
Hospitalist Note I was called by the floor at approximately 330 to be notified that the patient has elected to leave AGAINST MEDICAL ADVICE.
--- NOTE | 2022-01-17 16:07 | NURSING ---
Attempted to have patient stay and not leave AMA. Very anxious. Medicated with Vistaril but patient still wanting to leave. Offered to call MD to get more meds and patient stated she still wanted to leave. Attempted to call her sister to talk to her about staying but sister did not answer. Pt packed up her belongings and left.
--- NOTE | 2022-01-17 16:09 | NURSING ---
attempted to notify sister as FYI that patient had left. No answer.
--- NOTE | 2022-01-17 16:35 | NURSING ---
Called sister and gave her the update that her sister had left AMA.
== END 2022-01-17 16:15 | disposition left against medical advice (07) | DRG 770 ==
LOC: ED 21:12 → MS3 21:40
PROVIDERS: Admitting Provider Family Medicine; Emergency Provider Emergency Medicine; Visit Provider Internal Medicine
DX: F11.23 Opioid dependence with withdrawal (principal); D50.9 Iron deficiency anemia, unspecified; F15.20 Other stimulant dependence, uncomplicated; E87.6 Hypokalemia; F17.210 Nicotine dependence, cigarettes, uncomplicated; K50.90 Crohn's disease, unspecified, without complications; F32.A Depression, unspecified; Z79.899 Other long term (current) drug therapy; Z53.29 Procedure and treatment not carried out because of patient's decision for other reasons
CPT/HCPCS: 36415; 80048; 80053; 80307; 82077; 82728; 83540; 83550; 84703; 99284; 99406